=== PATIENT | female | born 1960 | race Caucasian/White ===

== ENCOUNTER 2019-05-31 15:08 | Outpatient (RCR) | payer MEDICARE, SELFPAY | END 2019-06-13 00:01 | LOC: WOUND 15:08 | PROVIDERS: Family Provider Nurse Practitioner Family; Visit Provider Nurse Practitioner Family | DX: I87.2 Venous insufficiency (chronic) (peripheral) (principal); L97.812 Non-pressure chronic ulcer of other part of right lower leg with fat layer exposed; I96 Gangrene, not elsewhere classified; M79.604 Pain in right leg | CPT/HCPCS: 11042; 87070; 87077; 87176; 87186 ×2; 87205; 93970 ==

== ENCOUNTER 2019-07-12 10:08 | Outpatient (RCR) | payer MEDICARE, SELFPAY | END 2019-07-14 23:59 | disposition home or self-care (01) | LOC: WOUND 10:08 | PROVIDERS: Family Provider Nurse Practitioner Family; PCP Nurse Practitioner Family; Visit Provider Nurse Practitioner Family | DX: I87.2 Venous insufficiency (chronic) (peripheral) (principal); L97.812 Non-pressure chronic ulcer of other part of right lower leg with fat layer exposed | CPT/HCPCS: 11042; 11045 ==

== ENCOUNTER 2019-08-09 13:01 | Outpatient (RCR) | payer MEDICARE, SELFPAY | END 2019-08-12 23:59 | disposition home or self-care (01) | LOC: WOUND 13:01 | PROVIDERS: Family Provider Nurse Practitioner Family; PCP Nurse Practitioner Family; Visit Provider Nurse Practitioner Family | DX: I87.2 Venous insufficiency (chronic) (peripheral) (principal); L97.812 Non-pressure chronic ulcer of other part of right lower leg with fat layer exposed | CPT/HCPCS: 11042; 11045; 87070; 87077; 87176; 87186; 87205 ==

== ENCOUNTER 2019-09-04 09:48 | Outpatient (RCR) | payer MEDICARE, SELFPAY | END 2019-09-12 23:59 | disposition home or self-care (01) | LOC: WOUND 09:48 | PROVIDERS: Family Provider Nurse Practitioner Family; PCP Nurse Practitioner Family; Visit Provider Nurse Practitioner Family | DX: I87.2 Venous insufficiency (chronic) (peripheral) (principal); L97.812 Non-pressure chronic ulcer of other part of right lower leg with fat layer exposed | CPT/HCPCS: 11042; 11045 ==

== ENCOUNTER 2019-10-12 10:57 | Outpatient (RCR) | payer MEDICARE, SELFPAY | END 2019-10-12 23:59 | disposition home or self-care (01) | LOC: WOUND 10:57 | PROVIDERS: Family Provider Nurse Practitioner Family; PCP Nurse Practitioner Family; Visit Provider Nurse Practitioner Family | DX: I87.2 Venous insufficiency (chronic) (peripheral) (principal); L97.812 Non-pressure chronic ulcer of other part of right lower leg with fat layer exposed | CPT/HCPCS: 11042; 11045 ==

== ENCOUNTER 2019-10-26 10:53 | Outpatient (CLI) | payer MEDICARE, SELFPAY | END 2019-10-26 10:54 | disposition home or self-care (01) | LOC: WOUND 10:55 | PROVIDERS: Family Provider Nurse Practitioner Family; PCP Nurse Practitioner Family; Visit Provider Nurse Practitioner Family | DX: I87.2 Venous insufficiency (chronic) (peripheral) (principal); L97.812 Non-pressure chronic ulcer of other part of right lower leg with fat layer exposed | CPT/HCPCS: 11042 ==

== ENCOUNTER 2019-11-16 14:23 | Outpatient (CLI) | payer MEDICARE, SELFPAY | END 2019-11-16 14:24 | disposition home or self-care (01) | LOC: WOUND 14:25 | PROVIDERS: Family Provider Nurse Practitioner Family; PCP Nurse Practitioner Family; Visit Provider Nurse Practitioner Family | DX: I87.2 Venous insufficiency (chronic) (peripheral) (principal); L97.812 Non-pressure chronic ulcer of other part of right lower leg with fat layer exposed | CPT/HCPCS: 11042 ==

== ENCOUNTER 2019-12-07 14:43 | Outpatient (CLI) | payer MEDICARE, SELFPAY | END 2019-12-07 14:44 | disposition home or self-care (01) | LOC: WOUND 14:46 | PROVIDERS: Family Provider Nurse Practitioner Family; PCP Nurse Practitioner Family; Visit Provider Nurse Practitioner Family | DX: I87.2 Venous insufficiency (chronic) (peripheral) (principal); L97.812 Non-pressure chronic ulcer of other part of right lower leg with fat layer exposed | CPT/HCPCS: 11042 ==

== ENCOUNTER 2020-01-01 08:44 | Outpatient (CLI) | payer MEDICARE, SELFPAY | END 2020-01-01 08:45 | disposition home or self-care (01) | PROVIDERS: Family Provider Nurse Practitioner Family; PCP Nurse Practitioner Family; Visit Provider Nurse Practitioner Family | DX: I87.2 Venous insufficiency (chronic) (peripheral) (principal); L97.812 Non-pressure chronic ulcer of other part of right lower leg with fat layer exposed | CPT/HCPCS: 11042 ==

== ENCOUNTER 2020-01-15 08:52 | Outpatient (CLI) | payer MEDICARE, SELFPAY | END 2020-01-15 08:53 | disposition home or self-care (01) | LOC: WOUND 08:54 | PROVIDERS: Family Provider Nurse Practitioner Family; PCP Nurse Practitioner Family; Visit Provider Nurse Practitioner Family | DX: I87.2 Venous insufficiency (chronic) (peripheral) (principal); L97.812 Non-pressure chronic ulcer of other part of right lower leg with fat layer exposed | CPT/HCPCS: 11042 ==

== ENCOUNTER 2020-01-29 09:45 | Outpatient (CLI) | payer MEDICARE, SELFPAY | END 2020-01-29 09:46 | disposition home or self-care (01) | LOC: WOUND 09:46 | PROVIDERS: Family Provider Nurse Practitioner Family; PCP Nurse Practitioner Family; Visit Provider Nurse Practitioner Family | DX: I87.2 Venous insufficiency (chronic) (peripheral) (principal); L97.812 Non-pressure chronic ulcer of other part of right lower leg with fat layer exposed | CPT/HCPCS: 11042; 87070; 87077; 87176; 87186; 87205 ==

== ENCOUNTER 2020-02-29 13:01 | Outpatient (CLI) | payer MEDICARE, SELFPAY | END 2020-02-29 13:02 | disposition home or self-care (01) | LOC: WOUND 13:02 | PROVIDERS: Family Provider Nurse Practitioner Family; PCP Nurse Practitioner Family; Visit Provider Nurse Practitioner Family | DX: I87.2 Venous insufficiency (chronic) (peripheral) (principal); L97.812 Non-pressure chronic ulcer of other part of right lower leg with fat layer exposed | CPT/HCPCS: 11042 ==

== ENCOUNTER 2020-03-18 10:51 | Outpatient (CLI) | payer MEDICARE, SELFPAY | END 2020-03-18 10:52 | disposition home or self-care (01) | LOC: WOUND 10:51 | PROVIDERS: Family Provider Nurse Practitioner Family; PCP Nurse Practitioner Family; Visit Provider Nurse Practitioner Family | DX: I87.2 Venous insufficiency (chronic) (peripheral) (principal); L97.812 Non-pressure chronic ulcer of other part of right lower leg with fat layer exposed | CPT/HCPCS: 11042 ==

== ENCOUNTER 2020-04-08 15:27 | Outpatient (CLI) | payer MEDICARE, SELFPAY ==
[2020-04-08 15:54] LABS: Basophils % 0.5 %; Eosinophils # 0.2 10^3/uL (0.0-0.8); Eosinophils % 2.2 %; Hematocrit 48.7 % (37.0-47.0); Hemoglobin 14.8 g/dL (11.5-15.3); Lymphocytes # 1.9 10^3/uL (0.8-4.8); Lymphocytes % 25.6 %; Mean Corpuscular HGB Conc 30.4 g/dL (30.0-36.0); Mean Corpuscular Hemoglobin 28.3 pg (28.0-34.0); Mean Corpuscular Volume 93.1 fL (81-99); Mean Platelet Volume 10.2 fL (7.4-10.4); Monocytes # 0.4 10^3/uL (0.2-0.9); Neutrophils # 4.82 10^3/uL (1.8-7.7); Neutrophils % 65.6 %; Nucleated Red Blood Cells % 0 %; Platelet Count 260 10^3/cmm (130-400); Red Blood Count 5.23 10^6/uL (4.1-5.3); Red Cell Distribution Width 14.2 % (12.1-15.1); White Blood Count 7.4 10^3/uL (4.0-10.0)
[2020-04-08 16:39] LABS: Alanine Aminotransferase 16 U/L (0-33); Albumin Level 3.8 g/dL (3.5-5.2); Alkaline Phosphatase 105 IU/L (35-105); Aspartate Amino Transferase 15 U/L (0-32); Blood Urea Nitrogen 12 mg/dL (6-20); Calcium 8.6 mg/dL (8.5-10.5); Carbon Dioxide 30 mmol/L (22-29); Chloride 102 mmol/L (98-107); Chol HDL Ratio 3.25 mg/dL (0.0-4.40); Cholesterol 130 mg/dL (0-200); Globulin 3.6 g/dL (1.3-4.6); Glomerular Filtration Rate 127.2 mL/min (90-130); Glucose 107 mg/dL (65-115); HDL Cholesterol 40 mg/dL (60-100); LDL Cholesterol Calculated 69 mg/dL (50-129); Osmolality Calculated 290 mOsm/kg (285-295); Sodium 140 mmol/L (136-145); Total Bilirubin 0.3 mg/dL (0.15-1.2); Total Protein 7.4 g/dL (6.6-8.7); Triglycerides 103 mg/dL (0-150); VLDL Cholestrol Calculation 21 mg/dL (0-30)
== END 2020-04-08 15:28 | disposition home or self-care (01) ==
LOC: LAB 15:28
PROVIDERS: Nurse Practitioner; Family Provider Nurse Practitioner Family; PCP Nurse Practitioner Family; Visit Provider Family Medicine
DX: I87.2 Venous insufficiency (chronic) (peripheral) (principal); L97.812 Non-pressure chronic ulcer of other part of right lower leg with fat layer exposed
CPT/HCPCS: 80053; 80061; 85025

== ENCOUNTER 2020-08-13 06:59 | Outpatient (CLI) | payer MEDICARE, SELFPAY ==
--- NOTE | 2020-08-13 07:00 | USCV_ITS ---
Evelyn Vail Age: 59 Gender: F : 1960 Exam Date: 08/13/2020 07:19 Ordering Phys: Carlene Taylor Technologist: Jaclyn Ratliff Exam Location: [facility] [place]_ Indication: CELLULITIS HISTORY: PT ST 550 LBS DENIES DM VERY EDEMATOUS PROCEDURES: Venous duplex imaging was performed in only the left lower extremity. The following venous structures were evaluated: common femoral vein, profunda vein, proximal portion of the greater saphenous vein, superficial femoral vein, and the popliteal vein. In addition, the posterior tibial and peroneal trunk were evaluated. FINDINGS: No gross evidence dvt. Distal sff not well seen. Very edematous Multiple echo lucencies were noted in the subcutaneous tissue. CONCLUSIONS No obvious DVT was noted in the left lower extremity Difficult to visualize the veins of the lower leg. Features of marked edema were noted Dr Yolanda Scott MD [facility] (Electronically Signed) Final Date: 14 August 2020 05:51 S
== END 2020-08-13 07:00 | disposition home or self-care (01) ==
LOC: RAD 07:02
PROVIDERS: PCP Nurse Practitioner Family; Visit Provider Nurse Practitioner
DX: R60.0 Localized edema (principal); L03.90 Cellulitis, unspecified
CPT/HCPCS: 93971

== ENCOUNTER 2020-08-13 07:42 | Emergency (ER) | payer MEDICARE, SELFPAY ==
[2020-08-13 07:47] VITALS: BP 186/95; PULSE 85; RESP 18; TEMP 36.8; O2SAT 96; BMI 86.1
[2020-08-13 08:13] VITALS: PULSE 77; RESP 18; O2SAT 96
--- NOTE | 2020-08-13 08:18 | ED_ITS ---
HPI - Extremity Problem General: Chief complaint: Extremity Problem,Nontraumatic Stated complaint: Lt leg infection/pain Time Seen by Provider: 08/13/20 07:46 History of Present Illness: HPI Narrative: 59-year-old female who comes in complaining of left leg pain. Patient has chronic lymphedema. She was seen a week ago and their primary care clinic and started on Keflex did not really seem to improve at all she was referred for a venous duplex of the left lower leg which she had this morning she was verbally told by the tech there was no DVT there. Reports not yet available. Patient decided since she was here she would just be seen in the emergency room rather than return to her primary care clinic this morning. MD Complaint: extremity pain and extremity swelling Onset (ago): week(s) (1) Pain Consistency: constant Location: left and lower extremity Quality: aching Radiation: none Relieving factors: nothing Exacerbating factors: walking and palpation Associated symptoms: Reports rash; Deny arthralgias, chest pain, fever(s), myalgias or short of breath Context: immobilization (Chronic sedentary) and other (Chronic lymphedema) Review of Systems Const: Denies: fever(s) ENMT: Denies: throat pain, ear or mastoid pain, nasal discharge or nasal congestion Card: Denies: chest pain Resp: Denies: dyspnea, productive cough or non-productive cough GI: Denies: abdominal pain, nausea, vomiting or diarrhea : Denies: flank pain, difficulty voiding, dysuria, urinary frequency or urinary urgency Skin/Breast: Reports: rash PFSH ED PFSH: Medical History Chronic acquired lymphedema Chronic osteoarthritis Fibromyalgia Hypertension Hyperthyroidism Morbid obesity Peripheral vascular disease Sleep apnea Vitamin D deficiency Surgical History History of delivery Hx of cholecystectomy Hx of hysterectomy Family History Other Cancer Diabetes Social History Smoking and tobacco status: current every day smoker cigarettes Packs smoked per day: 1 Second hand smoke exposure: Yes Smoking risk assessment/counseling performed?: Yes Alcohol intake: never Desire information about alcohol rehabilitation?: No Counseling given: No Desire information about substance/drug rehabilitation?: No Counseling given: No Caregiver/support person: No Lives independently: Yes Household members: spouse Housing: House Marital status: Number of children: 2 Number of grandchildren: 3 Highest education level completed: High School Graduate service: No Current occupational status: disabled Pets and animals: No Current gender identity: Female Female Reproductive History: Para: 2 Physical Exam Const: COMMON NORMALS: no acute distress GENERAL APPEARANCE: cooperative and comfortable ORIENTATION/CONSCIOUSNESS: Yes awake, Yes oriented to person, Yes oriented to place and Yes oriented to time HENMT: COMMON NORMALS: normocephalic, atraumatic and hearing grossly normal bilaterally HEAD & SCALP: normocephalic and atraumatic Neck/C-Spine: COMMON NORMALS: no JVD Resp: COMMON NORMALS: normal respiratory effort, No retractions, No use of accessory muscles and clear to auscultation bilaterally AUSCULTATION: clear to auscultation bilaterally Cardio: COMMON NORMALS: no JVD, regular rate, regular rhythm and No murmurs present (Cardio) RATE: regular rate RHYTHM: regular rhythm GI: COMMON NORMALS: Soft to palpation and No hepatosplenomegaly present AUSCULTATION: Yes normoactive bowel sounds PALPATION: Yes Soft to palpation, No Tenderness to palpation present (GI), No Guarding due to palpation present (GI) and Yes No hepatosplenomegaly present Extremity: NARRATIVE EXTREMITY EXAM: Bilateral profound lymphedema with skin rolls at the ankles. There is a right lateral ulcer just above the lateral malleolus. Its approximately 2 inches irregular round. There is a mucousy base eschar with no significant erythema no active drainage. The left lower leg from the knee to the ankle is significantly more edematous with bullous formation of the skin it is erythematous and moderately tender to the touch examination of the posterior aspect the leg there is no appearance of skin breakdown or ulceration at this time. The skin itself is erythematous and warm to the touch with increased induration of the skin compared to the right lower leg. Neuro: SENSORIUM/ORIENTATION: Yes oriented to person, Yes oriented to place and Yes oriented to time Course Vital Signs: Vital signs: Vital Signs Temperature 98.2 F 08/13/20 07:47 Pulse Rate 79 08/13/20 09:00 Respiratory Rate 20 H 08/13/20 09:00 Blood Pressure 186/95 08/13/20 07:47 Pulse Oximetry 98 08/13/20 09:00 MDM - Extremity (Nontraumatic) MDM Narrative: Medical decision making narrative: We will change her to Bactrim. Recommended to her that she follow-up with wound care. Very concerned about that right lateral ankle wound is fairly large looks chronic with her chronic lymphedema in the setting will likely linger on if not aggressively treated. I suspect she may also develop something with the significant amount of lymphedema she has on the left leg she states she has been to wound care in the past and does not wish to follow-up with them again. With home health has been applying dressings to the legs. Despite encouragement she continues to decline our only other recourse at this point is have her follow-up with her primary care physician. Lab Data: Labs: Lab Results 08/13/20 08/13/20 08/13/20 Range/Units 08:43 08:43 09:25 WBC Cancelled 6.4 Corrected WBC Cancelled RBC Cancelled 4.82 Hgb Cancelled 13.4 Hct Cancelled 43.9 MCV Cancelled 91.1 MCH Cancelled 27.8 L MCHC Cancelled 30.5 RDW Cancelled 13.8 Plt Count Cancelled 290 MPV Cancelled 9.2 Gran % Cancelled Neut % (Auto) Cancelled 69.1 Lymph % (Auto) Cancelled 20.8 [place] % (Auto) Cancelled 7.7 Eos % (Auto) Cancelled 1.6 Baso % (Auto) Cancelled 0.6 Neut # (Auto) Cancelled 4.41 Lymph # (Auto) Cancelled 1.3 [place] # (Auto) Cancelled 0.5 Eos # (Auto) Cancelled 0.1 Baso # (Auto) Cancelled 0.0 Absolute Gran (aut o) Cancelled Nucleated RBC % (a uto) Cancelled 0 Nucleated RBCs # Cancelled 0.0 Sodium 138 (136-145) mmol/L Potassium 4.5 (3.5-5.1) mmol/L Chloride 100 (98-107) mmol/L Carbon Dioxide 30 H (22-29) mmol/L Anion Gap 12.5 (5-19) BUN 10 (6-20) mg/dL Creatinine 0.5 (0.5-0.9) mg/dL GFR Calculation 127.2 (90-130) mL/min Glucose 103 (65-115) mg/dL Calculated Osmolal ity 285 (285-295) mOsm/k g Calcium 8.3 L (8.5-10.5) mg/dL Total Bilirubin 0.3 (0.15-1.2) mg/dL AST 17 (0-32) U/L ALT 17 (0-33) U/L Alkaline Phosphata se 103 (35-105) IU/L Total Protein 7.1 (6.6-8.7) g/dL Albumin 3.4 L (3.5-5.2) g/dL Globulin 3.7 (1.3-4.6) g/dL Discharge Plan Discharge Patient Disposition: Home Clinical Impression: Cellulitis, Chronic acquired lymphedema Condition: Stable Prescriptions: New Bactrim DS 800-160 mg tablet 1 tab PO BID Qty: 14 RF: 0 No Action zonisamide 100 mg capsule 100 mg PO BID Qty: 60 RF: 2 amitriptyline 25 mg tablet 25 mg PO .at bedtime Qty: 30 RF: 2 fluoxetine [Prozac] 20 mg capsule 20 mg PO BID RF: 0 Probiotic Digestive Care 20 billion cell capsule 20 cell PO .2 times day Qty: 60 RF: 0 lisinopril-hydrochlorothiazide 20-25 mg tablet 1 tab PO QDAY Qty: 30 RF: 5 methocarbamol 500 mg tablet 500 mg PO BID Qty: 60 RF: 5 meloxicam 15 mg tablet 15 mg PO QDAY 30 Days Qty: 30 RF: 5 acetaminophen-codeine 300-60 mg tablet 1 tab PO Q8H PRN (Reason: pain) Qty: 90 RF: 0 cephalexin 500 mg capsule 500 mg PO TID 10 Days Qty: 30 RF: 0 miscellaneous medical supply Misc 1 each miscellaneous .one time Qty: 1 RF: 0 (DME) wheelechair repair [id number] See Rx Instructions .Route .MEDSUPPLY Qty: 1 RF: 0 Discharge Orders: Discharge ED (Routine); Ordered 08/13/20 Ordered By: Lionel Oneill Referrals: Althea Johnson FNP-C [Primary Care Provider] - Discharge Diet: Usual diet Discharge Activity: Resume usual activity Patient Instructions: Opioid Safety Coding Level of Care Code ED Marketing Content Specialist for Chg Fwd Exam Detailed
--- NOTE | 2020-08-13 08:53 | PC.NURSE ---
patient stated she had puncture wound to right lower leg x [address].
[2020-08-13 09:00] VITALS: PULSE 79; RESP 20; O2SAT 98
[2020-08-13 09:11] LABS: Alanine Aminotransferase 17 U/L (0-33); Albumin Level 3.4 g/dL (3.5-5.2); Alkaline Phosphatase 103 IU/L (35-105); Blood Urea Nitrogen 10 mg/dL (6-20); Calcium 8.3 mg/dL (8.5-10.5); Carbon Dioxide 30 mmol/L (22-29); Chloride 100 mmol/L (98-107); Globulin 3.7 g/dL (1.3-4.6); Glomerular Filtration Rate 127.2 mL/min (90-130); Glucose 103 mg/dL (65-115); Osmolality Calculated 285 mOsm/kg (285-295); Sodium 138 mmol/L (136-145); Total Bilirubin 0.3 mg/dL (0.15-1.2); Total Protein 7.1 g/dL (6.6-8.7)
[2020-08-13 09:19] LABS: Anion Gap 12.5 (5-19); Potassium 4.5 mmol/L (3.5-5.1)
[2020-08-13 09:20] LABS: Aspartate Amino Transferase 17 U/L (0-32)
[2020-08-13] MEDS: HYDROcodone-acetaminophen 5-325 mg Tablet 1 TAB PO (09:30)
[2020-08-13 09:34] LABS: Basophils % 0.6 %; Eosinophils # 0.1 10^3/uL (0.0-0.8); Eosinophils % 1.6 %; Hematocrit 43.9 % (37.0-47.0); Hemoglobin 13.4 g/dL (11.5-15.3); Lymphocytes # 1.3 10^3/uL (0.8-4.8); Lymphocytes % 20.8 %; Mean Corpuscular HGB Conc 30.5 g/dL (30.0-36.0); Mean Corpuscular Hemoglobin 27.8 pg (28.0-34.0); Mean Corpuscular Volume 91.1 fL (81-99); Mean Platelet Volume 9.2 fL (7.4-10.4); Monocytes # 0.5 10^3/uL (0.2-0.9); Monocytes % 7.7 %; Neutrophils # 4.41 10^3/uL (1.8-7.7); Neutrophils % 69.1 %; Nucleated Red Blood Cells % 0 %; Platelet Count 290 10^3/cmm (130-400); Red Blood Count 4.82 10^6/uL (4.1-5.3); Red Cell Distribution Width 13.8 % (12.1-15.1); White Blood Count 6.4 10^3/uL (4.0-10.0)
[2020-08-13 10:10] VITALS: BP 187/102; PULSE 76; RESP 18; O2SAT 97
== END 2020-08-13 10:12 | disposition home or self-care (01) ==
PROVIDERS: Emergency Provider Family Medicine; PCP Nurse Practitioner Family
DX: L03.116 Cellulitis of left lower limb (principal); I89.0 Lymphedema, not elsewhere classified; I10 Essential (primary) hypertension; F17.210 Nicotine dependence, cigarettes, uncomplicated; R60.0 Localized edema; L03.90 Cellulitis, unspecified
CPT/HCPCS: 36415; 80053; 85025; 87040; 93971; 99283

== ENCOUNTER 2020-12-27 14:25 | Outpatient (CLI) | payer MEDICARE, SELFPAY | END 2020-12-27 14:26 | disposition home or self-care (01) | LOC: LAB 14:27 | PROVIDERS: PCP Nurse Practitioner Family; Visit Provider Nurse Practitioner | DX: I87.2 Venous insufficiency (chronic) (peripheral) (principal) | CPT/HCPCS: 87070; 87077; 87186 ==

== ENCOUNTER → 2021-01-07 14:57 | Outpatient (BNVA) | payer MEDICARE, SELFPAY | PROVIDERS: PCP Nurse Practitioner Family; Visit Provider Nurse Practitioner Family | DX: J02.9 Acute pharyngitis, unspecified (principal); K12.1 Other forms of stomatitis | CPT/HCPCS: 87071; 87880 ==

== ENCOUNTER 2022-04-09 12:07 | Inpatient (IN) | payer MEDICARE, SELFPAY ==
[2022-04-09] VITALS (24 sets, daily range): BP systolic 101–145; BP diastolic 58–71; PULSE 53–90; RESP 18–22; TEMP 36.5–36.6; O2SAT 79–96
--- NOTE | 2022-04-09 | CTR_ITS ---
PROCEDURE INFORMATION: Exam: CT Right Lower Extremity Without Contrast, Foot Exam date and time: 04/09/2022 6:06 PM Age: 61 years old Clinical indication: Cellulitis and edema and other: Crater; Location not specified; Foot; Right; Additional info: Cellulitis, with crater in above RT ankle. TECHNIQUE: Imaging protocol: CT of the Right lower extremity without contrast was performed. Exam focused on the foot. Radiation optimization: All CT scans at this facility use at least one of these dose optimization techniques: automated exposure control; mA and/or kV adjustment per patient size (includes targeted exams where dose is matched to clinical indication); or iterative reconstruction. COMPARISON: CR XR foot RT min 3V* [id number] 01/12/2017 1:33 PM RADIATION DOSE METRICS: Total DLP (mGy-cm): 4038.56 FINDINGS: Bones/joints: See Soft tissues finding. Soft tissues: Large amount diffuse subcutaneous edema throughout the lower extremity without focal fluid collection to indicate an abscess or acute appearing bony abnormality. Suspected cutaneous skin ulcer over the lateral aspect of the distal fibula. CT/CT lower leg RT w con [id number] IMPRESSION: 1. Large amount diffuse subcutaneous edema throughout the lower extremity without focal fluid collection to indicate an abscess or acute appearing bony abnormality. 2. Suspected cutaneous skin ulcer over the lateral aspect of the distal fibula.
--- NOTE | 2022-04-09 12:27 | W.ED.EXTPRO ---
HPI - Extremity Problem General: Chief complaint: Extremity Problem,Nontraumatic Stated complaint: Leg pain, fever Time Seen by Provider: 04/09/22 12:27 History of Present Illness: Ms. Vail is a 61-year-old lady with history of hypertension, peripheral vascular disease, lymphedema, obesity presenting to the emergency department due to concern over cute infection of chronic wound. She has had a right lower extremity wound for approximately 5 years. She previously saw wound care that did not have significant improvement because of her wound she is unable to be seen by the lymphedema team. 3 days ago she developed increased pain, redness, swelling, fevers, chills, nausea, and vomiting. Course of symptoms has worsened. Intensity is moderate to severe. Was seen by primary care and referred to emergency department for further evaluation. Onset (ago): day(s) Pain Consistency: constant Location: right and lower extremity Exacerbating factors: weight bearing and walking Associated symptoms: Reports fever(s) and other Review of Systems General: Reports: 10 or more systems reviewed and unremarkable except in HPI and below Const: Reports: fever(s) PFSH ED PFSH: Medical History Chronic acquired lymphedema Chronic osteoarthritis Fibromyalgia YAKOV (generalized anxiety disorder) Hypertension Hyperthyroidism Morbid obesity Peripheral vascular disease Sleep apnea Vitamin D deficiency Surgical History History of delivery Hx of cholecystectomy Hx of hysterectomy Family History Other Cancer Diabetes Social History Smoking and tobacco status: never smoked Second hand smoke exposure: Yes Smoking risk assessment/counseling performed?: Yes Alcohol intake: never Desire information about alcohol rehabilitation?: No Counseling given: No Desire information about substance/drug rehabilitation?: No Counseling given: No Caregiver/support person: No Lives independently: Yes Household members: spouse Housing: House Marital status: Number of children: 2 Number of grandchildren: 3 Highest education level completed: High School Graduate service: No Current occupational status: disabled Pets and animals: No Current gender identity: Female Female Reproductive History: Para: 2 Physical Exam Const: COMMON NORMALS: alert GENERAL APPEARANCE: cooperative and well developed HENMT: COMMON NORMALS: normocephalic and atraumatic HEAD & SCALP: normocephalic and atraumatic Eye: COMMON NORMALS: conjunctivae normal CONJUNCTIVA: Yes conjunctivae normal SCLERA: sclerae normal Neck/C-Spine: COMMON NORMALS: supple GENERAL: Yes trachea midline Resp: COMMON NORMALS: normal respiratory effort EFFORT & INSPECTION: Yes able to speak in complete sentences Cardio: COMMON NORMALS: regular rate and regular rhythm RATE: regular rate RHYTHM: regular rhythm GI: COMMON NORMALS: Soft to palpation PALPATION: Yes Soft to palpation and No Tenderness to palpation present (GI) PERCUSSION: normal to percussion Extremity: NARRATIVE EXTREMITY EXAM: Significant bilateral lower extremity lymphedema with chronic skin changes. Right lower extremity anterior lateral [place] region open wound. Wound is approximately 6 cm x 3 cm with a depth of approximately 2 cm. Fibrinous material at base of wound. Difficult to assess surrounding erythema again given chronic skin changes associated with edema and vascular disease. GENERAL: Yes normal exam except as noted and No edema Neuro: COMMON NORMALS: moves all extremities SENSORIUM/ORIENTATION: Yes alert and No Orientation impaired Psych: COMMON NORMALS: mental status grossly normal and Normal thought process present THOUGHT PROCESS: Normal thought process present Course Vital Signs: Vital signs: Vital Signs Temperature 98.2 F 04/12/22 15:30 Pulse Rate 67 04/12/22 18:12 Respiratory Rate 22 H 04/12/22 18:00 Blood Pressure 95/45 04/12/22 18:00 Pulse Oximetry 95 04/12/22 18:12 Oxygen Delivery Me thod 04/12/22 15:46 Oxygen Flow Rate 70 04/12/22 08:00 Fraction of Inspir ed Oxygen 65 04/12/22 18:12 MDM - Extremity (Nontraumatic) Medical Decision Making 61-year-old lady presenting with systemic symptoms and concern over acute on chronic wound infection. Patient has marked lymphedema and is mildly ill on exam. Lymphedema and chronic skin changes limits true skin assessment of erythema around the chronic wound though I do suspect in the absence of other reported symptoms at this is source of infection. Laboratory studies notable for leukocytosis. Metabolic panel with mild evidence of intravascular depletion with sodium 127 chloride 92, creatinine 1.2. T bili and AST are increased, unclear etiology. CRP and procalcitonin are markedly increased. 4+ bacteria on urinalysis though no clear other evidence of urinary tract infection, ?contamination. No COVID. During ED course analgesia, fluids, vancomycin, cefepime, metronidazole ordered given penicillin allergy for concern over skin source of infection. Based on ED evaluation I believe that the patient requires inpatient management of acute on chronic wound with evidence of systemic infection. The results of ED evaluation were discussed with the patient including plan for admission due to requirement for level of care not available if discharged to prevent significant worsening/deterioration. Patient agreeable with plan. Hospitalist service contacted and agreed to admit the patient. Medical Records I reviewed the patient's medical records. Lab Data I reviewed the patient's lab results. : 04/12/22 03:40 04/12/22 03:40 Radiology Impressions Lower Extremity CT 04/09/22 00:00 IMPRESSION: 1. Large amount diffuse subcutaneous edema throughout the lower extremity without focal fluid collection to indicate an abscess or acute appearing bony abnormality. 2. Suspected cutaneous skin ulcer over the lateral aspect of the distal fibula. KUB X-Ray 04/11/22 07:37 IMPRESSION: Nonspecific bowel gas pattern, as noted above. Renal Ultrasound 04/12/22 15:56 IMPRESSION: 1. Examination is limited secondary to body habitus. 2. Urinary bladder is not visualized. 3. The abdominal aorta is obscured. 4. No obvious hydronephrosis. 5. Probable echogenic right renal cortex compared to the liver consistent with bilateral medical renal disease. Laboratory Results WBC 12.6 10^3/uL (4.0-10.0) H 04/09/22 14:25 RBC 4.86 10^6/uL (4.1-5.3) 04/09/22 14:25 Hgb 13.9 g/dL (11.5-15.3) 04/09/22 14:25 Hct 43.3 % (37.0-47.0) 04/09/22 14:25 MCV 89.1 fl (81-99) 04/09/22 14:25 MCH 28.6 pg (28.0-34.0) 04/09/22 14:25 MCHC 32.1 g/dL (30.0-36.0) 04/09/22 14:25 RDW 16.8 % (12.1-15.1) H 04/09/22 14:25 Plt Count 145 10^3/cmm (130-400) 04/09/22 14:25 MPV 10.4 fL (7.4-10.4) 04/09/22 14:25 Lymph % (Auto) Not Reportable 04/09/22 14:25 [place] % (Auto) Not Reportable 04/09/22 14:25 Lymph # (Auto) Not Reportable 04/09/22 14:25 [place] # (Auto) Not Reportable 04/09/22 14:25 Total Counted 100 (0-100) 04/09/22 14:25 Atypical Lymphs % 1.0 % (0-5) 04/09/22 14:25 Absolute Neutrophils 11.8 10^3/cmm (1.4-6.5) H 04/09/22 14:25 Segmented Neutrophils 91 % 04/09/22 14:25 Abs Segm Neuts (Man) 11.5 10/cmm (1.6-7.1) H 04/09/22 14:25 Band Neutrophils 3.0 % 04/09/22 14:25 Abs Band Neuts (Man) 0.4 10^3/cmm (0.0-1.2) 04/09/22 14:25 Absolute Lymphocytes 0.6 10^3/cmm (1.2-3.4) L 04/09/22 14:25 Lymphocytes (Manual) 4 % 04/09/22 14:25 Monocytes (Manual) 1.0 % 04/09/22 14:25 Absolute Monocytes 0.1 10^3/cmm (0.1-0.6) 04/09/22 14:25 Eosinophils (Manual) 0 % 04/09/22 14:25 Absolute Eosinophils 0.0 10^3/cmm (0.0-0.7) 04/09/22 14:25 Basophils (Manual) 0.0 % 04/09/22 14:25 Absolute Basophils 0.0 10^3/cmm (0.0-0.2) 04/09/22 14:25 Platelet Estimate Normal (Normal) 04/09/22 14:25 Giant Platelets Trace 04/09/22 14:25 Polychromasia Trace 04/09/22 14:25 Hypochromasia Trace 04/09/22 14:25 Poikilocytosis Trace 04/09/22 14:25 Anisocytosis Trace 04/09/22 14:25 Microcytosis Trace 04/09/22 14:25 Macrocytosis Trace 04/09/22 14:25 Spherocytes Trace 04/09/22 14:25 Target Cells Trace 04/09/22 14:25 Tear Drop Cells Trace 04/09/22 14:25 Ovalocytes Trace 04/09/22 14:25 Carlos Cells Trace 04/09/22 14:25 ESR 24 mm/hr (0-15) H 04/09/22 14:25 Sodium 127 mmol/L (136-145) L 04/09/22 14:25 Potassium 3.5 mmol/L (3.5-5.1) 04/09/22 14:25 Chloride 92 mmol/L (98-107) L 04/09/22 14:25 Carbon Dioxide 22 mmol/L (22-29) 04/09/22 14:25 Anion Gap 16.5 (5-19) 04/09/22 14:25 BUN 27 mg/dL (6-20) H 04/09/22 14:25 Creatinine 1.2 mg/dL (0.5-0.9) H 04/09/22 14:25 GFR Calculation 46.0 mL/min (90-130) L 04/09/22 14:25 Glucose 93 mg/dL (65-115) 04/09/22 14:25 Calculated Osmolality 269 mOsm/kg (285-295) L 04/09/22 14:25 Lactate 2.9 mmol/L (0.5-2.2) H 04/09/22 14:25 Calcium 8.1 mg/dL (8.5-10.5) L 04/09/22 14:25 Total Bilirubin 1.5 mg/dL (0.15-1.2) H 04/09/22 14:25 AST 53 U/L (0-32) H 04/09/22 14:25 ALT 20 U/L (0-33) 04/09/22 14:25 Alkaline Phosphatase 128 U/L (35-105) H 04/09/22 14:25 C-Reactive Protein 369.2 mg/L (0.0-4.9) H 04/09/22 14:25 Total Protein 6.8 g/dL (6.6-8.7) 04/09/22 14:25 Albumin 2.9 g/dL (3.5-5.2) L 04/09/22 14:25 Globulin 3.9 g/dL (1.3-4.6) 04/09/22 14:25 Procalcitonin 11.03 ng/mL (0-0.5) H 04/09/22 14:25 Urine Color [place] (Yellow) 04/09/22 15:30 Urine Appearance Clear (CLEAR) 04/09/22 15:30 Urine pH 5 (5-7) 04/09/22 15:30 Ur Specific [place] 1.025 (1.005-1.030) 04/09/22 15:30 Urine Protein 1+ (Negative) H 04/09/22 15:30 Urine Glucose (UA) Norm (Normal) 04/09/22 15: Urine Ketones 1+ (Negative) H 04/09/22 15:30 Urine Blood 2+ (Negative) H 04/09/22 15:30 Urine Nitrate Negative (Negative) 04/09/22 15:30 Urine Bilirubin 1+ (Negative) H 04/09/22 15:30 Urine Urobilinogen 4 mg/dL (Negative) H 04/09/22 15:30 Ur Leukocyte Esterase Negative (Negative) 04/09/22 15:30 Urine RBC 0-4 /hpf (0-2) H 04/09/22 15:30 Urine WBC None /hpf (0-5) 04/09/22 15:30 Ur Squamous Epith Cells None /hpf (0-5) 04/09/22 15:30 Amorphous Sediment Not Reportable 04/09/22 15:30 Urine Bacteria 4+ /hpf (NONE) H 04/09/22 15:30 Coronavirus 229E (PCR) Not detected (NOT DETECT) 04/09/22 15:30 SARS-CoV-2 (PCR) Not detected (NOT DETECT) 04/09/22 15:30 Discharge Plan Discharge Patient Disposition: Admitted As Inpatient Admit Provider: Cornelio Snyder Clinical Impression: Wound infection Condition: Stable Coding Level of Care Code ED Dye Box Operator for g Fwd Exam Comprehensive
[2022-04-09] MEDS: morphine 4 mg/mL SDV 1 mL IVP (13:24)
[2022-04-09 14:37] LABS: Hematocrit 43.3 % (37.0-47.0); Hemoglobin 13.9 g/dL (11.5-15.3); Mean Corpuscular HGB Conc 32.1 g/dL (30.0-36.0); Mean Corpuscular Hemoglobin 28.6 pg (28.0-34.0); Mean Corpuscular Volume 89.1 fl (81-99); Mean Platelet Volume 10.4 fL (7.4-10.4); Platelet Count 145 10^3/cmm (130-400); Red Blood Count 4.86 10^6/uL (4.1-5.3); Red Cell Distribution Width 16.8 % (12.1-15.1); White Blood Count 12.6 10^3/uL (4.0-10.0)
[2022-04-09 14:44] LABS: Erythrocyte Sedimentation Rate 24 mm/hr (0-15)
[2022-04-09 15:00] LABS: Alanine Aminotransferase 20 U/L (0-33); Albumin Level 2.9 g/dL (3.5-5.2); Alkaline Phosphatase 128 U/L (35-105); Anion Gap 16.5 (5-19); Aspartate Amino Transferase 53 U/L (0-32); Blood Urea Nitrogen 27 mg/dL (6-20); Calcium 8.1 mg/dL (8.5-10.5); Carbon Dioxide 22 mmol/L (22-29); Chloride 92 mmol/L (98-107); Globulin 3.9 g/dL (1.3-4.6); Glucose 93 mg/dL (65-115); Osmolality Calculated 269 mOsm/kg (285-295); Potassium 3.5 mmol/L (3.5-5.1); Sodium 127 mmol/L (136-145); Total Bilirubin 1.5 mg/dL (0.15-1.2); Total Protein 6.8 g/dL (6.6-8.7)
[2022-04-09 15:07] LABS: Procalcitonin 11.03 ng/mL (0-0.5)
[2022-04-09 15:11] LABS: Absolute Neutrophil 11.8 10^3/cmm (1.4-6.5); Absolute Segmented Neutrophil 11.5 10/cmm (1.6-7.1); Band Neutrophils Absolute 0.4 10^3/cmm (0.0-1.2); Eosinophils 0 %; Lymphocytes 4 %; Lymphocytes Absolute 0.6 10^3/cmm (1.2-3.4); Monocytes Absolute 0.1 10^3/cmm (0.1-0.6); Platelet Estimate Normal (Normal); Segmented Neutrophils 91 %; Total Cells Counted 100 (0-100)
[2022-04-09 15:12] LABS: Anisocytosis Trace; C Reactive Protein 369.2 mg/L (0.0-4.9); Giant Platelets Trace; Hypochromasia Trace; Macrocytosis Trace; Microcytosis Trace; Poikilocytosis Trace; Polychromasia Trace; Spherocytes Trace; Target Cells Trace
[2022-04-09 15:13] LABS: Burr Cells Trace; Ovalocytes Trace; Tear Drop Cells Trace
[2022-04-09 15:38] LABS: Lactate (Lactic Acid level) 2.9 mmol/L (0.5-2.2)
[2022-04-09 15:55] LABS: Glucose Urine UA Norm (Normal); Ketones Urine 1+ (Negative); Protein Urine 1+ (Negative); Specific Gravity, Urine 1.025 (1.005-1.030); Urine Appearance Clear (CLEAR); Urine Color Amber (Yellow); pH Urine 5 (5-7)
[2022-04-09 15:56] LABS: Add Urine Microscopic? YES; Bilirubin Urine 1+ (Negative); Blood Urine 2+ (Negative); Leukocyte Esterase Urine Negative (Negative); Nitrate Urine Negative (Negative); Urobilinogen Urine 4 mg/dL (Negative)
[2022-04-09 15:57] LABS: Add Urine Culture? Yes; Bacteria Urine 4+ /hpf; RBC Urine 0-4 /hpf (0-2)
[2022-04-09] MEDS: cefepime 2,000 MG in sodium chloride 0.9% (plus) 50 ML 100 MG IV (16:55)
[2022-04-09] MEDS: metroNIDAZOLE IV 500 MG/100 ML PREMIX 100 MG IV (17:02)
--- NOTE | 2022-04-09 17:06 | P.HP_ITS ---
Providers/Chief Complaint Primary Care Provider: Chloe Gonzalez APN Chief Complaint: Leg pain, fever History of Present Illness Evelyn Vail is a 61 year old female history of lymphedema, presented today for vomiting, fever and chills. Patient is stating that she was seeing wound care clinic until COVID-19 pandemic and then she was getting home health services which she stopped using, presenting today with chief complaint of nausea, vomiting, fever and chills. Her symptoms started last few days and got worse gradually. Today she was not able to get up on her own and fell on the floor. In the ER she has been diagnosed with sepsis related to purulent cellulitis of right lower extremity She has received 2 L bolus along vancomycin, metronidazole and cefepime she has penicillin allergy I will request CT scan to rule out abscess Review of Systems Const: Reports: fever(s), chills and body aches Eyes: Denies: change in vision ENMT: Denies: throat pain Card: Denies: chest pain Resp: Denies: dyspnea GI: Reports: nausea and vomiting : Denies: flank pain Musc: Reports: extremity pain Skin/Breast: Reports: rash, skin tenderness, changing lesions and changes in skin color Neuro: Denies: headache(s) Psych: Reports: anxiety Endo: Denies: polyuria Saw/Lymph: Denies: easy bruising All/Imm: Denies: urticaria Medications/Allergies Home Medications Medication Instructions Recorded Confirmed Last Taken Type fluoxetine 20 mg capsule (Prozac) 20 mg PO BID #60 caps 11/20/21 04/09/22 Unknown Rx lisinopril 20 mg tablet 20 mg PO DAILY #30 tabs 11/20/21 04/09/22 Unknown Rx meloxicam 15 mg tablet 15 mg PO QDAY 30 days #30 tabs 11/20/21 04/09/22 Unknown Rx methocarbamol 500 mg tablet 500 mg PO BID #60 tabs 11/20/21 04/09/22 Unknown Rx pregabalin 100 mg capsule (Lyrica) 100 mg PO BID #60 caps 11/20/21 04/09/22 Unknown Rx acetaminophen 300 mg-codeine 60 mg 1 tab PO Q6H PRN Pain 04/09/22 04/09/22 Unknown History tablet Allergies Allergy/AdvReac Type Severity Reaction Status Date / Time Penicillins Allergy rash Verified 04/09/22 14:04 PFSH Acute PFSH: Medical History Chronic acquired lymphedema Chronic osteoarthritis Fibromyalgia YAKOV (generalized anxiety disorder) Hypertension Hyperthyroidism Morbid obesity Peripheral vascular disease Sleep apnea Vitamin D deficiency Surgical History History of delivery Hx of cholecystectomy Hx of hysterectomy Family History Other Cancer Diabetes Social History Smoking and tobacco status: never smoked Second hand smoke exposure: Yes Smoking risk assessment/counseling performed?: Yes Alcohol intake: never Desire information about alcohol rehabilitation?: No Counseling given: No Desire information about substance/drug rehabilitation?: No Counseling given: No Caregiver/support person: No Lives independently: Yes Household members: spouse Housing: House Marital status: Number of children: 2 Number of grandchildren: 3 Highest education level completed: High School Graduate service: No Current occupational status: disabled Pets and animals: No Current gender identity: Female Female Reproductive History: Para: 2 Vitals/I&O/Wt Last Vital Signs Temp 97.8 F 04/09/22 16:23 Pulse 70 04/09/22 16:23 Resp 22 H 04/09/22 16:23 BP 145/58 04/09/22 16:23 Pulse Ox 94 04/09/22 16:23 O2 Del Method 04/09/22 16:23 Physical Exam Narrative: Patient is awake and alert Morbidly obese Right leg lymphedema Open wound with purulent base There are signs of granulation tissue with purulent base Nontender to touch Lymphedema Distended abdomen Visceral obesity Currently on room air Awake and alert Nonfocal neuro exam No audible stridor or wheezing S1, S2 Pleasant during my evaluation Purulent cellulitis of right leg Data : 04/09/22 14:25 04/09/22 14:25 Micro: Microbiology 04/09/22 14:25 Blood Culture - Preliminary Blood SPECIMEN COLLECTED 04/09/22 14:25 Blood Culture - Preliminary Blood SPECIMEN COLLECTED A&P Assessment and plan (1) Wound infection: (2) Sepsis: (3) Chronic acquired lymphedema: (4) Peripheral vascular disease: (5) Neuropathic pain: (6) Stasis leg ulcer: Plan Abscess related to right lower extremity purulent cellulitis, sepsis present on admission Blood cultures have been obtained She had received 2 L of bolus She has received antibiotics Lactic acid is higher Sepsis criteria met with fever at home, leukocytosis high lactic acid with endorgan damage Continue IV antibiotics Continue IV fluids She might need debridement will touch with general surgery tomorrow morning I will do CT scan of her lower extremity with contrast to rule out abscess I will give her vancomycin cefepime and metronidazole for now She has penicillin allergy For her neuropathic pain continue Lyrica Check A1c level ANY related to use of lisinopril and sepsis Stop NSAIDs Full code Regular diet DVT prophylaxis Lovenox 30 mg twice daily for obesity Attestations Medical Necessity Statement*: Continue medical management anticipating more than 2 midnights Time Spent in Patient Care: 40 Coding Level of Care Code Acute Divisional Human Resources Director for [facility] Fwd Diagnoses Wound infection T14.8XXA; L08.9 Sepsis A41.9 Chronic acquired lymphedema I89.0 Peripheral vascular disease I73.9 Neuropathic pain M79.2 Stasis leg ulcer I83.009; L97.909
[2022-04-09 17:30] LABS: Adenovirus Not Detected (NOT DETECT); Chlamydia Pneumoniae Not Detected (NOT DETECT); Coronavirus 229E,HKU1,NL63,OC4 Not Detected (NOT DETECT); Human Metapneumovirus Not Detected (NOT DETECT); Human Rhinovirus/Enterovirus Not Detected (NOT DETECT); Influenza A Not Detected (NOT DETECT); Influenza A H1 Not Detected (NOT DETECT); Influenza A H1-2009 Not Detected (NOT DETECT); Influenza A H3 Not Detected (NOT DETECT); Influenza B Not Detected (NOT DETECT); Mycoplasma Pneumoniae Not Detected (NOT DETECT); Parainfluenza Virus Type 1 Not Detected (NOT DETECT); Parainfluenza Virus Type 2 Not Detected (NOT DETECT); Parainfluenza Virus Type 3 Not Detected (NOT DETECT); Parainfluenza Virus Type 4 Not Detected (NOT DETECT); Respiratory Syncytial Virus A Not Detected (NOT DETECT); Respiratory Syncytial Virus B Not Detected (NOT DETECT); SARS-COV-2 Not Detected (NOT DETECT)
[2022-04-09] MEDS: iohexol 350 mg/mL 100 mL Btl IV (18:59)
[2022-04-09] MEDS: metroNIDAZOLE 500 MG Tablet PO (20:00)
[2022-04-09] MEDS: sodium chloride 0.9% 1,000 ML 75 ML IV (20:01)
[2022-04-09] MEDS: pregabalin 100 mg Capsule PO (20:01)
[2022-04-09 20:28] LABS: Thyroid Stimulating Hormone 0.44 uIU/mL (0.27-4.20)
[2022-04-09] MEDS: heparin 5,000 unit/mL INJ 1 mL 5000 UNIT SUBCUT (21:00)
[2022-04-09] MEDS: morphine IR 15 mg Tablet PO (21:00)
--- NOTE | 2022-04-09 22:59 | PC.PHAR ---
Vancomycin is dosed at 2000mg IVPB every 12 hours to produce a predicted trough level of 15.00 (population based pharmacokinetic analysis). A trough level has been ordered from the lab to be obtained before the fourth dose to confirm and adjust if needed.
[2022-04-10] VITALS (13 sets, daily range): BP systolic 99–148; BP diastolic 56–88; PULSE 58–84; RESP 17–24; TEMP 36–37.2; O2SAT 91–97
--- NOTE | 2022-04-10 | XR_ITS ---
CHEST XRAY TECHNIQUE: Portable chest. CLINICAL INFORMATION: hypoxia COMPARISON: None. FINDINGS: Heart: Marked cardiomegaly. Recommend correlation for pericardial effusion. Lungs: Diffuse bilateral interstitial and airspace infiltrates suspicious for developing pulmonary edema. No significant pleural fluid. Bones: Normal visualized bony structures. IMPRESSION: 1. Marked cardiomegaly. Recommend correlation for pericardial effusion. 2. Diffuse bilateral interstitial and airspace infiltrates suspicious for developing pulmonary edema. No significant pleural fluid. MTDD
[2022-04-10] MEDS: acetaminophen 500 mg Tablet PO (01:07)
[2022-04-10] MEDS: sodium chloride 0.9% 1,000 ML 75 ML IV (03:00)
--- NOTE | 2022-04-10 04:06 | PC.NURSE ---
Contacted hospitalist refrigerated national truck driver regarding in ability to regain IV access on pt at this time. Physician stated to have US guided IV placed. If unable to get access w/US guiding will order PICC line later in am.
[2022-04-10] MEDS: morphine IR 15 mg Tablet PO (04:17)
[2022-04-10 04:40] LABS: Basophils # 0.1 10^3/uL (0.0-0.1); Basophils % 0.9 %; Eosinophils % 0.2 %; Hematocrit 44.9 % (37.0-47.0); Hemoglobin 14.1 g/dL (11.5-15.3); Lymphocytes # 0.7 10^3/uL (0.8-4.8); Lymphocytes % 4.8 %; Mean Corpuscular HGB Conc 31.4 g/dL (30.0-36.0); Mean Corpuscular Hemoglobin 28.5 pg (28.0-34.0); Mean Corpuscular Volume 90.9 fl (81-99); Mean Platelet Volume 11.2 fL (7.4-10.4); Monocytes # 0.4 10^3/uL (0.2-0.9); Monocytes % 2.6 %; Neutrophils # 13.19 10^3/uL (1.8-7.7); Neutrophils % 90.6 %; Nucleated Red Blood Cells % 0 %; Platelet Count 147 10^3/cmm (130-400); Red Blood Count 4.94 10^6/uL (4.1-5.3); Red Cell Distribution Width 17.1 % (12.1-15.1); White Blood Count 14.6 10^3/uL (4.0-10.0)
[2022-04-10 05:06] LABS: Anion Gap 14.8 (5-19); Blood Urea Nitrogen 32 mg/dL (6-20); Calcium 8.3 mg/dL (8.5-10.5); Carbon Dioxide 23 mmol/L (22-29); Chloride 96 mmol/L (98-107); Glomerular Filtration Rate 56.7 mL/min (90-130); Glucose 97 mg/dL (65-115); Magnesium 2.1 mg/dL (1.7-2.3); Osmolality Calculated 277 mOsm/kg (285-295); Potassium 3.8 mmol/L (3.5-5.1); Sodium 130 mmol/L (136-145)
[2022-04-10 05:20] LABS: C Reactive Protein 435.2 mg/L (0.0-4.9)
[2022-04-10] MEDS: heparin 5,000 unit/mL INJ 1 mL 5000 UNIT SUBCUT ×3 (05:38→20:49)
--- NOTE | 2022-04-10 08:50 | PM.PN ---
Subjective Subjective: Patient 1004 muscle relaxer Afebrile Blood pressure has been stable I have added hydrocodone She is on 4 L of oxygen via facemask, Patient does not use oxygen at home Vitals/I&O/Wt Last Vital Signs Temp 96.8 F L 04/10/22 08:00 Pulse 84 04/10/22 08:00 Resp 20 H 04/10/22 08:00 BP 110/56 04/10/22 08:00 Pulse Ox 92 04/10/22 08:00 O2 Del Method 04/10/22 08:00 O2 Flow Rate 4 04/10/22 08:00 04/09/22 04/10/22 04/10/22 22:59 06:59 14:59 Intake Total 2296.4 / 2296.4 1023.75 / 3320.15 Output Total 600 / 601 Balance 2295.4 / 2295.4 423.75 / 2719.15 Weight last 48 hrs Weight 250.791 kg Weight 272.155 kg Physical Exam Narrative: Patient is in semi-Siegel position Complaining of shoulder pain Awake and alert Currently on room air No active leg pain Lower extremity lymphedema She has an open ulcer with purulent base just superior to right ankle lateral border S1, S2 Awake and alert, nonfocal neuro exam Urinary Catheter Management: Coude: Cath Placed During This Visit: yes Reason for Continuing Indwelling Catheter: Assist healing open wound Urinary Catheter Date of Insertion: 04/09/22 Urinary Catheter Time of Insertion: 15:30 Data : 04/10/22 04:13 04/10/22 04:13 Micro: Microbiology 04/09/22 14:25 Blood Culture - Preliminary Blood SPECIMEN COLLECTED 04/09/22 14:25 Blood Culture - Preliminary Blood SPECIMEN COLLECTED A&P Assessment and plan (1) Sepsis: (2) Wound infection: (3) Stasis leg ulcer: (4) Peripheral vascular disease: (5) Chronic acquired lymphedema: Plan Sepsis related to purulent cellulitis No signs of abscess as per CT scan Chronic lymphedema I am using bacitracin as well Santyl dressing after normal saline wash, daily dressing change, continue broad-spectrum antibiotics Previous history of MRSA Afebrile Leukocytosis around 14,000 Repeat lactic acid Patient stated that she prefers to go home with home health services Hypervolemic hyponatremia Full code She will need outpatient wound care clinic appointment Check BNP Attestations Medical Necessity Statement*: Continue medical management Time Spent in Patient Care: 40 Coding Level of Care Code Acute Application Support Technician for [facility] Fwd Diagnoses Sepsis A41.9 Wound infection T14.8XXA; L08.9 Stasis leg ulcer I83.009; L97.909 Peripheral vascular disease I73.9 Chronic acquired lymphedema I89.0
--- NOTE | 2022-04-10 08:55 | XR_ITS ---
WS: [id number] Exam: XR chest 1V portable [id number] Date/Time of Exam: 04/10/2022 9:29 AM Reason For Exam: hypoxia
[2022-04-10] MEDS: bacitracin ointment 28 gm 1 APPLIC TOPICAL ×2 (09:29→15:24)
[2022-04-10] MEDS: metroNIDAZOLE 500 MG Tablet PO ×3 (09:29→20:50)
[2022-04-10] MEDS: cefepime 1,000 MG in sodium chloride 0.9% (plus) 50 ML 100 MG IV ×2 (09:29→20:48)
[2022-04-10] MEDS: fluoxetine 20 mg Capsule PO ×2 (09:29→17:05)
[2022-04-10] MEDS: sennosides-docusate Tablet 1 TAB PO (09:29)
[2022-04-10] MEDS: pregabalin 100 mg Capsule PO ×2 (09:29→17:05)
[2022-04-10] MEDS: methocarbamol 500 mg Tablet PO ×2 (10:03→17:05)
[2022-04-10] MEDS: collagenase oint 30 gm 1 APPLIC TOPICAL (10:21)
--- NOTE | 2022-04-10 11:03 | PC.CHAP ---
Pastoral Care Encounter/Spiritual Assessment Type of Contact [] Declined helmet hat brim cutter visit [] Patient/Family/Request visit [] Outpatient visit [] Follow-up visit [] Physician referral [] Code/Alert [x] Routine visit [] Staff referral [] Actively dying [x] Patient sleeping [] Family support [] [] Out of room [] Palliative care [] [] Receiving care in room [] Pre-surgical visit [] Trauma [] Long length of stay [] ICU visit [] Other: Relational/Emotional Strength [] Patient feels connected with others/family/visitors/staff [] Distress [] Loneliness/isolation [] Abandonment Spirituality of Patient [] Person of Opal [] Attends Sabianist of their Opal [] Believes in Prayer [] Reads Bible or Muslim materials [] There are Spiritual issues to be addressed Print Line Tailer Interventions [] Prayer [] Active listening [] Non-anxious presence [] Spiritual/emotional support [] Crisis/trauma care [] Spiritual counseling [] Bereavement support [] Provided bereavement packet [] Provided Bible/devotional materials [] Provided toy/stuffed animal, coloring book to patient or family member [] Provided Communion [] Anointing/[place] [] Salvation [] Completed spiritual assessment [] Other: Impact on Illness or Injury [] Angry [] Fearful [] Anxious [] Often cries [] Exhaustion [] Unable to work [] Unable to attend yazidism [] Unable to walk/stand [] Unable to read [] Unable to drive [] Unable to eat/drink [] Unable to sleep [] Unable to be with family [] Patient intubated [] Other: Summary Time spent with patient
--- NOTE | 2022-04-10 13:00 | PC.NURSE ---
Per Dr. Hodge, midline ok instead of PICC. 5 English midline placed without difficulty to right basilic vein. Secured with statlock, occlusive dressing, and surgilast. Pt tolerated well.
[2022-04-10] MEDS: ondansetron 2 mg/ML SDV 2 mL 4 MG IVP (19:49)
[2022-04-10] MEDS: HYDROcodone-acetaminophen 5-325 mg Tablet 1 TAB PO (20:49)
--- NOTE | 2022-04-10 21:30 | ECG_ITS ---
[facility] Test Date: 2022-04-10 Pat Name: Evelyn Vail Department: Room: 257 Gender: Female Deer Farmer: : 1960 Requested By: Fredo Hodge Order Number: [id number] Reading MD: Measurements Intervals [place] Rate: 72 P: 52 AL: 158 QRS: 91 QRSD: 96 T: 20 QT: 429 QTc: 472 Interpretive Statements SINUS RHYTHM WITH OCCASIONAL VENTRICULAR PREMATURE COMPLEXES BORDERLINE RIGHT AXIS DEVIATION [QRS AXIS > 90] LOW QRS VOLTAGE IN PRECORDIAL LEADS [QRS DEFLECTION < 1.0 mV IN CHEST LEADS] No previous ECG available for comparison [id number]
--- NOTE | 2022-04-10 21:49 | XRR_ITS ---
PROCEDURE INFORMATION: Exam: XR Chest Exam date and time: 04/10/2022 9:58 PM Age: 61 years old Clinical indication: Shortness of breath; Additional info: Hypoxia TECHNIQUE: Imaging protocol: Radiologic exam of the chest. Views: 1 view. COMPARISON: CR XR chest 1V portable [id number] 04/10/2022 9:19 AM FINDINGS: Lungs: Patchy bilateral airspace infiltrates/alveolar edema and interstitial edema. Pleural spaces: Unremarkable. No pleural effusion. No pneumothorax. Heart/Mediastinum: Cardiomegaly. Bones/joints: Unremarkable. XR/XR chest 1V portable [id number] IMPRESSION: 1. Cardiomegaly. 2. Patchy bilateral airspace infiltrates/alveolar edema and interstitial edema.
[2022-04-10 21:57] LABS: Arterial Blood Gas Hematocrit 47.1 % (37-47); Blood Gas Allen Test Pos; Blood Gas Operator Identificat JB; Blood Gas Sample Site Radial, right; Blood Gas Sample Type Arterial; Carboxyhemoglobin 2.7 %THgb (0.4-20.1); HCO3 ABG 23.6 mmol/L (22-26); HGB O2 Sat 91.7 % (95-100); Ionized Calcium Level - ABG 1.1 mmol/L (1.1-1.4); Methemoglobin 0.5 % (0.4-1.5); Oxygen Device OXY MASK; Oxygen Saturation ABG 94.8; PO2 ABG 84.9 mmHg (80.0-100.0); Potassium Level - ABG 3.9 mmol/L (3.5-5.0); Total Hemoglobin 15.4 g/dL (12-16)
[2022-04-10 21:59] LABS: ABG PCO2 69.2 mmHg (35-45); ABG PH Result 7.14 (7.35-7.45)
[2022-04-10 22:09] LABS: Basophils # 0.1 10^3/uL (0.0-0.1); Basophils % 0.6 %; Eosinophils % 0.1 %; Hematocrit 45.3 % (37.0-47.0); Hemoglobin 13.6 g/dL (11.5-15.3); Lymphocytes # 0.6 10^3/uL (0.8-4.8); Lymphocytes % 3.4 %; Mean Corpuscular Hemoglobin 28.8 pg (28.0-34.0); Mean Corpuscular Volume 95.8 fl (81-99); Monocytes # 0.6 10^3/uL (0.2-0.9); Monocytes % 3.4 %; Neutrophils # 16.69 10^3/uL (1.8-7.7); Neutrophils % 91.7 %; Nucleated Red Blood Cells % 0 %; Platelet Count 126 10^3/cmm (130-400); Red Blood Count 4.73 10^6/uL (4.1-5.3); Red Cell Distribution Width 17.2 % (12.1-15.1); White Blood Count 18.2 10^3/uL (4.0-10.0)
--- NOTE | 2022-04-10 22:11 | W.PM.EVENTAC ---
Event Note Event Note: Acute respiratory failure with worsening hypoxia, requiring 15 L nonrebreather after found to be cyanotic in her room. Reports she had vomited after some blueberry yogurt, and has been vomiting multiple times today. Having some upper back pain but it is chronic. Denies chest pain or pressure. Denies pleuritic pain. Noted to been coughing. COVID-19 PCR noted negative. She is currently on cefepime, vancomycin. Noted allergy to penicillins. Change to IV Flagyl. She is awake, slightly sluggish responses, but answering questions, following directions. On 15 L nonrebreather saturation 94%. States mucous membranes feel dry. Very difficult to barrelhead inspector volume status, cannot assess JVD, some chronic stasis changes in lower extremities. Auscultation very difficult sounds mostly clear. May be diminished. Chest x-ray from earlier today with some diffuse interstitial changes, cardiomegaly, although has not been read yet. Will obtain follow-up study. Obtain troponin EKG series. Obtain ABG. Continue antibiotics. Add scheduled breathing treatments. NPO. NGT in case any additional vomiting. Add PPI. Zofran as needed. She is on heparin prophylaxis. Will check D-dimer. We will see if she is able to undergo CTA for additional assessment. She is quite clear and adamant that she does not want intubation or mechanical ventilation unless she goes into cardiac arrest first and required CPR. Family are at bedside during the discussion. States that the only time she would be willing to be intubated in case necessary as part of CPR. She would be willing to have NIPPV support if needed, however. Discussed with her as well as her who is beside her regarding concern of aspiration pneumonia/pneumonitis. Additional differential diagnosis. Initially consideration for transition to heated high flow. I am now getting notified ABG is back with respiratory acidosis with hypercapnia. Starting BiPAP for acute hypoxic and hypercapnic respiratory failure. Move to ICU. Event Notes Attestations Time Spent in Patient Care: The high probability of a clinically significant, sudden or life threatening deterioration of the patient's respiratory system(s) required my full and direct attention, intervention and personal management. The critical care time is as shown. This time is in addition to time spent performing any reported procedures but includes the following: x Data and vital sign review and interpretation x Patient assessment, examination and intervention x Documentation x Medication orders and management Critical care time 40 minutes.
[2022-04-10 22:36] LABS: Troponin(5th) Baseline 30 ng/L (0-10)
--- NOTE | 2022-04-10 23:20 | ECG_ITS ---
[facility] Test Date: 2022-04-10 Pat Name: Evelyn Vail Department: Room: ICU07 Gender: Female Vice President Of Brand Management: : 1960 Requested By: Fredo Hodge Order Number: [id number] Reading MD: Ebony Tolbert M.D. Measurements Intervals [place] Rate: 58 P: 51 [place]: 166 QRS: 89 QRSD: 104 T: 42 QT: 488 QTc: 480 Interpretive Statements SINUS BRADYCARDIA LOW QRS VOLTAGE IN PRECORDIAL LEADS [QRS DEFLECTION < 1.0 mV IN CHEST LEADS] ANTEROSEPTAL MYOCARDIAL INFARCTION , OF INDETERMINATE AGE [40+ ms Q WAVE IN V1-V4] No previous ECG available for comparison Electronically Signed On 04-11-2022 7:47:47 CDT by Ebony Tolbert M.D. [id number]
--- NOTE | 2022-04-10 23:25 | PC.NURSE ---
At approximately 1910 while completing patient assessment, the patient c/o burning and tingling sensation to her left FA where her IV insertion site was located. Upon inspection it was noted that even though the IV drsg was intact, that the IV catheter was partially out of her arm. There was increased erythemia and swelling to the site. IV Vancomycin was immediately stopped, and the IV catheter was removed w/tip intact. Pressure drsg and compress applied. Pt stated that the burning sensation was abating at this time. IV Vancomycin and fluids restarted to midline in left arm w/o further difficulty.
--- NOTE | 2022-04-10 23:29 | PC.NURSE ---
At approximately 2116 this nurse entered the patients room w/ERENDIRA Acosta at bedside getting an EKG on the pt. MINERAL ORE PROCESSING LABOURER states that the pt is complaining of back and left shoulder pain at this time. Pt is also noted to be cyanotic, and has not been keeping her O2 on. O2 replaced w/reading by pulse ox of 81%. O2 via oxymask was titrated to 15 l/m to maintain saturation > 90%. Physician was notified of the patient decline in status by Dave KRISHNA. Respiratory was notified of patient decline in status and need for higher O2 requirements at this time. Physician to come to the floor to assess patient and discuss code status. Will await physician arrival.
--- NOTE | 2022-04-10 23:35 | PC.NURSE ---
Blood draws Lab techs unable to obtain blood from patient after multiple attempts. Midline in right upper arm draws blood upon aspiration. Dr. Hodge contacted and permission received to obtain labs from midline.
--- NOTE | 2022-04-10 23:35 | PC.NURSE ---
At 2123 EKG was performed on pt that denoted sinus rhythm w/occasional VPC's present. Still awaiting physician arrival, pt's family remains at bedside.
--- NOTE | 2022-04-10 23:36 | PC.NURSE ---
At approximately 2135 physician arrived to the floor to assess the patient. Pt's family remains at bedside. Physician discussed with the patient d/t n/v at home and stated emesis earlier today that the patient could possibly have aspiration pneumontitis, but that her broad span ABT should cover PNU. Pt remains obtunded, but does awake to answer questions. Staff having to continue to place O2 on patient because she will not leave O2 in place. Physician ordered pt to have labs completed including Troponin and ABG. Physician also ordered for patient to be placed on Bipap. Rt came to room and placed pt on bipap. Physician also made pt NPO at this time.
--- NOTE | 2022-04-10 23:44 | PC.NURSE ---
At approximately 2210 physician reviewed pt chart along w/labs and x-ray data. New orders were received and noted to transfer to ICU care at this time. Pt remains in semi-fowlers position w/bipap in place. Family remains at bedside, and is aware of physician order to transfer to ICU for critical monitoring.
--- NOTE | 2022-04-10 23:47 | PC.NURSE ---
At approximately 2240 this nurse called report to ENROLLMENT NURSENILDA Hall on patient. Current lab values, diagnosis, and patient status reported to RN. Family informed at this time that the patient was being transferred to ICU. All patient belongings gathered and placed in patient bed and patient then transported to ICU via bed. Once patient was settled in ICU room, family was able to come to bedside. This nurse confirmed that all questions up to that point and been answered and addressed, to which the family replied they had.
[2022-04-11] VITALS (108 sets, daily range): BP systolic 79–167; BP diastolic 34–97; PULSE 53–83; RESP 13–29; TEMP 36.2–36.6; O2SAT 82–99
[2022-04-11 00:12] LABS: D Dimer 2.81 ug/mIFEU (0-0.59)
[2022-04-11] MEDS: pantoprazole 40 mg SDV IVP ×2 (00:24→09:15)
[2022-04-11 00:29] LABS: Troponin 5 2HR 35.88 ng/L (0-10)
[2022-04-11 00:33] LABS: Troponin 5 2HR Delta 5.88 ABS# (0-10)
[2022-04-11 00:54] LABS: Alanine Aminotransferase 22 U/L (0-33); Albumin Level 2.7 g/dL (3.5-5.2); Alkaline Phosphatase 101 U/L (35-105); Anion Gap 15.1 (5-19); Aspartate Amino Transferase 28 U/L (0-32); Blood Urea Nitrogen 38 mg/dL (6-20); Calcium 7.9 mg/dL (8.5-10.5); Carbon Dioxide 24 mmol/L (22-29); Chloride 96 mmol/L (98-107); Globulin 3.7 g/dL (1.3-4.6); Glucose 102 mg/dL (65-115); Osmolality Calculated 281 mOsm/kg (285-295); Potassium 4.1 mmol/L (3.5-5.1); Sodium 131 mmol/L (136-145); Total Bilirubin 0.9 mg/dL (0.15-1.2); Total Protein 6.4 g/dL (6.6-8.7)
[2022-04-11] MEDS: ipratropium-albuterol 3 mL Neb INHALATION ×6 (03:53→23:05)
[2022-04-11 04:19] LABS: Arterial Blood Gas Hematocrit 41.8 % (37-47); Base Excess ABG -6.2 mmol/L (-2.0-2.0); Blood Gas Allen Test Pos; Blood Gas Operator Identificat JB; Blood Gas Sample Site Radial, right; Blood Gas Sample Type Arterial; Carboxyhemoglobin 2.4 %THgb (0.4-20.1); HCO3 ABG 23.2 mmol/L (22-26); HGB O2 Sat 91.7 % (95-100); Ionized Calcium Level - ABG 1.1 mmol/L (1.1-1.4); Oxygen Device BIPAP; Oxygen Saturation ABG 94.6; PO2 ABG 73.6 mmHg (80.0-100.0); Total Hemoglobin 13.6 g/dL (12-16)
[2022-04-11 04:20] LABS: ABG PH Result 7.18 (7.35-7.45)
[2022-04-11 04:21] LABS: ABG PCO2 62.5 mmHg (35-45)
[2022-04-11] MEDS: heparin 5,000 unit/mL INJ 1 mL 5000 UNIT SUBCUT (04:34)
[2022-04-11] MEDS: metroNIDAZOLE IV 500 MG/100 ML PREMIX 100 MG IV ×3 (04:35→20:23)
[2022-04-11 04:41] LABS: Basophils # 0.1 10^3/uL (0.0-0.1); Basophils % 0.5 %; Eosinophils % 0.1 %; Hematocrit 42.5 % (37.0-47.0); Hemoglobin 12.8 g/dL (11.5-15.3); Lymphocytes # 0.5 10^3/uL (0.8-4.8); Mean Corpuscular HGB Conc 30.1 g/dL (30.0-36.0); Mean Corpuscular Hemoglobin 27.9 pg (28.0-34.0); Mean Corpuscular Volume 92.8 fl (81-99); Mean Platelet Volume 10.4 fL (7.4-10.4); Monocytes # 0.5 10^3/uL (0.2-0.9); Monocytes % 2.8 %; Neutrophils # 16.14 10^3/uL (1.8-7.7); Neutrophils % 92.9 %; Nucleated Red Blood Cells % 0 %; Platelet Count 125 10^3/cmm (130-400); Red Blood Count 4.58 10^6/uL (4.1-5.3); Red Cell Distribution Width 17.3 % (12.1-15.1); White Blood Count 17.4 10^3/uL (4.0-10.0)
[2022-04-11 05:18] LABS: Anion Gap 15.1 (5-19); Blood Urea Nitrogen 41 mg/dL (6-20); Calcium 7.9 mg/dL (8.5-10.5); Carbon Dioxide 22 mmol/L (22-29); Chloride 93 mmol/L (98-107); Glomerular Filtration Rate 38.5 mL/min (90-130); Glucose 98 mg/dL (65-115); NT Pro B Type Natriuretic Pept 9530 pg/mL (0-125); Osmolality Calculated 272 mOsm/kg (285-295); Potassium 4.1 mmol/L (3.5-5.1); Sodium 126 mmol/L (136-145)
[2022-04-11 05:35] LABS: Troponin 5 6HR 37.47 ng/L (0-10)
[2022-04-11 05:50] LABS: Troponin 5 6HR Delta 7.47 ng/L (0-12)
[2022-04-11] MEDS: morphine IR 15 mg Tablet PO (07:07)
--- NOTE | 2022-04-11 07:37 | XRR_ITS ---
PROCEDURE INFORMATION: Exam: XR Abdomen Exam date and time: 04/11/2022 8:21 AM Age: 61 years old Clinical indication: Vomiting; Additional info: Vomit TECHNIQUE: Imaging protocol: Radiologic exam of the abdomen. Views: Frontal supine view of the abdomen. 1 View. COMPARISON: CR (CHEST, ) 04/10/2022 9:58 PM FINDINGS: Gastrointestinal tract: The limited supine AP view of the abdomen shows some gas in loops of colon in the abdomen and pelvis. Some central lucency is seen, suggestive of gas in mildly distended loops of small bowel. Assessment is limited. This represents a nonspecific bowel gas pattern. There is no pneumatosis seen. Intraperitoneal space: There is no definite pneumoperitoneum visualized, although evaluation is extremely limited on the limited supine exam. Bones/joints: No acute osseous abnormality seen. Degenerative changes of the mid to lower lumbar spine are seen. Soft tissues: No abnormal radiopaque densities. XR/XR KUB portable [id number] IMPRESSION: Nonspecific bowel gas pattern, as noted above.
--- NOTE | 2022-04-11 07:47 | ECG_ITS ---
[facility] Test Date: 2022-04-11 Pat Name: Evelyn Vail Department: Room: [facility]07 Gender: Female Integrated Circuit Layout Designer: : 1960 Requested By: Fredo Hodge Order Number: [id number] Reading MD: Measurements Intervals [place] Rate: 58 P: 44 [place]: 163 QRS: 87 QRSD: 106 T: 39 QT: 479 QTc: 474 Interpretive Statements SINUS BRADYCARDIA PROLONGED QT INTERVAL Compared to ECG 04/10/2022 23:20:28 Prolonged QT interval now present Myocardial infarct finding no longer present [id number]
--- NOTE | 2022-04-11 09:06 | P.PN_ITS ---
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 D-dimer 2.8 which could be related to significant cellulitis, infection I will start her on therapeutic Lovenox not a candidate for CTA because of creatinine 1.4 today Vitals/I&O/Wt Last Vital Signs Temp 97.4 F L 04/11/22 04:00 Pulse 60 04/11/22 07:31 Resp 24 H 04/11/22 07:29 BP 110/57 04/11/22 07:00 Pulse Ox 96 04/11/22 07:31 O2 Del Method 04/11/22 07:29 O2 Flow Rate 4 04/10/22 16:00 FiO2 40 04/11/22 07:31 04/10/22 04/11/22 04/11/22 22:59 06:59 14:59 Intake Total 500 / 1558.75 100 / 1658.75 Output Total 375 / 375 Balance 500 / 1558.75 -275 / 1283.75 Weight last 48 hrs Weight 250.791 kg Weight 272.155 kg Physical Exam Narrative: Patient is awake and alert No signs of cyanosis Currently on BiPAP at the bedside Abdomen soft, no signs of intertrigo Lower extremity lymphedema Right lower extremity open wound dressing soaked with purulent drainage Purulent cellulitis which has not worsened Patient is awake and alert nonfocal neuro exam Able to follow commands Pleasant during my evaluation testing for a sip of water Urinary Catheter Management: Coude: Cath Placed During This Visit: yes Reason for Continuing Indwelling Catheter: Acute Urinary Retention or Obstruction Urinary Catheter Date of Insertion: 04/09/22 Urinary Catheter Time of Insertion: 15:30 Data : 04/11/22 04:30 04/11/22 04:30 Micro: Microbiology 04/09/22 14:25 Blood Culture - Preliminary Blood NEGATIVE TO DATE 04/09/22 14:25 Blood Culture - Preliminary Blood NEGATIVE TO DATE A&P Assessment and plan (1) Sepsis: (2) Wound infection: (3) Aspiration pneumonitis: (4) YAKOV (generalized anxiety disorder): (5) Stasis leg ulcer: (6) Chronic acquired lymphedema: (7) Peripheral vascular disease: Plan Aspiration pneumonitis No fever Leukocytosis improving Purulent cellulitis Sepsis improving Cultures negative Continue metronidazole, vancomycin and cefepime Acute hypoxia hypercapnic respiratory failure requiring BiPAP, currently patient is awake and alert No need of intubation Repeat ABG Requested KUB to rule out ileus or obstruction no active emesis High D-dimer noted I will start her on therapeutic once a day regimen of Lovenox I will also request venous Doppler to rule out DVT I do not see any signs of vascular compromise of lower extremities She does have history of peripheral vascular disease is at the bedside Patient is stating that she does snore a lot at home, will do pulse ox overnight study she might need BiPAP at home Clinical signs of fluid overload EF is unknown Will request echo, I will start her on Lasix, high BNP noted Attestations Medical Necessity Statement*: Continue ICU management for today Time Spent in Patient Care: 40 Coding Level of Care Code Acute Cooler Man for [facility] Fwd Diagnoses Sepsis A41.9 Wound infection T14.8XXA; L08.9 Aspiration pneumonitis J69.0 YAKOV (generalized anxiety disorder) F41.1 Stasis leg ulcer I83.009; L97.909 Chronic acquired lymphedema I89.0 Peripheral vascular disease I73.9
[2022-04-11 09:10] LABS: Arterial Blood Gas Hematocrit 40.1 % (37-47); Base Excess ABG -5.8 mmol/L (-2.0-2.0); Blood Gas Allen Test Pos; Blood Gas Sample Type Arterial; HCO3 ABG 23.7 mmol/L (22-26); PO2 ABG 73.2 mmHg (80.0-100.0)
[2022-04-11 09:11] LABS: Blood Gas Operator Identificat MONRO; Blood Gas Sample Site Brachial, left; Oxygen Device BIPAP
[2022-04-11 09:12] LABS: ABG PCO2 64.8 mmHg (35-45); ABG PH Result 7.17 (7.35-7.45)
[2022-04-11] MEDS: bacitracin ointment 28 gm 1 APPLIC TOPICAL ×3 (09:12→20:38)
[2022-04-11] MEDS: collagenase oint 30 gm 1 APPLIC TOPICAL (09:13)
[2022-04-11] MEDS: cefepime 1,000 MG in sodium chloride 0.9% (plus) 50 ML 100 MG IV ×2 (09:13→20:30)
[2022-04-11] MEDS: fluoxetine 20 mg Capsule PO ×2 (09:14→18:29)
[2022-04-11] MEDS: pregabalin 100 mg Capsule PO ×2 (09:15→18:29)
[2022-04-11] MEDS: sennosides-docusate Tablet 1 TAB PO (09:15)
[2022-04-11] MEDS: perflutren protein-a microsphr 0.22 mg/mL SDV 3 mL IV (09:21)
--- NOTE | 2022-04-11 10:11 | USCV_ITS ---
Evelyn Vail Age: 61 Gender: F : 1960 Exam Date: 04/11/2022 09:44 Ordering Phys: Cornelio Snyder MD Technologist: Mayo Cabrales [place]am [place] [facility] [place]: chf BP: 111 / 57 HR: 59 Rhythm: Sinus Technical Quality: Very technically difficult study MEASUREMENTS (Male / Female) Normal Values 2D ECHO LV Diastolic Diameter PLAX 5.3 cm 4.2 - 5.9 / 3.9 - 5.3 cm LV Systolic Diameter PLAX 3.3 cm IVS Diastolic Thickness 1.5 cm 0.6 - 1.0 / 0.6 - 0.9 cm IVS Systolic Thickness 2.6 cm LVPW Diastolic Thickness 1.8 cm 0.6 - 1.0 / 0.6 - 0.9 cm LVPW Systolic Thickness 2.3 cm LVOT Diameter 2.1 cm LV Ejection Fraction 2D Teich 66.9 % LA Diameter 4.0 cm M-MODE Aortic Annulus Diameter 3.6 cm LA Ao Ratio MM 1.0 MV E Point Septal Separation 1.3 cm DOPPLER AV Peak Velocity 171.0 cm/s LVOT Peak Velocity 107.0 cm/s AV Area Cont Eq vti 2.1 cm squared AV Area Cont Eq pk 2.1 cm squared MV Area PHT 5.0 cm squared Mitral E to A Ratio 1.3 MV E' Velocity 120.0 cm/s Mitral E to LV E' Septal Ratio 15.4 TR Peak Velocity 309.3 cm/s TR Peak Gradient 38.3 mmHg TV Peak E Velocity 87.0 cm/s Right Atrial Pressure 3.0 mmHg Pulmonary Artery Systolic Pressu 41.3 mmHg FINDINGS Left Ventricle This study is essentially uninterpretable without echo contrast. The images are uninterpretable. No Doppler examination is available. Echo contrast was used. Even with this, the images are of very poor quality. 1 cannot assess accurately wall motion disturbances or the ejection fraction. A rough estimate of the overall left ventricular function is that it is probably lower limit of normal. Diastolic function cannot be determined. Right Ventricle Right ventricle not well visualized. Right Atrium Right atrium not well visualized. Left Atrium Left atrium not well visualized. Mitral Valve Mitral valve not well visualized. Aortic Valve Aortic valve not well visualized. Tricuspid Valve Tricuspid valve not well visualized. Pulmonic Valve Pulmonic valve not well visualized. Pericardium No pericardial effusion. Aorta Aorta not well visualized. IVC Inferior vena cava not visualized. CONCLUSIONS This study is essentially uninterpretable without echo contrast. The images are uninterpretable. No Doppler examination is available. Echo contrast was used. Even with this, the images are of very poor quality. 1 cannot assess accurately wall motion disturbances or the ejection fraction. A rough estimate of the overall left ventricular function is that it is probably lower limit of normal. Diastolic function cannot be determined. There are no prior echocardiogram studies to compare. Dr. Min Sears MD (Electronically Signed) Final Date: 12 April 2022 09:00 S
[2022-04-11] MEDS: enoxaparin 150 mg/mL Syringe SUBCUT (10:13)
[2022-04-11] MEDS: methocarbamol 500 mg Tablet PO ×2 (10:14→18:29)
[2022-04-11] MEDS: potassium chloride ER 10 mEq Tablet PO (10:14)
[2022-04-11] MEDS: FUROsemide 10 mg/mL SDV 4mL 40 MG IVP ×2 (10:14→18:35)
[2022-04-11 12:03] LABS: Arterial Blood Gas Hematocrit 39.6 % (37-47); Base Excess ABG -6.1 mmol/L (-2.0-2.0); Blood Gas Allen Test Pos; Blood Gas Operator Identificat MONRO; Blood Gas Sample Site Radial, left; Blood Gas Sample Type Arterial; HCO3 ABG 23.5 mmol/L (22-26); PO2 ABG 73.3 mmHg (80.0-100.0)
[2022-04-11 12:05] LABS: Oxygen Device BIPAP
[2022-04-11 12:06] LABS: ABG PH Result 7.16 (7.35-7.45)
[2022-04-11 12:07] LABS: ABG PCO2 65.4 mmHg (35-45)
--- NOTE | 2022-04-11 13:10 | PC.NURSE ---
Nurse alerted Dr sierra to only 45mL of urine output over the last 6 hours.
[2022-04-11 15:39] LABS: ABG PCO2 58.9 mmHg (35-45); ABG PH Result 7.19 (7.35-7.45); Arterial Blood Gas Hematocrit 39.2 % (37-47); Base Excess ABG -6.4 mmol/L (-2.0-2.0); Blood Gas Allen Test Pos; Blood Gas Operator Identificat MONRO; Blood Gas Sample Site Radial, right; Blood Gas Sample Type Arterial; HCO3 ABG 22.5 mmol/L (22-26); Oxygen Device BIPAP; PO2 ABG 75.5 mmHg (80.0-100.0)
[2022-04-11 17:18] LABS: Vancomycin Trough 28.5 ug/mL (10-15)
--- NOTE | 2022-04-11 18:58 | PC.NURSE ---
At 1800, nurse observed the patient's fingers to be dusky in color and oxygen saturation probe is not picking up pulse anymore. Wrapping patients hands in warm blankets improves this. Urine output has been low throughout the day. total of 65mL for whole shift. Patient appears more lethargic than earlier. Manual blood pressure shows to be 88 systolic. These changes have occurred over the last hour. NUrse alerted Dr Snyder and received orders for lasix and to start levophed.
[2022-04-11 19:24] LABS: Arterial Blood Gas Hematocrit 39.8 % (37-47); Base Excess ABG -6.6 mmol/L (-2.0-2.0); Blood Gas Allen Test Pos; Blood Gas Sample Site Radial, right; Blood Gas Sample Type Arterial; HCO3 ABG 23.2 mmol/L (22-26); HGB O2 Sat 90.1 % (95-100); Ionized Calcium Level - ABG 1.1 mmol/L (1.1-1.4); Methemoglobin 0.7 % (0.4-1.5); Oxygen Device BIPAP; Oxygen Saturation ABG 92.6; Potassium Level - ABG 3.9 mmol/L (3.5-5.0)
[2022-04-11 19:26] LABS: Alveolar-Arterial Oxygen Gradi 18.3 mmHg (5-10); Blood Gas Tidal Volume 0.75
[2022-04-11 19:27] LABS: ABG PCO2 66.2 mmHg (35-45); ABG PH Result 7.15 (7.35-7.45)
[2022-04-11] MEDS: acetaminophen 500 mg Tablet PO (19:48)
--- NOTE | 2022-04-11 22:00 | PC.NURSE ---
Education Education provided to patient and patient's daughter regarding critical ABG results, importance of leaving bipap mask on face, having a goal of not taking bipap off for majority of shift, and remaining NPO. Additional education provided on the benefits of intubation for respiratory distress. Patient and patient's daughter verbalized understanding of teaching and stated that they had no further questions.
[2022-04-11 23:44] LABS: ABG PCO2 58.2 mmHg (35-45); Arterial Blood Gas Hematocrit 39.5 % (37-47); Blood Gas Allen Test Pos; Blood Gas Sample Site Radial, right; Blood Gas Sample Type Arterial; HCO3 ABG 22.7 mmol/L (22-26); Oxygen Device BIPAP; PO2 ABG 61.5 mmHg (80.0-100.0)
[2022-04-11] MEDS: acetaminophen 1,000 MG/100 ML PIGGYBACK 400 MG IV (23:44)
[2022-04-12] VITALS (104 sets, daily range): BP systolic 70–173; BP diastolic 37–84; PULSE 63–79; RESP 14–234; TEMP 36.2–37.1; O2SAT 81–95; BMI 88.2
--- NOTE | 2022-04-12 01:10 | PC.NURSE ---
Physician Communication At approximately 2300, Patient complaining of pain in her right leg at a 5 on a 1-10 numerical scale, leg tender to touch. Leg repositioned and pain medication options discussed. Patient states that she cannot take hydrocodone for it has caused her to break out into a rash, no other option available at this time. Additionally, patient's urine output has been minimal thus far in the night at about [address] Hodge contacted; urine output and pain medication reaction relayed. Telephone orders received for the followin.2 mg IVP dilaudid Q4H PRN for pain, bladder scan and flush bo catheter to check patency, and repeat an ABG at 0000. Shortly after, dilaudid medication order clarified with Dr. Hodge due to stated reaction to hydrocodone. New order received for one time dose 1000 mg acetaminophen IV and topical lidocaine jelly PRN. See MAR for details. Bladder scan showed 0 ml of urine remaining in the bladder. Bo flushed with 30 ml sterile water. 75 ml urine drained into bo bag. Dr. Hodge made aware of bladder scan and U/O as well as ABG results. Statement made from Dr. Hodge to allow spo2 to remain 88% and above.
[2022-04-12] MEDS: ipratropium-albuterol 3 mL Neb INHALATION ×6 (03:00→23:37)
[2022-04-12 04:57] LABS: Basophils # 0.1 10^3/uL (0.0-0.1); Basophils % 0.5 %; Eosinophils % 0.2 %; Hematocrit 41.5 % (37.0-47.0); Hemoglobin 12.5 g/dL (11.5-15.3); Lymphocytes # 0.6 10^3/uL (0.8-4.8); Lymphocytes % 3.7 %; Mean Corpuscular HGB Conc 30.1 g/dL (30.0-36.0); Mean Corpuscular Hemoglobin 28.2 pg (28.0-34.0); Mean Corpuscular Volume 93.5 fl (81-99); Mean Platelet Volume 11.6 fL (7.4-10.4); Monocytes # 0.7 10^3/uL (0.2-0.9); Monocytes % 4.4 %; Neutrophils # 13.65 10^3/uL (1.8-7.7); Neutrophils % 87.7 %; Nucleated Red Blood Cells % 0 %; Platelet Count 129 10^3/cmm (130-400); Red Blood Count 4.44 10^6/uL (4.1-5.3); Red Cell Distribution Width 17.4 % (12.1-15.1); White Blood Count 15.6 10^3/uL (4.0-10.0)
[2022-04-12] MEDS: metroNIDAZOLE IV 500 MG/100 ML PREMIX 100 MG IV (05:11)
[2022-04-12 05:23] LABS: Vancomycin Trough 25.8 ug/mL (10-15)
[2022-04-12 05:25] LABS: Anion Gap 16.1 (5-19); Blood Urea Nitrogen 47 mg/dL (6-20); Calcium 7.9 mg/dL (8.5-10.5); Carbon Dioxide 22 mmol/L (22-29); Chloride 95 mmol/L (98-107); Glomerular Filtration Rate 24.1 mL/min (90-130); Glucose 70 mg/dL (65-115); Osmolality Calculated 279 mOsm/kg (285-295); Potassium 4.1 mmol/L (3.5-5.1); Sodium 129 mmol/L (136-145)
--- NOTE | 2022-04-12 05:32 | ECG_ITS ---
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 Measurements Intervals [place] Rate: 73 P: 64 IN: 161 QRS: 97 QRSD: 110 T: 31 QT: 426 QTc: 470 Interpretive Statements SINUS RHYTHM BORDERLINE RIGHT AXIS DEVIATION [QRS AXIS > 90] PATTERN CONSISTENT WITH PULMONARY DISEASE Compared to ECG 04/11/2022 03:47:35 Sinus bradycardia no longer present Prolonged QT interval no longer present Electronically Signed On 04-12-2022 10:19:09 CDT by Min Sears M.D. [id number]
--- NOTE | 2022-04-12 05:35 | PC.NURSE ---
Physician Communication Patient complaining of back and head pain. Dr. Hodge notified; no new orders received. Patient repositioned, mask repositioned, and alternative pain control measures offered which patient refused. At 0523, patient had a 15 beat run of vtach. Dr. Hodge notified; orders received for an EKG and mag/troponin levels. Orders completed.
[2022-04-12 05:54] LABS: Magnesium 2.2 mg/dL (1.7-2.3)
[2022-04-12 05:55] LABS: Troponin T (5th) Once 45 ng/L (0-10)
[2022-04-12] MEDS: lactated ringers 500 ML 999 ML IV (09:24)
[2022-04-12] MEDS: FUROsemide 10 mg/mL SDV 4mL 40 MG IVP (09:24)
[2022-04-12] MEDS: pantoprazole 40 mg SDV IVP (09:24)
--- NOTE | 2022-04-12 09:28 | PC.SOCIAL ---
IMM Update pg 2 of IMM updated and reviewed w/ patient. Copy provided and copy dated, initialed and placed in chart.
[2022-04-12] MEDS: cefepime 1,000 MG in sodium chloride 0.9% (plus) 50 ML 100 MG IV ×2 (09:52→21:20)
[2022-04-12 09:53] LABS: Troponin T (5th) Once 49 ng/L (0-10)
[2022-04-12 09:56] LABS: ABG PCO2 62.5 mmHg (35-45); ABG PH Result 7.16 (7.35-7.45); Arterial Blood Gas Hematocrit 40.4 % (37-47); Base Excess ABG -7.6 mmol/L (-2.0-2.0); Blood Gas Allen Test Pos; Blood Gas Operator Identificat MONRO; Blood Gas Sample Site Radial, left; Blood Gas Sample Type Arterial; Oxygen Device BIPAP; PO2 ABG 77.3 mmHg (80.0-100.0)
--- NOTE | 2022-04-12 10:35 | P.CONIM_ITS ---
Providers/Reason For Consult Consulting Physician/Specialty*: Ольга Graves DO, telenephrology Reason for Consult*: Acute Kidney Injury Requesting Physician: Cornelio Snyder MD Attending Physician: Cornelio Snyder MD Primary Care Provider: Chloe Gonzalez APN History of Present Illness History of Present Illness Evelyn Vail is a 61 year old female admitted with cellulitis. Was on ACEi and meloxicam as outpatient. Admission Cr 1.2 mg/dL. + intermittent hypotension, on norepi, has declining urine output. I/O + 5L since admission Has been on BiPAP, desats and is taking longer to recover when BiPAP removed Morton has been flushed, bladder scan showed no urine Review of Systems General: Reports: ROS unobtainable due to medical condition Medications/Allergies Home Medications Medication Instructions Recorded Confirmed Last Taken Type fluoxetine 20 mg capsule (Prozac) 20 mg PO BID #60 caps 11/20/21 04/09/22 Unknown Rx lisinopril 20 mg tablet 20 mg PO DAILY #30 tabs 11/20/21 04/09/22 Unknown Rx meloxicam 15 mg tablet 15 mg PO QDAY 30 days #30 tabs 11/20/21 04/09/22 Unknown Rx methocarbamol 500 mg tablet 500 mg PO BID #60 tabs 11/20/21 04/09/22 Unknown Rx pregabalin 100 mg capsule (Lyrica) 100 mg PO BID #60 caps 11/20/21 04/09/22 Unknown Rx acetaminophen 300 mg-codeine 60 mg 1 tab PO Q6H PRN Pain 04/09/22 04/09/22 Unknown History tablet Allergies Allergy/AdvReac Type Severity Reaction Status Date / Time hydrocodone Allergy ALGY-Rash Verified 04/11/22 23:00 Penicillins Allergy rash Verified 04/09/22 14:04 Current Medications Generic Name Dose Route Start Last Admin Trade Name Freq PRN Reason Stop Dose Admin Acetaminophen 500 mg 04/09/22 19:24 04/11/22 19:48 Acetaminophen 500 Mg Tablet PO 500 mg Q4H PRN Administration fever Albuterol/Ipratropium 3 ml 04/11/22 00:00 04/12/22 08:13 Ipratropium-Albuterol 3 Ml Neb INHALATION 3 ml Q4H.RESPIRATORY BREANNA Administration Bacitracin 1 applic 04/09/22 21:00 04/11/22 20:38 Bacitracin Ointment 28 Gm TOPICAL 1 applic TID BREANNA Administration Protocol Collagenase 1 applic 04/10/22 09:00 04/11/22 09:13 Collagenase Oint 30 Gm TOPICAL 1 applic DAILY BREANNA Administration Enoxaparin Sodium 150 mg 04/11/22 10:00 04/11/22 10:13 Enoxaparin 150 Mg/Ml Syringe SUBCUT 150 mg Q24H BREANNA Administration Fluoxetine HCl 20 mg 04/10/22 09:30 04/12/22 09:54 Fluoxetine 20 Mg Capsule PO Not Given BID BREANNA Furosemide 40 mg 04/11/22 09:15 04/12/22 09:24 Furosemide 10 Mg/Ml Sdv 4ml IVP 40 mg Q24H BREANNA Administration Cefepime HCl 1,000 mg/ Sodium 50 mls @ 100 mls/hr 04/10/22 09:00 04/12/22 09:52 Chloride IV 100 mls/hr Q12H BREANNA Administration Protocol Norepinephrine Bitartrate 4 mg 254 mls @ 0 mls/hr 04/11/22 18:30 04/12/22 09:55 / Dextrose IV 4 mcg/min .Q0M BREANNA 15.24 mls/hr Administration Protocol Per Protocol Lidocaine HCl 1 applic 04/11/22 23:30 04/12/22 01:57 Lidocaine 2% Jelly 6 Ml TOPICAL 1 applic PRN PRN Administration PAIN Methocarbamol 500 mg 04/10/22 09:30 04/11/22 18:29 Methocarbamol 500 Mg Tablet PO 500 mg BID BREANNA Administration Ondansetron HCl 4 mg 04/09/22 19:24 04/10/22 19:49 Ondansetron 2 Mg/Ml Sdv 2 Ml IVP 4 mg Q6H PRN Administration NAUSEA AND VOMITING Pantoprazole Sodium 40 mg 04/10/22 22:15 04/12/22 09:24 Pantoprazole 40 Mg Sdv IVP 40 mg DAILY BREANNA Administration Potassium Chloride 10 meq 04/11/22 09:15 04/11/22 10:14 Potassium Chloride Er 10 Meq Tablet PO 10 meq DAILY BREANNA Administration Pregabalin 100 mg 04/09/22 19:24 04/12/22 09:54 Pregabalin 100 Mg Capsule PO Not Given BID BREANNA Senna/Docusate Sodium 1 tab 04/10/22 09:00 04/12/22 09:54 Sennosides-Docusate Tablet PO Not Given DAILY BREANNA PFSH Acute PFSH: Medical History Chronic acquired lymphedema Chronic osteoarthritis Fibromyalgia YAKOV (generalized anxiety disorder) Hypertension Hyperthyroidism Morbid obesity Peripheral vascular disease Sleep apnea Vitamin D deficiency Surgical History History of delivery Hx of cholecystectomy Hx of hysterectomy Family History Other Cancer Diabetes Social History Smoking and tobacco status: never smoked Second hand smoke exposure: Yes Smoking risk assessment/counseling performed?: Yes Alcohol intake: never Desire information about alcohol rehabilitation?: No Counseling given: No Desire information about substance/drug rehabilitation?: No Counseling given: No Caregiver/support person: No Lives independently: Yes Household members: spouse Housing: House Marital status: Number of children: 2 Number of grandchildren: 3 Highest education level completed: High School Graduate service: No Current occupational status: disabled Pets and animals: No Current gender identity: Female Female Reproductive History: Para: 2 Vitals/I&O/Wt Last Vital Signs Temp 97.1 F L 04/12/22 08:00 Pulse 68 04/12/22 10:18 Resp 22 H 04/12/22 08:45 BP 99/51 04/12/22 08:45 Pulse Ox 93 04/12/22 10:18 O2 Del Method 04/12/22 08:14 O2 Flow Rate 70 04/12/22 08:00 FiO2 70 04/12/22 10:18 04/11/22 04/12/22 04/12/22 22:59 06:59 14:59 Intake Total 319.558 / 369.558 344.780 / 714.338 80.264 / 80.264 Output Total 100 / 160 Balance 304.558 / 309.558 244.780 / 554.338 80.264 / 80.264 Weight last 48 hrs Weight 255.373 kg Physical Exam Const: OTHER: on BiPAP Resp: OTHER: equal breath sounds Cardio: COMMON NORMALS: regular rhythm RHYTHM: regular rhythm Extremity: NARRATIVE EXTREMITY EXAM: diffuse nonpitting edema Urinary Catheter Management: Coude: Cath Placed During This Visit: yes Reason for Continuing Indwelling Catheter: Accurate Measurement of Urinary Output in Critically Ill Patients Urinary Catheter Date of Insertion: 04/09/22 Urinary Catheter Time of Insertion: 15:30 Data : 04/12/22 03:40 04/12/22 03:40 Other Labs: urinalysis 2+ blood, 0-4 RBC/HPF Ca 7.9, Mg 2.2, vanco 28.5 Micro: Microbiology 04/09/22 15:30 Urine Culture - Final Urine,Clean Catch CXR: Radiologist's impression: 04/10/22 1. Cardiomegaly. 2. Patchy bilateral airspace infiltrates/alveolar edema and interstitial edema. ABG Interpretation 1: 04/10/22 04/11/22 04/11/22 21:45 04:05 08:59 ABG pH 7.14 L* 7.18 L* 7.17 L* ABG pCO2 69.2 H* 62.5 H* 64.8 H* ABG pO2 84.9 73.6 L 73.2 L ABG HCO3 23.6 23.2 23.7 ABG O2 Saturation 94.8 94.6 ABG Base Excess -7.0 L -6.2 L -5.8 L 04/11/22 04/11/22 04/11/22 11:55 15:00 18:47 ABG pH 7.16 L* 7.19 L 7.15 L* ABG pCO2 65.4 H* 58.9 H 66.2 H* ABG pO2 73.3 L 75.5 L 65.0 L ABG HCO3 23.5 22.5 23.2 ABG O2 Saturation 92.6 ABG Base Excess -6.1 L -6.4 L -6.6 L 04/11/22 04/12/22 21:00 09:43 ABG pH 7.20 L 7.16 L* ABG pCO2 58.2 H 62.5 H* ABG pO2 61.5 L 77.3 L ABG HCO3 22.7 22.0 ABG O2 Saturation ABG Base Excess -6.0 L -7.6 L My Interpretation: primary respiratory and primary metabolic acidosis A&P Assessment and plan (1) Acute kidney injury: patient seen via telehealth with assistance of RN at bedside Plan 1. Acute oliguric kidney injury. R/o rhabdomyolysis. Possible ischemic ATN. + vancomycin toxicity 2. Hypercapenic respiratory failure 3. Combination respiratory and metabolic acidosis 4. Cellulitis 5. Hyponatremia, mild stable 4. Severe obesity Rec: F/U CPK and urine studies, starting IVF. Add oral sodium bicarbonate. Prognosis poor. 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
--- NOTE | 2022-04-12 10:55 | PM.PN ---
Subjective Subjective: Positive fluid balance Currently on levo at 4 mics Repeat ABG did show worsening I discussed intubation with the patient but she adamantly refused and stated that she would not allow any tube down her throat And to discuss again with her daughter who is at the bedside She is asking for rest of the family members to come in ICU to see if we can convince the patient Patient does have capacity to make decision She is awake and alert able to make decision, she is able to me her name date of Vitals/I&O/Wt Last Vital Signs Temp 97.1 F L 04/12/22 08:00 Pulse 68 04/12/22 10:18 Resp 22 H 04/12/22 08:45 BP 99/51 04/12/22 08:45 Pulse Ox 93 04/12/22 10:18 O2 Del Method 04/12/22 08:14 O2 Flow Rate 70 04/12/22 08:00 FiO2 70 04/12/22 10:18 04/11/22 04/12/22 04/12/22 22:59 06:59 14:59 Intake Total 319.558 / 369.558 344.780 / 714.338 80.264 / 80.264 Output Total 15 100 / 160 Balance 304.558 / 309.558 244.780 / 554.338 80.264 / 80.264 Weight last 48 hrs Weight 255.373 kg Physical Exam Narrative: Patient is awake and alert Currently on BiPAP tidal volume is at 800 mL Minute ventilation 14-15 She is able to tell me her name, date of she is aware what is going on Family is a at the bedside She does not want intubation ICU nurse and daughter at the bedside Clinically does not look fluid overloaded Abdomen soft however distended Lower extremity edema with lymphedema Right lower extremity wound has not shown signs of worsening Urinary Catheter Management: Coude: Cath Placed During This Visit: yes Reason for Continuing Indwelling Catheter: Accurate Measurement of Urinary Output in Critically Ill Patients Urinary Catheter Date of Insertion: 04/09/22 Urinary Catheter Time of Insertion: 15:30 Data : 04/12/22 03:40 04/12/22 03:40 Micro: Microbiology 04/09/22 15:30 Urine Culture - Final Urine,Clean Catch A&P Assessment and plan (1) Acute kidney injury: (2) Aspiration pneumonitis: (3) Sepsis: (4) Wound infection: (5) Peripheral vascular disease: (6) YAKOV (generalized anxiety disorder): (7) Obesity hypoventilation syndrome: (8) V tach: (9) Oliguria: (10) Hyponatremia: (11) CHF exacerbation: Plan Acute on chronic hypoxic hypercapnic respiratory failure Likely due to underlying untreated obesity hypoventilation and CHF exacerbation Positive fluid balance Patient is BiPAP dependent She has not eaten well in last 48 hours I would recommend PPN via IV Patient is very high risk for intubation I have discussed intubation multiple times with the patient and her family, patient is stating that she would not allow us to intubate her, she has capacity to make decisions, I despite hypercapnia she is alert and awake able to answer my question appropriately She is aware where she is, she is aware that her daughter is also in the room, I do not see any signs of confusion despite her lethargy I have updated family that she is at risk of respiratory and cardiac arrest and persistent hypercapnia can also cause cerebral edema, it is not riley to wait until cardiac arrest or respiratory arrest to intubate if this needs to be done we should decide today Family's plan to be at the bedside today, daughter updated Runs of V. tach, nonsustained overnight Magnesium 2.2 Potassium at goal Will wait for echo report Troponin without significant delta BNP 9500 No recurrence since that 1 episode, she might need amiodarone if we see more runs of V. tach now metoprolol not a good option because of low blood pressure patient is requiring Levophed at 4 mics Acute on chronic kidney disease As per her daughter she always has had some chronic kidney disease which was not treated She is oliguric Fluid overloaded Consulted nephro Requested urine studies She did not get any contrast Vancomycin trough levels are higher She is not on any nephrotoxic agents Sepsis related to cellulitis Septic shock requiring Levophed Leukocytosis improving Afebrile Aspiration pneumonitis I would continue her cefepime, discontinue metronidazole vancomycin on hold because of high trough level Acute CHF exacerbation EF is unknown Requested echo with contrast Currently she is on Lasix With hyponatremia she does carry a guarded prognosis with CHF Patient does carry high risk for mortality and morbidity, poor prognosis in setting of hyponatremia, CHF worsening kidney function and BiPAP dependency Family was made aware I did tell them bluntly that she is at high risk for respiratory and cardiac arrest and it will not be a good idea to wait until she deteriorates into respiratory or cardiac arrest Patient does not want intubation and she is adamant about it Limited resuscitation She would allow us to treat her with BiPAP keep her in ICU started on vasopressors, she is stating that she would not allow us to intubate her unless there is a dire need at the time of cardiac arrest Attestations Medical Necessity Statement*: Poor prognosis Time Spent in Patient Care: 40 Coding Level of Care Code Acute Manager Video Games for g Fwd Diagnoses Acute kidney injury N17.9 Aspiration pneumonitis J69.0 Sepsis A41.9 Wound infection T14.8XXA; L08.9 Peripheral vascular disease I73.9 YAKOV (generalized anxiety disorder) F41.1 Obesity hypoventilation syndrome E66.2 V tach I47.20 Oliguria R34 Hyponatremia E87.1 CHF exacerbation I50.9
[2022-04-12 11:39] LABS: Creatine Phosphokinase 66 U/L (26-192)
[2022-04-12] MEDS: enoxaparin 150 mg/mL Syringe SUBCUT (11:48)
--- NOTE | 2022-04-12 13:33 | PC.NURSE ---
DR VALADEZ IN TO SEE THIS MORNING. DISCUSSION OF PT NEEDING TO BE INTUBATED WITH FAMILY AND PT TOOK PLACE. PT IS A/O X4. PT DOES NOT WANT TO BE INTUBATED QUOTE ON QUOTE UNLESS HER HEART STOPS BEATING THEN SHE IS OKAY WITH BEING INTUBATED. DR VALADEZ AND CHARGE NURSE BJ HAVE HAD SEVERAL IN DEPTH CONVERSATIONS REGARDING THE PTS STATUS AND HER REQUESTS WITH THE PT AND PTS FAMILY. PT IS WANTING TO EAT AND DRINK. THE HIGH RISK OF ASPIRATION HAVE BEEN DISCUSSED AND PT IS WELL AWARE OF HER STATUS. SHE UNDERSTANDS THE RISK OF REMOVING THE BIPAP AND EATING/DRINKING. PT STILL REQUESTS TO EAT AND DRINK DESPITE HIGH RISK OF . NURSING STAFF HAS GIVEN PT FOOD AND DRINK PER PT DEMAND. PT APPEARS TO BE ASPIRATING SOME BUT IS STILL REQUESTING MORE FOOD AND DRINK. WILL CONTINUE TO MONITOR AND UPDATE DR VALADEZ NEEDED. WILL CONTINUE TO EDUCATE PT AND PTS FAMILY OF RISKS OF EATING/DRINKING AND REMOVING THE BIPAP MULTIPLE TIMES.
[2022-04-12] MEDS: FUROsemide 10 mg/mL SDV 10mL 100 MG IVP (14:08)
[2022-04-12] MEDS: FUROsemide 100 MG in sodium chloride 0.9% 40 ML 15 MG IV ×3 (14:31→21:51)
--- NOTE | 2022-04-12 14:31 | PC.NUTR ---
Consult for PPN received. Recommend beginning with PPN @ 13 mls/hr and increasing 10 mls Q8H as tolerated with goal rate of 83 mls/kg, along with 50 grams fat emulsion, standard electrolytes, multivitamins 10 mls/day. Details in RD assessment.
--- NOTE | 2022-04-12 15:37 | XRR_ITS ---
PROCEDURE INFORMATION: Exam: XR Chest Exam date and time: 04/12/2022 4:04 PM Age: 61 years old Clinical indication: Shortness of breath; Additional info: Pneumonia TECHNIQUE: Imaging protocol: Radiologic exam of the chest. Views: 1 view. COMPARISON: CR (CHEST, ) 04/10/2022 9:58 PM FINDINGS: Lungs: Mild bilateral perihilar bibasilar opacities suggesting possible pneumonia and/or pulmonary edema. Pleural spaces: Unremarkable. No pleural effusion. No pneumothorax. Heart/Mediastinum: Moderate to severe globular cardiomegaly consistent with 4-chamber enlargment and/or pericardial effusion. Bones/joints: Unremarkable. Soft tissues: Examination is limited secondary to body habitus. XR/XR chest 1V portable [id number] IMPRESSION: 1. Moderate to severe globular cardiomegaly consistent with 4-chamber enlargment and/or pericardial effusion. 2. Mild bilateral perihilar bibasilar opacities suggesting possible pneumonia and/or pulmonary edema.
--- NOTE | 2022-04-12 15:56 | USR_ITS ---
PROCEDURE INFORMATION: Exam: US Retroperitoneal; Complete; Kidneys and Bladder Exam date and time: 04/12/2022 4:17 PM Age: 61 years old Clinical indication: Other: Atn TECHNIQUE: Imaging protocol: Real-time ultrasound of the retroperitoneum with image documentation. Complete exam focused on the kidneys and bladder. COMPARISON: CR (ABDOMEN, ) 04/11/2022 8:21 AM FINDINGS: Right kidney: 12.3 x 6.3 x 5.4 cm right kidney with 1.7 cm right renal cortex. Probable echogenic right renal cortex compared to the liver consistent with bilateral medical renal disease. Left kidney: 10.6 x 5.9 x 5.3 cm left kidney with left renal cortex 1.7 cc. Aorta: The abdominal aorta is obscured. Urinary bladder: Urinary bladder is not visualized. Other findings: Examination is limited secondary to body habitus. No obvious hydronephrosis. US/US renal BI* [id number] IMPRESSION: 1. Examination is limited secondary to body habitus. 2. Urinary bladder is not visualized. 3. The abdominal aorta is obscured. 4. No obvious hydronephrosis. 5. Probable echogenic right renal cortex compared to the liver consistent with bilateral medical renal disease.
--- NOTE | 2022-04-12 16:03 | PC.NURSE ---
as charge nurse have talked with family at length about pt status.. she is alert and oriented and overall aware of her status possible resp or cardiac arrest at this point if she doesnt have intubation understand completely and has refused to be intubated unless she has cardiac arrest . and then she will family at first was going to make her agree to this and discussed with then that, she still made decisions and overall prognosis grim and could result in skilled nursing trach and ventilator and family aware she never wanted that. Pt continues to request water and soup after discussion with family as per her wishes noted aspiration with drinking but family want her kept comfortable and follow her wishes . after following her wishes for awhile family from [place] here and requested copy medication as they are making arrangments to have her transfered to [facility] .. after talking with them explained that we needed to stop taking off bipap if we are going to attempt to transfer her and the severity of risk to attempt this in back of ambulance .. after Dr Muhammad here and prolonged discussion was obtained that they wanted 2nd opion and offered to call another hospitalist here to consult
[2022-04-12 16:23] LABS: ABG PCO2 58.8 mmHg (35-45); Arterial Blood Gas Hematocrit 40.5 % (37-47); Base Excess ABG -6.9 mmol/L (-2.0-2.0); Blood Gas Allen Test Pos; Blood Gas Sample Site Radial, left; Blood Gas Sample Type Arterial; HCO3 ABG 22.1 mmol/L (22-26); PO2 ABG 78.9 mmHg (80.0-100.0)
[2022-04-12 16:24] LABS: Blood Gas Operator Identificat MONRO; Oxygen Device BIPAP
[2022-04-12 16:27] LABS: ABG PH Result 7.18 (7.35-7.45)
--- NOTE | 2022-04-12 16:29 | PC.NURSE ---
Dr brown here to give family 2nd opion at this time
[2022-04-12 16:53] LABS: Ketone (Acetest) Serum Negative (Negative)
--- NOTE | 2022-04-12 16:53 | ECG_ITS ---
[facility] Test Date: 2022-04-12 Pat Name: Evelyn Vail Department: Room: [facility] Gender: Female Forensic Anthropologist: : 1960 Requested By: Cornelio Snyder Order Number: [id number] Reading MD: Min Sears M.D. Measurements Intervals [place] Rate: 63 P: 48 [place]: 200 QRS: 61 QRSD: 105 T: 25 QT: 455 QTc: 467 Interpretive Statements SINUS RHYTHM WITH OCCASIONAL VENTRICULAR PREMATURE COMPLEXES Compared to ECG 04/12/2022 05:49:16 Ventricular premature complex(es) now present Electronically Signed On 04-13-2022 14:51:29 CDT by Min Sears M.D. [id number]
--- NOTE | 2022-04-12 16:54 | P.MISC_ITS ---
Miscellaneous Note Purpose of Documentation: Patient seen as per request from patient's primary physician Dr. Jolly as family requested second opinion. Note: After thorough review of the chart including the current medical treatment, past medical history, current vitals it seems that patient is morbidly obese being admitted for cellulitis had an unfortunate event of aspiration after which she has been BiPAP dependent being complicated by acute encephalopathy and ANY most likely secondary to ATN with possibility of oliguria being treated currently with diuretic gtt. Plan: Agree with the current treatment going on. Suggest possibility of adding metolazone 10 mg. If does not improve patient will most likely require dialysis. Goals of care discussion done with multiple family members including patient's daughters, , niece. We discussed unfortunately patient is extremely sick and her care has been complicated by her morbid obesity and her being BiPAP dependent. We discussed patient currently is in ongoing kidney distress with the possibility of kidney failure in which she might require dialysis going further. Family verbalized understanding. We also discussed there is a high likelihood of patient having an adverse outcome. We also discussed that patient might improve if she has an early intubation even though there is at high risk of patient being difficulty of being weaned off ventilator given morbid obesity. Family verbalized unders tanding though they want to hold off intubation as per her wishes till the very end or if they patient codes. We also discussed that it might be too late for intubation if a wait for her to become sicker. They verbalized understanding but would want to hold off. Patient's is really concerned about her nutrition. We discussed that at this moment patient is at a high risk of further aspiration or choking given her mentation and her being BiPAP dependent. Even after explaining this multiple times patient's has a high concern I would want to try to continue feeding if and when possible. I discussed my concerns regarding the same but will convey 's wishes to patient's primary physician. We also discussed that given her anuric state with possibility of congestive heart failure we would like to keep her as dry as possible and hence currently PPN/TPN would also be not fruitful. wants to try her off BiPAP whenever possible and try to feed her. We will convey the same to the patient's primary provider. Family also asked regarding possible transfer. We discussed that it is possible that we can transfer her off to a different hospital if family wishes though it is quite possible that they might not be able to offer her any further or different treatment than what she is getting currently in the hospital. Family would want to continue treatment at the current hospital for now. Thank you for involving me in care of Ms. Vail.
[2022-04-12 17:00] LABS: Troponin(5th) Baseline 54 ng/L (0-10)
[2022-04-12 17:01] LABS: Lactate (Lactic Acid level) 1.1 mmol/L (0.5-2.2)
[2022-04-12 17:06] LABS: Protein Urine 1+ (Negative); Urine Appearance Cloudy (CLEAR); Urine Color Dark Yellow (Yellow); pH Urine 5 (5-7)
[2022-04-12 17:07] LABS: Add Urine Culture? No; Amorphous Sediment Urine 2+ /hpf; Bacteria Urine 1+ /hpf; Bilirubin Urine 1+ (Negative); Blood Urine 3+ (Negative); Estmated Average Glucose 105; Glucose Urine UA Norm (Normal); Hemoglobin A1C 5.3 % (4.0-6.0); Ketones Urine 1+ (Negative); Leukocyte Esterase Urine Trace (Negative); Nitrate Urine Negative (Negative); Squamous Epithelial Cell Urine 0-4 /hpf (0-5); Urobilinogen Urine Norm (Negative)
[2022-04-12 17:09] LABS: Potassium, Radom Urine 11 mmol/L
[2022-04-12 17:15] LABS: Creatinine Urine, Random 65 mg/dL (28-217)
[2022-04-12 17:18] LABS: Urine Random Chloride 15 mmol/L; Urine Random Sodium 12 mmol/L
[2022-04-12 17:26] LABS: Microalbumin Random Urine 30 ug/dL (0-20)
[2022-04-12 17:32] LABS: Microalbum Creatinine Ratio Ur 462 mg/dL (0-20)
[2022-04-12 17:43] LABS: Potassium Urine Random 11
[2022-04-12 17:44] LABS: Eosinophil Urine No Eosinophils Seen; Urine Eosinophil Count 0 (0-0)
--- NOTE | 2022-04-12 18:02 | XRR_ITS ---
PROCEDURE INFORMATION: Exam: XR Chest Exam date and time: 04/12/2022 6:10 PM Age: 61 years old Clinical indication: Other vascular access device placement or adjustment; Central line, non-tunnelled; Additional info: Central line placement TECHNIQUE: Imaging protocol: Radiologic exam of the chest. Views: 1 view. COMPARISON: CR (CHEST, ) 04/12/2022 4:04 PM FINDINGS: Tubes, catheters and devices: Right central venous catheter seen with tip approaching the atrial caval junction. Lungs: See Heart/Mediastinum finding. Pleural spaces: Small bilateral pleural effusions. Heart/Mediastinum: Cardiomegaly, pulmonary vascular congestion and patchy bilateral ground-glass airspace opacities reflecting alveolar edema and/or pneumonic infiltrates. Bones/joints: Unremarkable. XR/XR chest 1V portable [id number] IMPRESSION: 1. Cardiomegaly, pulmonary vascular congestion and patchy bilateral ground-glass airspace opacities reflecting alveolar edema and/or pneumonic infiltrates. 2. Small bilateral pleural effusions. 3. Right central venous catheter seen with tip approaching the atrial caval junction.
[2022-04-12] MEDS: sodium chloride 0.9 % (flush) syringe 10 mL IV (18:19)
[2022-04-12] MEDS: dextrose 50% syringe 50 mL 25 ML IVP (18:20)
[2022-04-12] MEDS: sodium bicarbonate 8.4% 1 mEq/mL 50mL Syr 50 MEQ IVP (18:20)
--- NOTE | 2022-04-12 18:27 | P.PNCC_ITS ---
Critical Care Event Note I was requested by the hospitalist service to place central venous catheter access as the patient is critically ill requiring peripheral vasopressors with history of very difficult and frequently failing peripheral IVs. Family signed consent and I obtained verbal informed consent from patient. Procedure performed as noted successfully without apparent complication. Chest x-ray reviewed by myself with no pneumothorax and line in satisfactory position. Bo Mendoza MD Emergency Medicine Critical Care Time Code activated: No Critical Care Time (min): 5 Procedures Central Line Placement^ Right IJ: Time out performed: Yes Patient placed on monitor/pulse ox: Yes MD prep: mask, gown and gloves Central line prep: Povidone-Iodine 1%, Chlorhexidine scrub and sterile drapes applied Local anesthesia used: lidocaine 1% Amount of anesthesia used (ml): 3 Ultrasound used for placement: Yes Central line lumen inserted: triple Post procedure: sutured in place, good blood return, all ports aspirated, flushed, capped and sterile dressing applied Post procedure x-ray: tip of catheter in good position and no pneumothorax seen Patient tolerated procedure: well and no complications Coding Level of Care Code Acute All Source Intelligence Analyst for [employer]
--- NOTE | 2022-04-12 18:48 | PC.NURSE ---
[id number] FAMILY HAS BEEN BACK AND FORTH ON WHAT TO DO FOR FAMILY; BETWEEN COMFORT AND TREATMENT. FAMILY REQUESTED A SECOND OPINION. DR VALADEZ DOWN TO SPEAK WITH PT AND PTS FAMILY. DR FARRELL CONSULTED TO SPEAK WITH FAMILY. DR FARRELL DOWN TO SPEAK WITH FAMILY. ALL QUESTIONS ANSWERED. FAMILY APPEARS TO BE A LITTLE MORE AT EASE. THEY WISH TO PURSUE CURRENT TREATMENT AND RE-EVALUATE TOMORROW.
--- NOTE | 2022-04-12 18:53 | PC.NURSE ---
[address] CHEEK DOWN TO INSERT CENTRAL LINE. TIME-OUT PERFORMED. VITALS REMAINED STABLE THROUGHOUT PROCEDURE. CENTRAL LINE INSERTED SUCCESSFULLY BY DR CHEEK CONFIRMED BY XRAY.
[2022-04-12 19:05] LABS: Troponin 5 2HR 54.26 ng/L (0-10)
[2022-04-12 19:08] LABS: Troponin 5 2HR Delta 0.26 ABS# (0-10)
[2022-04-12] MEDS: bacitracin ointment 28 gm 1 APPLIC TOPICAL (20:59)
[2022-04-12 22:30] LABS: Troponin 5 6HR 52.47 ng/L (0-10)
[2022-04-12 22:38] LABS: Troponin 5 6HR Delta -1.53 ng/L (0-12)
[2022-04-13] VITALS (87 sets, daily range): BP systolic 92–181; BP diastolic 27–95; PULSE 67–83; RESP 12–30; TEMP 35.8–37.3; O2SAT 81–100; BMI 92.0
[2022-04-13] MEDS: collagenase oint 30 gm 1 APPLIC TOPICAL ×2 (00:07→10:29)
[2022-04-13] MEDS: FUROsemide 100 MG in sodium chloride 0.9% 40 ML 15 MG IV ×2 (02:00→05:30)
[2022-04-13] MEDS: ipratropium-albuterol 3 mL Neb INHALATION ×6 (03:01→23:50)
[2022-04-13 03:43] LABS: Basophils # 0.1 10^3/uL (0.0-0.1); Basophils % 0.4 %; Eosinophils % 0.1 %; Hematocrit 44.5 % (37.0-47.0); Hemoglobin 13.1 g/dL (11.5-15.3); Lymphocytes # 0.5 10^3/uL (0.8-4.8); Lymphocytes % 3.4 %; Mean Corpuscular HGB Conc 29.4 g/dL (30.0-36.0); Mean Corpuscular Hemoglobin 28.1 pg (28.0-34.0); Mean Corpuscular Volume 95.3 fl (81-99); Mean Platelet Volume 10.7 fL (7.4-10.4); Monocytes # 0.7 10^3/uL (0.2-0.9); Neutrophils # 12.52 10^3/uL (1.8-7.7); Neutrophils % 88.6 %; Nucleated Red Blood Cells % 0 %; Platelet Count 158 10^3/cmm (130-400); Red Blood Count 4.67 10^6/uL (4.1-5.3); Red Cell Distribution Width 17.9 % (12.1-15.1); White Blood Count 14.2 10^3/uL (4.0-10.0)
[2022-04-13 03:50] LABS: Platelet Count 158 10^3/cmm (130-400)
[2022-04-13 03:54] LABS: INR 1.27 (0.8-1.2)
[2022-04-13 03:55] LABS: Partial Thromboplastin Time 38.2 SECONDS (23.9-36.7)
[2022-04-13 04:01] LABS: Fibrinogen 1003 mg/dL (174-498)
[2022-04-13 04:08] LABS: Anion Gap 15.5 (5-19); Blood Urea Nitrogen 57 mg/dL (6-20); Calcium 8.3 mg/dL (8.5-10.5); Carbon Dioxide 21 mmol/L (22-29); Chloride 92 mmol/L (98-107); Glucose 105 mg/dL (65-115); Osmolality Calculated 274 mOsm/kg (285-295); Potassium 4.5 mmol/L (3.5-5.1); Sodium 124 mmol/L (136-145)
[2022-04-13 04:09] LABS: Vancomycin Random 23.9 ug/mL (20.0-40.0)
[2022-04-13 04:18] LABS: NT Pro B Type Natriuretic Pept 18468 pg/mL (0-125)
[2022-04-13 04:37] LABS: C Reactive Protein 375.7 mg/L (0.0-4.9)
--- NOTE | 2022-04-13 06:36 | PC.NURSE ---
Patient's 02 requirements have increased through the night, Fi02 currently at 100%. 50ml of dark yellow cloudy urine throughout shift despite lasix drip. Patient has become slightly more lethargic throughout shift but still will awake and follow commands. Sacral redness noted upon turning and bed bath. No complaints of pain other than mask discomfort. Discussed at length with patient's family on why lasix are being used despite worsening kidney function. Bleeding site noted in abdominal area, possibly from injection site for VTE. Bandage applied. All oral meds have been held due to aspiration risk as passed by daytime staff from Physician.
--- NOTE | 2022-04-13 06:55 | PC.NURSE ---
Bedside report completed with NILDA Sanchez.
--- NOTE | 2022-04-13 08:55 | P.PN_ITS ---
Subjective Subjective: Patient is oliguric despite getting metolazone and Lasix drip She is currently on TPN at 10 mL/h Central line was placed on 04/12 by the ER physician No signs of pneumothorax No fever Leukocytosis trending down +6 liters fluid balance I have consulted Dr. Moreira for temporary dialysis catheter placement Family meeting conducted this morning, I did tell them she is still at high risk for respiratory and cardiac arrest Patient is able to respond to some of the verbal commands however she is le thargic Multiple family meetings were conducted yesterday Almost 2 hours were spent with family yesterday Second opinion was obtained from Dr. Hernandez, appreciate his expertise Vitals/I&O/Wt Last Vital Signs Temp 97.6 F 04/13/22 03:45 Pulse 74 04/13/22 08:50 Resp 25 H 04/13/22 08:40 BP 122/55 04/13/22 06:00 Pulse Ox 96 04/13/22 08:50 O2 Del Method 04/13/22 08:40 O2 Flow Rate 70 04/12/22 08:00 FiO2 90 04/13/22 08:50 04/12/22 04/13/22 04/13/22 22:59 06:59 14:59 Intake Total 284.174 / 1414.438 218.326 / 1632.764 114 / 114 Output Total 100 / 100 50 / 150 1 / Balance 184.174 / 1314.438 168.326 / 1482.764 113 / 113 Weight last 48 hrs Weight 266.349 kg Weight 255.373 kg Physical Exam Narrative: Patient is very drowsy Able to respond to some of the verbal commands When asked her to shake my hand she was able to lift her right hand and wave Currently FiO2 90% on AVAPS tidal volume 800 Clinical time fluid overload Bilateral assisted breath sounds Chronic lymphedema of lower extremity Right lower extremity wound without acute worsening Oliguric Distended abdomen however soft Urinary Catheter Management: Coude: Cath Placed During This Visit: yes Reason for Continuing Indwelling Catheter: Accurate Measurement of Urinary Output in Critically Ill Patients Urinary Catheter Date of Insertion: 04/09/22 Urinary Catheter Time of Insertion: 15:30 Data : 04/13/22 03:29 04/13/22 03:29 Micro: Microbiology 04/09/22 15:30 Urine Culture - Final Urine,Clean Catch A&P Assessment and plan (1) CHF exacerbation: (2) Hyponatremia: (3) Oliguria: (4) V tach: (5) Obesity hypoventilation syndrome: (6) Acute kidney injury: (7) Aspiration pneumonitis: (8) Sepsis: (9) Wound infection: (10) Stasis leg ulcer: (11) Peripheral vascular disease: (12) Morbid obesity: (13) DIC (disseminated intravascular coagulation): Plan Sepsis related to cellulitis Leukocytosis improving No fever Cultures remain negative Currently on broad-spectrum antibiotics Aspiration pneumonitis Evident on x-ray TPN started 04/12 currently on 10 mL/h which I would hold until dialysis catheter has been placed Acute CHF exacerbation Echo with contrast was not accurate to give us a EF however grossly low normal EF noted by Dr. Luna EF is unknown Hyponatremia and CHF does have higher mortality morbidity and poor prognosis value ATN Related to sepsis, cardiorenal and vancomycin toxicity Plan for temporary dialysis catheter placement and start dialysis Positive fluid balance Patient is oliguric Did not respond to Lasix or metolazone Mixed respiratory and metabolic acidosis She did receive bicarb yesterday Persistent hypercapnic hypoxic respite failure Currently on AVAPS Patient and family did not allow us to intubate Second opinion was obtained as well yesterday by Dr. Montero on request of the family Current FiO2 90% Positive fluid balance Venous itchy dermatitis chronic lymphedema, cellulitis of right leg Currently on broad-spectrum antibiotics No acute worsening Patient and family agreed that they will not allow us to intubate her until she goes into cardiac arrest arrest and they completely understand that that will be too late in order to resuscitate her and intubate Multiple family meetings were conducted almost 2 hours were spent yesterday with the family All of the questions were answered They have given us consent for dialysis catheter placement today ICU nurses updated in case of any cardiac event which would call anesthesia right away for immediate intubation High risk for mortality morbidity Attestations Medical Necessity Statement*: Continue ICU management Critical Care Time: 60 Coding Level of Care Code Acute Straightening Roll Operator for [facility] Fwd Diagnoses CHF exacerbation I50.9 Hyponatremia E87.1 Oliguria R34 V tach I47.20 Obesity hypoventilation syndrome E66.2 Acute kidney injury N17.9 Aspiration pneumonitis J69.0 Sepsis A41.9 Wound infection T14.8XXA; L08.9 Stasis leg ulcer I83.009; L97.909 Peripheral vascular disease I73.9 Morbid obesity E66.01 DIC (disseminated intravascular coagulation) D65
--- NOTE | 2022-04-13 09:00 | PC.NURSE ---
Dr Moreira here, Dialysis cath insertion completed.
--- NOTE | 2022-04-13 09:05 | P.PN_ITS ---
Subjective Subjective: unchanged right femoral HD catheter placed this AM by surgery Vitals/I&O/Wt Last Vital Signs Temp 97.6 F 04/13/22 03:45 Pulse 74 04/13/22 08:50 Resp 25 H 04/13/22 08:40 BP 122/55 04/13/22 06:00 Pulse Ox 96 04/13/22 08:50 O2 Del Method 04/13/22 08:40 O2 Flow Rate 70 04/12/22 08:00 FiO2 90 04/13/22 08:50 04/12/22 04/13/22 04/13/22 22:59 06:59 14:59 Intake Total 284.174 / 1414.438 218.326 / 1632.764 114 / 114 Output Total 100 / 100 50 / 150 1 Balance 184.174 / 1314.438 168.326 / 1482.764 113 / 113 Weight last 48 hrs Weight 266.349 kg Weight 255.373 kg Physical Exam Resp: OTHER: equal breath sounds Cardio: COMMON NORMALS: regular rhythm RHYTHM: regular rhythm Extremity: NARRATIVE EXTREMITY EXAM: right leg 2+ pitting edema, diffuse redness, left leg 1+ Urinary Catheter Management: Coude: Cath Placed During This Visit: yes Reason for Continuing Indwelling Catheter: Accurate Measurement of Urinary Output in Critically Ill Patients Urinary Catheter Date of Insertion: 04/09/22 Urinary Catheter Time of Insertion: 15:30 Data : 04/13/22 03:29 04/13/22 03:29 Other Labs: urine Na 12 Micro: Microbiology 04/09/22 15:30 Urine Culture - Final Urine,Clean Catch US: Radiologist's impression: Right kidney: 12.3 x 6.3 x 5.4 cm right kidney with 1.7 cm right renal cortex. Probable echogenic right renal cortex compared to the liver consistent with bilateral medical renal disease. Left kidney: 10.6 x 5.9 x 5.3 cm left kidney with left renal cortex 1.7 cc. Aorta: The abdominal aorta is obscured. Urinary bladder: Urinary bladder is not visualized. CXR: Radiologist's impression: Pleural spaces: Small bilateral pleural effusions. Heart/Mediastinum: Cardiomegaly, pulmonary vascular congestion and patchy bilateral ground-glass airspace opacities reflecting alveolar edema and/or pneumonic infiltrates. ABG Interpretation 1: 04/10/22 04/11/22 04/11/22 21:45 04:05 08:59 ABG pH 7.14 L* 7.18 L* 7.17 L* ABG pCO2 69.2 H* 62.5 H* 64.8 H* ABG pO2 84.9 73.6 L 73.2 L ABG HCO3 23.6 23.2 23.7 ABG O2 Saturation 94.8 94.6 ABG Base Excess -7.0 L -6.2 L -5.8 L 04/11/22 04/11/22 04/11/22 11:55 15:00 18:47 ABG pH 7.16 L* 7.19 L 7.15 L* ABG pCO2 65.4 H* 58.9 H 66.2 H* ABG pO2 73.3 L 75.5 L 65.0 L ABG HCO3 23.5 22.5 23.2 ABG O2 Saturation 92.6 ABG Base Excess -6.1 L -6.4 L -6.6 L 04/11/22 04/12/22 04/12/22 21:00 09:43 16:10 ABG pH 7.20 L 7.16 L* 7.18 L* ABG pCO2 58.2 H 62.5 H* 58.8 H ABG pO2 61.5 L 77.3 L 78.9 L ABG HCO3 22.7 22.0 22.1 ABG O2 Saturation ABG Base Excess -6.0 L -7.6 L -6.9 L 04/13/22 09:50 ABG pH 7.06 L* ABG pCO2 79.5 H* ABG pO2 97.5 ABG HCO3 22.3 ABG O2 Saturation ABG Base Excess -9.6 L A&P Assessment and plan (1) Acute kidney injury: patient seen via telehealth with assistance of RN at bedside Plan 1. Acute oligoanuric kidney injury. No significant urine output in response to IV furosemide infusion and high dose metolaone. Urine sodium low, FeNa < 1%. Possible cor pulmonale. Consider echocardiogram. 2. Hypercapenic respiratory failure 3. Combination respiratory and metabolic acidosis, pH, CO2 worse 4. Hypervolemic hyponatremia 5. Cellulitis 6. Severe obesity Rec: Hospitalist had long discussion with Evelyn and her family yesterday. Consent obtained for dialysis today. Prognosis remains poor. HD today, 1.5L UF as BP tolereates/4H, 2K. Plan for HD again tomorrow. Attestations Medical Necessity Statement*: see above Time Spent in Patient Care: Greater than 35 minutes Coding Level of Care Code Acute Personal Computer Network Analyst for [employer] Fwd Diagnoses Acute kidney injury N17.9
[2022-04-13] MEDS: bacitracin ointment 28 gm 1 APPLIC TOPICAL ×3 (09:30→21:08)
[2022-04-13] MEDS: pantoprazole 40 mg SDV IVP (09:59)
[2022-04-13] MEDS: cefepime 1,000 MG in sodium chloride 0.9% (plus) 50 ML 100 MG IV ×2 (09:59→21:07)
--- NOTE | 2022-04-13 10:01 | PC.NURSE ---
Assessment: Fingers and toes Cyanotic
[2022-04-13 10:08] LABS: Arterial Blood Gas Hematocrit 42.9 % (37-47); Base Excess ABG -9.6 mmol/L (-2.0-2.0); Blood Gas Allen Test Pos; Blood Gas Operator Identificat GD; Blood Gas Sample Site Radial, left; Blood Gas Sample Type Arterial; HCO3 ABG 22.3 mmol/L (22-26); PO2 ABG 97.5 mmHg (80.0-100.0)
[2022-04-13 10:09] LABS: Oxygen Device VENT
[2022-04-13 10:11] LABS: ABG PCO2 79.5 mmHg (35-45); ABG PH Result 7.06 (7.35-7.45)
[2022-04-13] MEDS: heparin, porcine 1,000 unit/mL INJ 10 mL 1000 UNIT IV (11:23)
--- NOTE | 2022-04-13 11:29 | PC.NURSE ---
Ann Marie, Dialysis nurse here. Hemodialysis started.
[2022-04-13 11:39] LABS: Hepatitis B Surface Antigen Non-Reactive (Nonreactive); Hepatitis C Virus Antibody Non-Reactive (Nonreactive)
--- NOTE | 2022-04-13 11:39 | PM.DIACAT ---
Procedure Note: Procedure: Preoperative diagnosis: Acute renal failure requiring emergent dialysis Postoperative diagnosis: Same Procedure: Placement of Mahurkar catheter in the right internal jugular vein under ultrasound guidance Surgeon: Dr. Jarred Moreira DO Anesthesia: Local Description of procedure: The patient's right groin was prepped and draped in a sterile manner. The right femoral artery was palpated. 5 mL of 1% lidocaine was infiltrated at the site of planned entry, an introducer needle was used to access the right femoral vein using palpation. Guidewire was passed through the introducer needle and the introducer needle was removed. Serial dilators were passed over the guidewire after the skin incision was extended using 11 blade and Mahurkar catheter was then passed over the guidewire and the guidewire was removed. The catheter was sutured to the skin using 2-0 Ethilon suture. Sterile dressings were applied. Coding Level of Care Code Acute Handstitching Machine Armhole Feller for [employer] Watson
--- NOTE | 2022-04-13 11:42 | P.CONIM_ITS ---
Providers/Reason For Consult Consulting Physician/Specialty*: Dr. Jarred Moreira, DO/General surgery Reason for Consult*: Need for temporary hemodialysis Attending Physician: Cornelio Snyder MD Primary Care Provider: Chloe Gonzalez APN History of Present Illness History of Present Illness Evelyn Vail is a 61 year old female who is currently septic and in the hospital. She came in with sepsis likely due to purulent cellulitis of the right lower extremity. Patient is on BiPAP and confused, not really answering any questions. HPI and review of systems are limited secondary to this. Nephrology required temporary hemodialysis access. Review of Systems General: Reports: ROS unobtainable due to medical condition Medications/Allergies Home Medications Medication Instructions Recorded Confirmed Last Taken Type fluoxetine 20 mg capsule (Prozac) 20 mg PO BID #60 caps 11/20/21 04/09/22 Unknown Rx lisinopril 20 mg tablet 20 mg PO DAILY #30 tabs 11/20/21 04/09/22 Unknown Rx meloxicam 15 mg tablet 15 mg PO QDAY 30 days #30 tabs 11/20/21 04/09/22 Unknown Rx methocarbamol 500 mg tablet 500 mg PO BID #60 tabs 11/20/21 04/09/22 Unknown Rx pregabalin 100 mg capsule (Lyrica) 100 mg PO BID #60 caps 11/20/21 04/09/22 Unknown Rx acetaminophen 300 mg-codeine 60 mg 1 tab PO Q6H PRN Pain 04/09/22 04/09/22 Unknown History tablet Allergies Allergy/AdvReac Type Severity Reaction Status Date / Time adhesive tape Allergy ALGY-Redness Verified 04/13/22 05:41 of Skin hydrocodone Allergy ALGY-Rash Verified 04/11/22 23:00 Penicillins Allergy rash Verified 04/09/22 14:04 Current Medications Generic Name Dose Route Start Last Admin Trade Name Freq PRN Reason Stop Dose Admin Acetaminophen 500 mg 04/09/22 19:24 04/11/22 19:48 Acetaminophen 500 Mg Tablet PO 500 mg Q4H PRN Administration fever Albuterol/Ipratropium 3 ml 04/11/22 00:00 04/13/22 11:09 Ipratropium-Albuterol 3 Ml Neb INHALATION 3 ml Q4H.RESPIRATORY BREANNA Administration Bacitracin 1 applic 04/09/22 21:00 04/13/22 09:30 Bacitracin Ointment 28 Gm TOPICAL 1 applic TID BREANNA Administration Protocol Collagenase 1 applic 04/13/22 00:00 04/13/22 10:29 Collagenase Oint 30 Gm TOPICAL 1 applic Q24H BREANNA Administration Enoxaparin Sodium 150 mg 04/11/22 10:00 04/12/22 11:48 Enoxaparin 150 Mg/Ml Syringe SUBCUT 150 mg Q24H BREANNA Administration Fluoxetine HCl 20 mg 04/10/22 09:30 04/13/22 10:00 Fluoxetine 20 Mg Capsule PO Not Given BID BREANNA Heparin Sodium (Porcine) 200 - 500 unit 04/12/22 16:15 04/13/22 05:25 Heparin Lock Flush 500 Unit/5 Ml Syringe IV Not Given Q12H BREANNA Cefepime HCl 1,000 mg/ Sodium 50 mls @ 100 mls/hr 04/10/22 09:00 04/13/22 09:59 Chloride IV 100 mls/hr Q12H BREANNA Administration Protocol Norepinephrine Bitartrate 4 mg 254 mls @ 0 mls/hr 04/11/22 18:30 04/13/22 08:32 / Dextrose IV 4 mcg/min .Q0M BREANNA 15.24 mls/hr Administration Protocol Per Protocol Amino Acids/Electrolytes 1,000 mls @ 10 mls/hr 04/12/22 20:45 04/13/22 08:23 Clinimix E 4.25%-10% IV 0 mls/hr .Q24H BREANNA Infusion Lidocaine HCl 1 applic 04/11/22 23:30 04/12/22 01:57 Lidocaine 2% Jelly 6 Ml TOPICAL 1 applic PRN PRN Administration PAIN Methocarbamol 500 mg 04/10/22 09:30 04/11/22 18:29 Methocarbamol 500 Mg Tablet PO 500 mg BID BREANNA Administration Ondansetron HCl 4 mg 04/09/22 19:24 04/10/22 19:49 Ondansetron 2 Mg/Ml Sdv 2 Ml IVP 4 mg Q6H PRN Administration NAUSEA AND VOMITING Pantoprazole Sodium 40 mg 04/10/22 22:15 04/13/22 09:59 Pantoprazole 40 Mg Sdv IVP 40 mg DAILY BREANNA Administration Potassium Chloride 10 meq 04/11/22 09:15 04/11/22 10:14 Potassium Chloride Er 10 Meq Tablet PO 10 meq DAILY BREANNA Administration Senna/Docusate Sodium 1 tab 04/10/22 09:00 04/13/22 10:00 Sennosides-Docusate Tablet PO Not Given DAILY BREANNA Sodium Bicarbonate 650 mg 04/12/22 15:00 04/13/22 10:44 Sodium Bicarbonate 650 Mg Tablet PO Not Given TID BREANNA Sodium Chloride 5 - 10 ml 04/12/22 16:15 04/13/22 05:26 Sodium Chloride 0.9 % (Flush) Syringe 10 Ml IV Not Given Q12H BREANNA PFSH Acute PFSH: Medical History Chronic acquired lymphedema Chronic osteoarthritis Fibromyalgia YAKOV (generalized anxiety disorder) Hypertension Hyperthyroidism Morbid obesity Peripheral vascular disease Sleep apnea Vitamin D deficiency Surgical History History of delivery Hx of cholecystectomy Hx of hysterectomy Family History Other Cancer Diabetes Social History Smoking and tobacco status: never smoked Second hand smoke exposure: Yes Smoking risk assessment/counseling performed?: Yes Alcohol intake: never Desire information about alcohol rehabilitation?: No Counseling given: No Desire information about substance/drug rehabilitation?: No Counseling given: No Caregiver/support person: No Lives independently: Yes Household members: spouse Housing: House Marital status: Number of children: 2 Number of grandchildren: 3 Highest education level completed: High School Graduate service: No Current occupational status: disabled Pets and animals: No Current gender identity: Female Female Reproductive History: Para: 2 Vitals/I&O/Wt Last Vital Signs Temp 97.4 F L 04/13/22 07:45 Pulse 72 04/13/22 11:30 Resp 25 H 04/13/22 11:30 BP 145/90 04/13/22 11:30 Pulse Ox 93 04/13/22 11:30 O2 Del Method 04/13/22 11:30 O2 Flow Rate 70 04/12/22 08:00 FiO2 100 04/13/22 11:30 04/12/22 04/13/22 04/13/22 22:59 06:59 14:59 Intake Total 284.174 / 1414.438 218.326 / 1632.764 164 / 164 Output Total 100 / 100 50 / 150 1 / Balance 184.174 / 1314.438 168.326 / 1482.764 163 / 163 Weight last 48 hrs Weight 587 lb 3.2 oz Weight 563 lb Physical Exam Narrative: general : Patient is morbidly obese and on BiPAP Head : Normal cephalic, a-traumatic. Ears : Pinnae and external canal are normal. Hearing is normal. Lungs : Equal chest rise bilaterally, no use of accessory muscles, trachea is m idline. Cor : Rate and rhythm are normal. Abdomen : Soft, ND, NT, no g/r/m Urinary Catheter Management: Coude: Cath Placed During This Visit: yes Reason for Continuing Indwelling Catheter: Accurate Measurement of Urinary Output in Critically Ill Patients Urinary Catheter Date of Insertion: 04/09/22 Urinary Catheter Time of Insertion: 15:30 Data : 04/13/22 03:29 04/13/22 03:29 Micro: Microbiology 04/09/22 15:30 Urine Culture - Final Urine,Clean Catch A&P Assessment and plan (1) Sepsis: (2) Acute kidney injury: Plan A right femoral vein temporary hemodialysis catheter was placed. The procedure note is dictated separately. Catheter may be used Coding Level of Care Code Acute Clinical Account Specialist for [facility] Diagnoses Sepsis A41.9 Acute kidney injury N17.9
[2022-04-13] MEDS: heparin 5,000 unit/mL INJ 1 mL IV (17:52)
[2022-04-13] MEDS: heparin drip 25,000 UNIT/500 ML PREMIX 36 UNIT IV (17:52)
[2022-04-13] MEDS: sodium chloride 0.9 % (flush) syringe 10 mL IV (17:53)
--- NOTE | 2022-04-13 19:00 | PC.NURSE ---
Bedside report completed with NILDA Sanchez. Shift Note: Pt rested in bed throughout the shift. She would squeeze your hand on command, but that is about it. AVPAPS, bipap setting. She started the shift on 100 FIO2 she is now on 60%. Lasix gtt discontinued by Dr Cooper. PPN held for most of the shift until after dialysis then restarted at 10ml/hr as order. Levophed gtt weaned off. She has now been started on a heparin gtt. HD cath inserted today then HD started. She tolerated it well. 1500ml removed. Anuria still ongoing, only 21 ml of very dark urine noted. Fingers and Toes remain cyanotic with a slow cap refill. Family has been attentive and pleasant this shift. Frequent safety and comfort rounds continue. Orders and/or nursing care completed as indicated. Patient monitored for response to intervention and treatment(s). Education provided includes Heparin, Levophed, Prozac, Dialysis and Plan of care. Patient and/or employment representative verbalized understanding of paln of care and medications discussed. Pt remains confused reinforcement needed. Will continue to monitor.
--- NOTE | 2022-04-13 22:50 | PC.NURSE ---
Patient continues to moan and mumble without audible sounds. This nurse removed mask to provide oral care and patient was able to tell me her name. Fio2 has been dropped to 45% with a Tidal of 650 near the start of shift. Patient has saturated in the low 90s with an adequate map above 70 without Levophed. Extremities are cooler than previous night and cap refill appears slightly slower.
[2022-04-14] VITALS (62 sets, daily range): BP systolic 117–224; BP diastolic 56–115; PULSE 65–92; RESP 13–39; TEMP 36.7–37; O2SAT 85–98; BMI 87.8
[2022-04-14 00:07] LABS: Partial Thromboplastin Time 51.4 SECONDS (23.9-36.7)
[2022-04-14] MEDS: heparin 5,000 unit/mL INJ 1 mL IV ×2 (00:26→20:44)
[2022-04-14] MEDS: ipratropium-albuterol 3 mL Neb INHALATION ×6 (03:25→23:24)
[2022-04-14] MEDS: sodium chloride 0.9 % (flush) syringe 10 mL IV ×3 (04:13→22:39)
[2022-04-14 04:15] LABS: ABG PH Result 7.23 (7.35-7.45); Arterial Blood Gas Hematocrit 45.5 % (37-47); Base Excess ABG -3.1 mmol/L (-2.0-2.0); Blood Gas Allen Test Pos; Blood Gas Operator Identificat JB; Blood Gas Sample Site Radial, right; Blood Gas Sample Type Arterial; HCO3 ABG 25.7 mmol/L (22-26); Oxygen Device BIPAP; PO2 ABG 63.1 mmHg (80.0-100.0)
[2022-04-14 04:19] LABS: ABG PCO2 60.9 mmHg (35-45)
[2022-04-14 05:58] LABS: Basophils # 0.1 10^3/uL (0.0-0.1); Basophils % 0.3 %; Eosinophils % 0.1 %; Hematocrit 42.7 % (37.0-47.0); Hemoglobin 12.8 g/dL (11.5-15.3); Lymphocytes # 0.7 10^3/uL (0.8-4.8); Lymphocytes % 4.9 %; Mean Corpuscular Hemoglobin 27.9 pg (28.0-34.0); Mean Corpuscular Volume 93.2 fl (81-99); Monocytes % 6.8 %; Neutrophils % 85.6 %; Nucleated Red Blood Cells % 0 %; Platelet Count 137 10^3/cmm (130-400); Red Blood Count 4.58 10^6/uL (4.1-5.3); Red Cell Distribution Width 18.2 % (12.1-15.1); White Blood Count 14.6 10^3/uL (4.0-10.0)
[2022-04-14 06:14] LABS: Partial Thromboplastin Time 66.1 SECONDS (23.9-36.7)
[2022-04-14 06:21] LABS: Alanine Aminotransferase 16 U/L (0-33); Albumin Level 2.4 g/dL (3.5-5.2); Alkaline Phosphatase 170 U/L (35-105); Anion Gap 16.1 (5-19); Aspartate Amino Transferase 17 U/L (0-32); Blood Urea Nitrogen 41 mg/dL (6-20); Calcium 8.5 mg/dL (8.5-10.5); Carbon Dioxide 25 mmol/L (22-29); Chloride 95 mmol/L (98-107); Globulin 4.3 g/dL (1.3-4.6); Glomerular Filtration Rate 21.7 mL/min (90-130); Glucose 101 mg/dL (65-115); Osmolality Calculated 284 mOsm/kg (285-295); Potassium 4.1 mmol/L (3.5-5.1); Sodium 132 mmol/L (136-145); Total Bilirubin 0.6 mg/dL (0.15-1.2); Total Protein 6.7 g/dL (6.6-8.7); Vancomycin Random 20.3 ug/mL (20.0-40.0)
[2022-04-14 07:48] LABS: Glucose Point of Care 109 mg/dL (70-110)
[2022-04-14 07:57] LABS: Glucose Point of Care 94 mg/dL (70-110)
[2022-04-14 07:57] LABS: Glucose Point of Care 107 mg/dL (70-110)
[2022-04-14 07:57] LABS: Glucose Point of Care 88 mg/dL (70-110)
[2022-04-14 07:57] LABS: Glucose Point of Care 82 mg/dL (70-110)
[2022-04-14 07:57] LABS: Glucose Point of Care 96 mg/dL (70-110)
[2022-04-14 07:57] LABS: Glucose Point of Care 86 mg/dL (70-110)
[2022-04-14 07:57] LABS: Glucose Point of Care 82 mg/dL (70-110)
[2022-04-14 07:57] LABS: Glucose Point of Care 108 mg/dL (70-110)
[2022-04-14 07:57] LABS: Glucose Point of Care 101 mg/dL (70-110)
--- NOTE | 2022-04-14 07:57 | PM.PN ---
Subjective Subjective: lethargic. not able to obtain a ROS. Medications: Reviewed: Yes Medication Review Details: Current Medications Acetaminophen (Acetaminophen 500 Mg Tablet) 500 mg PO Q4H PRN PRN Reason: fever Last Admin: 04/11/22 19:48 Dose: 500 mg Albuterol/Ipratropium (Ipratropium-Albuterol 3 Ml Neb) 3 ml INHALATION Q6H PRN PRN Reason: SHORTNESS OF BREATH Albuterol/Ipratropium (Ipratropium-Albuterol 3 Ml Neb) 3 ml INHALATION Q4H.RESPIRATORY BREANNA Last Admin: 04/14/22 03:25 Dose: 3 ml Bacitracin (Bacitracin Ointment 28 Gm) 1 applic TOPICAL TID BREANNA; Protocol Last Admin: 04/13/22 21:08 Dose: 1 applic Collagenase (Collagenase Oint 30 Gm) 1 applic TOPICAL Q24H BREANNA Last Admin: 04/13/22 10:29 Dose: 1 applic Enoxaparin Sodium (Enoxaparin 150 Mg/Ml Syringe) 150 mg SUBCUT Q24H BREANNA Last Admin: 04/12/22 11:48 Dose: 150 mg Fluoxetine HCl (Fluoxetine 20 Mg Capsule) 20 mg PO BID BREANNA Last Admin: 04/13/22 18:03 Dose: Not Given Heparin Sodium (Porcine) (Heparin Lock Flush 500 Unit/5 Ml Syringe) 200 - 500 unit IV Q12H BREANNA Last Admin: 04/14/22 04:12 Dose: 500 unit Heparin Sodium (Porcine) (Heparin Lock Flush 500 Unit/5 Ml Syringe) 200 - 500 unit IV PRN PRN PRN Reason: Central line flush Heparin Sodium (Porcine) (Heparin 5,000 Unit/Ml Inj 1 Ml) 0 unit IV PRN PRN; Protocol PRN Reason: Heparin weight-base protocol Last Admin: 04/14/22 00:26 Dose: 2,800 unit Hydromorphone HCl (Hydromorphone 1 Mg/Ml Inj 1 Ml) 0.2 mg IVP Q4H PRN PRN Reason: PAIN Cefepime HCl 1,000 mg/ Sodium (Chloride) 50 mls @ 100 mls/hr IV Q12H BREANNA; Protocol Last Infusion: 04/14/22 03:04 Dose: Infused Vancomycin HCl 2,000 mg/ (Sodium Chloride) 500 mls @ 250 mls/hr IV Q18H BREANNA; Protocol Norepinephrine Bitartrate 4 mg (/ Dextrose) 254 mls @ 0 mls/hr IV .Q0M BREANNA; Protocol Last Titration: 04/13/22 12:40 Dose: 0 mcg/min, 0 mls/hr Amino Acids/Electrolytes (Clinimix E 4.25%-10%) 1,000 mls @ 10 mls/hr IV .Q24H BREANNA Last Admin: 04/13/22 22:55 Dose: 10 mls/hr Sodium Chloride (Sodium Chloride 0.9%) 1,000 mls @ 0 mls/hr IV .Q0M PRN PRN Reason: hypotension or symptomatic Heparin Sodium/Sodium Chloride (Heparin Drip) 25,000 unit in 500 mls @ 0 mls/hr IV .Q0M BREANNA; Protocol Last Admin: 04/13/22 17:52 Dose: 6.76 unit/kg/hr, 36 mls/hr Sodium Chloride (Sodium Chloride 0.9%) 1,000 mls @ 0 mls/hr IV .Q0M PRN PRN Reason: hypotension or symptomatic Lidocaine HCl (Lidocaine 2% Jelly 6 Ml) 1 applic TOPICAL PRN PRN PRN Reason: PAIN Last Admin: 04/12/22 01:57 Dose: 1 applic Lidocaine HCl (Lidocaine 1% Inj 20 Ml Mdv (Ml)) 0.1 ml INTRADERMA PRN PRN PRN Reason: Anesthetic Catheter Placement Methocarbamol (Methocarbamol 500 Mg Tablet) 500 mg PO BID [facility] Last Admin: 04/11/22 18:29 Dose: 500 mg Ondansetron HCl (Ondansetron 2 Mg/Ml Sdv 2 Ml) 4 mg IVP Q6H PRN PRN Reason: NAUSEA AND VOMITING Last Admin: 04/10/22 19:49 Dose: 4 mg Pantoprazole Sodium (Pantoprazole 40 Mg Sdv) 40 mg IVP DAILY [facility] Last Admin: 04/13/22 09:59 Dose: 40 mg Potassium Chloride (Potassium Chloride Er 10 Meq Tablet) 10 meq PO DAILY [facility] Last Admin: 04/11/22 10:14 Dose: 10 meq Senna/Docusate Sodium (Sennosides-Docusate Tablet) 1 tab PO DAILY [facility] Last Admin: 04/13/22 10:00 Dose: Not Given Sodium Bicarbonate (Sodium Bicarbonate 650 Mg Tablet) 650 mg PO TID [facility] Last Admin: 04/14/22 00:03 Dose: Not Given Sodium Chloride (Sodium Chloride 0.9 % (Flush) Syringe 10 Ml) 5 - 10 ml IV Q12H [facility] Last Admin: 04/14/22 04:13 Dose: 10 ml Sodium Chloride (Sodium Chloride 0.9 % (Flush) Syringe 10 Ml) 5 - 10 ml IV PRN PRN PRN Reason: Central line flush Vitals/I&O/Wt Last Vital Signs Temp 98.1 F 04/14/22 02:30 Pulse 78 04/14/22 06:00 Resp 22 H 04/14/22 06:00 BP 155/82 04/14/22 06:00 Pulse Ox 91 04/14/22 06:00 O2 Del Method 04/14/22 03:25 O2 Flow Rate 70 04/12/22 08:00 FiO2 40 04/14/22 05:28 04/13/22 04/14/22 04/14/22 22:59 06:59 14:59 Intake Total 350.333 / 617.800 50 / 667.800 Output Total 1800 / 1821 113 / 1934 Balance -1449.667 / -1203.200 -63 / -1266.200 Weight last 48 hrs Weight 254.465 kg Weight 264 kg Weight 266.349 kg Physical Exam Narrative: obese lady on bipap, confused, lethargic vs noted heent- nc/at, eomi neck obese lungs crackles b/l heart reg abd soft, nt, nd, + bs ext b/l edema skin cellulitis on leg neuro- responds to pain Urinary Catheter Management: Coude: Cath Placed During This Visit: yes Reason for Continuing Indwelling Catheter: Accurate Measurement of Urinary Output in Critically Ill Patients Urinary Catheter Date of Insertion: 04/09/22 Urinary Catheter Time of Insertion: 15:30 Data : 04/14/22 05:46 04/14/22 05:46 A&P Assessment and plan (1) Acute kidney injury: Plan 61 yr old female rt leg cellulitis and ATN 1AKI - s/p first HD via RT femoral temp HD catheter on 04-12-22 - repeat HD now - 3 hrs, remove upto 2.5 l as onofre by SBP >110 2. cellulitis- abx per medicine- dose for ANY on HD -keep vanco trough under 19 3. septic shock improving 4. met and resp acidosis- use bipap and HD 5. elevated bnp -monitor w/ HD seen and examined w/ ICE PLATFORM SUPERVISOR- telehealth visit discussed w/ HD rN time spent 30 min Attestations Medical Necessity Statement*: see above Time Spent in Patient Care: 16 - 35 minutes (>than 50% of time spent in counselling and/or direct pt care on unit). Coding Level of Care Code Acute Head Of Stock for [facility] Diagnoses Acute kidney injury N17.9
[2022-04-14] MEDS: pantoprazole 40 mg SDV IVP (08:14)
[2022-04-14] MEDS: cefepime 1,000 MG in sodium chloride 0.9% (plus) 50 ML 100 MG IV ×2 (08:14→20:44)
[2022-04-14] MEDS: bacitracin ointment 28 gm 1 APPLIC TOPICAL ×3 (08:15→22:00)
--- NOTE | 2022-04-14 08:44 | PC.NURSE ---
Dr. Snyder at bedside, informed pain meds could depress respiratory so they will be held for now, observed decreased urine out put and swelling in legs, continuing with dialysis
--- NOTE | 2022-04-14 08:53 | PC.SOCIAL ---
IMM update IMM updated with patient's spouse at bedside. Verbalized an understanding. Copy Pg 2 provided. Initialled, dated, timed, and placed in chart.
[2022-04-14] MEDS: heparin, porcine 1,000 unit/mL INJ 10 mL HE (09:23)
--- NOTE | 2022-04-14 09:36 | PC.CHAP ---
Pastoral Care Encounter/Spiritual Assessment Type of Contact [] Declined rn occupational visit [] Patient/Family/Request visit [] Outpatient visit [] Follow-up visit [] Physician referral [] Code/Alert [x] Routine visit [] Staff referral [] Actively dying [] Patient sleeping [x] Family support [] [] Out of room [] Palliative care [] [] Receiving care in room [] Pre-surgical visit [] Trauma [] Long length of stay [x] ICU visit [x] Other: dialysis Relational/Emotional Strength [] Patient feels connected with others/family/visitors/staff [] Distress [] Loneliness/isolation [] Abandonment Spirituality of Patient [] Person of Opal [] Attends Mandaen of their Opal [] Believes in Prayer [] Reads Bible or Religion materials [] There are Spiritual issues to be addressed Spool Worker Interventions [x] Prayer [] Active listening [] Non-anxious presence [] Spiritual/emotional support [] Crisis/trauma care [] Spiritual counseling [] Bereavement support [] Provided bereavement packet [] Provided Bible/devotional materials [] Provided toy/stuffed animal, coloring book to patient or family member [] Provided Communion [] Anointing/[place] [] Salvation [x] Completed spiritual assessment [] Other: Impact on Illness or Injury [] Angry [] Fearful [] Anxious [] Often cries [] Exhaustion [] Unable to work [] Unable to attend taoist [] Unable to walk/stand [] Unable to read [] Unable to drive [] Unable to eat/drink [] Unable to sleep [] Unable to be with family [] Patient intubated [] Other: Summary Time spent with patient
--- NOTE | 2022-04-14 10:31 | PM.PN ---
Subjective Subjective: For sterilization 04/13 1500 mL output Oxygen requirement decreased down to 50% We were able to wean off Levophed as well pH improvement noted as well Another session of dialysis today Patient is still drowsy and lethargic Currently on FiO2 50% on AVAPS tidal volume 700 This morning patient is hypertensive despite getting dialysis Vitals/I&O/Wt Last Vital Signs Temp 98.1 F 04/14/22 02:30 Pulse 66 04/14/22 10:00 Resp 24 H 04/14/22 10:00 BP 174/91 04/14/22 10:00 Pulse Ox 94 04/14/22 10:00 O2 Del Method 04/14/22 08:38 O2 Flow Rate 70 04/12/22 08:00 FiO2 50 04/14/22 09:30 04/13/22 04/14/22 04/14/22 22:59 06:59 14:59 Intake Total 350.333 / 617.800 50 / 667.800 Output Total 1800 / 1821 113 / 1934 Balance -1449.667 / -1203.200 -63 / -1266.200 Weight last 48 hrs Weight 254.465 kg Weight 264 kg Weight 266.349 kg Physical Exam Narrative: Morbidly obese Signs of fluid overload Generalized anasarca Lymphedema Right lower extremity cellulitis Pleuritic nature Abdomen distended nontender Patient is still fatigued and lethargic Currently on AVAPS 700 tidal volume with pressure rate 22 FiO2 50% saturating 90% Family at the bedside Patient open eyes when we shake her aggressively Urinary Catheter Management: Coude: Cath Placed During This Visit: yes Reason for Continuing Indwelling Catheter: Accurate Measurement of Urinary Output in Critically Ill Patients Urinary Catheter Date of Insertion: 04/09/22 Urinary Catheter Time of Insertion: 15:30 Data : 04/14/22 05:46 04/14/22 05:46 A&P Assessment and plan (1) DIC (disseminated intravascular coagulation): (2) CHF exacerbation: (3) Hyponatremia: (4) Oliguria: (5) V tach: (6) Obesity hypoventilation syndrome: (7) Acute kidney injury: (8) Aspiration pneumonitis: (9) Sepsis: (10) Wound infection: (11) Chronic acquired lymphedema: (12) Peripheral vascular disease: Plan Persistent hypoxia hypercapnic respite failure Mixed respiratory and metabolic acidosis Patient is BiPAP/AVAPS dependent Improvement in pH noted after dialysis She is still hypercapnic Drowsy and lethargic does not want intubation multiple family meetings conducted did not want to intubate her until respiratory or cardiac arrest They completely understand that might be too late and detrimental for the patient ATN related to sepsis . Assessment 04/13 Temporary dialysis catheter placed by Dr. Moreira Septic shock related to cellulitis: Improved Patient is off Levophed after dialysis session Cultures negative, afebrile Discontinue vancomycin Continue cefepime and doxycycline Acute CHF exacerbation Low normal EF Bedside ultrasound did show dilated ventricles She does carry a guarded prognosis considering hyponatremia Hypertensive: Added hydralazine and Nitropaste for as needed use today DIC related to sepsis: No acute worsening V. tach: No recurrence She is getting PPN via midline glucose well managed for now A1c 5.3 In case of cardiac arrest arrest please call anesthesia for intubation or the ER, Attestations Medical Necessity Statement*: Continue ICU management guarded prognosis high risk for mortality and morbidity Critical Care Time: 30 Coding Level of Care Code Acute Cooky Packer for [facility] Diagnoses DIC (disseminated intravascular coagulation) D65 CHF exacerbation I50.9 Hyponatremia E87.1 Oliguria R34 V tach I47.20 Obesity hypoventilation syndrome E66.2 Acute kidney injury N17.9 Aspiration pneumonitis J69.0 Sepsis A41.9 Wound infection T14.8XXA; L08.9 Chronic acquired lymphedema I89.0 Peripheral vascular disease I73.9
[2022-04-14] MEDS: hyDRALAzine 20 mg/mL INJ 1 mL 10 MG IVP (11:07)
[2022-04-14] MEDS: morphine 4 mg/mL SDV 1 mL 2 MG IVP (12:56)
[2022-04-14] MEDS: heparin drip 25,000 UNIT/500 ML PREMIX 33 UNIT IV (13:00)
--- NOTE | 2022-04-14 16:40 | PM.PN ---
Subjective Subjective: Patient seen and examined. She was undergoing successful hemodialysis when I examined her. Vitals/I&O/Wt Last Vital Signs Temp 98.1 F 04/14/22 02:30 Pulse 74 04/14/22 16:04 Resp 28 H 04/14/22 15:46 BP 168/115 04/14/22 15:30 Pulse Ox 91 04/14/22 15:51 O2 Del Method 04/14/22 15:46 O2 Flow Rate 70 04/12/22 08:00 FiO2 40 04/14/22 15:51 04/14/22 04/14/22 04/14/22 06:59 14:59 22:59 Intake Total 50 / 911.707 5870 / 1000 Output Total 113 / 1934 3000 / 3000 Balance -63 / -1266.200 -2000 / -2000 Weight last 48 hrs Weight 561 lb Weight 582 lb 0.325 oz Weight 587 lb 3.2 oz Physical Exam Narrative: General: No acute distress Catheter insertion site is clean without erythema or exudate Urinary Catheter Management: Coude: Cath Placed During This Visit: yes Reason for Continuing Indwelling Catheter: Accurate Measurement of Urinary Output in Critically Ill Patients Urinary Catheter Date of Insertion: 04/09/22 Urinary Catheter Time of Insertion: 15:30 Data : 04/14/22 05:46 04/14/22 05:46 Micro: Microbiology 04/09/22 14:25 Blood Culture - Final Blood NO GROWTH AFTER 5 DAYS 04/09/22 14:25 Blood Culture - Final Blood NO GROWTH AFTER 5 DAYS A&P Assessment and plan (1) Acute kidney injury: Plan Hemodialysis catheter is working well. It may be removed when no longer needed. 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
--- NOTE | 2022-04-14 16:48 | XRR_ITS ---
PROCEDURE INFORMATION: Exam: XR Chest Exam date and time: 04/14/2022 4:56 PM Age: 61 years old Clinical indication: Shortness of breath; Additional info: Intubated TECHNIQUE: Imaging protocol: Radiologic exam of the chest. Views: 1 view. COMPARISON: CR (CHEST, ) 04/12/2022 6:10 PM FINDINGS: Tubes, catheters and devices: Endotracheal tube not visualized, please correlate clinically as provided history states intubated. Right central venous catheter tip seen approaching the atrial caval junction. Lungs: Pulmonary vascular congestion. Pleural spaces: Small left pleural effusion suspected. Heart/Mediastinum: Cardiomegaly. Bones/joints: Unremarkable. XR/XR chest 1V portable [id number] IMPRESSION: 1. Endotracheal tube not visualized, please correlate clinically as provided history states intubated. 2. Right central venous catheter tip seen approaching the atrial caval junction. 3. Cardiomegaly. 4. Pulmonary vascular congestion. 5. Small left pleural effusion suspected.
[2022-04-14 19:33] LABS: Partial Thromboplastin Time 43.1 SECONDS (23.9-36.7)
[2022-04-14 19:37] LABS: Glucose Point of Care 89 mg/dL (70-110)
[2022-04-15] VITALS (65 sets, daily range): BP systolic 140–227; BP diastolic 67–119; PULSE 64–99; RESP 17–49; TEMP 36.7–37.1; O2SAT 84–99
[2022-04-15] MEDS: heparin drip 25,000 UNIT/500 ML PREMIX 33 UNIT IV ×2 (00:15→14:45)
[2022-04-15] MEDS: collagenase oint 30 gm 1 APPLIC TOPICAL (00:19)
[2022-04-15] MEDS: hyDRALAzine 20 mg/mL INJ 1 mL 10 MG IVP ×5 (00:22→22:51)
[2022-04-15 00:48] LABS: Glucose Point of Care 93 mg/dL (70-110)
[2022-04-15] MEDS: morphine 4 mg/mL SDV 1 mL 2 MG IVP ×4 (00:57→21:29)
[2022-04-15 01:28] LABS: Basophils % 0.2 %; Eosinophils % 0.1 %; Hematocrit 39.7 % (37.0-47.0); Hemoglobin 12.6 g/dL (11.5-15.3); Lymphocytes # 0.6 10^3/uL (0.8-4.8); Lymphocytes % 3.8 %; Mean Corpuscular HGB Conc 31.7 g/dL (30.0-36.0); Mean Corpuscular Hemoglobin 28.6 pg (28.0-34.0); Mean Platelet Volume 11.2 fL (7.4-10.4); Monocytes # 0.9 10^3/uL (0.2-0.9); Monocytes % 5.2 %; Neutrophils # 14.75 10^3/uL (1.8-7.7); Neutrophils % 87.8 %; Nucleated Red Blood Cells % 0 %; Platelet Count 168 10^3/cmm (130-400); Red Blood Count 4.41 10^6/uL (4.1-5.3); Red Cell Distribution Width 17.9 % (12.1-15.1); White Blood Count 16.8 10^3/uL (4.0-10.0)
[2022-04-15 01:47] LABS: Lactate (Lactic Acid level) 1.3 mmol/L (0.5-2.2)
[2022-04-15 01:48] LABS: Vancomycin Random 14.4 ug/mL (20.0-40.0)
[2022-04-15] MEDS: heparin 5,000 unit/mL INJ 1 mL IV ×4 (01:53→22:42)
--- NOTE | 2022-04-15 03:08 | PC.NURSE ---
Patient became increasingly hypertensive after 0100 this shift. PRN 10mg hydralazine admin at 0022. Order for 2mg morphine received for pain. Patient remains hypertensive with systolic in 200s. Telephone order for 10mg Labetalol received. Instructed to notify physician if hypertension persists in 1 hour.
[2022-04-15] MEDS: ipratropium-albuterol 3 mL Neb INHALATION ×6 (03:09→23:39)
[2022-04-15 03:16] LABS: ABG PCO2 54.8 mmHg (35-45); ABG PH Result 7.31 (7.35-7.45); Arterial Blood Gas Hematocrit 40.5 % (37-47); Base Excess ABG 0.3 mmol/L (-2.0-2.0); Blood Gas Allen Test Pos; Blood Gas Sample Site Radial, right; Blood Gas Sample Type Arterial; HCO3 ABG 27.5 mmol/L (22-26); Oxygen Device BIPAP; PO2 ABG 64.9 mmHg (80.0-100.0)
[2022-04-15] MEDS: labetalol 5 mg/mL SDV 20mL 10 MG IVP (03:16)
--- NOTE | 2022-04-15 04:00 | XRR_ITS ---
PROCEDURE INFORMATION: Exam: XR Chest Exam date and time: 04/15/2022 4:13 AM Age: 61 years old Clinical indication: Cardiovascular condition or disease; Congestive heart failure (chf); Cause unknown; Type unknown; Patient HX: F/u chf. Extubated. On bipap. Best image obtained due to habitus. TECHNIQUE: Imaging protocol: Radiologic exam of the chest. Views: 1 view. COMPARISON: CR (CHEST, ) 04/14/2022 4:56 PM FINDINGS: Tubes, catheters and devices: Right IJ central venous catheter terminates in the region of the right atrium. Lungs: Pulmonary vascular congestion. Pleural spaces: Unremarkable. No pleural effusion. No pneumothorax. Heart/Mediastinum: Cardiomegaly. Bones/joints: Unremarkable. XR/XR chest 1V portable [id number] IMPRESSION: Similar pulmonary vascular congestion and cardiomegaly.
[2022-04-15 04:20] LABS: Alanine Aminotransferase 14 U/L (0-33); Albumin Level 2.6 g/dL (3.5-5.2); Alkaline Phosphatase 142 U/L (35-105); Anion Gap 15.9 (5-19); Aspartate Amino Transferase 14 U/L (0-32); Blood Urea Nitrogen 37 mg/dL (6-20); Calcium 8.5 mg/dL (8.5-10.5); Carbon Dioxide 24 mmol/L (22-29); Chloride 98 mmol/L (98-107); Creatine Phosphokinase 35 U/L (26-192); Globulin 3.9 g/dL (1.3-4.6); Glucose 86 mg/dL (65-115); Magnesium 2.1 mg/dL (1.7-2.3); NT Pro B Type Natriuretic Pept 9213 pg/mL (0-125); Osmolality Calculated 286 mOsm/kg (285-295); Phosphorus 3.8 mg/dL (2.5-4.5); Potassium 3.9 mmol/L (3.5-5.1); Sodium 134 mmol/L (136-145); Total Bilirubin 0.5 mg/dL (0.15-1.2); Total Protein 6.5 g/dL (6.6-8.7)
[2022-04-15] MEDS: sodium chloride 0.9 % (flush) syringe 10 mL IV (04:46)
[2022-04-15] MEDS: nitroglycerin 1 gm/inch oint Pkt 0.5 INCH TOPICAL ×2 (05:43→23:47)
--- NOTE | 2022-04-15 07:15 | P.PN_ITS ---
Subjective Subjective: s/p HD yesterday. good fluid removal. uop improving. remains on bipap Medications: Reviewed: Yes Medication Review Details: Current Medications Acetaminophen (Acetaminophen 500 Mg Tablet) 500 mg PO Q4H PRN PRN Reason: fever Last Admin: 04/11/22 19:48 Dose: 500 mg Albuterol/Ipratropium (Ipratropium-Albuterol 3 Ml Neb) 3 ml INHALATION Q6H PRN PRN Reason: SHORTNESS OF BREATH Albuterol/Ipratropium (Ipratropium-Albuterol 3 Ml Neb) 3 ml INHALATION Q4H.RESPIRATORY [facility] Last Admin: 04/15/22 03:09 Dose: 3 ml Bacitracin (Bacitracin Ointment 28 Gm) 1 applic TOPICAL TID [facility]; Protocol Last Admin: 04/14/22 22:00 Dose: 1 applic Collagenase (Collagenase Oint 30 Gm) 1 applic TOPICAL Q24H [facility] Last Admin: 04/15/22 00:19 Dose: 1 applic Enoxaparin Sodium (Enoxaparin 150 Mg/Ml Syringe) 150 mg SUBCUT Q24H [facility] Last Admin: 04/12/22 11:48 Dose: 150 mg Fluoxetine HCl (Fluoxetine 20 Mg Capsule) 20 mg PO BID [facility] Last Admin: 04/14/22 17:14 Dose: Not Given Heparin Sodium (Porcine) (Heparin Lock Flush 500 Unit/5 Ml Syringe) 200 - 500 unit IV Q12H [facility] Last Admin: 04/15/22 04:46 Dose: 200 unit Heparin Sodium (Porcine) (Heparin Lock Flush 500 Unit/5 Ml Syringe) 200 - 500 unit IV PRN PRN PRN Reason: Central line flush Last Admin: 04/14/22 22:39 Dose: 500 unit Heparin Sodium (Porcine) (Heparin 5,000 Unit/Ml Inj 1 Ml) 0 unit IV PRN PRN; Protocol PRN Reason: Heparin weight-base protocol Last Admin: 04/15/22 01:53 Dose: 5,000 unit Hydralazine HCl (Hydralazine 20 Mg/Ml Inj 1 Ml) 10 mg IVP Q6H PRN PRN Reason: bp> 180./100 Last Admin: 04/15/22 06:37 Dose: 10 mg Hydromorphone HCl (Hydromorphone 1 Mg/Ml Inj 1 Ml) 0.2 mg IVP Q4H PRN PRN Reason: PAIN Cefepime HCl 1,000 mg/ Sodium (Chloride) 50 mls @ 100 mls/hr IV Q12H [facility]; Protocol Last Infusion: 04/15/22 01:07 Dose: Infused Vancomycin HCl 2,000 mg/ (Sodium Chloride) 500 mls @ 250 mls/hr IV Q18H [facility]; Protocol Norepinephrine Bitartrate 4 mg (/ Dextrose) 254 mls @ 0 mls/hr IV .Q0M [facility]; Pro tocol Last Titration: 04/13/22 12:40 Dose: 0 mcg/min, 0 mls/hr Amino Acids/Electrolytes (Clinimix E 4.25%-10%) 1,000 mls @ 10 mls/hr IV .Q24H [facility] Last Admin: 04/14/22 23:33 Dose: 10 mls/hr Sodium Chloride (Sodium Chloride 0.9%) 1,000 mls @ 0 mls/hr IV .Q0M PRN PRN Reason: hypotension or symptomatic Heparin Sodium/Sodium Chloride (Heparin Drip) 25,000 unit in 500 mls @ 0 mls/hr IV .Q0M [facility]; Protocol Last Admin: 04/15/22 00:15 Dose: 6.19 unit/kg/hr, 33 mls/hr Sodium Chloride (Sodium Chloride 0.9%) 1,000 mls @ 0 mls/hr IV .Q0M PRN PRN Reason: hypotension or symptomatic Lidocaine HCl (Lidocaine 2% Jelly 6 Ml) 1 applic TOPICAL PRN PRN PRN Reason: PAIN Last Admin: 04/12/22 01:57 Dose: 1 applic Lidocaine HCl (Lidocaine 1% Inj 20 Ml Mdv (Ml)) 0.1 ml INTRADERMA PRN PRN PRN Reason: Anesthetic Catheter Placement Methocarbamol (Methocarbamol 500 Mg Tablet) 500 mg PO BID [facility] Last Admin: 04/11/22 18:29 Dose: 500 mg Morphine Sulfate (Morphine 4 Mg/Ml Sdv 1 Ml) 2 mg IVP Q8M PRN PRN Reason: SEVERE PAIN Last Admin: 04/15/22 00:57 Dose: 2 mg Nitroglycerin (Nitroglycerin 1 Gm/Inch Oint Pkt) 0.5 inch TOPICAL Q6H PRN PRN Reason: Blood pressure greater than 180/100 Last Admin: 04/15/22 05:43 Dose: 0.5 inch Ondansetron HCl (Ondansetron 2 Mg/Ml Sdv 2 Ml) 4 mg IVP Q6H PRN PRN Reason: NAUSEA AND VOMITING Last Admin: 04/10/22 19:49 Dose: 4 mg Pantoprazole Sodium (Pantoprazole 40 Mg Sdv) 40 mg IVP DAILY [facility] Last Admin: 04/14/22 08:14 Dose: 40 mg Potassium Chloride (Potassium Chloride Er 10 Meq Tablet) 10 meq PO DAILY [facility] Last Admin: 04/11/22 10:14 Dose: 10 meq Senna/Docusate Sodium (Sennosides-Docusate Tablet) 1 tab PO DAILY [facility] Last Admin: 04/14/22 08:09 Dose: Not Given Sodium Bicarbonate (Sodium Bicarbonate 650 Mg Tablet) 650 mg PO TID [facility] Last Admin: 04/14/22 21:03 Dose: Not Given Sodium Chloride (Sodium Chloride 0.9 % (Flush) Syringe 10 Ml) 5 - 10 ml IV Q12H [facility] Last Admin: 04/15/22 04:46 Dose: 10 ml Sodium Chloride (Sodium Chloride 0.9 % (Flush) Syringe 10 Ml) 5 - 10 ml IV PRN PRN PRN Reason: Central line flush Last Admin: 04/14/22 22:39 Dose: 10 ml Vitals/I&O/Wt Last Vital Signs Temp 98.1 F 04/15/22 02:00 Pulse 84 04/15/22 06:00 Resp 27 H 04/15/22 06:00 BP 178/84 04/15/22 06:00 Pulse Ox 95 04/15/22 06:00 O2 Del Method 04/15/22 03:09 O2 Flow Rate 70 04/12/22 08:00 FiO2 40 04/15/22 03:09 04/14/22 04/15/22 04/15/22 22:59 06:59 14:59 Intake Total 0 / 1050 667.583 / 1717.583 Output Total 600 / 3600 Balance 0 / -1950 67.583 / -1882.417 Weight last 48 hrs Weight 254.465 kg Weight 264 kg Physical Exam Narrative: obese lady on bipap, lethargic vs noted- bp elevated heent- nc/at, eomi neck obese lungs crackles b/l heart reg abd soft, nt, nd, + bs ext b/l edema skin cellulitis on leg neuro- responds to pain, more awake then yesterday Urinary Catheter Management: Coude: Cath Placed During This Visit: yes Reason for Continuing Indwelling Catheter: Accurate Measurement of Urinary Output in Critically Ill Patients Urinary Catheter Date of Insertion: 04/09/22 Urinary Catheter Time of Insertion: 15:30 Data : 04/15/22 00:55 04/15/22 00:55 Micro: Microbiology 04/09/22 14:25 Blood Culture - Final Blood NO GROWTH AFTER 5 DAYS 04/09/22 14:25 Blood Culture - Final Blood NO GROWTH AFTER 5 DAYS A&P Assessment and plan (1) Acute kidney injury: Plan 61 yr old female rt leg cellulitis and ATN 1AKI - s/p first HD via RT femoral temp HD catheter on 04-12-22 - s/p HD yesterday -will hold HD and use lasix 2. cellulitis- abx per medicine- dose for ANY on HD -keep vanco trough under 19 3. htn- start norvasc and hydralazine. also lasix for edema and sob 4. resp acidosis- use bipap and improved w/ HD 5. elevated bnp -monitor w/ diuresis seen and examined w/ SURFACE GRINDER- telehealth visit time spent 30 min Attestations Medical Necessity Statement*: any, htn , chf, resp acidosis Time Spent in Patient Care: 16 - 35 minutes (>than 50% of time spent in counselling and/or direct pt care on unit) . Coding Level of Care Code Acute Skip Hoist Operator for Kinga Watson Diagnoses Acute kidney injury N17.9
[2022-04-15] MEDS: cefepime 1,000 MG in sodium chloride 0.9% (plus) 50 ML 100 MG IV (08:01)
[2022-04-15] MEDS: pantoprazole 40 mg SDV IVP (08:02)
[2022-04-15] MEDS: FUROsemide 10 mg/mL SDV 10mL 60 MG IVP (08:02)
--- NOTE | 2022-04-15 08:33 | PC.NUTR ---
Pt currently receiving PPN @ 10 mls/hr per chart. If medically appropriate, recommend PPN increasing 10 mls Q8H as tolerated with goal rate of 83 mls/kg, along with 50 grams fat emulsion, standard electrolytes, multivitamins 10 mls/day. Details in RD assessment.
[2022-04-15 08:42] LABS: Partial Thromboplastin Time 46.6 SECONDS (23.9-36.7)
[2022-04-15] MEDS: bacitracin ointment 28 gm 1 APPLIC TOPICAL ×3 (09:31→21:44)
--- NOTE | 2022-04-15 10:24 | P.PN_ITS ---
Subjective Subjective: Patient is showing signs of improvement with every dialysis session To dialysis session has been completed FiO2 40% Still on BiPAP I have asked nurse to let her have a sip of water and juice Continue TPN at 10 Urine output is still low but noticed muddy brown output I have discontinued her vancomycin she is only getting cefepime Technology Training Associate recommending using Lasix today Chest x-ray showing fluid overload state Afebrile Cultures negative Off levo pH improving PCO2 54 Vitals/I&O/Wt Last Vital Signs Temp 98.6 F 04/15/22 08:30 Pulse 80 04/15/22 08:30 Resp 25 H 04/15/22 08:30 BP 201/89 04/15/22 08:30 Pulse Ox 94 04/15/22 08:30 O2 Del Method 04/15/22 08:30 O2 Flow Rate 70 04/12/22 08:00 FiO2 40 04/15/22 08:30 04/14/22 04/15/22 04/15/22 22:59 06:59 14:59 Intake Total 0 / 1050 667.583 / 1717.583 50 / 50 Output Total 600 / 3600 Balance 0 / -1950 67.583 / -1882.417 50 / 50 Weight last 48 hrs Weight 254.465 kg Weight 264 kg Physical Exam Narrative: Patient is moaning in pain Currently on BiPAP FiO2 40% Mouth is dry Morton catheter draining muddy brown urine Central line, hemodialysis catheter in place Back was not examined Right leg with redness purulent cellulitis has not worsened Lymphedema of legs Signs of fluid overload Urinary Catheter Management: Coude: Cath Placed During This Visit: yes Reason for Continuing Indwelling Catheter: Accurate Measurement of Urinary Output in Critically Ill Patients Urinary Catheter Date of Insertion: 04/09/22 Urinary Catheter Time of Insertion: 15:30 Data : 04/15/22 00:55 04/15/22 00:55 Micro: Microbiology 04/09/22 14:25 Blood Culture - Final Blood NO GROWTH AFTER 5 DAYS 04/09/22 14:25 Blood Culture - Final Blood NO GROWTH AFTER 5 DAYS A&P Assessment and plan (1) DIC (disseminated intravascular coagulation): (2) CHF exacerbation: (3) Hyponatremia: (4) Oliguria: (5) V tach: (6) Obesity hypoventilation syndrome: (7) Acute kidney injury: (8) Aspiration pneumonitis: (9) Sepsis: (10) Chronic acquired lymphedema: (11) YAKOV (generalized anxiety disorder): (12) Morbid obesity: Plan Hypoxia hypercapnic respite failure: Improving on BiPAP/AVAPS FiO2 40% pH 7.31 PCO2 54 Significant improvement noted after 2 set dialysis sessions Patient is still fatigued and lethargic ATN related to sepsis Patient is to showing signs of volume overload Creatinine and mild improvement in urine output with dialysis sessions Will ask trichologist if we can do 1 more session today Septic shock related to cellulitis Discontinued vancomycin she is only getting cefepime for now along with doxycycline V. tach no recurrence Acute CHF exacerbation Low normal EF, requiring dialysis Currently on Lasix Hypertensive emergency: Hydralazine, Nitropaste, might need Cardene drip DIC related to sepsis: No active bleeding TPN at 10 mill per hour Limited resuscitation: Patient and family only want intubation and aggressive intervention at the time of cardiac arrest arrest otherwise did not want her to be intubated with worsening of PCO2 level For concern of PE I have started her on heparin drip Attestations Medical Necessity Statement*: Continue ICU management Time Spent in Patient Care: 40 Coding Level of Care Code Acute Passenger Elevator Operator for [facility] Fwd Diagnoses DIC (disseminated intravascular coagulation) D65 CHF exacerbation I50.9 Hyponatremia E87.1 Oliguria R34 V tach I47.20 Obesity hypoventilation syndrome E66.2 Acute kidney injury N17.9 Aspiration pneumonitis J69.0 Sepsis A41.9 Chronic acquired lymphedema I89.0 YAKOV (generalized anxiety disorder) F41.1 Morbid obesity E66.01
--- NOTE | 2022-04-15 10:38 | PC.CHAP ---
Pastoral Care Encounter/Spiritual Assessment Type of Contact [] Declined air intelligence specialist visit [] Patient/Family/Request visit [] Outpatient visit [] Follow-up visit [] Physician referral [] Code/Alert [x] Routine visit [] Staff referral [] Actively dying [] Patient sleeping [x] Family support [] [] Out of room [] Palliative care [] [] Receiving care in room [] Pre-surgical visit [] Trauma [] Long length of stay [x] ICU visit [x] Other: oxg... resting Relational/Emotional Strength [] Patient feels connected with others/family/visitors/staff [] Distress [] Loneliness/isolation [] Abandonment Spirituality of Patient [] Person of [place] [] Attends Mormon of their [place] [] Believes in Prayer [] Reads Bible or Restorationism materials [] There are Spiritual issues to be addressed Messenger Copy Interventions [x] Prayer [] Active listening [] Non-anxious presence [] Spiritual/emotional support [] Crisis/trauma care [] Spiritual counseling [] Bereavement support [] Provided bereavement packet [] Provided Bible/devotional materials [] Provided toy/stuffed animal, coloring book to patient or family member [] Provided Communion [] Anointing/[place] [] Salvation [x] Completed spiritual assessment [] Other: Impact on Illness or Injury [] Angry [] Fearful [] Anxious [] Often cries [] Exhaustion [] Unable to work [] Unable to attend uatsdin [] Unable to walk/stand [] Unable to read [] Unable to drive [] Unable to eat/drink [] Unable to sleep [] Unable to be with family [] Patient intubated [] Other: Summary Time spent with patient
[2022-04-15] MEDS: FUROsemide 100 MG in sodium chloride 0.9% 40 ML 10 MG IV (11:29)
[2022-04-15] MEDS: nicardipine 20 MG/200 ML PREMIX 50 MG IV (11:30)
[2022-04-15] MEDS: doxycycline 100 MG in sodium chloride 0.9% (plus) 100 ML IV ×2 (11:55→22:53)
[2022-04-15] MEDS: nicardipine 20 MG/200 ML PREMIX 150 MG IV ×5 (13:33→23:47)
[2022-04-15] MEDS: vancomycin 1,000 MG in sodium chloride 0.9% 250 ML 250 MG IV (13:38)
[2022-04-15 13:39] LABS: Glucose Point of Care 139 mg/dL (70-110)
[2022-04-15] MEDS: heparin, porcine 1,000 unit/mL INJ 10 mL HE (15:52)
[2022-04-15 16:08] LABS: Glucose Point of Care 107 mg/dL (70-110)
[2022-04-15 16:09] LABS: Partial Thromboplastin Time 49.4 SECONDS (23.9-36.7)
[2022-04-15] MEDS: dexmedeTOMIDine 0.9 % NaCL 400 MCG/100 ML PREMIX 6.36 MCG IV (18:24)
[2022-04-15 20:37] LABS: Glucose Point of Care 98 mg/dL (70-110)
[2022-04-15 21:22] LABS: Partial Thromboplastin Time 43.1 SECONDS (23.9-36.7)
[2022-04-15] MEDS: dexmedeTOMIDine 0.9 % NaCL 400 MCG/100 ML PREMIX 25.45 MCG IV (21:30)
[2022-04-15] MEDS: cefepime 1,000 MG in sodium chloride 0.9% (plus) 50 ML 0.6 MG IV (21:31)
[2022-04-16] VITALS (58 sets, daily range): BP systolic 120–192; BP diastolic 53–102; PULSE 59–95; RESP 24–38; TEMP 37.2–37.7; O2SAT 82–95
[2022-04-16] MEDS: dexmedeTOMIDine 0.9 % NaCL 400 MCG/100 ML PREMIX 38.17 MCG IV ×3 (00:35→06:48)
[2022-04-16] MEDS: nicardipine 20 MG/200 ML PREMIX 150 MG IV (01:19)
[2022-04-16] MEDS: collagenase oint 30 gm 1 APPLIC TOPICAL ×2 (01:19→08:10)
[2022-04-16] MEDS: ipratropium-albuterol 3 mL Neb INHALATION ×5 (03:21→19:33)
[2022-04-16 03:26] LABS: Basophils % 0.2 %; Eosinophils % 0.1 %; Hematocrit 39.4 % (37.0-47.0); Hemoglobin 12.4 g/dL (11.5-15.3); Lymphocytes # 0.7 10^3/uL (0.8-4.8); Lymphocytes % 4.7 %; Mean Corpuscular HGB Conc 31.5 g/dL (30.0-36.0); Mean Corpuscular Volume 88.9 fl (81-99); Mean Platelet Volume 10.8 fL (7.4-10.4); Monocytes # 0.7 10^3/uL (0.2-0.9); Monocytes % 4.4 %; Neutrophils # 12.89 10^3/uL (1.8-7.7); Neutrophils % 85.6 %; Nucleated Red Blood Cells % 0 %; Platelet Count 170 10^3/cmm (130-400); Red Blood Count 4.43 10^6/uL (4.1-5.3); Red Cell Distribution Width 17.6 % (12.1-15.1); White Blood Count 15.1 10^3/uL (4.0-10.0)
[2022-04-16 03:40] LABS: Partial Thromboplastin Time 48.7 SECONDS (23.9-36.7)
[2022-04-16] MEDS: sodium chloride 0.9 % (flush) syringe 10 mL IV (03:49)
[2022-04-16 03:51] LABS: Alanine Aminotransferase 14 U/L (0-33); Albumin Level 2.1 g/dL (3.5-5.2); Alkaline Phosphatase 118 U/L (35-105); Anion Gap 12.8 (5-19); Aspartate Amino Transferase 14 U/L (0-32); Blood Urea Nitrogen 37 mg/dL (6-20); Calcium 8.5 mg/dL (8.5-10.5); Carbon Dioxide 27 mmol/L (22-29); Chloride 99 mmol/L (98-107); Globulin 4.4 g/dL (1.3-4.6); Glomerular Filtration Rate 85.6 mL/min (90-130); Glucose 106 mg/dL (65-115); Magnesium 1.9 mg/dL (1.7-2.3); Osmolality Calculated 289 mOsm/kg (285-295); Phosphorus 2.5 mg/dL (2.5-4.5); Potassium 3.8 mmol/L (3.5-5.1); Sodium 135 mmol/L (136-145); Total Bilirubin 0.7 mg/dL (0.15-1.2); Total Protein 6.5 g/dL (6.6-8.7)
[2022-04-16] MEDS: nicardipine 20 MG/200 ML PREMIX 50 MG IV (04:00)
[2022-04-16 04:46] LABS: Glucose Point of Care 95 mg/dL (70-110)
[2022-04-16] MEDS: heparin 5,000 unit/mL INJ 1 mL IV ×2 (04:53→10:32)
[2022-04-16] MEDS: heparin drip 25,000 UNIT/500 ML PREMIX 36 UNIT IV ×2 (05:59→23:07)
[2022-04-16] MEDS: nicardipine 20 MG/200 ML PREMIX 100 MG IV ×4 (06:00→10:57)
[2022-04-16] MEDS: FUROsemide 10 mg/mL SDV 10mL 60 MG IVP ×2 (06:48→15:43)
--- NOTE | 2022-04-16 07:22 | XRR_ITS ---
PROCEDURE INFORMATION: Exam: XR Chest Exam date and time: 04/16/2022 7:32 AM Age: 61 years old Clinical indication: Cardiovascular condition or disease; Congestive heart failure (chf); Other: Infection / sepsis TECHNIQUE: Imaging protocol: Radiologic exam of the chest. Views: 1 view. Total images: 1 COMPARISON: CR XR chest 1V portable [id number] 04/15/2022 4:13 AM FINDINGS: Tubes, catheters and devices: A right internal jugular central venous catheter is present, with its tip overlying the region of the superior vena cava and unchanged from prior exam. Lungs: Pulmonary vascular congestion. Bilateral pulmonary opacities left greater than right are again noted and appear unchanged. Pleural spaces: Unremarkable. No pleural effusion. No pneumothorax. Heart/Mediastinum: Cardiomegaly. Bones/joints: Osseous structures are unchanged from the prior exam. XR/XR chest 1V portable [id number] IMPRESSION: 1. Cardiomegaly with pulmonary vascular congestion. 2. Bilateral pulmonary opacities left greater than right are again noted and appear unchanged.
--- NOTE | 2022-04-16 07:55 | P.PN_ITS ---
Subjective Subjective: remains on cardene drip and bipap. is swollen and sob. Medications: Reviewed: Yes Medication Review Details: Current Medications Acetaminophen (Acetaminophen 500 Mg Tablet) 500 mg PO Q4H PRN PRN Reason: fever Last Admin: 04/11/22 19:48 Dose: 500 mg Albuterol/Ipratropium (Ipratropium-Albuterol 3 Ml Neb) 3 ml INHALATION Q6H PRN PRN Reason: SHORTNESS OF BREATH Albuterol/Ipratropium (Ipratropium-Albuterol 3 Ml Neb) 3 ml INHALATION Q4H.RESPIRATORY [facility] Last Admin: 04/16/22 07:51 Dose: 3 ml Amlodipine Besylate (Amlodipine 5 Mg Tablet) 5 mg PO DAILY [facility] Last Admin: 04/15/22 09:31 Dose: Not Given Bacitracin (Bacitracin Ointment 28 Gm) 1 applic TOPICAL TID [facility]; Protocol Last Admin: 04/15/22 21:44 Dose: 1 applic Collagenase (Collagenase Oint 30 Gm) 1 applic TOPICAL Q24H [facility] Last Admin: 04/16/22 01:19 Dose: 1 applic Enoxaparin Sodium (Enoxaparin 150 Mg/Ml Syringe) 150 mg SUBCUT Q24H [facility] Last Admin: 04/12/22 11:48 Dose: 150 mg Fluoxetine HCl (Fluoxetine 20 Mg Capsule) 20 mg PO BID [facility] Last Admin: 04/15/22 16:40 Dose: Not Given Furosemide (Furosemide 10 Mg/Ml Sdv 10ml) 60 mg IVP Q8H [facility] Heparin Sodium (Porcine) (Heparin Lock Flush 500 Unit/5 Ml Syringe) 200 - 500 unit IV Q12H [facility] Last Admin: 04/16/22 03:48 Dose: Not Given Heparin Sodium (Porcine) (Heparin Lock Flush 500 Unit/5 Ml Syringe) 200 - 500 unit IV PRN PRN PRN Reason: Central line flush Last Admin: 04/14/22 22:39 Dose: 500 unit Heparin Sodium (Porcine) (Heparin 5,000 Unit/Ml Inj 1 Ml) 0 unit IV PRN PRN; Protocol PRN Reason: Heparin weight-base protocol Last Admin: 04/16/22 04:53 Dose: 2,800 unit Hydralazine HCl (Hydralazine 20 Mg/Ml Inj 1 Ml) 10 mg IVP Q6H PRN PRN Reason: bp> 180./100 Last Admin: 04/15/22 22:51 Dose: 10 mg Hydralazine HCl (Hydralazine 25 Mg Tablet) 25 mg PO TID [facility] Last Admin: 04/15/22 21:05 Dose: Not Given Hydromorphone HCl (Hydromorphone 1 Mg/Ml Inj 1 Ml) 0.2 mg IVP Q4H PRN PRN Reason: PAIN Cefepime HCl 1,000 mg/ Sodium (Chloride) 50 mls @ 100 mls/hr IV Q12H [facility]; Protocol Last Admin: 04/15/22 21:31 Dose: 0.6 mls/hr Norepinephrine Bitartrate 4 mg (/ Dextrose) 254 mls @ 0 mls/hr IV .Q0M [facility]; Protocol Last Titration: 04/13/22 12:40 Dose: 0 mcg/min, 0 mls/hr Amino Acids/Electrolytes (Clinimix E 4.25%-10%) 1,000 mls @ 10 mls/hr IV .Q24H [facility] Last Admin: 04/16/22 01:51 Dose: 10 mls/hr Sodium Chloride (Sodium Chloride 0.9%) 1,000 mls @ 0 mls/hr IV .Q0M PRN PRN Reason: hypotension or symptomatic Heparin Sodium/Sodium Chloride (Heparin Drip) 25,000 unit in 500 mls @ 0 mls/hr IV .Q0M [facility]; Protocol Last Admin: 04/16/22 05:59 Dose: 6.76 unit/kg/hr, 36 mls/hr Sodium Chloride (Sodium Chloride 0.9%) 1,000 mls @ 0 mls/hr IV .Q0M PRN PRN Reason: hypotension or symptomatic Nicardipine/Sodium Chloride (Cardene) 20 mg in 200 mls @ 0 mls/hr IV .Q0M [facility]; Protocol Last Admin: 04/16/22 07:46 Dose: 10 mg/hr, 100 mls/hr Doxycycline Hyclate 100 mg/ (Sodium Chloride) 100 mls @ 100 mls/hr IV Q12H [facility]; Protocol Last Infusion: 04/16/22 00:41 Dose: Infused Vancomycin HCl 1,000 mg/ (Sodium Chloride) 250 mls @ 250 mls/hr IV Q24H [facility]; Protocol Last Infusion: 04/15/22 14:43 Dose: Infused Dexmedetomidine/Sodium Chloride (Precedex) 400 mcg in 100 mls @ 0 mls/hr IV .Q0M [facility]; Protocol Last Admin: 04/16/22 06:48 Dose: 0.6 mcg/kg/hr, 38.17 mls/hr Lanolin (Lanolin Oint 7 Gm) 1 applic TOPICAL PRN PRN PRN Reason: DRYNESS Lidocaine HCl (Lidocaine 2% Jelly 6 Ml) 1 applic TOPICAL PRN PRN PRN Reason: PAIN Last Admin: 04/12/22 01:57 Dose: 1 applic Lidocaine HCl (Lidocaine 1% Inj 20 Ml Mdv (Ml)) 0.1 ml INTRADERMA PRN PRN PRN Reason: Anesthetic Catheter Placement Methocarbamol (Methocarbamol 500 Mg Tablet) 500 mg PO BID [facility] Last Admin: 04/11/22 18:29 Dose: 500 mg Morphine Sulfate (Morphine 4 Mg/Ml Sdv 1 Ml) 2 mg IVP Q8M PRN PRN Reason: SEVERE PAIN Last Admin: 04/15/22 21:29 Dose: 2 mg Nitroglycerin (Nitroglycerin 1 Gm/Inch Oint Pkt) 0.5 inch TOPICAL Q6H PRN PRN Reason: Blood pressure greater than 180/100 Last Admin: 04/15/22 23:47 Dose: 0.5 inch Ondansetron HCl (Ondansetron 2 Mg/Ml Sdv 2 Ml) 4 mg IVP Q6H PRN PRN Reason: NAUSEA AND VOMITING Last Admin: 04/10/22 19:49 Dose: 4 mg Pantoprazole Sodium (Pantoprazole 40 Mg Sdv) 40 mg IVP DAILY [facility] Last Admin: 04/15/22 08:02 Dose: 40 mg Potassium Chloride (Potassium Chloride Er 10 Meq Tablet) 10 meq PO DAILY [facility] Last Admin: 04/11/22 10:14 Dose: 10 meq Senna/Docusate Sodium (Sennosides-Docusate Tablet) 1 tab PO DAILY [facility] Last Admin: 04/15/22 09:32 Dose: Not Given Sodium Chloride (Sodium Chloride 0.9 % (Flush) Syringe 10 Ml) 5 - 10 ml IV Q12H [facility] Last Admin: 04/16/22 03:49 Dose: 10 ml Sodium Chloride (Sodium Chloride 0.9 % (Flush) Syringe 10 Ml) 5 - 10 ml IV PRN PRN PRN Reason: Central line flush Last Admin: 04/14/22 22:39 Dose: 10 ml Vitals/I&O/Wt Last Vital Signs Temp 98.9 F 04/16/22 04:00 Pulse 87 04/16/22 07:51 Resp 36 H 04/16/22 07:51 BP 162/85 04/16/22 06:00 Pulse Ox 91 04/16/22 07:51 O2 Del Method 04/16/22 07:51 O2 Flow Rate 612 04/16/22 06:07 FiO2 75 04/16/22 07:51 04/15/22 04/16/22 04/16/22 22:59 06:59 14:59 Intake Total 726.350 / 8760.312 8721.471 / 4028.821 176.667 / 176.667 Output Total 2300 / 2300 4050 / 6350 Balance -1573.650 / -412.650 -1908.529 / -2321.179 176.667 / 176.667 Weight last 48 hrs Weight 256.28 kg Physical Exam Narrative: obese lady on bipap, more awake than yesterday vs noted- bp elevated heent- nc/at, eomi neck obese lungs crackles b/l heart reg abd soft, nt, nd, + bs ext b/l edema skin cellulitis on leg neuro- responds to pain, moves, talks, more awake then yesterday Urinary Catheter Management: Coude: Cath Placed During This Visit: yes Reason for Continuing Indwelling Catheter: Accurate Measurement of Urinary Output in Critically Ill Patients Urinary Catheter Date of Insertion: 04/09/22 Urinary Catheter Time of Insertion: 15:30 Data : 04/16/22 03:08 04/16/22 03:08 A&P Assessment and plan (1) Acute kidney injury: Plan 61 yr old female rt leg cellulitis and ATN 1AKI - s/p first HD via RT femoral temp HD catheter on 04-12-22 - s/p HD x 2. s/p SUF yesterday -will hold HD and use lasix 2. cellulitis- abx per medicine- dose for ANY on HD -keep vanco trough under 19 3. htn- norvasc and hydralazine- can inc to 50 tid. add lasix for edema and sob 4. resp acidosis- use bipap and improved w/ HD 5. elevated bnp -monitor w/ diuresis seen and examined w/ CLASSROOM TECHNOLOGY COACH- telehealth visit time spent 30 min Attestations Medical Necessity Statement*: htn, resp distress Time Spent in Patient Care: 16 - 35 minutes (>than 50% of time spent in counselling and/or direct pt care on unit) . Coding Level of Care Code Acute Activities Attendant for Kinga Watson Diagnoses Acute kidney injury N17.9
[2022-04-16 07:59] LABS: Glucose Point of Care 108 mg/dL (70-110)
[2022-04-16] MEDS: morphine 4 mg/mL SDV 1 mL 2 MG IVP ×3 (08:02→20:03)
[2022-04-16 08:04] LABS: ABG PCO2 48.3 mmHg (35-45); ABG PH Result 7.39 (7.35-7.45); Base Excess ABG 3.1 mmol/L (-2.0-2.0); Blood Gas Allen Test Pos; Blood Gas Operator Identificat GD; Blood Gas Sample Site Radial, left; Blood Gas Sample Type Arterial; Oxygen Device BIPAP; PO2 ABG 61.9 mmHg (80.0-100.0)
[2022-04-16] MEDS: hyDRALAzine 20 mg/mL INJ 1 mL 10 MG IVP (08:06)
[2022-04-16] MEDS: pantoprazole 40 mg SDV IVP (08:08)
[2022-04-16] MEDS: cefepime 1,000 MG in sodium chloride 0.9% (plus) 50 ML 100 MG IV ×2 (08:11→20:03)
[2022-04-16] MEDS: bacitracin ointment 28 gm 1 APPLIC TOPICAL ×3 (08:11→20:05)
--- NOTE | 2022-04-16 08:37 | PC.SOCIAL ---
IMM Update pg 2 of IMM updated and reviewed w/ patients who is @ bedside. Copy provided. Copy in chart dated and initialed.
--- NOTE | 2022-04-16 08:49 | P.PN_ITS ---
Subjective Subjective: pH reviewed, her hypercapnia has improved, pH is normal She is still requiring BiPAP FiO2 70% Will ask RT to wean her off oxygen We can give her a break to eat via mouth as well She is currently on TPN at 10 mill per hour, with Lasix she does make urine does respond to use of diuretics Some moaning in pain family at the bedside stating that if she is not getting muscle relaxant she mostly does respond like that I am requesting CT scan of right leg again because there is worsening of erythema Patient currently is on Precedex 0.5 Currently on heparin, TPN Off levo Vitals/I&O/Wt Last Vital Signs Temp 98.9 F 04/16/22 04:00 Pulse 82 04/16/22 08:30 Resp 36 H 04/16/22 08:30 BP 180/72 04/16/22 08:30 Pulse Ox 91 04/16/22 08:30 O2 Del Method 04/16/22 08:30 O2 Flow Rate 612 04/16/22 06:07 FiO2 75 04/16/22 08:30 04/15/22 04/16/22 04/16/22 22:59 06:59 14:59 Intake Total 726.350 / 2255.764 9389.471 / 4028.821 233.067 / 233.067 Output Total 2300 / 2300 4050 / 6350 Balance -1573.650 / -412.650 -1908.529 / -2321.179 233.067 / 233.067 Weight last 48 hrs Weight 256.28 kg Physical Exam Narrative: Right leg erythema has worsened However wound purulence has decreased and wound is dry at the edges Bedside IV lines checked Patient has a central line, dialysis catheter, midline Abdomen distended however soft Chronic lymphedema Patient currently on BiPAP Not fully alert however able to open her eyes and does respond to a few questions Moaning in pain She is on her left lateral position Family at the bedside Urinary Catheter Management: Coude: Cath Placed During This Visit: yes Reason for Continuing Indwelling Catheter: Accurate Measurement of Urinary Output in Critically Ill Patients Urinary Catheter Date of Insertion: 04/09/22 Urinary Catheter Time of Insertion: 15:30 Data : 04/16/22 03:08 04/16/22 03:08 A&P Assessment and plan (1) DIC (disseminated intravascular coagulation): (2) CHF exacerbation: (3) Hyponatremia: (4) Oliguria: (5) V tach: (6) Obesity hypoventilation syndrome: (7) Aspiration pneumonitis: (8) Sepsis: (9) YAKOV (generalized anxiety disorder): (10) Peripheral vascular disease: (11) Chronic acquired lymphedema: Plan Hypoxia hypercapnia related to obesity hypoventilation fluid overload Improving on BiPAP and especially after dialysis sessions Continue Lasix I will request thoracentesis if possible today PCO2 has improved, Patient is still BiPAP dependent She has not eaten via mouth since admission Continue TPN for now at lower rate Persistent leukocytosis Afebrile, Off levo Septic shock resolved Worsening of right leg erythema requesting CT scan of right leg without contrast Currently she is on cefepime and doxycycline Topical bacitracin, wound care with Santyl ATN related to sepsis: Improving 3 dialysis sessions Currently on Lasix, appreciate nephro recommendations Patient required temporary dialysis for her persistent hypervolemia Aspiration pneumonia: We will add metronidazole if her leukocytosis worsen beyond 15,000 for now continue cefepime and doxycycline Hypertensive emergency currently on Cardene drip Likely related to fluid overload and kidney failure Acute CHF exacerbation Low normal EF Sleep apnea Currently on TPN On heparin drip for my suspicion for PE because of high D-dimer Patient and family does not want her to be intubated unless there is respiratory or cardiac arrest situation, Attestations Medical Necessity Statement*: Continue ICU management Critical Care Time: 30 Coding Level of Care Code Acute In Home Caregiver for [facility] Fwd Diagnoses DIC (disseminated intravascular coagulation) D65 CHF exacerbation I50.9 Hyponatremia E87.1 Oliguria R34 V tach I47.20 Obesity hypoventilation syndrome E66.2 Aspiration pneumonitis J69.0 Sepsis A41.9 YAKOV (generalized anxiety disorder) F41.1 Peripheral vascular disease I73.9 Chronic acquired lymphedema I89.0
--- NOTE | 2022-04-16 08:55 | US_ITS ---
WS: [id number] Ultrasound chest. Evaluate for possible fluid prior to thoracentesis. No significant amount of fluid is noted radiograp hically. Bilateral chest ultrasound is performed. No pleural fluid or effusions are identified. US/US chest [id number] IMPRESSION: No pleural effusions.
--- NOTE | 2022-04-16 09:01 | CT_ITS ---
WS: [id number] CT RIGHT LOWER LEG TECHNIQUE: Noncontrast CT RIGHT lower leg with coronal and sagittal reformatted images. Exam extends from the proximal to mid tibia distally. More proximal images not obtained due to body habitus. CLINICAL INFORMATION: Worsening cellulitis COMPARISON: April 09, 2022 DLP: 196.[address] scans at [facility] use at least one of these dose optimization techniques: automated e xposure control; mA and/or kV adjustment per patient size (includes targeted exams where dose is matc hed to clinical indication); or iterative reconstruction. FINDINGS: Again seen is diffuse subcutaneous edema involving the RIGHT lower extremity. Marked edema is similar in appearance to the prior CT. No evidence of focal drainable abscess or drainable fluid collection. No evidence of osteomyelitis. Suspected tiny ulceration over the distal fibula previously described is unchanged in appearance. Normal ankle mortise. Similar-appearing edema partially visualized in the LEFT lower extremity. CT/CT lower leg RT wo con* [id number] IMPRESSION: 1. Similar-appearing diffuse extensive edema RIGHT lower extremity extending t o the foot. 2. No evidence of drainable abscess or fluid collection. 3. No evidence of osteomyelitis. 4. Previously described tiny suspected area of ulceration about the lateral ma lleolus is unchanged.
[2022-04-16] MEDS: dexmedeTOMIDine 0.9 % NaCL 400 MCG/100 ML PREMIX 50.89 MCG IV (09:24)
[2022-04-16] MEDS: nitroglycerin 1 gm/inch oint Pkt 0.5 INCH TOPICAL (09:25)
[2022-04-16 09:27] LABS: Partial Thromboplastin Time 42.3 SECONDS (23.9-36.7)
[2022-04-16] MEDS: doxycycline 100 MG in sodium chloride 0.9% (plus) 100 ML IV ×2 (10:32→23:06)
--- NOTE | 2022-04-16 11:51 | PC.PHAR ---
NICARDIPINE DOSED IBW PER DR YIP. IBW = 61.37 KG 2.5MCG/KG/MIN INITIAL RATE = 153.4 MCG/KG/MIN CONC = 200MCG/ML INTITIAL RATE = 0.767 ML/MIN = 46 ML/HR
[2022-04-16] MEDS: vancomycin 1,000 MG in sodium chloride 0.9% 250 ML 250 MG IV (12:27)
[2022-04-16] MEDS: LORazepam 2 mg/mL INJ 1 mL 0.5 MG IVP ×3 (12:27→20:45)
[2022-04-16 12:30] LABS: Vancomycin Trough 9.3 ug/mL (10-15)
--- NOTE | 2022-04-16 12:52 | PC.CHAP ---
Pastoral Care Encounter/Spiritual Assessment Type of Contact [] Declined specifications checker visit [] Patient/Family/Request visit [] Outpatient visit [] Follow-up visit [] Physician referral [] Code/Alert [] Routine visit [] Staff referral [] Actively dying [] Patient sleeping [] Family support [] [] Out of room [] Palliative care [] [] Receiving care in room [] Pre-surgical visit [] Trauma [] Long length of stay [] ICU visit [] Other: Relational/Emotional Strength [] Patient feels connected with others/family/visitors/staff [] Distress [] Loneliness/isolation [] Abandonment Spirituality of Patient [] Person of Opal [] Attends Voodoo of their Opal [] Believes in Prayer [] Reads Bible or Jainism materials [] There are Spiritual issues to be addressed Bi Report Developer Interventions [x] Prayer [] Active listening [] Non-anxious presence [] Spiritual/emotional support [] Crisis/trauma care [] Spiritual counseling [] Bereavement support [] Provided bereavement packet [] Provided Bible/devotional materials [] Provided toy/stuffed animal, coloring book to patient or family member [] Provided Communion [] Anointing/Kouts [] Salvation [x] Completed spiritual assessment [] Other: Impact on Illness or Injury [] Angry [] Fearful [] Anxious [] Often cries [] Exhaustion [] Unable to work [] Unable to attend mandaeism [] Unable to walk/stand [] Unable to read [] Unable to drive [] Unable to eat/drink [] Unable to sleep [] Unable to be with family [] Patient intubated [] Other: Summary Time spent with patient
[2022-04-16 16:11] LABS: Partial Thromboplastin Time 41.9 SECONDS (23.9-36.7)
[2022-04-16] MEDS: FUROsemide 100 MG in sodium chloride 0.9% 40 ML IV ×2 (16:36→20:04)
[2022-04-16] MEDS: labetalol 300 MG in sodium chloride 0.9% 240 ML 30 MG IV (16:45)
[2022-04-16] MEDS: metroNIDAZOLE IV 500 MG/100 ML PREMIX 100 MG IV (16:51)
[2022-04-16 17:43] LABS: Glucose Point of Care 98 mg/dL (70-110)
[2022-04-16] MEDS: lanolin oint 7 gm 1 APPLIC TOPICAL (20:05)
[2022-04-16 21:46] LABS: Partial Thromboplastin Time 55.4 SECONDS (23.9-36.7)
[2022-04-16 23:55] LABS: Glucose Point of Care 114 mg/dL (70-110)
[2022-04-17] VITALS (44 sets, daily range): BP systolic 144–192; BP diastolic 76–121; PULSE 53–73; RESP 24–31; TEMP 36.6–37.1; O2SAT 90–95
[2022-04-17] MEDS: ipratropium-albuterol 3 mL Neb INHALATION ×7 (00:01→22:59)
[2022-04-17] MEDS: metroNIDAZOLE IV 500 MG/100 ML PREMIX 100 MG IV ×3 (00:43→16:47)
[2022-04-17] MEDS: morphine 4 mg/mL SDV 1 mL 2 MG IVP ×4 (00:43→19:24)
[2022-04-17 04:03] LABS: Basophils % 0.3 %; Eosinophils % 0.1 %; Hematocrit 40.7 % (37.0-47.0); Hemoglobin 12.3 g/dL (11.5-15.3); Lymphocytes # 0.8 10^3/uL (0.8-4.8); Lymphocytes % 5.1 %; Mean Corpuscular HGB Conc 30.2 g/dL (30.0-36.0); Mean Corpuscular Hemoglobin 28.1 pg (28.0-34.0); Mean Corpuscular Volume 93.1 fl (81-99); Mean Platelet Volume 10.8 fL (7.4-10.4); Monocytes # 0.8 10^3/uL (0.2-0.9); Monocytes % 5.6 %; Neutrophils # 12.21 10^3/uL (1.8-7.7); Neutrophils % 82.6 %; Nucleated Red Blood Cells % 0 %; Platelet Count 181 10^3/cmm (130-400); Red Blood Count 4.37 10^6/uL (4.1-5.3); White Blood Count 14.8 10^3/uL (4.0-10.0)
[2022-04-17 04:06] LABS: ABG PH Result 7.27 (7.35-7.45); Arterial Blood Gas Hematocrit 42.9 % (37-47); Base Excess ABG 0.7 mmol/L (-2.0-2.0); Blood Gas Allen Test Pos; Blood Gas Operator Identificat JB; Blood Gas Sample Site Radial, right; Blood Gas Sample Type Arterial; HCO3 ABG 29.2 mmol/L (22-26); Oxygen Device BIPAP; PO2 ABG 84.6 mmHg (80.0-100.0)
[2022-04-17 04:08] LABS: ABG PCO2 63.3 mmHg (35-45)
[2022-04-17 04:35] LABS: Alanine Aminotransferase 15 U/L (0-33); Albumin Level 2.5 g/dL (3.5-5.2); Alkaline Phosphatase 109 U/L (35-105); Aspartate Amino Transferase 18 U/L (0-32); Blood Urea Nitrogen 40 mg/dL (6-20); Calcium 8.7 mg/dL (8.5-10.5); Carbon Dioxide 29 mmol/L (22-29); Chloride 102 mmol/L (98-107); Globulin 4.3 g/dL (1.3-4.6); Glomerular Filtration Rate 85.6 mL/min (90-130); Glucose 111 mg/dL (65-115); INR 1.22 (0.8-1.2); Osmolality Calculated 298 mOsm/kg (285-295); Phosphorus 4.4 mg/dL (2.5-4.5); Sodium 139 mmol/L (136-145); Total Bilirubin 0.6 mg/dL (0.15-1.2); Total Protein 6.8 g/dL (6.6-8.7)
[2022-04-17 04:36] LABS: Fibrinogen 760 mg/dL (174-498); Partial Thromboplastin Time 43.9 SECONDS (23.9-36.7)
[2022-04-17 04:38] LABS: D Dimer 2.24 ug/mIFEU (0-0.59)
[2022-04-17] MEDS: heparin 5,000 unit/mL INJ 1 mL IV ×2 (04:42→16:48)
[2022-04-17 04:52] LABS: Anion Gap 12.2 (5-19); Potassium 4.2 mmol/L (3.5-5.1)
[2022-04-17 07:40] LABS: Glucose Point of Care 102 mg/dL (70-110)
--- NOTE | 2022-04-17 09:42 | P.PN_ITS ---
Subjective Subjective: Patient was put on Lasix drip yesterday by speech and language specialist So far she has gone for 3 sessions of dialysis No overnight events Leukocytosis improving with addition of metronidazole yesterday Lower extremity CT did not show any sign of focal abscess or osteomyelitis Vancomycin discontinued currently patient is on doxycycline metronidazole and cefepime Afebrile, cultures negative Patient is moaning in pain Still BiPAP dependent ABG reviewed I have asked nursing staff to keep her on BiPAP Will talk with the family whether they would opt for LTAC Vitals/I&O/Wt Last Vital Signs Temp 98.7 F 04/17/22 05:35 Pulse 58 L 04/17/22 08:30 Resp 24 H 04/17/22 08:30 BP 163/94 04/17/22 08:00 Pulse Ox 95 04/17/22 08:30 O2 Del Method 04/17/22 08:30 O2 Flow Rate 612 04/16/22 06:07 FiO2 75 04/17/22 08:30 04/16/22 04/17/22 04/17/22 22:59 06:59 14:59 Intake Total 1084.712 / 2311.809 427.75 / 2739.559 Output Total 870 / 870 265 / 1135 Balance 214.712 / 1441.809 162.75 / 1604.559 Weight last 48 hrs Weight 252.2 kg Weight 256.28 kg Physical Exam Narrative: Patient is morbidly obese Currently on BiPAP /AVAPS Morbidly obese with right-sided central line, right arm midline, right groin temporary dialysis catheter Right leg erythema improving Right open wound just 2 cm above the right ankle Showing signs of improvement No active drainage however wound has purulent base S1, S2 Patient did make 100 mL urine this morning Patient is oriented to herself only Mouth is dry She was suctioned heavily today Urinary Catheter Management: Coude: Cath Placed During This Visit: yes Reason for Continuing Indwelling Catheter: Accurate Measurement of Urinary Out put in Critically Ill Patients Urinary Catheter Date of Insertion: 04/09/22 Urinary Catheter Time of Insertion: 15:30 Data : 04/17/22 03:05 04/17/22 03:05 A&P Assessment and plan (1) DIC (disseminated intravascular coagulation): (2) CHF exacerbation: (3) Hyponatremia: (4) Oliguria: (5) V tach: (6) Obesity hypoventilation syndrome: (7) Aspiration pneumonitis: (8) Sepsis: (9) Wound infection: (10) Stasis leg ulcer: (11) Chronic acquired lymphedema: (12) Morbid obesity: Plan Persistent hypoxic hypercapnic respite failure Obesity hypoventilation Aspiration pneumonitis Concern for PE Patient is BiPAP dependent for last 1 week She has not eaten anything Currently on TPN running at 10 mill per hour Candidate for LTAC? With dialysis sessions we have been able to wean her off high requirement of oxygen from 100% down to 75% After first Session she was only requiring 50% of oxygen on AVAPS Septic shock Aspiration pneumonia Purulent cellulitis of right leg Off Levophed since we started hemodialysis Low normal EF as per echo with contrast Her ventricles were dilated as per my interpretation with bedside ultrasound My concern for PE is high that is why I have kept her on heparin drip Leukocytosis improving, afebrile, cultures negative I have added metronidazole on 04/16 earlier she was getting doxycycline IV along cefepime I have discontinued vancomycin because of high event trough level and worsening kidney function ATN currently on Lasix drip Patient is still oliguric She does respond to dialysis very well Will touch base with nephrology today Persistent hypervolemia Acute CHF exacerbation Low normal EF Sepsis related DIC: No active bleeding or thrombotic events currently patient is on heparin drip Hypertensive emergency patient responded very well to labetalol drip she did not respond very well to Cardene or nitroprusside I would avoid nitroprusside for risk of methemoglobinemia Sleep apnea undiagnosed She is BiPAP dependent Currently on TPN 10 mill per hour reluctant to increase the rate because of her fluid overloaded persistent state Runs of V. tach noted without recurrence She has remained stable Heparin drip TPN She would be an ideal candidate for LTAC, Multiple family meetings have been conducted, they do not want intubation until there is cardiac or respiratory arrest, they do understand that if she gets intubated her chances of coming off ventilator are slim they do not want PEG tube or trach, patient is full code however family does not want her to be intubated unless there is an emergency, Patient does not want to go to [facility] however looking at current situation LTAC would be ideal, asked correctional casework specialist to send the referral today I will talk with the family Attestations Medical Necessity Statement*: Continue ICU management Time Spent in Patient Care: 40 Coding Level of Care Code Acute Campus Chaplain for [facility] Fwd Diagnoses DIC (disseminated intravascular coagulation) D65 CHF exacerbation I50.9 Hyponatremia E87.1 Oliguria R34 V tach I47.20 Obesity hypoventilation syndrome E66.2 Aspiration pneumonitis J69.0 Sepsis A41.9 Wound infection T14.8XXA; L08.9 Stasis leg ulcer I83.009; L97.909 Chronic acquired lymphedema I89.0 Morbid obesity E66.01
[2022-04-17 09:55] LABS: Partial Thromboplastin Time 80.3 SECONDS (23.9-36.7)
[2022-04-17] MEDS: cefepime 1,000 MG in sodium chloride 0.9% (plus) 50 ML 100 MG IV ×2 (09:57→20:25)
[2022-04-17] MEDS: pantoprazole 40 mg SDV IVP (09:57)
[2022-04-17] MEDS: LORazepam 2 mg/mL INJ 1 mL 0.5 MG IVP ×3 (09:58→19:25)
[2022-04-17] MEDS: hyDRALAzine 20 mg/mL INJ 1 mL 10 MG IVP ×2 (10:00→20:25)
[2022-04-17] MEDS: FUROsemide 100 MG in sodium chloride 0.9% 40 ML IV ×2 (10:39→20:42)
[2022-04-17] MEDS: bacitracin ointment 28 gm 1 APPLIC TOPICAL ×3 (10:50→20:26)
[2022-04-17] MEDS: collagenase oint 30 gm 1 APPLIC TOPICAL (10:50)
--- NOTE | 2022-04-17 11:24 | P.PN_ITS ---
Subjective Subjective: remains on BIPAP 75% Fio2 Medications: Reviewed: Yes Vitals/I&O/Wt Last Vital Signs Temp 98.7 F 04/17/22 05:35 Pulse 56 L 04/17/22 11:23 Resp 30 H 04/17/22 11:20 BP 163/94 04/17/22 08:00 Pulse Ox 27 L 04/17/22 11:23 O2 Del Method 04/17/22 11:20 O2 Flow Rate 612 04/16/22 06:07 FiO2 75 04/17/22 11:23 04/16/22 04/17/22 04/17/22 22:59 06:59 14:59 Intake Total 1084.712 / 2311.809 477.75 / 2789.559 575.4 / 575.4 Output Total 870 / 870 265 / 1135 Balance 214.712 / 1441.809 212.75 / 1654.559 575.4 / 575.4 Weight last 48 hrs Weight 252.2 kg Weight 256.28 kg Physical Exam Narrative: Patient is morbidly obese Currently on BiPAP /AVAPS Morbidly obese with right-sided central line, right arm midline, right groin temporary dialysis catheter Right leg erythema improving Right open wound just 2 cm above the right ankle Showing signs of improvement No active drainage however wound has purulent base S1, S2 per report Urinary Catheter Management: Coude: Cath Placed During This Visit: yes Reason for Continuing Indwelling Catheter: Accurate Measurement of Urinary Output in Critically Ill Patients Urinary Catheter Date of Insertion: 04/09/22 Urinary Catheter Time of Insertion: 15:30 Data : 04/17/22 03:05 04/17/22 03:05 A&P Assessment and plan (1) Hyponatremia: (2) CHF exacerbation: (3) ANY (acute kidney injury): Plan 61 yr old female rt leg cellulitis and ATN 1AKI -secondary to cardiogenic shock, creatinine 0.7 but patient is extremely volume overloaded with 75% FiO2 on BiPAP, status post 3 sessions of dialysis so far -She is currently on Lasix drip, will give IV albumin 25 g every 8 hours (25%). -Will review this afternoon, if no adequate urine output and no decrease in the oxygen requirement we may dialyze later today. 2. cellulitis-? abx per medicine-? dose for ANY on HD -keep? vanco? trough under 19 3. htn- norvasc and hydralazine- can inc to 50 tid.? add lasix for edema and sob 4.? resp acidosis-? use bipap and improved w/ HD 5. elevated bnp -monitor w/ diuresis seen and examined w/ VIDEO CONTROL OPERATOR- telehealth visit time spent 30 min Attestations Medical Necessity Statement*: Continue ICU management Time Spent in Patient Care: 40 Coding Level of Care Code Acute Process Automation Engineer for [facility] Fwd Diagnoses Hyponatremia E87.1 CHF exacerbation I50.9 ANY (acute kidney injury) N17.9
[2022-04-17] MEDS: heparin drip 25,000 UNIT/500 ML PREMIX 33 UNIT IV (11:56)
[2022-04-17] MEDS: doxycycline 100 MG in sodium chloride 0.9% (plus) 100 ML IV ×2 (11:58→22:16)
[2022-04-17 13:20] LABS: Glucose Point of Care 97 mg/dL (70-110)
[2022-04-17] MEDS: nitroglycerin 1 gm/inch oint Pkt 0.5 INCH TOPICAL (14:41)
[2022-04-17 15:09] LABS: Partial Thromboplastin Time 40.1 SECONDS (23.9-36.7)
[2022-04-17 21:26] LABS: Partial Thromboplastin Time 58.2 SECONDS (23.9-36.7)
[2022-04-17] MEDS: dexmedeTOMIDine 0.9 % NaCL 400 MCG/100 ML PREMIX 6.36 MCG IV (23:11)
[2022-04-18] VITALS (71 sets, daily range): BP systolic 137–215; BP diastolic 56–107; PULSE 55–646; RESP 22–40; TEMP 36.4–37.1; O2SAT 84–91
[2022-04-18] MEDS: metroNIDAZOLE IV 500 MG/100 ML PREMIX 100 MG IV (00:18)
[2022-04-18] MEDS: hyDRALAzine 20 mg/mL INJ 1 mL 10 MG IVP (02:07)
[2022-04-18] MEDS: morphine 4 mg/mL SDV 1 mL 2 MG IVP ×6 (03:04→22:51)
[2022-04-18] MEDS: ipratropium-albuterol 3 mL Neb INHALATION ×6 (03:15→23:19)
[2022-04-18 03:41] LABS: Glucose Point of Care 94 mg/dL (70-110)
[2022-04-18 03:41] LABS: Glucose Point of Care 96 mg/dL (70-110)
[2022-04-18] MEDS: heparin drip 25,000 UNIT/500 ML PREMIX 36 UNIT IV (03:54)
[2022-04-18 03:55] LABS: Basophils % 0.2 %; Eosinophils % 0.2 %; Hematocrit 41.3 % (37.0-47.0); Hemoglobin 12.4 g/dL (11.5-15.3); Lymphocytes # 0.8 10^3/uL (0.8-4.8); Lymphocytes % 7.7 %; Mean Corpuscular Hemoglobin 28.2 pg (28.0-34.0); Mean Corpuscular Volume 94.1 fl (81-99); Monocytes # 0.6 10^3/uL (0.2-0.9); Monocytes % 6.5 %; Neutrophils # 7.94 10^3/uL (1.8-7.7); Neutrophils % 80.4 %; Nucleated Red Blood Cells % 0 %; Platelet Count 162 10^3/cmm (130-400); Red Blood Count 4.39 10^6/uL (4.1-5.3); White Blood Count 9.9 10^3/uL (4.0-10.0)
[2022-04-18] MEDS: dexmedeTOMIDine 0.9 % NaCL 400 MCG/100 ML PREMIX 25.45 MCG IV ×2 (03:57→07:12)
--- NOTE | 2022-04-18 04:00 | XRR_ITS ---
PROCEDURE INFORMATION: Exam: XR Chest Exam date and time: 04/18/2022 4:44 AM Age: 61 years old Clinical indication: Other: Chf; Additional info: Cgf TECHNIQUE: Imaging protocol: Radiologic exam of the chest. Views: 1 view. Total images: 2 COMPARISON: CR XR chest 1V portable [id number] 04/16/2022 7:32 AM FINDINGS: Tubes, catheters and devices: A right internal jugular central venous catheter is present, with its tip overlying the region of the superior vena cava and unchanged from prior exam. Lungs: Pulmonary vascular congestion improved. Bilateral pulmonary opacities are again noted with the right-sided opacities showing interval improvement. Pleural spaces: Unremarkable. No pleural effusion. No pneumothorax. Heart/Mediastinum: Cardiomegaly. Bones/joints: Unremarkable. XR/XR chest 1V portable [id number] IMPRESSION: 1. Cardiomegaly with improved pulmonary vascular congestion. 2. Bilateral pulmonary opacities are again noted with the right-sided opacities showing interval improvement.
[2022-04-18 04:09] LABS: Partial Thromboplastin Time 38.3 SECONDS (23.9-36.7)
[2022-04-18] MEDS: heparin 5,000 unit/mL INJ 1 mL IV ×2 (04:25→09:54)
[2022-04-18 04:49] LABS: ABG PCO2 53.4 mmHg (35-45); ABG PH Result 7.38 (7.35-7.45); Arterial Blood Gas Hematocrit 37.2 % (37-47); Base Excess ABG 5.1 mmol/L (-2.0-2.0); Blood Gas Allen Test Pos; Blood Gas Operator Identificat JB; Blood Gas Sample Site Radial, right; Blood Gas Sample Type Arterial; HCO3 ABG 31.5 mmol/L (22-26); Oxygen Device BIPAP
[2022-04-18] MEDS: LORazepam 2 mg/mL INJ 1 mL 0.5 MG IVP ×3 (06:15→22:51)
[2022-04-18 06:40] LABS: Alanine Aminotransferase 12 U/L (0-33); Albumin Level 2.9 g/dL (3.5-5.2); Alkaline Phosphatase 107 U/L (35-105); Aspartate Amino Transferase 16 U/L (0-32); Blood Urea Nitrogen 39 mg/dL (6-20); Carbon Dioxide 30 mmol/L (22-29); Chloride 103 mmol/L (98-107); Globulin 4.3 g/dL (1.3-4.6); Glomerular Filtration Rate 126.3 mL/min (90-130); Glucose 97 mg/dL (65-115); Magnesium 1.8 mg/dL (1.7-2.3); Osmolality Calculated 307 mOsm/kg (285-295); Phosphorus 3.5 mg/dL (2.5-4.5); Sodium 144 mmol/L (136-145); Total Bilirubin 0.6 mg/dL (0.15-1.2); Total Protein 7.2 g/dL (6.6-8.7)
[2022-04-18 06:41] LABS: Anion Gap 14.9 (5-19); Potassium 3.9 mmol/L (3.5-5.1)
[2022-04-18 07:55] LABS: Glucose Point of Care 91 mg/dL (70-110)
--- NOTE | 2022-04-18 08:16 | P.PN_ITS ---
Subjective Subjective: Patient was seen and examined this morning, continue to be BiPAP dependent requiring 70% FiO2, good urine output with Lasix 2.7 Ls in last 24 hours. Currently she is receiving hemodialysis. Medications: Reviewed: Yes Medication Review Details: Generic Name Dose Route Start Last Admin Trade Name Anastacioq PRN Reason Stop Dose Admin Acetaminophen 500 mg 04/09/22 19:24 04/11/22 19:48 Acetaminophen 50 0 Mg Tablet PO 500 mg Q4H PRN Administration fever Albuterol/Ipratrop ium 3 ml 04/11/22 00:00 04/18/22 07:27 Ipratropium-Albu terol 3 Ml Neb INHALATION 3 ml Q4H.RESPIRATORY S CH Administration Amlodipine Besylat e 5 mg 04/15/22 09:00 04/17/22 08:20 Amlodipine 5 Mg Tablet PO Not Given DAILY BREANNA Bacitracin 1 applic 04/09/22 21:00 04/17/22 20:26 Bacitracin Ointm ent 28 Gm TOPICAL 1 applic TID BREANNA Administration Protocol Collagenase 1 applic 04/13/22 00:00 04/17/22 10:50 Collagenase Oint 30 Gm TOPICAL 1 applic Q24H BREANNA Administration Enoxaparin Sodium 150 mg 04/11/22 10:00 04/12/22 11:48 Enoxaparin 150 M g/Ml Syringe SUBCUT 150 mg Q24H BREANNA Administration Fluoxetine HCl 20 mg 04/10/22 09:30 04/17/22 16:42 Fluoxetine 20 Mg Capsule PO Not Given BID BREANNA Heparin Sodium (Po rcine) 200 - 500 unit 04/12/22 16:15 04/18/22 01:20 Heparin Lock Flu sh 500 Unit/5 Ml S yringe IV Not Given Q12H BREANNA Heparin Sodium (Po rcine) 200 - 500 unit 04/12/22 16:13 04/14/22 22:39 Heparin Lock Flu sh 500 Unit/5 Ml S yringe IV 500 unit PRN PRN Administration Central line flus h Heparin Sodium (Po rcine) 0 unit 04/13/22 11:05 04/18/22 04:25 Heparin 5,000 Un it/Ml Inj 1 Ml IV 5,000 unit PRN PRN Administration Heparin weight-ba se protocol Protocol Hydralazine HCl 10 mg 04/14/22 10:34 04/18/22 02:07 Hydralazine 20 M g/Ml Inj 1 Ml IVP 10 mg Q6H PRN Administration bp> 180./100 Hydralazine HCl 50 mg 04/16/22 09:00 04/17/22 19:01 Hydralazine 25 M g Tablet PO Not Given TID BREANNA Cefepime HCl 1,000 mg/ Sodium 50 mls @ 100 mls/ hr 04/10/22 09:00 04/17/22 20:55 Chloride IV Infused Q12H BREANNA Infusion Protocol Norepinephrine Bit artrate 4 mg 254 mls @ 0 mls/h r 04/11/22 18:30 04/13/22 12:40 / Dextrose IV 0 mcg/min .Q0M BREANNA 0 mls/hr Titration Protocol Per Protocol Amino Acids/Electr olytes 1,000 mls @ 10 ml s/hr 04/12/22 20:45 04/17/22 20:42 Clinimix E 4.25% -10% IV 10 mls/hr .Q24H BREANNA Administration Heparin Sodium/Sod ium Chloride 25,000 unit in 50 0 mls @ 0 mls/hr 04/13/22 11:15 04/18/22 03:54 Heparin Drip IV 6.76 unit/kg/hr .Q0M BREANNA 36 mls/hr Administration Protocol Per Protocol Nicardipine/Sodium Chloride 20 mg in 200 mls @ 0 mls/hr 04/15/22 11:00 04/16/22 11:37 Cardene IV 0 mg/hr .Q0M BREANNA 0 mls/hr Titration Protocol Per Protocol Doxycycline Hyclat e 100 mg/ 100 mls @ 100 mls /hr 04/15/22 11:00 04/17/22 23:18 Sodium Chloride IV Infused Q12H BREANNA Infusion Protocol Dexmedetomidine/So dium Chloride 400 mcg in 100 ml s @ 0 mls/hr 04/15/22 18:15 04/18/22 07:12 Precedex IV 0.4 mcg/kg/hr .Q0M BREANNA 25.45 mls/hr Administration Protocol Per Protocol Sodium Nitroprussi de 50 mg/ 252 mls @ 0 mls/h r 04/16/22 10:45 04/16/22 16:45 Dextrose IV Infused .Q0M BREANNA Titration Protocol Per Protocol Labetalol HCl 300 mg/ Sodium 300 mls @ 0 mls/h r 04/16/22 11:15 04/16/22 23:20 Chloride IV 0 mg/min .Q0M BREANNA 0 mls/hr Titration Protocol Per Protocol Metronidazole 500 mg in 100 mls @ 100 mls/hr 04/16/22 17:00 04/18/22 01:21 Flagyl Iv IV Infused Q8H BREANNA Infusion Protocol Furosemide 100 mg/ Sodium 50 mls @ 0 mls/hr 04/16/22 16:15 04/17/22 20:42 Chloride IV 10 mg/hr .Q0M BREANNA 5 mls/hr Administration Protocol Per Protocol Albumin Human 25 gm in 100 mls @ 60 mls/hr 04/17/22 11:00 04/18/22 03:53 Albumin IV Infused Q8H BREANNA Infusion Lanolin 1 applic 04/15/22 14:00 04/16/22 20:05 Lanolin Oint 7 G m TOPICAL 1 applic PRN PRN Administration DRYNESS Lidocaine HCl 1 applic 04/11/22 23:30 04/12/22 01:57 Lidocaine 2% Jel ly 6 Ml TOPICAL 1 applic PRN PRN Administration PAIN Lorazepam 0.5 mg 04/16/22 11:36 04/18/22 06:15 Lorazepam 2 Mg/M l Inj 1 Ml IVP 0.5 mg Q4H PRN Administration ANXIETY Methocarbamol 500 mg 04/10/22 09:30 04/11/22 18:29 Methocarbamol 50 0 Mg Tablet PO 500 mg BID BREANNA Administration Morphine Sulfate 2 mg 04/15/22 00:47 04/18/22 05:51 Morphine 4 Mg/Ml Sdv 1 Ml IVP 2 mg Q8M PRN Administration SEVERE PAIN Nitroglycerin 0.5 inch 04/14/22 10:35 04/17/22 14:41 Nitroglycerin 1 Gm/Inch Oint Pkt TOPICAL 0.5 inch Q6H PRN Administration Blood pressure gr eater than 180/100 Ondansetron HCl 4 mg 04/09/22 19:24 04/10/22 19:49 Ondansetron 2 Mg /Ml Sdv 2 Ml IVP 4 mg Q6H PRN Administration NAUSEA AND VOMITI NG Pantoprazole Sodiu m 40 mg 04/10/22 22:15 04/17/22 09:57 Pantoprazole 40 Mg Sdv IVP 40 mg DAILY BREANNA Administration Potassium Chloride 10 meq 04/11/22 09:15 04/11/22 10:14 Potassium Chlori de Er 10 Meq Table t PO 10 meq DAILY BREANNA Administration Senna/Docusate Sod ium 1 tab 04/10/22 09:00 04/17/22 08:21 Sennosides-Docus ate Tablet PO Not Given DAILY BREANNA Sodium Chloride 5 - 10 ml 04/12/22 16:15 04/18/22 01:20 Sodium Chloride 0.9 % (Flush) Syri nge 10 Ml IV Not Given Q12H BREANNA Sodium Chloride 5 - 10 ml 04/12/22 16:13 04/14/22 22:39 Sodium Chloride 0.9 % (Flush) Syri nge 10 Ml IV 10 ml PRN PRN Administration Central line flus h Vitals/I&O/Wt Last Vital Signs Temp 98 F 04/18/22 06:00 Pulse 63 04/18/22 07:44 Resp 31 H 04/18/22 07:27 BP 169/78 04/17/22 18:00 Pulse Ox 91 04/18/22 07:31 O2 Del Method 04/18/22 07:27 O2 Flow Rate 612 04/16/22 06:07 FiO2 70 04/18/22 07:27 04/17/22 04/18/22 04/18/22 22:59 06:59 14:59 Intake Total 704.733 / 1513.133 719.642 / 2232.775 82.713 / 82.713 Output Total 2275 / 2275 425 / 2700 Balance -1570.267 / -761.867 294.642 / -467.225 82.713 / 82.713 Weight last 48 hrs Weight 255.6 kg Weight 252.2 kg Physical Exam Cardio: COMMON NORMALS: regular rate, regular rhythm, S1 normal heart sound present, S2 normal heart sound present, No gallops present (Cardio), No murmurs present (Cardio), No rub (Cardio) and Peripheral pulses 2+ throughout RATE: regular rate RHYTHM: regular rhythm HEART SOUNDS: S1 normal heart sound present and S2 normal heart sound present PERIPHERAL PULSES: Peripheral pulses 2+ throughout GI: COMMON NORMALS: Normal to inspection, nondistended, normoactive bowel sounds present, Soft to palpation, non-tender, No hepatosplenomegaly present and no masses AUSCULTATION: Yes normoactive bowel sounds PALPATION: Yes Soft to palpation and Yes No hepatosplenomegaly present RECTAL EXAM: deferred Extremity: COMMON NORMALS: no clubbing, cyanosis or edema and no pedal edema Urinary Catheter Management: Coude: Cath Placed During This Visit: yes Reason for Continuing Indwelling Catheter: Accurate Measurement of Urinary Output in Critically Ill Patients Urinary Catheter Date of Insertion: 04/09/22 Urinary Catheter Time of Insertion: 15:30 Data : 04/18/22 03:05 04/18/22 05:58 A&P Assessment and plan (1) DIC (disseminated intravascular coagulation): (2) CHF exacerbation: (3) Hyponatremia: (4) Oliguria: (5) V tach: (6) Obesity hypoventilation syndrome: (7) Aspiration pneumonitis: (8) Sepsis: (9) Wound infection: (10) Stasis leg ulcer: (11) Chronic acquired lymphedema: (12) Morbid obesity: Plan Persistent hypoxic hypercapnic respite failure Obesity hypoventilation Aspiration pneumonitis Concern for PE Patient is BiPAP dependent for last 1 week She has not eaten anything Currently on TPN running at 10 mill per hour Candidate for LTAC? With dialysis sessions we have been able to wean her off high requirement of oxygen from 100% down to 75% After first Session she was only requiring 50% of oxygen on AVAPS Septic shock Aspiration pneumonia Purulent cellulitis of right leg Off Levophed since we started hemodialysis Low normal EF as per echo with contrast Her ventricles were dilated as per my interpretation with bedside ultrasound My concern for PE is high that is why I have kept her on heparin drip Leukocytosis improving, afebrile, cultures negative I have added metronidazole on 04/16 earlier she was getting doxycycline IV along cefepime I have discontinued vancomycin because of high event trough level and worsening kidney function ATN currently on Lasix drip Patient is still oliguric She does respond to dialysis very well Will touch base with nephrology today Persistent hypervolemia Acute CHF exacerbation Low normal EF Sepsis related DIC: No active bleeding or thrombotic events currently patient is on heparin drip Hypertensive emergency patient responded very well to labetalol drip she did not respond very well to Cardene or nitroprusside I would avoid nitroprusside for risk of methemoglobinemia Sleep apnea undiagnosed She is BiPAP dependent Currently on TPN 10 mill per hour reluctant to increase the rate because of her fluid overloaded persistent state Runs of V. tach noted without recurrence She has remained stable Heparin drip TPN She would be an ideal candidate for LTAC, Multiple family meetings have been conducted, they do not want intubation until there is cardiac or respiratory arrest, they do understand that if she gets intubated her chances of coming off ventilator are slim they do not want PEG tube or trach, patient is full code however family does not want her to be intubated unless there is an emergency, Patient does not want to go to prison however looking at current situation LTAC would be ideal, asked watch caser to send the referral today I will talk with the family Attestations Medical Necessity Statement*: Patient is to be in hospital for management of respiratory failure sepsis. Time Spent in Patient Care: Greater than 35 minutes (>than 50% of time spent in counselling and/or direct pt care on unit) . Critical Care Time: The high probability of a clinically significant, sudden or life threatening deterioration of the patient's [] system(s) required my full and direct attention, intervention and personal management. The critical care t maurisio is as shown. This time is in addition to time spent performing any reported procedures but includes the following: [x] Data and vital sign review and interpretation [x] Patient assessment, examination and intervention [x] Documentation [x] Medication orders and management Critical Care Time (min): 45 Coding Level of Care Code Acute Judge'S Clerk for g Fwd Diagnoses DIC (disseminated intravascular coagulation) D65 CHF exacerbation I50.9 Hyponatremia E87.1 Oliguria R34 V tach I47.20 Obesity hypoventilation syndrome E66.2 Aspiration pneumonitis J69.0 Sepsis A41.9 Wound infection T14.8XXA; L08.9 Stasis leg ulcer I83.009; L97.909 Chronic acquired lymphedema I89.0 Morbid obesity E66.01
[2022-04-18] MEDS: pantoprazole 40 mg SDV IVP (09:04)
[2022-04-18] MEDS: FUROsemide 100 MG in sodium chloride 0.9% 40 ML IV ×2 (09:19→19:32)
[2022-04-18] MEDS: bacitracin ointment 28 gm 1 APPLIC TOPICAL ×3 (09:20→19:33)
[2022-04-18 09:26] LABS: Partial Thromboplastin Time 52.7 SECONDS (23.9-36.7)
[2022-04-18] MEDS: heparin, porcine 1,000 unit/mL INJ 10 mL HE (09:54)
[2022-04-18] MEDS: nitroglycerin 1 gm/inch oint Pkt 0.5 INCH TOPICAL (10:02)
[2022-04-18] MEDS: dexmedeTOMIDine 0.9 % NaCL 400 MCG/100 ML PREMIX 31.81 MCG IV (10:12)
--- NOTE | 2022-04-18 10:21 | PC.SOCIAL ---
IMM Updated Pt is intubated. Pt is not expected to d/c w/n the next 24-48hrs. IMM left at bedside for family to review. Initialed, dated, & timed copy in chart.
--- NOTE | 2022-04-18 11:58 | PC.NURSE ---
Discussed patient with Dr. Wang. Reviewed labs, vital signs and medications. Reported elevated blood pressure. Discussed I&O r/t IV intake. Orders for clonidine patch and to start Cadene drip.
[2022-04-18] MEDS: nicardipine 20 MG/200 ML PREMIX 50 MG IV (12:08)
[2022-04-18] MEDS: cloNIDine 0.3 mg/24 hr Patch 1 PATCH TRANSDERMA (12:09)
--- NOTE | 2022-04-18 13:11 | PM.PN ---
Subjective Subjective: Remains on 70% FiO2 Urine output 2700 for last 24 hours Patient receiving multiple IV she is giving almost 100 cc of volume per hour Medications: Reviewed: Yes Vitals/I&O/Wt Last Vital Signs Temp 98.5 F 04/18/22 07:00 Pulse 56 L 04/18/22 11:09 Resp 28 H 04/18/22 11:05 BP 194/91 04/18/22 10:00 Pulse Ox 90 04/18/22 11:07 O2 Del Method 04/18/22 11:05 O2 Flow Rate 612 04/16/22 06:07 FiO2 70 04/18/22 11:05 04/17/22 04/18/22 04/18/22 22:59 06:59 14:59 Intake Total 704.733 / 1513.133 769.642 / 2282.775 254.387 / 254.387 Output Total 2275 / 2275 425 / 2700 500 / 500 Balance -1570.267 / -761.867 344.642 / -417.225 -245.613 / -245.613 Weight last 48 hrs Weight 255.6 kg Weight 252.2 kg Physical Exam Narrative: Patient is on BiPAP Anasarca, no acute distress, S1-S2, regular rate and rhythm per report, Crackles bilaterally per report 3+ lower extremity pitting edema Urinary Catheter Management: Coude: Cath Placed During This Visit: yes Reason for Continuing Indwelling Catheter: Accurate Measurement of Urinary Output in Critically Ill Patients Urinary Catheter Date of Insertion: 04/09/22 Urinary Catheter Time of Insertion: 15:30 Data : 04/18/22 03:05 04/18/22 05:58 A&P Assessment and plan (1) ANY (acute kidney injury): 61 yr old female rt leg cellulitis and ATN 1AKI -secondary to cardiogenic shock, creatinine 0.7 but patient is extremely volume overloaded with 75% FiO2 on BiPAP, status post 3 sessions of dialysis so far -She is currently on Lasix drip, will give IV albumin 25 g every 8 hours (25%). Though patient has reasonable urine output with Lasix drip, but patient receiving multiple IV drips so not able to achieve negative balance -Plan for hemodialysis today with 4 L UF as if tolerated -Continue IV albumin 2. cellulitis-? abx per medicine-? dose for ANY on HD -keep? vanco? trough under 19 3. Hypertension: Blood pressure elevated, will add Nitropaste 1 inch every 8 hours,, on hydralazine 50 3 times daily can increase to 100 mg 3 times daily if needed 4.? resp acidosis-? use bipap and improved w/ HD 5. elevated bnp -monitor w/ diuresis seen and examined w/ LOCATION AND MEASUREMENT TECHNICIAN- telehealth visit time spent 30 min Attestations Medical Necessity Statement*: Continue ICU management Time Spent in Patient Care: 40 Coding Level of Care Code Established Pt Acute Die Cast Operator for Chg Fwd Patient Type Established History Problem Focused Exam Problem Focused Medical Decision Making Straight Forward Diagnoses ANY (acute kidney injury) N17.9
[2022-04-18] MEDS: dexmedeTOMIDine 0.9 % NaCL 400 MCG/100 ML PREMIX 38.17 MCG IV ×4 (13:13→23:19)
[2022-04-18] MEDS: doxycycline 100 MG in sodium chloride 0.9% (plus) 100 ML IV ×2 (14:13→22:31)
[2022-04-18] MEDS: enoxaparin 150 mg/mL Syringe SUBCUT (14:28)
[2022-04-18] MEDS: meropenem 1,000 MG in sodium chloride 0.9% (plus) 50 ML 100 MG IV ×2 (14:31→22:30)
[2022-04-18] MEDS: nicardipine 20 MG/200 ML PREMIX 100 MG IV (14:36)
[2022-04-18] MEDS: nicardipine 20 MG/200 ML PREMIX 75 MG IV ×3 (17:43→22:24)
[2022-04-18] MEDS: dexmedeTOMIDine 0.9 % NaCL 400 MCG/100 ML PREMIX 44.53 MCG IV (23:45)
[2022-04-18 23:49] LABS: Glucose Point of Care 95 mg/dL (70-110)
[2022-04-19] VITALS (68 sets, daily range): BP systolic 147–252; BP diastolic 64–128; PULSE 61–101; RESP 24–49; TEMP 36.6–37.3; O2SAT 77–92
[2022-04-19] MEDS: morphine 4 mg/mL SDV 1 mL 2 MG IVP ×5 (01:08→22:13)
[2022-04-19] MEDS: nicardipine 20 MG/200 ML PREMIX 75 MG IV (01:10)
[2022-04-19] MEDS: dexmedeTOMIDine 0.9 % NaCL 400 MCG/100 ML PREMIX 50.89 MCG IV ×4 (01:21→21:51)
--- NOTE | 2022-04-19 01:25 | XRR_ITS ---
PROCEDURE INFORMATION: Exam: XR Chest Exam date and time: 04/19/2022 1:37 AM Age: 61 years old Clinical indication: Shortness of breath; Additional info: SOB TECHNIQUE: Imaging protocol: Radiologic exam of the chest. Views: 1 view. COMPARISON: CR (CHEST, ) 04/18/2022 4:44 AM FINDINGS: Lungs: The lung bases are excluded from the field of view on both images provided. Moderate pulmonary edema is noted. Left suprahilar opacity may be secondary to alveolar edema, atelectasis or pneumonia. Pleural spaces: Unremarkable. No pleural effusion. No pneumothorax. Heart/Mediastinum: Moderate cardiomegaly is again noted. Bones/joints: Unremarkable. XR/XR chest 1V portable [id number] IMPRESSION: Limited evaluation of the lung bases due to technical factors. Moderate pulmonary edema and cardiomegaly are noted. Left suprahilar opacity may be alveolar edema, atelectasis or pneumonia related.
--- NOTE | 2022-04-19 01:27 | PC.NURSE ---
0125- pt on 100% bipap spo2 82-84%, family at bedside, dr santiago notified, abg and cxr ordered. will monitor.
[2022-04-19 01:31] LABS: ABG PH Result 7.33 (7.35-7.45); Alveolar-Arterial Oxygen Gradi 75.5 mmHg (5-10); Arterial Blood Gas Hematocrit 38.5 % (37-47); Base Excess ABG 4.9 mmol/L (-2.0-2.0); Blood Gas Allen Test Pos; Blood Gas Sample Site Radial, right; Blood Gas Sample Type Arterial; HCO3 ABG 32.4 mmol/L (22-26); HGB O2 Sat 87.1 % (95-100); Ionized Calcium Level - ABG 1.2 mmol/L (1.1-1.4); Methemoglobin 0.9 % (0.4-1.5); Oxygen Device BIPAP; Oxygen Saturation ABG 88.8; PO2 ABG 57.6 mmHg (80.0-100.0); Potassium Level - ABG 3.2 mmol/L (3.5-5.0); Total Hemoglobin 12.6 g/dL (12-16)
[2022-04-19] MEDS: LORazepam 2 mg/mL INJ 1 mL 0.5 MG IVP ×2 (01:31→15:20)
[2022-04-19 01:32] LABS: ABG PCO2 60.9 mmHg (35-45)
[2022-04-19] MEDS: enoxaparin 150 mg/mL Syringe SUBCUT ×2 (02:46→13:11)
[2022-04-19] MEDS: ipratropium-albuterol 3 mL Neb INHALATION ×6 (03:00→23:02)
[2022-04-19] MEDS: dexmedeTOMIDine 0.9 % NaCL 400 MCG/100 ML PREMIX 31.81 MCG IV ×5 (04:33→17:35)
[2022-04-19] MEDS: hyDRALAzine 20 mg/mL INJ 1 mL 10 MG IVP ×4 (04:36→21:52)
[2022-04-19 04:59] LABS: Eosinophils % 0.2 %; Hematocrit 39.1 % (37.0-47.0); Hemoglobin 11.7 g/dL (11.5-15.3); Lymphocytes # 0.7 10^3/uL (0.8-4.8); Lymphocytes % 7.1 %; Mean Corpuscular HGB Conc 29.9 g/dL (30.0-36.0); Mean Corpuscular Hemoglobin 27.9 pg (28.0-34.0); Mean Corpuscular Volume 93.3 fl (81-99); Mean Platelet Volume 10.8 fL (7.4-10.4); Monocytes # 0.5 10^3/uL (0.2-0.9); Monocytes % 5.3 %; Neutrophils # 8.74 10^3/uL (1.8-7.7); Neutrophils % 85.5 %; Nucleated Red Blood Cells % 0 %; Platelet Count 133 10^3/cmm (130-400); Red Blood Count 4.19 10^6/uL (4.1-5.3); Red Cell Distribution Width 17.7 % (12.1-15.1); White Blood Count 10.2 10^3/uL (4.0-10.0)
[2022-04-19 05:20] LABS: Anion Gap 11.5 (5-19); Blood Urea Nitrogen 27 mg/dL (6-20); Calcium 8.6 mg/dL (8.5-10.5); Carbon Dioxide 32 mmol/L (22-29); Chloride 103 mmol/L (98-107); Glomerular Filtration Rate 126.3 mL/min (90-130); Glucose 97 mg/dL (65-115); Osmolality Calculated 301 mOsm/kg (285-295); Potassium 3.5 mmol/L (3.5-5.1); Sodium 143 mmol/L (136-145)
[2022-04-19 06:12] LABS: Basophils % 0.2 %; Eosinophils % 0.2 %; Hematocrit 39.9 % (37.0-47.0); Hemoglobin 11.6 g/dL (11.5-15.3); Lymphocytes # 0.6 10^3/uL (0.8-4.8); Lymphocytes % 5.9 %; Mean Corpuscular HGB Conc 29.1 g/dL (30.0-36.0); Mean Corpuscular Hemoglobin 27.4 pg (28.0-34.0); Mean Corpuscular Volume 94.1 fl (81-99); Mean Platelet Volume 10.4 fL (7.4-10.4); Monocytes # 0.5 10^3/uL (0.2-0.9); Monocytes % 4.9 %; Neutrophils # 9.18 10^3/uL (1.8-7.7); Neutrophils % 86.6 %; Nucleated Red Blood Cells % 0 %; Platelet Count 130 10^3/cmm (130-400); Red Blood Count 4.24 10^6/uL (4.1-5.3); Red Cell Distribution Width 17.6 % (12.1-15.1); White Blood Count 10.6 10^3/uL (4.0-10.0)
[2022-04-19] MEDS: nicardipine 20 MG/200 ML PREMIX 50 MG IV ×2 (06:32→22:01)
[2022-04-19 06:34] LABS: Alanine Aminotransferase 12 U/L (0-33); Albumin Level 3.2 g/dL (3.5-5.2); Alkaline Phosphatase 82 U/L (35-105); Anion Gap 13.5 (5-19); Aspartate Amino Transferase 15 U/L (0-32); Blood Urea Nitrogen 27 mg/dL (6-20); Calcium 8.6 mg/dL (8.5-10.5); Carbon Dioxide 30 mmol/L (22-29); Chloride 104 mmol/L (98-107); Glomerular Filtration Rate 126.3 mL/min (90-130); Glucose 98 mg/dL (65-115); Magnesium 1.6 mg/dL (1.7-2.3); Osmolality Calculated 303 mOsm/kg (285-295); Potassium 3.5 mmol/L (3.5-5.1); Sodium 144 mmol/L (136-145); Total Bilirubin 0.8 mg/dL (0.15-1.2); Total Protein 7.2 g/dL (6.6-8.7)
[2022-04-19] MEDS: meropenem 1,000 MG in sodium chloride 0.9% (plus) 50 ML 100 MG IV ×2 (06:34→14:50)
[2022-04-19] MEDS: FUROsemide 100 MG in sodium chloride 0.9% 40 ML IV (07:53)
[2022-04-19] MEDS: pantoprazole 40 mg SDV IVP (08:21)
[2022-04-19] MEDS: bacitracin ointment 28 gm 1 APPLIC TOPICAL ×2 (08:24→14:48)
[2022-04-19 08:35] LABS: Glucose Point of Care 103 mg/dL (70-110)
[2022-04-19] MEDS: nicardipine 20 MG/200 ML PREMIX 25 MG IV (11:05)
[2022-04-19] MEDS: bumetanide 0.25 mg/mL SDV 10 mL 2 MG IVP ×2 (11:18→19:40)
[2022-04-19] MEDS: magnesium sulfate premix 2 GM/50 ML PIGGYBACK IV (11:18)
--- NOTE | 2022-04-19 11:21 | PM.PN ---
Subjective Subjective: on 100 % Fio2 on BIPAP UOP minimal Vitals/I&O/Wt Last Vital Signs Temp 99.0 F 04/19/22 08:00 Pulse 66 04/19/22 11:06 Resp 37 H 04/19/22 11:04 BP 151/64 04/19/22 09:55 Pulse Ox 92 04/19/22 11:04 O2 Del Method 04/19/22 11:04 O2 Flow Rate 612 04/16/22 06:07 FiO2 100 04/19/22 11:04 04/18/22 04/19/22 04/19/22 23:59 06:59 14:59 Intake Total 953.25 / 953.25 Output Total Balance 953.25 / 953.25 Weight last 48 hrs Weight 256.506 kg Weight 255.6 kg Physical Exam Narrative: Patient is on BiPAP Anasarca, no acute distress, S1-S2, regular rate and rhythm per report, Crackles bilaterally per report 3+ lower extremity pitting edema Urinary Catheter Management: Coude: Cath Placed During This Visit: yes Reason for Continuing Indwelling Catheter: Accurate Measurement of Urinary Output in Critically Ill Patients Urinary Catheter Date of Insertion: 04/09/22 Urinary Catheter Time of Insertion: 15:30 Data : 04/19/22 06:05 04/19/22 06:05 A&P Assessment and plan (1) ANY (acute kidney injury): Plan ANY -secondary to cardiogenic shock, creatinine 0.7 but patient is extremely volume overloaded with 75% FiO2 on BiPAP, -Patient receiving daily dialysis, but remains 100% FiO2 -Plan for hemodialysis today with 4 L UF as if tolerated -DC Lasix drip and switch to 2 mg Bumex IV every 8 hours. -Check echocardiogram (prior echo suboptimal study). -Continue IV albumin 2. cellulitis-? abx per medicine-? dose for ANY on HD -keep? vanco? trough under 19 3.? Hypertension: Blood pressure elevated, will add Nitropaste 1 inch every 8 hours,, on hydralazine 50 3 times daily can increase to 100 mg? 3 times daily if needed 4.? resp acidosis-? use bipap and improved w/ HD 5. elevated bnp -monitor w/ diuresis seen and examined w/ ACCOUNTING CLERKS SUPERVISOR- telehealth visit time spent 30 min Attestations Medical Necessity Statement*: Continue ICU management Time Spent in Patient Care: 40 Coding Level of Care Code Acute Inpatient Nursing Aide for Chg Fwd Diagnoses ANY (acute kidney injury) N17.9
[2022-04-19] MEDS: doxycycline 100 MG in sodium chloride 0.9% (plus) 100 ML IV (11:26)
[2022-04-19] MEDS: sodium chloride 0.9 % (flush) syringe 10 mL IV (14:48)
--- NOTE | 2022-04-19 15:54 | P.PN_ITS ---
Subjective Subjective: Patient was seen and examined this morning, continue to be BiPAP dependent oxygen requirement has gone further gone up she is currently 100% FiO2, patient is extremely agitated, she is trying to rip the BiPAP mask of, failed to tolerate heated high flow. Currently undergoing hemodialysis today, plan is for 4 L UF, Lasix drip has been switched to Bumex. She has been continued on IV albumin. Repeat 2D echo has been ordered. Family has been updated about the current situation. Medications: Reviewed: Yes Medication Review Details: Generic Name Dose Route Start Last Admin Trade Name Freq PRN Reason Stop Dose Admin Acetaminophen 500 mg 04/09/22 19:24 04/11/22 19:48 Acetaminophen 50 0 Mg Tablet PO 500 mg Q4H PRN Administration fever Albuterol/Ipratrop ium 3 ml 04/11/22 00:00 04/19/22 15:09 Ipratropium-Albu terol 3 Ml Neb INHALATION 3 ml Q4H.RESPIRATORY S CH Administration Bacitracin 1 applic 04/09/22 21:00 04/19/22 14:48 Bacitracin Ointm ent 28 Gm TOPICAL 1 applic TID BREANNA Administration Protocol Bumetanide 2 mg 04/19/22 12:00 04/19/22 11:18 Bumetanide 0.25 Mg/Ml Sdv 10 Ml IVP 2 mg Q8H BREANNA Administration Clonidine HCl 1 patch 04/18/22 12:00 04/18/22 12:09 Clonidine 0.3 Mg /24 Hr Patch TRANSDERMA 1 patch Q7D BREANNA Administration Collagenase 1 applic 04/13/22 00:00 04/19/22 01:03 CD T Collagenase Oint 30 Gm TOPICAL Not Given Q24H BREANNA Enoxaparin Sodium 150 mg 04/18/22 14:00 04/19/22 13:11 Enoxaparin 150 M g/Ml Syringe SUBCUT 150 mg Q12H BREANNA Administration Fluoxetine HCl 20 mg 04/10/22 09:30 04/19/22 08:06 Fluoxetine 20 Mg Capsule PO Not Given BID BREANNA Heparin Sodium (Po rcine) 200 - 500 unit 04/12/22 16:15 04/19/22 14:49 Heparin Lock Flu sh 500 Unit/5 Ml S yringe IV 500 unit Q12H BREANNA Administration Heparin Sodium (Po rcine) 200 - 500 unit 04/12/22 16:13 04/14/22 22:39 Heparin Lock Flu sh 500 Unit/5 Ml S yringe IV 500 unit PRN PRN Administration Central line flus h Hydralazine HCl 50 mg 04/16/22 09:00 04/19/22 14:47 Hydralazine 25 M g Tablet PO Not Given TID BREANNA Amino Acids/Electr olytes 1,000 mls @ 10 ml s/hr 04/12/22 20:45 04/18/22 20:10 Clinimix E 4.25% -10% IV 10 mls/hr .Q24H BREANNA Administration Nicardipine/Sodium Chloride 20 mg in 200 mls @ 0 mls/hr 04/15/22 11:00 04/19/22 11:05 Cardene IV 2.5 mg/hr .Q0M BREANNA 25 mls/hr Administration Protocol Per Protocol Doxycycline Hyclat e 100 mg/ 100 mls @ 100 mls /hr 04/15/22 11:00 04/19/22 12:49 Sodium Chloride IV Infused Q12H BREANNA Infusion Protocol Dexmedetomidine/So dium Chloride 400 mcg in 100 ml s @ 0 mls/hr 04/15/22 18:15 04/19/22 14:16 Precedex IV 0.5 mcg/kg/hr .Q0M BREANNA 31.81 mls/hr Administration Protocol Per Protocol Albumin Human 25 gm in 100 mls @ 60 mls/hr 04/17/22 11:00 04/19/22 13:23 Albumin IV Infused Q8H BREANNA Infusion Meropenem 1,000 mg / Sodium 50 mls @ 100 mls/ hr 04/18/22 15:00 04/19/22 15:22 Chloride IV Infused Q8H BREANNA Infusion Lanolin 1 applic 04/15/22 14:00 04/16/22 20:05 Lanolin Oint 7 G m TOPICAL 1 applic PRN PRN Administration DRYNESS Lidocaine HCl 1 applic 04/11/22 23:30 04/12/22 01:57 Lidocaine 2% Jel ly 6 Ml TOPICAL 1 applic PRN PRN Administration PAIN Lorazepam 0.5 mg 04/16/22 11:36 04/19/22 15:20 Lorazepam 2 Mg/M l Inj 1 Ml IVP 0.5 mg Q4H PRN Administration ANXIETY Methocarbamol 500 mg 04/10/22 09:30 04/11/22 18:29 Methocarbamol 50 0 Mg Tablet PO 500 mg BID BREANNA Administration Morphine Sulfate 2 mg 04/18/22 20:47 04/19/22 13:11 Morphine 4 Mg/Ml Sdv 1 Ml IVP 2 mg Q8M PRN Administration SEVERE PAIN Nitroglycerin 0.5 inch 04/14/22 10:35 04/18/22 10:02 Nitroglycerin 1 Gm/Inch Oint Pkt TOPICAL 0.5 inch Q6H PRN Administration Blood pressure gr eater than 180/100 Ondansetron HCl 4 mg 04/09/22 19:24 04/10/22 19:49 Ondansetron 2 Mg /Ml Sdv 2 Ml IVP 4 mg Q6H PRN Administration NAUSEA AND VOMITI NG Pantoprazole Sodiu m 40 mg 04/10/22 22:15 04/19/22 08:21 Pantoprazole 40 Mg Sdv IVP 40 mg DAILY BREANNA Administration Potassium Chloride 10 meq 04/11/22 09:15 04/11/22 10:14 Potassium Chlori de Er 10 Meq Table t PO 10 meq DAILY BREANNA Administration Senna/Docusate Sod ium 1 tab 04/10/22 09:00 04/19/22 08:06 Sennosides-Docus ate Tablet PO Not Given DAILY BREANNA Sodium Chloride 5 - 10 ml 04/12/22 16:15 04/19/22 14:48 Sodium Chloride 0.9 % (Flush) Syri nge 10 Ml IV 10 ml Q12H BREANNA Administration Sodium Chloride 5 - 10 ml 04/12/22 16:13 04/14/22 22:39 Sodium Chloride 0.9 % (Flush) Syri nge 10 Ml IV 10 ml PRN PRN Administration Central line flus h Vitals/I&O/Wt Last Vital Signs Temp 99.2 F 04/19/22 12:00 Pulse 66 04/19/22 15:30 Resp 25 H 04/19/22 15:30 BP 196/94 04/19/22 15:30 Pulse Ox 92 04/19/22 15:30 O2 Del Method 04/19/22 15:30 O2 Flow Rate 612 04/16/22 06:07 FiO2 100 04/19/22 15:30 04/19/22 04/19/22 04/19/22 06:59 14:59 22:59 Intake Total 1410.801 / 1410.801 50 / 1460.801 Output Total Balance 1410.801 / 1410.801 50 / 1460.801 Weight last 48 hrs Weight 256.506 kg Weight 255.6 kg Physical Exam Resp: OTHER: Diminished air entry bilaterally, bilateral crackles predominantly in the lower lung contreras. Cardio: COMMON NORMALS: regular rate, regular rhythm, S1 normal heart sound present, S2 normal heart sound present, No gallops present (Cardio), No murmurs present (Cardio), No rub (Cardio) and Peripheral pulses 2+ throughout RATE: regular rate RHYTHM: regular rhythm HEART SOUNDS: S1 normal heart sound present and S2 normal heart sound present PERIPHERAL PULSES: Peripheral pulses 2+ throughout GI: COMMON NORMALS: Normal to inspection, nondistended, normoactive bowel dotty nds present, Soft to palpation, non-tender, No hepatosplenomegaly present and no masses AUSCULTATION: Yes normoactive bowel sounds PALPATION: Yes Soft to palpation and Yes No hepatosplenomegaly present RECTAL EXAM: deferred Extremity: OTHER: 3+ bilateral lower extremity pitting edema Urinary Catheter Management: Coude: Cath Placed During This Visit: yes Reason for Continuing Indwelling Catheter: Accurate Measurement of Urinary Output in Critically Ill Patients Urinary Catheter Date of Insertion: 04/09/22 Urinary Catheter Time of Insertion: 15:30 Data : 04/19/22 06:05 04/19/22 06:05 A&P Assessment and plan (1) DIC (disseminated intravascular coagulation): (2) CHF exacerbation: (3) Hyponatremia: (4) Oliguria: (5) V tach: (6) Obesity hypoventilation syndrome: (7) Aspiration pneumonitis: (8) Sepsis: (9) Wound infection: (10) Stasis leg ulcer: (11) Chronic acquired lymphedema: (12) Morbid obesity: Plan Persistent hypoxic hypercapnic respite failure Obesity hypoventilation Aspiration pneumonitis Concern for PE Patient is BiPAP dependent for last 1 week She has not eaten anything Currently on TPN running at 10 mill per hour Candidate for LTAC? With dialysis sessions we have been able to wean her off high requirement of oxygen from 100% down to 75% After first Session she was only requiring 50% of oxygen on AVAPS Septic shock Aspiration pneumonia Purulent cellulitis of right leg Off Levophed since we started hemodialysis Low normal EF as per echo with contrast Her ventricles were dilated as per my interpretation with bedside ultrasound My concern for PE is high that is why I have kept her on heparin drip Leukocytosis improving, afebrile, cultures negative I have added metronidazole on 04/16 earlier she was getting doxycycline IV along cefepime I have discontinued vancomycin because of high event trough level and worsening kidney function ATN currently on Lasix drip Patient is still oliguric She does respond to dialysis very well Will touch base with nephrology today Persistent hypervolemia Acute CHF exacerbation Low normal EF Sepsis related DIC: No active bleeding or thrombotic events currently patient is on heparin drip Hypertensive emergency patient responded very well to labetalol drip she did not respond very well to Cardene or nitroprusside I would avoid nitroprusside for risk of methemoglobinemia Sleep apnea undiagnosed She is BiPAP dependent Currently on TPN 10 mill per hour reluctant to increase the rate because of her fluid overloaded persistent state Runs of V. tach noted without recurrence She has remained stable Heparin drip TPN She would be an ideal candidate for LTAC, Multiple family meetings have been conducted, they do not want intubation until there is cardiac or respiratory arrest, they do understand that if she gets intubated her chances of coming off ventilator are slim they do not want PEG tube or trach, patient is full code however family does not want her to be intubated unless there is an emergency, Patient does not want to go to [place] [facility] however looking at current situation LTAC would be ideal, asked geriatric case manager to send the referral today I will talk with the family Attestations Medical Necessity Statement*: Patient is in hospital for management of respiratory failure. Time Spent in Patient Care: Greater than 35 minutes (>than 50% of time spent in counselling and/or direct pt care on unit) . Critical Care Time: The high probability of a clinically significant, sudden or life threatening deterioration of the patient's [] system(s) required my full and direct attention, intervention and personal management. The critical care time is as shown. This time is in addition to time spent performing any reported procedures but includes the following: [x] Data and vital sign review and interpretation [x] Patient assessment, examination and intervention [x] Documentation [x] Medication orders and management Critical Care Time (min): 40 Coding Level of Care Code Acute Logistics Service Representative for Kinga Fwd Diagnoses DIC (disseminated intravascular coagulation) D65 CHF exacerbation I50.9 Hyponatremia E87.1 Oliguria R34 V tach I47.20 Obesity hypoventilation syndrome E66.2 Aspiration pneumonitis J69.0 Sepsis A41.9 Wound infection T14.8XXA; L08.9 Stasis leg ulcer I83.009; L97.909 Chronic acquired lymphedema I89.0 Morbid obesity E66.01
[2022-04-19 16:03] LABS: Glucose Point of Care 113 mg/dL (70-110)
[2022-04-19] MEDS: nitroglycerin 1 gm/inch oint Pkt 0.5 INCH TOPICAL (19:30)
[2022-04-19] MEDS: LORazepam 2 mg/mL INJ 1 mL IVP (19:39)
--- NOTE | 2022-04-19 20:04 | PC.NURSE ---
PT HAS HAD A DECENT SHIFT UNTIL THIS AFTERNOON. PT WAS TAKEN OFF OF CARDENE DRIP PER DR HAWK. A COUPLE HOURS AFTER SHUTTING THIS DRIP OFF PRESSURES LUIS ALBERTO. DR HAWK SAID TO JUST GIVE ORDERED PRN HYDRALAZINE FOR B/P SYSTOLIC GREATER THAN 180. THIS NURSE ADMINISTERED THE HYDRALAZINE. PRN NITRO PASTE PATCH HAS ALSO BEEN PLACED ON PT BY THIS NURSE. PT STATED MULTIPLE TIMES THAT SHE IS READY TO AND THAT SHE WANTS THE MASK OFF . DR HAWK NOTIFIED OF PTS WISHES. DR HAWK SAID IT WAS UP TO THE FAMILY ON WHAT TO DO. THE FAMILY REQUESTED TO HAVE A MEETING WITH PHYSICIAN TOMORROW AND MAKE A DECISION ON WHAT TO DO. PTS DAUGHTER HAS TALKED WITH HER MOM AND IS ASKING HER TO KEEP FIGHTING AND KEEP THE MASK ON UNTIL TOMORROW MORNING AFTER THE REST OF THE FAMILY GETS HERE AND THEY TALK ABOUT WHAT TO DO. PTS PRESSURES ARE STILL ELEVATED. PT HAS SATED AROUND 88-93% ON 100% BIPAP MOST OF THE DAY. HEATED HIGH FLOW WAS ATTEMPTED BY RT BUT PT WAS NOT ABLE TO REALLY TOLERATE THIS. PRN PAIN MEDICATION AND ANXIETY MEDS HAVE BEEN GIVEN. PT RECEIVED DIALYSIS TREATMENT TODAY. PT TOLERATED WELL. 3L WAS PULLED OFF OF PT. PT HAD 2100 OUT OF URINE. PTS DAUGHTER IS AT BEDSIDE AND WILL STAY THE NIGHT WITH HER. REPORT GIVEN TO NILDA CANSECO. ALL QUESTIONS ANSWERED.
[2022-04-19 20:11] LABS: Glucose Point of Care 110 mg/dL (70-110)
[2022-04-19] MEDS: succinylcholine 20 mg/mL SDV 10mL 200 MG IV (23:35)
--- NOTE | 2022-04-19 23:47 | XRR_ITS ---
PROCEDURE INFORMATION: Exam: XR Chest Exam date and time: 04/20/2022 12:03 AM Age: 61 years old Clinical indication: Device placement; Ett placement (vent status); Additional info: Intubation verification TECHNIQUE: Imaging protocol: Radiologic exam of the chest. Views: 1 view. COMPARISON: CR (CHEST, ) 04/19/2022 1:37 AM FINDINGS: Tubes, catheters and devices: The endotracheal tube is appropriately positioned in the distal thoracic trachea with the tip above the sachi. There is a right internal jugular central venous catheter appropriately positioned with the tip in the lower SVC near the cavoatrial junction. Lungs: Multifocal bilateral perihilar opacity and diffuse bilateral ground-glass opacity. Pleural spaces: There is no pleural effusion or pneumothorax. Heart/Mediastinum: There is moderate enlargement of the cardiac silhouette. Bones/joints: Bones are unremarkable. XR/XR chest 1V [id number] IMPRESSION: 1. Satisfactory lines and tubes. 2. Bilateral pulmonary consolidation and ground-glass opacity is similar to the findings on 04/19/2022.
[2022-04-20] VITALS (62 sets, daily range): BP systolic 112–181; BP diastolic 49–103; PULSE 56–79; RESP 22–29; TEMP 36.5–38.2; O2SAT 82–93; BMI 81.6
[2022-04-20] MEDS: propofol 1,000 MG/100 ML INJ 7.7 MG IV
[2022-04-20] MEDS: doxycycline 100 MG in sodium chloride 0.9% (plus) 100 ML IV (01:18)
[2022-04-20 01:23] LABS: ABG PCO2 59.8 mmHg (35-45); ABG PH Result 7.35 (7.35-7.45); Arterial Blood Gas Hematocrit 36.2 % (37-47); Base Excess ABG 6.1 mmol/L (-2.0-2.0); Blood Gas Allen Test Pos; Blood Gas Sample Site Radial, right; Blood Gas Sample Type Arterial; HCO3 ABG 33.2 mmol/L (22-26); Oxygen Device VENT; PO2 ABG 43.8 mmHg (80.0-100.0)
[2022-04-20] MEDS: propofol 1,000 MG/100 ML INJ 61.56 MG IV ×7 (01:23→22:22)
[2022-04-20 01:44] LABS: Glucose Point of Care 111 mg/dL (70-110)
[2022-04-20] MEDS: artificial tears Op Soln 15 mL Btl 1 DROP EYE-BOTH (01:52)
[2022-04-20] MEDS: enoxaparin 150 mg/mL Syringe SUBCUT (01:55)
--- NOTE | 2022-04-20 02:08 | PM.CCNAC ---
Critical Care Event Note The high probability of a clinically significant, sudden or life threatening deterioration of the patient's [respiratory] system(s) required my full and direct attention, intervention and personal management. The critical care time is as shown. This time is in addition to time spent performing any reported procedures but includes the following: [x] Data and vital sign review and interpretation [x] Patient assessment, examination and intervention [x] Documentation [x] Medication orders and management Critical Care Time Code activated: No Critical Care Time (min): 35 Additional information about critical care time: at 11:45 PM, patient continued to have declining respiratory status. Sp02 now at 80% on Bipap. Additionally noted to have nasal bleeing which can further compromise the airway. Incrased work of breathing. Family veliz and updated with worsening clinical status, agreebale to intubate. Patient wa sintubated at midnight by ER physician Dr. Desai. Tolerated procedure well. Now on mechanical ventilation 100% fi02, PEEP 12, Vt 400 Coding Level of Care Code Acute Boilers And Pressure Vessels Inspector for Kinga Watson
--- NOTE | 2022-04-20 02:25 | P.PNCC_ITS ---
Critical Care Event Note The high probability of a clinically significant, sudden or life threatening deterioration of the patient's [] system(s) required my full and direct attention, intervention and personal management. The critical care time is as shown. This time is in addition to time spent performing any reported procedures but includes the following: [x] Data and vital sign review and interpretation [x] Patient assessment, examination and intervention [x] Documentation [x] Medication orders and management Critical Care Time Code activated: No Critical Care Time (min): 15 Additional information about critical care time: Time does not include intubation. Called to bedside regarding need for emergent intubation. Patient found to be on BiPAP, with a pulse ox of 71% at an FiO2 of 1. She was intubated under RSI and video assist laryngoscopy. There were no complications. Procedures Intubation Time out performed: No Sedative: etomidate Mg given: 30 Paralytic: succinylcholine Mg given: 200 Laryngoscope: fiber optic video scope ET tube size: 8 ET tube uncuffed: No Tube secured depth (cm): 24 Tube secured location: lips Tube placement confirmation: visualized tube passing through cords, equal breath sounds bilaterally, confirmation by capnometry and color change noted Patient tolerated procedure: well and no complications Intubation complications: none Additional comments: On chest x-ray, intubation was mildly deep, so tube pulled back to 22 cm at the lip. X-ray reveals appropriate tube placement. Coding Level of Care Code Acute Fuselage Framer for Kinga Watson
[2022-04-20] MEDS: meropenem 1,000 MG in sodium chloride 0.9% (plus) 50 ML 100 MG IV ×4 (02:39→23:14)
[2022-04-20] MEDS: propofol 1,000 MG/100 ML INJ 84.65 MG IV (02:47)
[2022-04-20 03:15] LABS: Basophils % 0.1 %; Eosinophils % 0.2 %; Hematocrit 37.2 % (37.0-47.0); Lymphocytes # 0.7 10^3/uL (0.8-4.8); Lymphocytes % 6.7 %; Mean Corpuscular HGB Conc 29.6 g/dL (30.0-36.0); Mean Corpuscular Hemoglobin 28.2 pg (28.0-34.0); Mean Corpuscular Volume 95.4 fl (81-99); Mean Platelet Volume 10.7 fL (7.4-10.4); Monocytes # 0.5 10^3/uL (0.2-0.9); Monocytes % 4.5 %; Neutrophils # 8.76 10^3/uL (1.8-7.7); Nucleated Red Blood Cells % 0 %; Platelet Count 112 10^3/cmm (130-400); Red Cell Distribution Width 17.8 % (12.1-15.1); White Blood Count 10.1 10^3/uL (4.0-10.0)
[2022-04-20] MEDS: ipratropium-albuterol 3 mL Neb INHALATION ×5 (03:40→20:00)
--- NOTE | 2022-04-20 03:40 | XRR_ITS ---
PROCEDURE INFORMATION: Exam: XR Chest Exam date and time: 04/20/2022 3:51 AM Age: 61 years old Clinical indication: Device placement; Other: Et and og tube placement; Additional info: Confirm og tube and endotrach placement TECHNIQUE: Imaging protocol: Radiologic exam of the chest. Views: 1 view. COMPARISON: CR (CHEST, ) 04/20/2022 12:03 AM FINDINGS: Tubes, catheters and devices: Endotracheal tube is seen with tip 4.9 cm from the sachi. Interval placement of orogastric tube is seen with distal aspect in the left upper abdominal region. The tip is noted to be in the left subdiaphragmatic region. Unchanged right internal jugular central venous catheter with tip overlying the cavoatrial junction. Lungs: Unchanged lung volumes. Slightly decreased moderate bilateral perihilar lung interstitial and airspace opacities with coalescence in the lung bases. Pleural spaces: Unchanged small bilateral pleural effusions, left more than right. No pneumothorax. Heart/Mediastinum: Unchanged moderate cardiomegaly. There is a mildly tortuous thoracic aorta. The trachea is midline. Bones/joints: No acute osseous abnormalities seen. Soft tissues: Multiple external densities are seen overlying the chest, limiting assessment. XR/XR chest 1V portable [id number] IMPRESSION: 1. Lines and tubes, as noted above. 2. Unchanged lung volumes. Slightly decreased moderate bilateral perihilar lung interstitial and airspace opacities with coalescence in the lung bases. The unchanged small bilateral pleural effusions. 3. Unchanged cardiomegaly.
[2022-04-20 03:48] LABS: Alanine Aminotransferase 10 U/L (0-33); Alkaline Phosphatase 71 U/L (35-105); Aspartate Amino Transferase 17 U/L (0-32); Blood Urea Nitrogen 28 mg/dL (6-20); Calcium 8.4 mg/dL (8.5-10.5); Carbon Dioxide 31 mmol/L (22-29); Chloride 104 mmol/L (98-107); Globulin 3.9 g/dL (1.3-4.6); Glomerular Filtration Rate 126.3 mL/min (90-130); Glucose 102 mg/dL (65-115); Magnesium 1.5 mg/dL (1.7-2.3); Osmolality Calculated 302 mOsm/kg (285-295); Sodium 143 mmol/L (136-145); Total Bilirubin 1.1 mg/dL (0.15-1.2); Total Protein 6.9 g/dL (6.6-8.7)
[2022-04-20 03:51] LABS: Glucose Point of Care 91 mg/dL (70-110)
[2022-04-20] MEDS: propofol 1,000 MG/100 ML INJ 92.34 MG IV ×7 (03:59→11:34)
[2022-04-20 04:10] LABS: ABG PCO2 57.1 mmHg (35-45); ABG PH Result 7.37 (7.35-7.45); Alveolar-Arterial Oxygen Gradi 78.8 mmHg (5-10); Arterial Blood Gas Hematocrit 35.7 % (37-47); Base Excess ABG 6.3 mmol/L (-2.0-2.0); Blood Gas Allen Test Pos; Blood Gas Sample Site Radial, right; Blood Gas Sample Type Arterial; Carboxyhemoglobin 1.2 %THgb (0.4-20.1); HCO3 ABG 33.1 mmol/L (22-26); HGB O2 Sat 81.8 % (95-100); Ionized Calcium Level - ABG 1.2 mmol/L (1.1-1.4); Methemoglobin 0.7 % (0.4-1.5); Oxygen Device VENT; Oxygen Saturation ABG 83.3; PO2 ABG 45.2 mmHg (80.0-100.0); Potassium Level - ABG 2.9 mmol/L (3.5-5.0); Total Hemoglobin 11.6 g/dL (12-16)
[2022-04-20] MEDS: bumetanide 0.25 mg/mL SDV 10 mL 2 MG IVP ×3 (04:20→21:22)
--- NOTE | 2022-04-20 05:19 | PC.NURSE ---
Patient was hypertensive upon shift change with Systolic BP consistently over 200. Hydralazine and Nitro Paste had been administered prior to shift change. Dr. Eastman was notified and gave 1 time dose of 10mg Hydralazine IVP. Dr. Chow also called into the unit and gave order for starting Nicardipine at 5mg non titratable due to fluid overload concerns. PRN morphine was give to help control pain and order for 2mg Ativan. Patient continued to run hypertensive with respiration rate in the upper 30s/low 40s. @2200 patient developed a nose bleed with moderate amount of drainage. Hypertensive state was a concern and Respiratory happened to be nearby. Dr. Eastman was notified and this nurse spoke with patient's daughter and about options. Family expressed desire to try what we could and agreed to intubate at that time. Dr. Desai arrived from E.D. and Respiratory. Sp02 was running 84% with Bipap at %100 Fi02. 30mg of Etomidate and 200 mg Succinylcholine were administered in that order and patient was successfully intubated with 23 cm at the lip with a #8 endotrachial tube. Patient exibited bigemeny durring intubation but returned to sinus rhythm. Intubation was completed @2342. Patient continues to saturate 82-84%. Stat Xray ordered to confirm placement. OG tube was inserted @0230 and Xray confirmation ordered. Patient exibited fixed unequal pupils and Head CT was ordered. CT was unable to complete study due to previous failed attempt due to patient's anatomy. Dr. Eastman was notfied.
[2022-04-20 07:19] LABS: Glucose Point of Care 87 mg/dL (70-110)
--- NOTE | 2022-04-20 07:56 | P.PN_ITS ---
Subjective Subjective: overnight events noted. pt now intubated and on fi02 100%. not able to obtain a ROS Medications: Reviewed: Yes Medication Review Details: Current Medications Acetaminophen (Acetaminophen 500 Mg Tablet) 500 mg PO Q4H PRN PRN Reason: fever Last Admin: 04/11/22 19:48 Dose: 500 mg Albuterol/Ipratropium (Ipratropium-Albuterol 3 Ml Neb) 3 ml INHALATION Q6H PRN PRN Reason: SHORTNESS OF BREATH Albuterol/Ipratropium (Ipratropium-Albuterol 3 Ml Neb) 3 ml INHALATION Q4H.RESPIRATORY [facility] Last Admin: 04/20/22 07:40 Dose: 3 ml Artificial Tears (Artificial Tears Op Soln 15 Ml Btl) 1 drop EYE-BOTH Q4H PRN PRN Reason: DRY EYE(S) Last Admin: 04/20/22 01:52 Dose: 1 drop Bacitracin (Bacitracin Ointment 28 Gm) 1 applic TOPICAL TID [facility]; Protocol Last Admin: 04/20/22 07:27 Dose: Not Given Bumetanide (Bumetanide 0.25 Mg/Ml Sdv 10 Ml) 2 mg IVP Q8H [facility] Last Admin: 04/20/22 04:20 Dose: 2 mg Chlorhexidine Gluconate (Chlorhexidine Gluconate 4% Btl 118 Ml) 1 applic TOPICAL 0100 BREANNA Clonidine HCl (Clonidine 0.3 Mg/24 Hr Patch) 1 patch TRANSDERMA Q7D [facility] Last Admin: 04/18/22 12:09 Dose: 1 patch Collagenase (Collagenase Oint 30 Gm) 1 applic TOPICAL Q24H [facility] Last Admin: 04/20/22 07:26 Dose: Not Given Enoxaparin Sodium (Enoxaparin 150 Mg/Ml Syringe) 150 mg SUBCUT Q12H [facility] Last Admin: 04/20/22 01:55 Dose: 150 mg Fluoxetine HCl (Fluoxetine 20 Mg Capsule) 20 mg PO BID [facility] Last Admin: 04/19/22 16:58 Dose: Not Given Heparin Sodium (Porcine) (Heparin Lock Flush 500 Unit/5 Ml Syringe) 200 - 500 unit IV Q12H [facility] Last Admin: 04/20/22 04:31 Dose: Not Given Heparin Sodium (Porcine) (Heparin Lock Flush 500 Unit/5 Ml Syringe) 200 - 500 unit IV PRN PRN PRN Reason: Central line flush Last Admin: 04/14/22 22:39 Dose: 500 unit Hydralazine HCl (Hydralazine 25 Mg Tablet) 50 mg PO TID BREANNA Last Admin: 04/19/22 21:22 Dose: Not Given Hydralazine HCl (Hydralazine 20 Mg/Ml Inj 1 Ml) 10 mg IVP Q4H PRN PRN Reason: bp> 180./100 Last Admin: 04/19/22 21:52 Dose: 10 mg Hydromorphone HCl (Hydromorphone 1 Mg/Ml Inj 1 Ml) 0.2 mg IVP Q4H PRN PRN Reason: PAIN Amino Acids/Electrolytes (Clinimix E 4.25%-10%) 1,000 mls @ 10 mls/hr IV .Q24H BREANNA Last Admin: 04/20/22 01:19 Dose: 10 mls/hr Sodium Chloride (Sodium Chloride 0.9%) 1,000 mls @ 0 mls/hr IV .Q0M PRN PRN Reason: hypotension or symptomatic Sodium Chloride (Sodium Chloride 0.9%) 1,000 mls @ 0 mls/hr IV .Q0M PRN PRN Reason: hypotension or symptomatic Dexmedetomidine/Sodium Chloride (Precedex) 400 mcg in 100 mls @ 0 mls/hr IV .Q0M [facility]; Protocol Last Titration: 04/20/22 00:12 Dose: Infused Albumin Human (Albumin) 25 gm in 100 mls @ 60 mls/hr IV Q8H [facility] Last Infusion: 04/20/22 07:25 Dose: Infused Meropenem 1,000 mg/ Sodium (Chloride) 50 mls @ 100 mls/hr IV Q8H [facility] Last Infusion: 04/20/22 07:26 Dose: Infused Nicardipine/Sodium Chloride (Cardene) 20 mg in 200 mls @ 0 mls/hr IV .Q0M [facility]; Protocol Last Titration: 04/20/22 00:00 Dose: 0 mg/hr, 0 mls/hr Propofol (Diprivan) 1,000 mg in 100 mls @ 0 mls/hr IV .Q0M BREANNA; Protocol Last Admin: 04/20/22 07:29 Dose: 60 mcg/kg/min, 92.34 mls/hr Fentanyl 2,500 mcg/ Sodium (Chloride) 250 mls @ 0 mls/hr IV .Q0M [facility]; Protocol Last Titration: 04/20/22 00:27 Dose: 50 mcg/hr, 5 mls/hr Vancomycin HCl / Sodium (Chloride) 250 mls @ 0 mls/hr [id number] PROTOCOL [facility]; Protocol Lanolin (Lanolin Oint 7 Gm) 1 applic TOPICAL PRN PRN PRN Reason: DRYNESS Last Admin: 04/16/22 20:05 Dose: 1 applic Lidocaine HCl (Lidocaine 2% Jelly 6 Ml) 1 applic TOPICAL PRN PRN PRN Reason: PAIN Last Admin: 04/12/22 01:57 Dose: 1 applic Lidocaine HCl (Lidocaine 1% Inj 20 Ml Mdv (Ml)) 0.1 ml INTRADERMA PRN PRN PRN Reason: Anesthetic Catheter Placement Lorazepam (Lorazepam 2 Mg/Ml Inj 1 Ml) 2 mg IVP Q4H PRN PRN Reason: ANXIETY Last Admin: 04/19/22 19:39 Dose: 2 mg Methocarbamol (Methocarbamol 500 Mg Tablet) 500 mg PO BID [facility] Last Admin: 04/11/22 18:29 Dose: 500 mg Morphine Sulfate (Morphine 4 Mg/Ml Sdv 1 Ml) 2 mg IVP Q8H PRN PRN Reason: SEVERE PAIN Last Admin: 04/19/22 22:13 Dose: 2 mg Nitroglycerin (Nitroglycerin 1 Gm/Inch Oint Pkt) 0.5 inch TOPICAL Q6H PRN PRN Reason: Blood pressure greater than 180/100 Last Admin: 04/19/22 19:30 Dose: 0.5 inch Ondansetron HCl (Ondansetron 2 Mg/Ml Sdv 2 Ml) 4 mg IVP Q6H PRN PRN Reason: NAUSEA AND VOMITING Last Admin: 04/10/22 19:49 Dose: 4 mg Pantoprazole Sodium (Pantoprazole 40 Mg Sdv) 40 mg IVP DAILY [facility] Last Admin: 04/19/22 08:21 Dose: 40 mg Potassium Chloride (Potassium Chloride Er 10 Meq Tablet) 10 meq PO DAILY [facility] Last Admin: 04/11/22 10:14 Dose: 10 meq Senna/Docusate Sodium (Sennosides-Docusate Tablet) 1 tab PO DAILY [facility] Last Admin: 04/19/22 08:06 Dose: Not Given Sodium Chloride (Sodium Chloride 0.9 % (Flush) Syringe 10 Ml) 5 - 10 ml IV Q12H BREANNA Last Admin: 04/20/22 04:32 Dose: Not Given Sodium Chloride (Sodium Chloride 0.9 % (Flush) Syringe 10 Ml) 5 - 10 ml IV PRN PRN PRN Reason: Central line flush Last Admin: 04/14/22 22:39 Dose: 10 ml Vitals/I&O/Wt Last Vital Signs Temp 99.7 F H 04/20/22 07:00 Pulse 66 04/20/22 07:45 Resp 29 H 04/20/22 07:45 BP 168/74 04/20/22 07:00 Pulse Ox 86 L 04/20/22 07:45 O2 Del Method 04/20/22 07:45 O2 Flow Rate 612 04/16/22 06:07 FiO2 100 04/20/22 07:45 04/19/22 04/20/22 04/20/22 22:59 06:59 14:59 Intake Total 1073.749 / 2484.550 1111.299 / 3595.849 246.957 / 246.957 Output Total 6500 / 6500 550 / 7050 Balance -5426.251 / -4015.450 561.299 / -3454.151 246.957 / 246.957 Weight last 48 hrs Weight 236.492 kg Weight 256.506 kg Physical Exam Narrative: propofol drip, tpn vs noted- vwnt brx3=514%, peep 15, rr 22, heent- nc/at, eomi neck obese lungs crackles b/l heart reg abd soft, nt, nd, + bs ext b/l edema skin cellulitis on leg neuro- sedated Urinary Catheter Management: Coude: Cath Placed During This Visit: yes Reason for Continuing Indwelling Catheter: Accurate Measurement of Urinary Output in Critically Ill Patients Urinary Catheter Date of Insertion: 04/09/22 Urinary Catheter Time of Insertion: 15:30 Data : 04/20/22 02:58 04/20/22 02:58 A&P Assessment and plan (1) Acute kidney injury: see below Plan 61 yr old female rt leg cellulitis and ATN 1AKI - required daily HD via RT femoral temp HD catheter on 04-12-22 - if want to continue aggressive care- plan SUF and then consider CRRT -replace k, magnesium and monitor 2. cellulitis- abx per medicine- dose for ANY on HD -keep vanco trough under 19 3. htn- monitor w/ fluid removal- improved w/ propofol 4. resp acidosis- now intubated. Q chest tubes. Q other causes of resp failure 5. elevated bnp -monitor w/ diuresis seen and examined w/ CHARTER COORDINATOR- telehealth visit time spent 30 min prognosis is poor Attestations Medical Necessity Statement*: vdrf, htn Time Spent in Patient Care: 16 - 35 minutes (>than 50% of time spent in counselling and/or direct pt care on unit) . Coding Level of Care Code Acute Water Well Driller for Kinga Watson Diagnoses Acute kidney injury N17.9
[2022-04-20] MEDS: potassium chloride oral liq 20 mEq/15 mL UDC 40 MEQ PO ×2 (08:41→17:05)
[2022-04-20] MEDS: hyDRALAzine 25 mg Tablet 50 MG PO ×3 (08:41→21:22)
[2022-04-20] MEDS: sennosides-docusate Tablet 1 TAB PO (08:42)
[2022-04-20] MEDS: fluoxetine 20 mg Capsule PO ×2 (08:42→17:05)
[2022-04-20] MEDS: pantoprazole 40 mg SDV IVP (08:42)
[2022-04-20] MEDS: bacitracin ointment 28 gm 1 APPLIC TOPICAL ×2 (09:03→21:24)
[2022-04-20 09:41] LABS: Vancomycin Random < 4.0 ug/mL (20.0-40.0)
--- NOTE | 2022-04-20 10:02 | PC.SOCIAL ---
Imm update Imm not updated this day as patient remains intubated and is not anticipated to discharge in the next 48 hours. CM to follow.
[2022-04-20 10:53] LABS: Glucose Point of Care 85 mg/dL (70-110)
--- NOTE | 2022-04-20 11:09 | PM.PN ---
Subjective Subjective: Patient was seen and examined this morning, patient had an eventful last night, she was extremely agitated trying constantly to remove the masK, she was also extremely hypertensive, she had to be intubated, with persistent desaturation in the 80s, nosebleed, not able to appropriately protect the airway, increased work of breathing. Currently she is intubated, sedated on mechanical ventilation. Lovenox was kept on hold last night as there was concern for possible intracerebral bleed, in view of elevated blood pressure, sedation was Decreased this morning, patient is moving all the extremities following commands, had to be turned back on As the respiratory rate, as well as blood pressure started going up.Her other vitals and labs have been reviewed Medications: Reviewed: Yes Medication Review Details: Generic Name Dose Route Start Last Admin Trade Name Freq PRN Reason Stop Dose Admin Acetaminophen 500 mg 04/09/22 19:24 04/11/22 19:48 Acetaminophen 50 0 Mg Tablet PO 500 mg Q4H PRN Administration fever Albuterol/Ipratrop ium 3 ml 04/11/22 00:00 04/20/22 07:40 Ipratropium-Albu terol 3 Ml Neb INHALATION 3 ml Q4H.RESPIRATORY [facility] Administration Artificial Tears 1 drop 04/19/22 09:08 04/20/22 01:52 Artificial Tears Op Soln 15 Ml Btl EYE-BOTH 1 drop Q4H PRN Administration DRY EYE(S) Bacitracin 1 applic 04/09/22 21:00 04/20/22 09:03 Bacitracin Ointm ent 28 Gm TOPICAL 1 applic TID BREANNA Administration Protocol Bumetanide 2 mg 04/19/22 12:00 04/20/22 04:20 Bumetanide 0.25 Mg/Ml Sdv 10 Ml IVP 2 mg Q8H BREANNA Administration Clonidine HCl 1 patch 04/18/22 12:00 04/18/22 12:09 Clonidine 0.3 Mg /24 Hr Patch TRANSDERMA 1 patch Q7D BREANNA Administration Collagenase 1 applic 04/13/22 00:00 04/20/22 07:26 Collagenase Oint 30 Gm TOPICAL Not Given Q24H BREANNA Enoxaparin Sodium 150 mg 04/18/22 14:00 04/20/22 01:55 Enoxaparin 150 M g/Ml Syringe SUBCUT 150 mg Q12H BREANNA Administration Fluoxetine HCl 20 mg 04/10/22 09:30 04/20/22 08:42 Fluoxetine 20 Mg Capsule PO 20 mg BID BREANNA Administration Heparin Sodium (Po rcine) 200 - 500 unit 04/12/22 16:15 04/20/22 04:31 Heparin Lock Flu sh 500 Unit/5 Ml S yringe IV Not Given Q12H BREANNA Heparin Sodium (Po rcine) 200 - 500 unit 04/12/22 16:13 04/14/22 22:39 Heparin Lock Flu sh 500 Unit/5 Ml S yringe IV 500 unit PRN PRN Administration Central line flus h Hydralazine HCl 50 mg 04/16/22 09:00 04/20/22 08:41 Hydralazine 25 M g Tablet PO 50 mg TID BREANNA Administration Hydralazine HCl 10 mg 04/19/22 09:09 04/19/22 21:52 Hydralazine 20 M g/Ml Inj 1 Ml IVP 10 mg Q4H PRN Administration bp> 180./100 Amino Acids/Electr olytes 1,000 mls @ 10 ml s/hr 04/12/22 20:45 04/20/22 01:19 Clinimix E 4.25% -10% IV 10 mls/hr .Q24H BREANNA Administration Dexmedetomidine/So dium Chloride 400 mcg in 100 ml s @ 0 mls/hr 04/15/22 18:15 04/20/22 00:12 Precedex IV Infused .Q0M BREANNA Titration Protocol Per Protocol Albumin Human 25 gm in 100 mls @ 60 mls/hr 04/17/22 11:00 04/20/22 11:00 Albumin IV 60 mls/hr Q8H BREANNA Administration Meropenem 1,000 mg / Sodium 50 mls @ 100 mls/ hr 04/18/22 15:00 04/20/22 07:26 Chloride IV Infused Q8H BREANNA Infusion Nicardipine/Sodium Chloride 20 mg in 200 mls @ 0 mls/hr 04/19/22 21:30 04/20/22 00:00 Cardene IV 0 mg/hr .Q0M BREANNA 0 mls/hr Titration Protocol As Directed Propofol 1,000 mg in 100 m ls @ 0 mls/hr 04/19/22 23:45 04/20/22 10:21 Diprivan IV 60 mcg/kg/min .Q0M BREANNA 92.34 mls/hr Administration Protocol Per Protocol Fentanyl 2,500 mcg / Sodium 250 mls @ 0 mls/h r 04/19/22 23:45 04/20/22 00:27 Chloride IV 50 mcg/hr .Q0M BREANNA 5 mls/hr Titration Protocol Per Protocol Midazolam HCl 100 mg/ Sodium 100 mls @ 0 mls/h r 04/20/22 09:00 04/20/22 09:12 Chloride IV 1 mg/hr .Q0M BREANNA 1 mls/hr Administration Protocol Per Protocol Lanolin 1 applic 04/15/22 14:00 04/16/22 20:05 Lanolin Oint 7 G m TOPICAL 1 applic PRN PRN Administration DRYNESS Lidocaine HCl 1 applic 04/11/22 23:30 04/12/22 01:57 Lidocaine 2% Jel ly 6 Ml TOPICAL 1 applic PRN PRN Administration PAIN Lorazepam 2 mg 04/19/22 18:56 04/19/22 19:39 Lorazepam 2 Mg/M l Inj 1 Ml IVP 2 mg Q4H PRN Administration ANXIETY Methocarbamol 500 mg 04/10/22 09:30 04/11/22 18:29 Methocarbamol 50 0 Mg Tablet PO 500 mg BID BREANNA Administration Morphine Sulfate 2 mg 04/19/22 18:17 04/19/22 22:13 Morphine 4 Mg/Ml Sdv 1 Ml IVP 2 mg Q8H PRN Administration SEVERE PAIN Nitroglycerin 0.5 inch 04/14/22 10:35 04/19/22 19:30 Nitroglycerin 1 Gm/Inch Oint Pkt TOPICAL 0.5 inch Q6H PRN Administration Blood pressure gr eater than 180/100 Ondansetron HCl 4 mg 04/09/22 19:24 04/10/22 19:49 Ondansetron 2 Mg /Ml Sdv 2 Ml IVP 4 mg Q6H PRN Administration NAUSEA AND VOMITI NG Pantoprazole Sodiu m 40 mg 04/10/22 22:15 04/20/22 08:42 Pantoprazole 40 Mg Sdv IVP 40 mg DAILY BREANNA Administration Potassium Chloride 10 meq 04/11/22 09:15 04/11/22 10:14 Potassium Chlori de Er 10 Meq Table t PO 10 meq DAILY BREANNA Administration Potassium Chloride 40 meq 04/20/22 09:00 04/20/22 08:41 Potassium Chlori de Oral Liq 20 Meq /15 Ml Udc PO 04/20/22 22:00 40 meq BID BREANNA Administration Senna/Docusate Sod ium 1 tab 04/10/22 09:00 04/20/22 08:42 Sennosides-Docus ate Tablet PO 1 tab DAILY BREANNA Administration Sodium Chloride 5 - 10 ml 04/12/22 16:15 04/20/22 04:32 Sodium Chloride 0.9 % (Flush) Syri nge 10 Ml IV Not Given Q12H BREANNA Sodium Chloride 5 - 10 ml 04/12/22 16:13 04/14/22 22:39 Sodium Chloride 0.9 % (Flush) Syri nge 10 Ml IV 10 ml PRN PRN Administration Central line flus h Vitals/I&O/Wt Last Vital Signs Temp 100.7 F H 04/20/22 10:00 Pulse 66 04/20/22 10:00 Resp 24 H 04/20/22 10:02 BP 159/68 04/20/22 10:00 Pulse Ox 87 L 04/20/22 10:02 O2 Del Method 04/20/22 07:45 O2 Flow Rate 612 04/16/22 06:07 FiO2 100 04/20/22 10:02 04/19/22 04/20/22 04/20/22 22:59 06:59 14:59 Intake Total 1073.749 / 2484.550 1111.299 / 3595.849 446.957 / 446.957 Output Total 6500 / 6500 550 / 7050 Balance -5426.251 / -4015.450 561.299 / -3454.151 446.957 / 446.957 Weight last 48 hrs Weight 236.492 kg Weight 256.506 kg Physical Exam Narrative: Intubated, sedated on mechanical ventilation Resp: OTHER: Diminished air entry bilaterally, bilateral crackles predominantly in the lower lung contreras. Cardio: COMMON NORMALS: regular rate, regular rhythm, S1 normal heart sound present, S2 normal heart sound present, No gallops present (Cardio), No murmurs present (Cardio), No rub (Cardio) and Peripheral pulses 2+ throughout RATE: regular rate RHYTHM: regular rhythm HEART SOUNDS: S1 normal heart sound present and S2 normal heart sound present PERIPHERAL PULSES: Peripheral pulses 2+ throughout GI: COMMON NORMALS: Normal to inspection, nondistended, normoactive bowel sounds present, Soft to palpation, non-tender, No hepatosplenomegaly present and no masses AUSCULTATION: Yes normoactive bowel sounds PALPATION: Yes Soft to palpation and Yes No hepatosplenomegaly present RECTAL EXAM: deferred Extremity: COMMON NORMALS: no clubbing, cyanosis or edema and no pedal edema OTHER: 3+ bilateral lower extremity pitting edema Urinary Catheter Management: Coude: Cath Placed During This Visit: yes Reason for Continuing Indwelling Catheter: Accurate Measurement of Urinary Output in Critically Ill Patients Urinary Catheter Date of Insertion: 04/09/22 Urinary Catheter Time of Insertion: 15:30 Data : 04/20/22 02:58 04/20/22 02:58 A&P Assessment and plan (1) DIC (disseminated intravascular coagulation): (2) CHF exacerbation: (3) Hyponatremia: (4) Oliguria: (5) V tach: (6) Obesity hypoventilation syndrome: (7) Aspiration pneumonitis: (8) Sepsis: (9) Wound infection: (10) Stasis leg ulcer: (11) Chronic acquired lymphedema: (12) Morbid obesity: Plan Persistent hypoxic hypercapnic respite failure Obesity hypoventilation Aspiration pneumonitis Concern for PE Patient is BiPAP dependent for last 1 week She has not eaten anything Currently on TPN running at 10 mill per hour Candidate for LTAC? With dialysis sessions we have been able to wean her off high requirement of oxygen from 100% down to 75% After first Session she was only requiring 50% of oxygen on AVAPS Septic shock Aspiration pneumonia Purulent cellulitis of right leg Off Levophed since we started hemodialysis Low normal EF as per echo with contrast Her ventricles were dilated as per my interpretation with bedside ultrasound My concern for PE is high that is why I have kept her on heparin drip Leukocytosis improving, afebrile, cultures negative I have added metronidazole on 04/16 earlier she was getting doxycycline IV along cefepime I have discontinued vancomycin because of high event trough level and worsening kidney function ATN currently on Lasix drip Patient is still oliguric She does respond to dialysis very well Will touch base with nephrology today Persistent hypervolemia Acute CHF exacerbation Low normal EF Sepsis related DIC: No active bleeding or thrombotic events currently patient is on heparin drip Hypertensive emergency patient responded very well to labetalol drip she did not respond very well to Cardene or nitroprusside I would avoid nitroprusside for risk of methemoglobinemia Sleep apnea undiagnosed She is BiPAP dependent Currently on TPN 10 mill per hour reluctant to increase the rate because of her fluid overloaded persistent state Runs of V. tach noted without recurrence She has remained stable Heparin drip TPN She would be an ideal candidate for LTAC, Multiple family meetings have been conducted, they do not want intubation until there is cardiac or respiratory arrest, they do understand that if she gets intubated her chances of coming off ventilator are slim they do not want PEG tube or trach, patient is full code however family does not want her to be intubated unless there is an emergency, Patient does not want to go to [facility] however looking at current situation LTAC would be ideal, asked nurse case management to send the referral today I will talk with the family Attestations Medical Necessity Statement*: Patient is to be in hospital management of respiratory failure. Time Spent in Patient Care: Greater than 35 minutes (>than 50% of time spent in counselling and/or direct pt care on unit). Critical Care Time: The high probability of a clinically significant, sudden or life threatening deterioration of the patient's [] system(s) required my full and direct attention, intervention and personal management. The critical care time is as shown. This time is in addition to time spent performing any reported procedures but includes the following: [x] Data and vital sign review and interpretation [x] Patient assessment, examination and intervention [x] Documentation [x] Medication orders and management Critical Care Time (min): 45 Coding Level of Care Code Acute Trimmer And Borer Machine Operator for Chg Fwd Exam Expanded Problem Focused Diagnoses DIC (disseminated intravascular coagulation) D65 CHF exacerbation I50.9 Hyponatremia E87.1 Oliguria R34 V tach I47.20 Obesity hypoventilation syndrome E66.2 Aspiration pneumonitis J69.0 Sepsis A41.9 Wound infection T14.8XXA; L08.9 Stasis leg ulcer I83.009; L97.909 Chronic acquired lymphedema I89.0 Morbid obesity E66.01
--- NOTE | 2022-04-20 14:08 | P.CONIM_ITS ---
Providers/Reason For Consult Consulting Physician/Specialty*: Navin Raymond MD/Pulmonary Critical Care Reason for Consult*: Hypoxic/hypercapnic requiring mechanical ventilation Requesting Physician: Emil Wang MD Attending Physician: Emil Wang MD Primary Care Provider: Chloe Gonzalez APN History of Present Illness History of Present Illness Evelyn Vail is a 61 year old female with past medical history of chronic lower extremity lymphedema, morbid obesity with BMI 81, CKD admitted to hospital on 04/09/2022 for vomiting, fever and chills. At that time she mentioned going to wound care clinic until COVID-19 pandemic and after that she stopped. She was admitted on 04/09/2022 with suspicion for sepsis secondary to right l ower lobe extremity cellulitis. Patient had penicillin allergy. She was started on vancomycin, cefepime and metronidazole. Lower extremity CT did not show any evidence of osteomyelitis, abscess or fluid collection. On day 2-04/10/2022 She has been having multiple episodes of vomitings., patient had acute respiratory failure with her worsening hypoxia requiring 15 L nonrebreather. Patient refused intubation or mechanical ventilation unless goes into cardiac arrest requiring CPR. There was a significant concern for aspiration at that time. ABG showed respiratory acidosis with hypercapnia and so patient was started on BiPAP and transferred to ICU. On day 3-patient kept refusing intubation and was still on BiPAP. Echocardiogram essentially uninterpretable without echo contrast given her morbid obesity. On day 4-patient was clinically volume overloaded and was requiring Levophed 4 mics with worsening renal functions. BNP 9500, worsening renal functions and decreasing urine output-nephrology consulted On day 5-patient was started on hemodialysis on 04/13/2022 On day 6-9-on AVAPS, able to wean down on FiO2 40% %, off pressors, still drowsy and lethargic. However she became hypotensive and required Cardene drip. Patient was gradually placed on Lasix drip as well as albumin supplementation. On day 9-10-FiO2 requirement started to go up again requiring 100% on BiPAP when she is extremely agitated trying to rip off BiPAP and failed to tolerate heated high flow. Lasix drip has been switched to Bumex. IV albumin continued. Day 10 overnight patient was intubated for declining respiratory status and respiration dropped to 80% on BiPAP. Pulmonary critical care consulted to help with patient who was intubated and mechanically ventilated overnight for acute on chronic hypercapnic/hypoxic respiratory failure suspected secondary to aspiration pneumonia related ARDS. Patient seen at bedside and -I was told by the nursing staff that yesterday night patient had nasal bleed with systolic blood pressure 264 and was already on BiPAP 100% saturating 80% and so was intubated. -As per the shift nurse-patient open eyes and was following commands. -It is very difficult to get CT head/CT chest given her morbid obesity -Low-grade fevers today morning, mild leukocytosis with left shift -ABG 7.3 7/57/45/3 3/83% saturation on FiO2 100%/400 tidal volume/PEEP of 12 -Other pertinent labs-potassium 3-supplemented, magnesium 1.5-supplemented -Blood cultures since admission as well as urine cultures are negative so far. -Serum creatinine is normal -Currently on Precedex, Versed GTT, fentanyl gtt., vancomycin, meropenem, Bumex 2 Mg IVP every 8, -off Cardene drip -NG tube showed coffee-ground aspirate-Lovenox on hold -Reviewed all labs and imaging Review of Systems General: Reports: ROS unobtainable due to endotracheal tube, ROS unobtainable due to medical condition and ROS unobtainable due to mental status Medications/Allergies Home Medications Medication Instructions Recorded Confirmed Last Taken Type fluoxetine 20 mg capsule (Prozac) 20 mg PO BID #60 caps 11/20/21 04/09/22 Unknown Rx lisinopril 20 mg tablet 20 mg PO DAILY #30 tabs 11/20/21 04/09/22 Unknown Rx meloxicam 15 mg tablet 15 mg PO QDAY 30 days #30 tabs 11/20/21 04/09/22 Unknown Rx methocarbamol 500 mg tablet 500 mg PO BID #60 tabs 11/20/21 04/09/22 Unknown Rx pregabalin 100 mg capsule (Lyrica) 100 mg PO BID #60 caps 11/20/21 04/09/22 Unknown Rx acetaminophen 300 mg-codeine 60 mg 1 tab PO Q6H PRN Pain 04/09/22 04/09/22 Unknown History tablet Allergies Allergy/AdvReac Type Severity Reaction Status Date / Time adhesive tape Allergy ALGY-Redness Verified 04/13/22 05:41 of Skin hydrocodone Allergy ALGY-Rash Verified 04/11/22 23:00 Penicillins Allergy rash Verified 04/09/22 14:04 Current Medications Generic Name Dose Route Start Last Admin Trade Name Julito PRN Reason Stop Dose Admin Acetaminophen 500 mg 04/09/22 19:24 04/11/22 19:48 Acetaminophen 500 Mg Tablet PO 500 mg Q4H PRN Administration fever Albuterol/Ipratropium 3 ml 04/11/22 00:00 04/20/22 11:31 Ipratropium-Albuterol 3 Ml Neb INHALATION 3 ml Q4H.RESPIRATORY BREANNA Administration Artificial Tears 1 drop 04/19/22 09:08 04/20/22 01:52 Artificial Tears Op Soln 15 Ml Btl EYE-BOTH 1 drop Q4H PRN Administration DRY EYE(S) Bacitracin 1 applic 04/09/22 21:00 04/20/22 13:56 Bacitracin Ointment 28 Gm TOPICAL Not Given TID [facility] Protocol Bumetanide 2 mg 04/19/22 12:00 04/20/22 12:00 Bumetanide 0.25 Mg/Ml Sdv 10 Ml IVP 2 mg Q8H BREANNA Administration Clonidine HCl 1 patch 04/18/22 12:00 04/18/22 12:09 Clonidine 0.3 Mg/24 Hr Patch TRANSDERMA 1 patch Q7D BREANNA Administration Collagenase 1 applic 04/13/22 00:00 04/20/22 07:26 Collagenase Oint 30 Gm TOPICAL Not Given Q24H [facility] Enoxaparin Sodium 150 mg 04/18/22 14:00 04/20/22 01:55 Enoxaparin 150 Mg/Ml Syringe SUBCUT 150 mg Q12H BREANNA Administration Fluoxetine HCl 20 mg 04/10/22 09:30 04/20/22 08:42 Fluoxetine 20 Mg Capsule PO 20 mg BID BREANNA Administration Heparin Sodium (Porcine) 200 - 500 unit 04/12/22 16:15 04/20/22 04:31 Heparin Lock Flush 500 Unit/5 Ml Syringe IV Not Given Q12H BREANNA Heparin Sodium (Porcine) 200 - 500 unit 04/12/22 16:13 04/14/22 22:39 Heparin Lock Flush 500 Unit/5 Ml Syringe IV 500 unit PRN PRN Administration Central line flush Hydralazine HCl 50 mg 04/16/22 09:00 04/20/22 14:02 Hydralazine 25 Mg Tablet PO 50 mg TID BREANNA Administration Hydralazine HCl 10 mg 04/19/22 09:09 04/19/22 21:52 Hydralazine 20 Mg/Ml Inj 1 Ml IVP 10 mg Q4H PRN Administration bp> 180./100 Amino Acids/Electrolytes 1,000 mls @ 10 mls/hr 04/12/22 20:45 04/20/22 01:19 Clinimix E 4.25%-10% IV 10 mls/hr .Q24H BREANNA Administration Dexmedetomidine/Sodium Chloride 400 mcg in 100 mls @ 0 mls/hr 04/15/22 18:15 04/20/22 00:12 Precedex IV Infused .Q0M BREANNA Titration Protocol Per Protocol Albumin Human 25 gm in 100 mls @ 60 mls/hr 04/17/22 11:00 04/20/22 12:41 Albumin IV Infused Q8H BREANNA Infusion Meropenem 1,000 mg/ Sodium 50 mls @ 100 mls/hr 04/18/22 15:00 04/20/22 14:02 Chloride IV 100 mls/hr Q8H BREANNA Administration Nicardipine/Sodium Chloride 20 mg in 200 mls @ 0 mls/hr 04/19/22 21:30 04/20/22 00:00 Cardene IV 0 mg/hr .Q0M BREANNA 0 mls/hr Titration Protocol As Directed Propofol 1,000 mg in 100 mls @ 0 mls/hr 04/19/22 23:45 04/20/22 13:35 Diprivan IV 40 mcg/kg/min .Q0M BREANNA 61.56 mls/hr Administration Protocol Per Protocol Fentanyl 2,500 mcg/ Sodium 250 mls @ 0 mls/hr 04/19/22 23:45 04/20/22 12:43 Chloride IV 100 mcg/hr .Q0M BREANNA 10 mls/hr Titration Protocol Per Protocol Midazolam HCl 100 mg/ Sodium 100 mls @ 0 mls/hr 04/20/22 09:00 04/20/22 10:30 Chloride IV 6 mg/hr .Q0M BREANNA 6 mls/hr Titration Protocol Per Protocol Vancomycin HCl 2,000 mg/ 500 mls @ 250 mls/hr 04/20/22 15:00 04/20/22 14:02 Sodium Chloride IV 250 mls/hr Q12H BREANNA Administration Lanolin 1 applic 04/15/22 14:00 04/16/22 20:05 Lanolin Oint 7 Gm TOPICAL 1 applic PRN PRN Administration DRYNESS Lidocaine HCl 1 applic 04/11/22 23:30 04/12/22 01:57 Lidocaine 2% Jelly 6 Ml TOPICAL 1 applic PRN PRN Administration PAIN Lorazepam 2 mg 04/19/22 18:56 04/19/22 19:39 Lorazepam 2 Mg/Ml Inj 1 Ml IVP 2 mg Q4H PRN Administration ANXIETY Methocarbamol 500 mg 04/10/22 09:30 04/11/22 18:29 Methocarbamol 500 Mg Tablet PO 500 mg BID BREANNA Administration Morphine Sulfate 2 mg 04/19/22 18:17 04/19/22 22:13 Morphine 4 Mg/Ml Sdv 1 Ml IVP 2 mg Q8H PRN Administration SEVERE PAIN Nitroglycerin 0.5 inch 04/14/22 10:35 04/19/22 19:30 Nitroglycerin 1 Gm/Inch Oint Pkt TOPICAL 0.5 inch Q6H PRN Administration Blood pressure greater than 180/100 Ondansetron HCl 4 mg 04/09/22 19:24 04/10/22 19:49 Ondansetron 2 Mg/Ml Sdv 2 Ml IVP 4 mg Q6H PRN Administration NAUSEA AND VOMITING Pantoprazole Sodium 40 mg 04/10/22 22:15 04/20/22 08:42 Pantoprazole 40 Mg Sdv IVP 40 mg DAILY BREANNA Administration Potassium Chloride 10 meq 04/11/22 09:15 04/11/22 10:14 Potassium Chloride Er 10 Meq Tablet PO 10 meq DAILY BREANNA Administration Potassium Chloride 40 meq 04/20/22 09:00 04/20/22 08:41 Potassium Chloride Oral Liq 20 Meq/15 Ml Udc PO 04/20/22 22:00 40 meq BID BREANNA Administration Senna/Docusate Sodium 1 tab 04/10/22 09:00 04/20/22 08:42 Sennosides-Docusate Tablet PO 1 tab DAILY BREANNA Administration Sodium Chloride 5 - 10 ml 04/12/22 16:15 04/20/22 04:32 Sodium Chloride 0.9 % (Flush) Syringe 10 Ml IV Not Given Q12H BREANNA Sodium Chloride 5 - 10 ml 04/12/22 16:13 04/14/22 22:39 Sodium Chloride 0.9 % (Flush) Syringe 10 Ml IV 10 ml PRN PRN Administration Central line flush PFSH Acute PFSH: Medical History Chronic acquired lymphedema Chronic osteoarthritis COVID-19 Fibromyalgia YAKOV (generalized anxiety disorder) Hypertension Hyperthyroidism Insomnia Morbid obesity Neuropathic pain Peripheral vascular disease Sleep apnea Vitamin D deficiency Surgical History History of delivery Hx of cholecystectomy Hx of hysterectomy Family History Other Cancer Diabetes Social History Smoking and tobacco status: never smoked Second hand smoke exposure: Yes Smoking risk assessment/counseling performed?: Yes Alcohol intake: never Desire information about alcohol rehabilitation?: No Counseling given: No Desire information about substance/drug rehabilitation?: No Counseling given: No Caregiver/support person: No Lives independently: Yes Household members: spouse Housing: House Marital status: Number of children: 2 Number of grandchildren: 3 Highest education level completed: High School Graduate service: No Current occupational status: disabled Pets and animals: No Current gender identity: Female Female Reproductive History: Para: 2 Vitals/I&O/Wt Last Vital Signs Temp 98.9 F 04/20/22 12:08 Pulse 64 04/20/22 12:00 Resp 29 H 04/20/22 13:26 BP 140/65 04/20/22 12:00 Pulse Ox 89 L 04/20/22 13:26 O2 Del Method 04/20/22 11:31 O2 Flow Rate 612 04/16/22 06:07 FiO2 100 04/20/22 13:26 04/19/22 04/20/22 04/20/22 22:59 06:59 14:59 Intake Total 1073.749 / 2484.550 1111.299 / 3595.849 817.632 / 817.632 Output Total 6500 / 6500 550 / 7050 Balance -5426.251 / -4015.450 561.299 / -3454.151 817.632 / 817.632 Weight last 48 hrs Weight 521 lb 6 oz Weight 565 lb 8 oz Physical Exam Narrative: PHYSICAL EXAM: General: lying in bed, sedated and intubated. HEENT:NCAT, PERRLA, EOMI Neck: Supple Lungs: Bilateral upper lung zones clear-difficult to auscultate given patient's body size Heart: s1/s2, RRR Abd: soft, NT, ND, BS + Normoactive Extremities: Chronic bilateral lymphedema, right anterior burton-open clear wound with surrounding erythema with no significant bruising. 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 SKIN: no rash LDA: # CVC: Right internal jugular # HD Cath : 04/13/2022 right femoral line # Morton: Present Urinary Catheter Management: Coude: Cath Placed During This Visit: yes Reason for Continuing Indwelling Catheter: Accurate Measurement of Urinary Output in Critically Ill Patients Urinary Catheter Date of Insertion: 04/09/22 Urinary Catheter Time of Insertion: 15:30 Data : 04/20/22 02:58 04/20/22 16:09 Other Labs: Radiology Impressions KUB X-Ray 04/11/22 07:37 IMPRESSION: Nonspecific bowel gas pattern, as noted above. Renal Ultrasound 04/12/22 15:56 IMPRESSION: 1. Examination is limited secondary to body habitus. 2. Urinary bladder is not visualized. 3. The abdominal aorta is obscured. 4. No obvious hydronephrosis. 5. Probable echogenic right renal cortex compared to the liver consistent with bilateral medical renal disease. Chest Ultrasound 04/16/22 08:55 IMPRESSION: No pleural effusions. Lower Extremity CT 04/16/22 09:01 IMPRESSION: 1. Similar-appearing diffuse extensive edema RIGHT lower extremity extending to the foot. 2. No evidence of drainable abscess or fluid collection. 3. No evidence of osteomyelitis. 4. Previously described tiny suspected area of ulceration about the lateral malleolus is unchanged. Chest X-Ray 04/20/22 03:40 IMPRESSION: 1. Lines and tubes, as noted above. 2. Unchanged lung volumes. Slightly decreased moderate bilateral perihilar lung interstitial and airspace opacities with coalescence in the lung bases. The unchanged small bilateral pleural effusions. 3. Unchanged cardiomegaly. Laboratory Results WBC 10.1 10^3/uL (4.0-10.0) H 04/20/22 02:58 RBC 3.90 10^6/uL (4.1-5.3) L 04/20/22 02:58 Hgb 11.0 g/dL (11.5-15.3) L 04/20/22 02:58 Hct 37.2 % (37.0-47.0) 04/20/22 02:58 MCV 95.4 fl (81-99) 04/20/22 02:58 MCH 28.2 pg (28.0-34.0) 04/20/22 02:58 MCHC 29.6 g/dL (30.0-36.0) L 04/20/22 02:58 RDW 17.8 % (12.1-15.1) H 04/20/22 02:58 Plt Count 112 10^3/cmm (130-400) L 04/20/22 02:58 MPV 10.7 fL (7.4-10.4) H 04/20/22 02:58 Neut % (Auto) 87.0 % 04/20/22 02:58 Lymph % (Auto) 6.7 % 04/20/22 02:58 [place] % (Auto) 4.5 % 04/20/22 02:58 Eos % (Auto) 0.2 % 04/20/22 02:58 Baso % (Auto) 0.1 % 04/20/22 02:58 Neut # (Auto) 8.76 10^3/uL (1.8-7.7) H 04/20/22 02:58 Lymph # (Auto) 0.7 10^3/uL (0.8-4.8) L 04/20/22 02:58 [place] # (Auto) 0.5 10^3/uL (0.2-0.9) 04/20/22 02:58 Eos # (Auto) 0.0 10^3/uL (0.0-0.8) 04/20/22 02:58 Baso # (Auto) 0.0 10^3/uL (0.0-0.1) 04/20/22 02:58 Nucleated RBC % (auto) 0 % 04/20/22 02:58 Total Counted 100 (0-100) 04/09/22 14:25 Atypical Lymphs % 1.0 % (0-5) 04/09/22 14:25 Absolute Neutrophils 11.8 10^3/cmm (1.4-6.5) H 04/09/22 14:25 Segmented Neutrophils 91 % 04/09/22 14:25 Abs Segm Neuts (Man) 11.5 10/cmm (1.6-7.1) H 04/09/22 14:25 Band Neutrophils 3.0 % 04/09/22 14:25 Abs Band Neuts (Man) 0.4 10^3/cmm (0.0-1.2) 04/09/22 14:25 Absolute Lymphocytes 0.6 10^3/cmm (1.2-3.4) L 04/09/22 14:25 Lymphocytes (Manual) 4 % 04/09/22 14:25 Monocytes (Manual) 1.0 % 04/09/22 14: Absolute Monocytes 0.1 10^3/cmm (0.1-0.6) 04/09/22 14:25 Eosinophils (Manual) 0 % 04/09/22 14:25 Absolute Eosinophils 0.0 10^3/cmm (0.0-0.7) 04/09/22 14:25 Basophils (Manual) 0.0 % 04/09/22 14: Absolute Basophils 0.0 10^3/cmm (0.0-0.2) 04/09/22 14:25 Nucleated RBCs # 0.0 /100WBC 04/20/22 02:58 Platelet Estimate Normal (Normal) 04/09/22 14:25 Giant Platelets Trace 04/09/22 14:25 Polychromasia Trace 04/09/22 14:25 Hypochromasia Trace 04/09/22 14:25 Poikilocytosis Trace 04/09/22 14:25 Anisocytosis Trace 04/09/22 14:25 Microcytosis Trace 04/09/22 14:25 Macrocytosis Trace 04/09/22 14:25 Spherocytes Trace 04/09/22 14:25 Target Cells Trace 04/09/22 14:25 Tear Drop Cells Trace 04/09/22 14:25 Ovalocytes Trace 04/09/22 14:25 Carlos Cells Trace 04/09/22 14:25 ESR 24 mm/hr (0-15) H 04/09/22 14:25 PT 15.70 SECONDS (12.1-14.9) H 04/17/22 03:05 INR 1.22 (0.8-1.2) H 04/17/22 03:05 APTT 52.7 SECONDS (23.9-36.7) H 04/18/22 09:00 Fibrinogen 760 mg/dL (174-498) H 04/17/22 03:05 Fibrin Degrad Products Neg, <10 ug/mL (NEG) 04/17/22 03:05 D-Dimer 2.24 ug/mIFEU (0-0.59) H 04/17/22 03:05 Specimen Type Arterial 04/20/22 04:00 Sample Site Radial, right 04/20/22 04:00 ABG pH 7.37 (7.35-7.45) 04/20/22 04:00 ABG pCO2 57.1 mmHg (35-45) H 04/20/22 04:00 ABG pO2 45.2 mmHg (80.0-100.0) L 04/20/22 04:00 ABG HCO3 33.1 mmol/L (22-26) H 04/20/22 04:00 ABG O2 Saturation 83.3 04/20/22 04:00 ABG Base Excess 6.3 mmol/L (-2.0-2.0) H 04/20/22 04:00 Harsha Test Pos 04/20/22 04:00 A-a O2 Gradient 78.8 mmHg (5-10) H 04/20/22 04:00 Hematocrit 35.7 % (37-47) L 04/20/22 04:00 Hgb O2 Saturation 81.8 % (95-100) L 04/20/22 04:00 Carboxyhemoglobin 1.2 %THgb (0.4-20.1) 04/20/22 04:00 Methemoglobin 0.7 % (0.4-1.5) 04/20/22 04:00 Total Hemoglobin 11.6 g/dL (12-16) L 04/20/22 04:00 Sodium 147.0 mmol/L (131-143) H 04/20/22 04:00 Potassium 2.9 mmol/L (3.5-5.0) L 04/20/22 04:00 Glucose 98.0 mg/dL (70-115) 04/20/22 04:00 Ionized Calcium 1.2 mmol/L (1.1-1.4) 04/20/22 04:00 O2 Delivery Device Vent 04/20/22 04:00 O2 Liters/Min 15.0 % 04/10/22 21:45 FiO2 100.0 % 04/20/22 04:00 Tidal Volume 0.40 04/20/22 04:00 PEEP 12.0 cmH20 04/20/22 04:00 [employer] Estate [employer] Administrator ID cece 04/20/22 04:00 Sodium 143 mmol/L (136-145) 04/20/22 02:58 Potassium 3.0 mmol/L (3.5-5.1) L 04/20/22 02:58 Chloride 104 mmol/L (98-107) 04/20/22 02:58 Carbon Dioxide 31 mmol/L (22-29) H 04/20/22 02:58 Anion Gap 11.0 (5-19) 04/20/22 02:58 BUN 28 mg/dL (6-20) H 04/20/22 02:58 Creatinine 0.5 mg/dL (0.5-0.9) 04/20/22 02:58 GFR Calculation 126.3 mL/min (90-130) 04/20/22 02:58 Glucose 102 mg/dL (65-115) 04/20/22 02:58 POC Glucose 85 mg/dL (70-110) 04/20/22 10:49 Estimat Average Glucose 105 04/12/22 16:04 Hemoglobin A1c 5.3 % (4.0-6.0) 04/12/22 16:04 Calculated Osmolality 302 mOsm/kg (285-295) H 04/20/22 02:58 Lactate 1.3 mmol/L (0.5-2.2) 04/15/22 00:55 Calcium 8.4 mg/dL (8.5-10.5) L 04/20/22 02:58 Phosphorus 3.5 mg/dL (2.5-4.5) 04/18/22 05:58 Magnesium 1.5 mg/dL (1.7-2.3) L 04/20/22 02:58 Total Bilirubin 1.1 mg/dL (0.15-1.2) 04/20/22 02:58 AST 17 U/L (0-32) 04/20/22 02:58 ALT 10 U/L (0-33) 04/20/22 02:58 Alkaline Phosphatase 71 U/L (35-105) 04/20/22 02:58 Creatine Kinase 35 U/L (26-192) 04/15/22 00:55 Troponin T Gen 5 ng/L 49 ng/L (0-10) H 04/12/22 09:18 Troponin T Baseline 54 ng/L (0-10) H 04/12/22 16:04 Troponin T 120 Minute 54.26 ng/L (0-10) H 04/12/22 18:38 Delta Troponin T 0.26 ABS# (0-10) 04/12/22 18:38 Troponin T Hi Sens 6Hr 52.47 ng/L (0-10) H 04/12/22 22:04 Troponin T Hi Sens 6Hr Delta -1.53 ng/L (0-12) L 04/12/22 22:04 C-Reactive Protein 375.7 mg/L (0.0-4.9) H 04/13/22 03:29 NT-Pro-B Natriuret Pep 9213 pg/mL (0-125) H 04/15/22 00:55 Total Protein 6.9 g/dL (6.6-8.7) 04/20/22 02:58 Albumin 3.0 g/dL (3.5-5.2) L 04/20/22 02:58 Globulin 3.9 g/dL (1.3-4.6) 04/20/22 02:58 Procalcitonin 9.20 ng/mL (0-0.5) H 04/09/22 17:12 TSH 0.44 uIU/mL (0.27-4.20) 04/09/22 17:12 Urine Color Dark yellow (Yellow) 04/12/22 16:04 Urine Appearance Cloudy (CLEAR) A 04/12/22 16:04 Urine pH 5 (5-7) 04/12/22 16:04 Ur Specific [place] 1.010 (1.005-1.030) 04/12/22 16:04 Urine Protein 1+ (Negative) H 04/12/22 16:04 Urine Glucose (UA) Norm (Normal) 04/12/22 16:04 Urine Ketones 1+ (Negative) H 04/12/22 16:04 Urine Blood 3+ (Negative) H 04/12/22 16:04 Urine Nitrate Negative (Negative) 04/12/22 16:04 Urine Bilirubin 1+ (Negative) H 04/12/22 16:04 Urine Urobilinogen Norm mg/dL (Negative) 04/12/22 16:04 Ur Leukocyte Esterase Trace (Negative) H 04/12/22 16:04 Urine RBC 5-10 /hpf (0-2) H 04/12/22 16:04 Urine WBC 5-10 /hpf (0-5) H 04/12/22 16:04 Ur Eosinophil Smear 0 (0-0) 04/12/22 16:04 Ur Squamous Epith Cells 0-4 /hpf (0-5) H 04/12/22 16:04 Amorphous Sediment 2+ /hpf 04/12/22 16:04 Urine Bacteria 1+ /hpf (NONE) H 04/12/22 16:04 Urine Eosinophils No eosinophils seen 04/12/22 16:04 Ur Random Microalbumin 30 ug/dL (0-20) H 04/12/22 16:04 Ur Random Sodium 12 mmol/L 04/12/22 16:04 Ur Random Potassium 11 04/12/22 16:04 Ur Random Potassium 11 mmol/L 04/12/22 16:04 Ur Random Chloride 15 mmol/L 04/12/22 16:04 Urine Creatinine 65 mg/dL (28-217) 04/12/22 16:04 Microalb/Creat Ratio 462 mg/dL (0-20) H 04/12/22 16:04 Vancomycin Trough 9.3 ug/mL (10-15) L 04/16/22 11:10 Random Vancomycin < 4.0 ug/mL (20.0-40.0) L 04/20/22 08:26 Serum Ketones Negative (Negative) 04/12/22 16:04 Coronavirus 229E (PCR) Not detected (NOT DETECT) 04/09/22 15:30 Hep Bs Antigen Non-reactive (Nonreactive) 04/12/22 16:04 Hepatitis C Antibody Non-reactive (Nonreactive) 04/12/22 16:04 SARS-CoV-2 (PCR) Not detected (NOT DETECT) 04/09/22 15:30 A&P Assessment and plan (1) Acute and chronic respiratory failure with hypercapnia: (2) Aspiration pneumonitis: (3) ANY (acute kidney injury): (4) Difficult ventilator weaning: (5) CHF exacerbation: (6) Obesity hypoventilation syndrome: (7) Sepsis: (8) ARDS (adult respiratory distress syndrome): (9) Stasis leg ulcer: (10) Chronic acquired lymphedema: (11) Hypertension: Qualifiers: Hypertension type: essential hypertension Qualified Code(s): I10 - Essential (primary) hypertension (12) Morbid obesity: (13) Hypertensive emergency: Plan 61-year-old morbidly obese patient with BMI 52, hypothyroidism, ALON, possible underlying obesity hypoventilation syndrome, with chronic bilateral lower extremity lymphedema-initially 04/09/2022 admitted for right lower leg cellulitis-started on antibiotics, later went into ANY and fluid overload as well as recurrent vomitings causing aspiration pneumonia-all resulting in acute on chronic hypercapnic/hypoxic respiratory failure for which she was on BiPAP for almost a week-refusing intubation until day 9-at which point she had hypertensive emergency with SBP 264 causing nasal bleeds aspiration-complicating airway-resulting in intubation for airway protection. NEURO: #Sedated with Versed 6 Mg/hour, propofol 40 Mg/hour, fentanyl 100 mcg/hr - responds to commands when sedation is low PULM: #Acute on chronic hypercarbic/hypoxic respiratory failure secondary to ARDS due to aspiration pneumonia and fluid overload; airway protection from nasal be due to hypertension #Underlying chronic hypercapnic respiratory failure secondary to obesity hypoventilation syndrome/ALON -Currently sedated and intubated with CMV with tidal volume 400/PEEP of 18/respiratory rate 14/FiO2 100% -We will continue to monitor and come down on FiO2 as feasible -Continue DuoNeb nebulization every 6 hours as needed -S/p bronchoscopy today 04/20/2022-showed erythematous mucosa throughout bilateral bronchial tree; aspirated 15 mL BAL from left lower lobe with some mucous plugs and it-sent for BAL cultures and analysis -Continue vancomycin and meropenem -Unable to obtain CT chest given patient's body habitus 500 pounds CVS: #Hypertensive emergency-causing nasal bleeds -Currently off Cardene drip and maintaining SBP 1 20-1 50 -Initial echocardiogram was uninterpretable due to body habitus, repeat echo report pending -Suspect component of diastolic dysfunction given her morbid obesity and cannot rule out LV systolic function based on prior echo; we will wait for follow-up echo GI: -Nutrition; TPN-will hold for 2 days to avoid fluid overload -N.p.o. as patient has coffee-ground aspirate through NG tube-not sure if it is from nasal bleed or stress ulcers -Held the Lovenox -LFTs are normal RENAL: -ANY-secondary to sepsis- leading to refractory fluid overload -Renal functions improving, urine output improving-patient on Bumex 2 Mg every 8 hour to maintain net even to net negative balance -Hypokalemia, hypomagnesemia-supplemented -Renal on board-considering CRRT for more fluid removal HEM: -No leukocytosis; not in DIC as patient has normal fibrinogen and FDP -Monitor platelets -No more active nasal bleeding noted -DVT prophylaxis: Lovenox held in view of active nasal bleeding/coffee-ground aspirate ENDO: -Sugars well controlled-not requiring insulin coverage at this point of time ID: -Right lower leg cellulitis-initially started with vancomycin/cefepime/ -CT did not show any evidence of abscess -Wound looks clean -Currently on vancomycin/meropenem for suspected aspiration pneumonitis/HCAP Code Status: Limited resuscitation Disposition: Currently we will continue in ICU Critically ill: Prognosis syed ROSA discussed with: Family members, RN, RT and hospitalist at bedside ICU CHECKLIST: Problem list updated Verbal orders reviewed and signed Analgesia: On fentanyl gtt. Glycemic Control: N/A Nutrition: TPN-we will hold off for couple of days to avoid fluid overload Restraint Renewal (within 24 hrs): Yes Ulcer Prophylaxis: Yes PPI Chemical Thromboprophylaxis: Prophylaxis: Held due to coffee-ground aspirate and nasal bleeding Mechanical Thromboprophylaxis: Yes but too big for her Calves Need for Central line: Yes for multiple medications and drips Need for Morton catheter: Yes Consult Attestations Medical Necessity Statement: Patient intubated mechanically ventilated, requiring CRRT, need close monitoring in ICU Time Spent in Patient Care: Greater than 35 minutes (>than 50% of time spent in counselling and/or direct pt care on unit) . Critical Care Time: The high probability of a clinically significant, sudden o r life threatening deterioration of the patient's [neurological, pulmonary, cardiac, GI, hematologic, infectious] system(s) required my full and direct attention, intervention and personal management. The critical care time is as shown. 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
--- NOTE | 2022-04-20 15:24 | PC.NURSE ---
Possible trickle feed tube feedings per Dr. Raymond 24 hours from now. Will consult Dietary
--- NOTE | 2022-04-20 15:31 | PC.NURSE ---
NARINDERN held per Dr. Teran
--- NOTE | 2022-04-20 15:51 | PC.RESP ---
bronch assist done with sputum sample.mini bal sent to lab
[2022-04-20] MEDS: sodium chloride 0.9% 1,000 mL Bag CRRT (16:15)
--- NOTE | 2022-04-20 16:19 | P.PCN_ITS ---
Procedure/Consent Time out: Time Out Performed: Yes Consent: Consent for Procedure: Consent obtained from other (indicate) (), Risks & Benefits reviewed and Agrees to proceed with procedure Procedure Narrative: Procedure: Flexible bronchoscopy with airway inspection, airway clearance of secretions and obtaining bronchoalveolar lavage sample Pre-Operative Diagnosis: Aspiration pneumonia Post-Operative Diagnosis: Same Indication: Acute hypoxic/hypercapnic respiratory failure in patient with fluid overload/recurrent vomiting leading to aspiration pneumonia-chest x-ray showing left lower lung infiltrate Anesthesia: Patient already on fentanyl 100 GTT, Versed 6 Mg gtt., propofol 40 Mg gtt.-titrated to achieve adequate sedation, additional propofol 20 Mg bolus and fentanyl 15 MCG bolus were given Pre-procedure Evaluation: Patient was evaluated clinically and ancillary testing reviewed. The risk of having active MTB infection is very low in my clinical judgement. ASA: 4 Malampati score: unable to evaluate due to presence of endotracheal tube Consent: Consents were obtained from [facility] and placed in the chart Procedure Details: Time out was performed by the procedure team and nursing staff. Vent support maintained on Fio2 100. The bronchoscope was introduced through the ETT. A bronchoscopic airway exam was performed to evaluate the visible tracheobronchial tree to the segmental lev el. Summary of Significant Findings: -Bronchoscope passed through ET tube, 6 ml 1% lidocaine instilled into the trachea, both right and left main bronchus. Distal trachea and main sachi visualized which were sharp and normal. Then the scope was passed through the right bronchial tree was assessed to include the right mainstem bronchus, RBI, and RUL/RML/RLL bronchi to the segmental and subsegmental levels. No active bleeding noted. Mucosa appeared erythematous. Clear secretions noted through right lower lobe and middle lobe. Then the scope was left bronchial tree was assessed to include the left mainstem bronchus, JOSE, Lingula, and LLL bronchi to the segmental and subsegmental level. No active bleeding noted. Mucosa appeared erythematous normal. Slightly thick secretions with mucous plugs noted in left lower lobe which were suctioned right away. 30 cc normal saline was given and 15 mL BAL obtained from left lower lobe the bronchoscope was then removed and the procedure terminated. Estimated Blood Loss: None Specimens: Bronchoalveolar lavage was taken from left lower lobe and sent for fluid cell count and microbiology cultures. Complications:None; patient tolerated the procedure well. Disposition: Patient remains critically ill, intubated and stays in ICU Navin Datar, MD FCCP Pulmonary critical Care Medicine [facility] Acute Procedures Epistaxis Control: Time out performed: Yes
[2022-04-20 16:34] LABS: Body Fluid Polynuclear #Cells 1.121; Body Fluid WBC 2739 /uL; Monocytes # Body Fluid 1.618
--- NOTE | 2022-04-20 17:22 | PC.NURSE ---
CRRT initiated at [address] Gill. Patient tolerated well.
[2022-04-20 17:36] LABS: Anion Gap 9.9 (5-19); Blood Urea Nitrogen 31 mg/dL (6-20); Calcium 8.4 mg/dL (8.5-10.5); Carbon Dioxide 31 mmol/L (22-29); Chloride 105 mmol/L (98-107); Glomerular Filtration Rate 102.3 mL/min (90-130); Glucose 88 mg/dL (65-115); Magnesium 1.5 mg/dL (1.7-2.3); Phosphorus 2.9 mg/dL (2.5-4.5); Sodium 143 mmol/L (136-145)
[2022-04-20 17:42] LABS: Glucose Point of Care 80 mg/dL (70-110)
[2022-04-20 17:58] LABS: Potassium 2.9 mmol/L (3.5-5.1)
[2022-04-20] MEDS: dextrose 50% syringe 50 mL IVP (18:06)
[2022-04-20] MEDS: potassium chloride premix 100 ML 25 MEQ IV (18:07)
[2022-04-20 18:17] LABS: Apprearance, Body Fluid TURBID; Color, Body Fluid RED
[2022-04-20] MEDS: magnesium sulfate premix 2 GM/50 ML PIGGYBACK IV (18:33)
[2022-04-20 22:45] LABS: Anion Gap 12.2 (5-19); Blood Urea Nitrogen 30 mg/dL (6-20); Calcium 8.1 mg/dL (8.5-10.5); Carbon Dioxide 30 mmol/L (22-29); Chloride 105 mmol/L (98-107); Glomerular Filtration Rate 73.4 mL/min (90-130); Glucose 80 mg/dL (65-115); Magnesium 1.8 mg/dL (1.7-2.3); Phosphorus 3.1 mg/dL (2.5-4.5); Potassium 3.2 mmol/L (3.5-5.1); Sodium 144 mmol/L (136-145)
[2022-04-21] VITALS (60 sets, daily range): BP systolic 99–162; BP diastolic 51–79; PULSE 54–84; RESP 22; TEMP 35.7–37.1; O2SAT 64–97; BMI 76.8
[2022-04-21] MEDS: chlorhexidine gluconate 4% Btl 118 mL 1 APPLIC TOPICAL (00:57)
[2022-04-21] MEDS: collagenase oint 30 gm 1 APPLIC TOPICAL (00:58)
[2022-04-21] MEDS: propofol 1,000 MG/100 ML INJ 61.56 MG IV ×12 (01:51→22:45)
[2022-04-21] MEDS: potassium chloride oral liq 20 mEq/15 mL UDC 40 MEQ PO ×2 (02:32→08:37)
[2022-04-21] MEDS: ipratropium-albuterol 3 mL Neb INHALATION ×4 (03:19→19:37)
[2022-04-21] MEDS: bumetanide 0.25 mg/mL SDV 10 mL 2 MG IVP ×3 (04:18→21:01)
[2022-04-21 06:28] LABS: Basophils % 0.2 %; Eosinophils # 0.1 10^3/uL (0.0-0.8); Eosinophils % 1.4 %; Hematocrit 33.6 % (37.0-47.0); Hemoglobin 9.8 g/dL (11.5-15.3); Lymphocytes # 0.9 10^3/uL (0.8-4.8); Lymphocytes % 14.8 %; Mean Corpuscular HGB Conc 29.2 g/dL (30.0-36.0); Mean Corpuscular Hemoglobin 27.8 pg (28.0-34.0); Mean Corpuscular Volume 95.5 fl (81-99); Mean Platelet Volume 11.8 fL (7.4-10.4); Monocytes # 0.4 10^3/uL (0.2-0.9); Monocytes % 6.4 %; Neutrophils # 4.85 10^3/uL (1.8-7.7); Neutrophils % 76.1 %; Nucleated Red Blood Cells % 0 %; Platelet Count 114 10^3/cmm (130-400); Red Blood Count 3.52 10^6/uL (4.1-5.3); White Blood Count 6.4 10^3/uL (4.0-10.0)
[2022-04-21 06:51] LABS: Anion Gap 12.2 (5-19); Blood Urea Nitrogen 34 mg/dL (6-20); Calcium 8.2 mg/dL (8.5-10.5); Carbon Dioxide 30 mmol/L (22-29); Chloride 106 mmol/L (98-107); Glomerular Filtration Rate 64.1 mL/min (90-130); Glucose 65 mg/dL (65-115); Magnesium 1.7 mg/dL (1.7-2.3); Phosphorus 2.9 mg/dL (2.5-4.5); Potassium 3.2 mmol/L (3.5-5.1); Sodium 145 mmol/L (136-145)
[2022-04-21] MEDS: meropenem 1,000 MG in sodium chloride 0.9% (plus) 50 ML 100 MG IV ×3 (07:16→22:16)
--- NOTE | 2022-04-21 07:23 | P.PN_ITS ---
Subjective Subjective: remains sedated on vent and CRRT Medications: Reviewed: Yes Medication Review Details: Current Medications Acetaminophen (Acetaminophen 500 Mg Tablet) 500 mg PO Q4H PRN PRN Reason: fever Last Admin: 04/11/22 19:48 Dose: 500 mg Albuterol/Ipratropium (Ipratropium-Albuterol 3 Ml Neb) 3 ml INHALATION Q6H PRN PRN Reason: SHORTNESS OF BREATH Albuterol/Ipratropium (Ipratropium-Albuterol 3 Ml Neb) 3 ml INHALATION Q6H.RESP [facility] Last Admin: 04/21/22 03:19 Dose: 3 ml Alteplase, Recombinant (Alteplase 1 Mg/Ml Sdv 2 Ml) 0 mg INTRACATH Q2H PRN; Protocol PRN Reason: Poor Catheter Flow/ Clotted Catheter Artificial Tears (Artificial Tears Op Soln 15 Ml Btl) 1 drop EYE-BOTH Q4H PRN PRN Reason: DRY EYE(S) Last Admin: 04/20/22 01:52 Dose: 1 drop Bacitracin (Bacitracin Ointment 28 Gm) 1 applic TOPICAL TID [facility]; Protocol Last Admin: 04/20/22 21:24 Dose: 1 applic Bumetanide (Bumetanide 0.25 Mg/Ml Sdv 10 Ml) 2 mg IVP Q8H [facility] Last Admin: 04/21/22 04:18 Dose: 2 mg CRRT Dialysis Solution (Prismasol Bgk 4/2.5 - 5,000 Ml Bag) 5,000 ml CRRT CONT [facility]; Protocol Last Admin: 04/21/22 07:06 Dose: Not Given Chlorhexidine Gluconate (Chlorhexidine Gluconate 4% Btl 118 Ml) 1 applic TOPICAL 0100 [facility] Last Admin: 04/21/22 00:57 Dose: 1 applic Clonidine HCl (Clonidine 0.3 Mg/24 Hr Patch) 1 patch TRANSDERMA Q7D [facility] Last Admin: 04/18/22 12:09 Dose: 1 patch Collagenase (Collagenase Oint 30 Gm) 1 applic TOPICAL Q24H [facility] Last Admin: 04/21/22 00:58 Dose: 1 applic Enoxaparin Sodium (Enoxaparin 150 Mg/Ml Syringe) 150 mg SUBCUT Q12H [facility] Last Admin: 04/20/22 01:55 Dose: 150 mg Fluoxetine HCl (Fluoxetine 20 Mg Capsule) 20 mg PO BID [facility] Last Admin: 04/20/22 17:05 Dose: 20 mg Heparin Sodium (Porcine) (Heparin Lock Flush 500 Unit/5 Ml Syringe) 200 - 500 unit IV Q12H [facility] Last Admin: 04/21/22 03:43 Dose: Not Given Heparin Sodium (Porcine) (Heparin Lock Flush 500 Unit/5 Ml Syringe) 200 - 500 unit IV PRN PRN PRN Reason: Central line flush Last Admin: 04/14/22 22:39 Dose: 500 unit Heparin Sodium (Porcine) (Heparin Lock Flush 500 Unit/5 Ml Syringe) 500 unit IV PRN PRN PRN Reason: At CRRT disconnect Hydralazine HCl (Hydralazine 25 Mg Tablet) 50 mg PO TID [facility] Last Admin: 04/20/22 21:22 Dose: 50 mg Hydralazine HCl (Hydralazine 20 Mg/Ml Inj 1 Ml) 10 mg IVP Q4H PRN PRN Reason: bp> 180./100 Last Admin: 04/19/22 21:52 Dose: 10 mg Hydromorphone HCl (Hydromorphone 1 Mg/Ml Inj 1 Ml) 0.2 mg IVP Q4H PRN PRN Reason: PAIN Amino Acids/Electrolytes (Clinimix E 4.25%-10%) 1,000 mls @ 10 mls/hr IV .Q24H [facility] Last Infusion: 04/21/22 03:23 Dose: Infused Sodium Chloride (Sodium Chloride 0.9%) 1,000 mls @ 0 mls/hr IV .Q0M PRN PRN Reason: hypotension or symptomatic Sodium Chloride (Sodium Chloride 0.9%) 1,000 mls @ 0 mls/hr IV .Q0M PRN PRN Reason: hypotension or symptomatic Dexmedetomidine/Sodium Chloride (Precedex) 400 mcg in 100 mls @ 0 mls/hr IV .Q0M [facility]; Protocol Last Titration: 04/20/22 00:12 Dose: Infused Albumin Human (Albumin) 25 gm in 100 mls @ 60 mls/hr IV Q8H [facility] Last Infusion: 04/21/22 04:26 Dose: Infused Meropenem 1,000 mg/ Sodium (Chloride) 50 mls @ 100 mls/hr IV Q8H [facility] Last Admin: 04/21/22 07:16 Dose: 100 mls/hr Nicardipine/Sodium Chloride (Cardene) 20 mg in 200 mls @ 0 mls/hr IV .Q0M [facility]; Protocol Last Titration: 04/21/22 03:23 Dose: Infused Propofol (Diprivan) 1,000 mg in 100 mls @ 0 mls/hr IV .Q0M [facility]; Protocol Last Admin: 04/21/22 07:19 Dose: 40 mcg/kg/min, 61.56 mls/hr Fentanyl 2,500 mcg/ Sodium (Chloride) 250 mls @ 0 mls/hr IV .Q0M [facility]; Protocol Last Admin: 04/21/22 01:26 Dose: 100 mcg/hr, 10 mls/hr Midazolam HCl 100 mg/ Sodium (Chloride) 100 mls @ 0 mls/hr IV .Q0M [facility]; Protocol Last Admin: 04/21/22 01:38 Dose: 6 mg/hr, 6 mls/hr Vancomycin HCl 2,000 mg/ (Sodium Chloride) 500 mls @ 250 mls/hr IV Q12H [facility] Last Infusion: 04/21/22 05:13 Dose: Infused Lanolin (Lanolin Oint 7 Gm) 1 applic TOPICAL PRN PRN PRN Reason: DRYNESS Last Admin: 04/16/22 20:05 Dose: 1 applic Lidocaine HCl (Lidocaine 2% Jelly 6 Ml) 1 applic TOPICAL PRN PRN PRN Reason: PAIN Last Admin: 04/12/22 01:57 Dose: 1 applic Lidocaine HCl (Lidocaine 1% Inj 20 Ml Mdv (Ml)) 0.1 ml INTRADERMA PRN PRN PRN Reason: Anesthetic Catheter Placement Lorazepam (Lorazepam 2 Mg/Ml Inj 1 Ml) 2 mg IVP Q4H PRN PRN Reason: ANXIETY Last Admin: 04/19/22 19:39 Dose: 2 mg Methocarbamol (Methocarbamol 500 Mg Tablet) 500 mg PO BID [facility] Last Admin: 04/11/22 18:29 Dose: 500 mg Morphine Sulfate (Morphine 4 Mg/Ml Sdv 1 Ml) 2 mg IVP Q8H PRN PRN Reason: SEVERE PAIN Last Admin: 04/19/22 22:13 Dose: 2 mg Nitroglycerin (Nitroglycerin 1 Gm/Inch Oint Pkt) 0.5 inch TOPICAL Q6H PRN PRN Reason: Blood pressure greater than 180/100 Last Admin: 04/19/22 19:30 Dose: 0.5 inch Ondansetron HCl (Ondansetron 2 Mg/Ml Sdv 2 Ml) 4 mg IVP Q6H PRN PRN Reason: NAUSEA AND VOMITING Last Admin: 04/10/22 19:49 Dose: 4 mg Pantoprazole Sodium (Pantoprazole 40 Mg Sdv) 40 mg IVP DAILY [facility] Last Admin: 04/20/22 08:42 Dose: 40 mg Potassium Chloride (Potassium Chloride Er 10 Meq Tablet) 10 meq PO DAILY [facility] Last Admin: 04/11/22 10:14 Dose: 10 meq Senna/Docusate Sodium (Sennosides-Docusate Tablet) 1 tab PO DAILY [facility] Last Admin: 04/20/22 08:42 Dose: 1 tab Sodium Chloride (Sodium Chloride 0.9 % (Flush) Syringe 10 Ml) 5 - 10 ml IV Q12H [facility] Last Admin: 04/21/22 03:43 Dose: Not Given Sodium Chloride (Sodium Chloride 0.9 % (Flush) Syringe 10 Ml) 5 - 10 ml IV PRN PRN PRN Reason: Central line flush Last Admin: 04/14/22 22:39 Dose: 10 ml Sodium Chloride (Sodium Chloride 0.9% 1,000 Ml Bag) 1,000 - 7,000 ml CRRT PRN PRN PRN Reason: For priming CRRT Machine Last Admin: 04/20/22 16:15 Dose: 7,000 ml Vitals/I&O/Wt Last Vital Signs Temp 96.3 F L 04/21/22 05:00 Pulse 57 L 04/21/22 06:00 Resp 22 H 04/21/22 05:58 BP 117/57 04/21/22 06:00 Pulse Ox 96 04/21/22 05:58 O2 Del Method 04/21/22 05:00 O2 Flow Rate 612 04/16/22 06:07 FiO2 95 04/21/22 06:00 04/20/22 04/21/22 04/21/22 22:59 06:59 14:59 Intake Total 1442 / 2259.632 1267.967 / 3527.599 89.262 / 89.262 Output Total 1050 / 1050 Balance 392 / 8360.043 1904.967 / 2477.599 89.262 / 89.262 Weight last 48 hrs Weight 222.742 kg Weight 236.492 kg Physical Exam Narrative: ob CRRT, tpn vs noted- vent fio2=95% heent- nc/at, eomi neck obese lungs crackles b/l heart reg abd soft, nt, nd, + bs ext b/l edema skin cellulitis on leg neuro- sedated Urinary Catheter Management: Coude: Cath Placed During This Visit: yes Reason for Continuing Indwelling Catheter: Accurate Measurement of Urinary Output in Critically Ill Patients Urinary Catheter Date of Insertion: 04/09/22 Urinary Catheter Time of Insertion: 15:30 Data : 04/21/22 03:29 04/21/22 03:29 A&P Assessment and plan (1) Acute kidney injury: see below Plan 61 yr old female rt leg cellulitis and ATN 1AKI - required daily HD via RT femoral temp HD catheter on 04-12-22 - did SUF yesterday - started SCUF last night- continue to remove 150-200 ml/hr -replace k, magnesium and monitor 2. cellulitis- abx per medicine- dose for ANY on HD -keep vanco trough under 19 3. htn- monitor w/ fluid removal- improved w/ propofol 4. resp acidosis- now intubated. Q chest tubes. Q other causes of resp failure 5. elevated bnp -monitor w/ diuresis seen and examined w/ RECORD PRESS SUPERVISOR- telehealth visit time spent 30 min prognosis is poor Attestations Medical Necessity Statement*: VDRF, Time Spent in Patient Care: 16 - 35 minutes (>than 50% of time spent in counselling and/or direct pt care on unit) . Coding Level of Care Code Acute Stripping Shovel Operator for Kinga Watson Diagnoses Acute kidney injury N17.9
--- NOTE | 2022-04-21 08:22 | PC.NURSE ---
Dr. Wang gave v.o. to restart lovenox 150 mg bid
[2022-04-21] MEDS: lidocaine 1% 5 ML in potassium chloride premix 100 ML 50 ML IV (08:37)
[2022-04-21] MEDS: sennosides-docusate Tablet 1 TAB PO (08:50)
[2022-04-21] MEDS: hyDRALAzine 25 mg Tablet PO ×3 (08:50→21:39)
[2022-04-21] MEDS: pantoprazole 40 mg SDV IVP (08:50)
[2022-04-21] MEDS: fluoxetine 20 mg Capsule PO ×2 (08:50→18:13)
[2022-04-21 08:53] LABS: ABG PCO2 56.8 mmHg (35-45); ABG PH Result 7.34 (7.35-7.45); Alveolar-Arterial Oxygen Gradi 1.3 mmHg (5-10); Arterial Blood Gas Hematocrit 33.7 % (37-47); Base Excess ABG 3.8 mmol/L (-2.0-2.0); Blood Gas Allen Test Pos; Blood Gas Operator Identificat GD; Blood Gas Sample Site Radial, left; Blood Gas Sample Type Arterial; Carboxyhemoglobin 1.1 %THgb (0.4-20.1); HCO3 ABG 30.7 mmol/L (22-26); HGB O2 Sat 93.1 % (95-100); Ionized Calcium Level - ABG 1.1 mmol/L (1.1-1.4); Methemoglobin 0.9 % (0.4-1.5); Oxygen Saturation ABG 95.1; PO2 ABG 72.2 mmHg (80.0-100.0); Potassium Level - ABG 3.1 mmol/L (3.5-5.0)
[2022-04-21 08:57] LABS: Oxygen Device VENT
[2022-04-21] MEDS: bacitracin ointment 28 gm 1 APPLIC TOPICAL ×2 (09:19→14:03)
[2022-04-21 10:11] LABS: Blood Urea Nitrogen 37 mg/dL (6-20); Calcium 8.2 mg/dL (8.5-10.5); Carbon Dioxide 25 mmol/L (22-29); Chloride 105 mmol/L (98-107); Glomerular Filtration Rate 50.8 mL/min (90-130); Glucose 76 mg/dL (65-115); Magnesium 1.7 mg/dL (1.7-2.3); Phosphorus 3.5 mg/dL (2.5-4.5); Sodium 143 mmol/L (136-145)
[2022-04-21 10:14] LABS: Anion Gap 16.6 (5-19); Potassium 3.6 mmol/L (3.5-5.1)
--- NOTE | 2022-04-21 11:15 | PC.NUTR ---
Consult for TF received. Pt on Diprivan @ 61.56 mls/hr which provides 1625 kcals. Recommend Jevity 1.2 starting at 15 mls/hr, increasing 10 mls Q8H as tolerated until goal rate of 35 mls/hr is reached with fresh water flushes 100 mls Q4H or per MD discretion. With each water flush, recommend 1 scoop Beneprotein powder be mixed in. Details in RD assessment.
--- NOTE | 2022-04-21 11:43 | PM.PN ---
Subjective Subjective: Patient was seen and examined this morning, currently intubated sedated on mechanical ventilation. Currently on his SCUF. 24-hour urine output: 1050 AM ABG and labs reviewed. Medications: Reviewed: Yes Medication Review Details: Generic Name Dose Route Start Last Admin Trade Name Freq PRN Reason Stop Dose Admin Acetaminophen 500 mg 04/09/22 19:24 04/11/22 19:48 Acetaminophen 50 0 Mg Tablet PO 500 mg Q4H PRN Administration fever Albuterol/Ipratrop ium 3 ml 04/20/22 20:00 04/21/22 07:52 Ipratropium-Albu terol 3 Ml Neb INHALATION 3 ml Q6H.RESP BREANNA Administration Artificial Tears 1 drop 04/19/22 09:08 04/20/22 01:52 Artificial Tears Op Soln 15 Ml Btl EYE-BOTH 1 drop Q4H PRN Administration DRY EYE(S) Bacitracin 1 applic 04/09/22 21:00 04/21/22 09:19 Bacitracin Ointm ent 28 Gm TOPICAL 1 applic TID BREANNA Administration Protocol Bumetanide 2 mg 04/19/22 12:00 04/21/22 11:09 Bumetanide 0.25 Mg/Ml Sdv 10 Ml IVP 2 mg Q8H BREANNA Administration CRRT Dialysis Solu tion 5,000 ml 04/20/22 15:45 04/21/22 07:06 Prismasol Bgk 4/ 2.5 - 5,000 Ml Bag CRRT Not Given CONT BREANNA Protocol Chlorhexidine Gluc fritz 1 applic 04/21/22 01:00 04/21/22 00:57 Chlorhexidine Gl uconate 4% Btl 118 Ml TOPICAL 1 applic 0100 BREANNA Administration Clonidine HCl 1 patch 04/18/22 12:00 04/18/22 12:09 Clonidine 0.3 Mg /24 Hr Patch TRANSDERMA 1 patch Q7D BREANNA Administration Collagenase 1 applic 04/13/22 00:00 04/21/22 00:58 Collagenase Oint 30 Gm TOPICAL 1 applic Q24H BREANNA Administration Enoxaparin Sodium 150 mg 04/18/22 14:00 04/20/22 01:55 Enoxaparin 150 M g/Ml Syringe SUBCUT 150 mg Q12H BREANNA Administration Fluoxetine HCl 20 mg 04/10/22 09:30 04/21/22 08:50 Fluoxetine 20 Mg Capsule PO 20 mg BID BREANNA Administration Heparin Sodium (Po rcine) 200 - 500 unit 04/12/22 16:15 04/21/22 03:43 Heparin Lock Flu sh 500 Unit/5 Ml S yringe IV Not Given Q12H BREANNA Heparin Sodium (Po rcine) 200 - 500 unit 04/12/22 16:13 04/14/22 22:39 Heparin Lock Flu sh 500 Unit/5 Ml S yringe IV 500 unit PRN PRN Administration Central line flus h Hydralazine HCl 10 mg 04/19/22 09:09 04/19/22 21:52 Hydralazine 20 M g/Ml Inj 1 Ml IVP 10 mg Q4H PRN Administration bp> 180./100 Hydralazine HCl 25 mg 04/21/22 09:00 04/21/22 08:50 Hydralazine 25 M g Tablet PO 25 mg TID BREANNA Administration Amino Acids/Electr olytes 1,000 mls @ 10 ml s/hr 04/12/22 20:45 04/21/22 03:23 Clinimix E 4.25% -10% IV Infused .Q24H BREANNA Infusion Albumin Human 25 gm in 100 mls @ 60 mls/hr 04/17/22 11:00 04/21/22 11:09 Albumin IV 60 mls/hr Q8H BREANNA Administration Meropenem 1,000 mg / Sodium 50 mls @ 100 mls/ hr 04/18/22 15:00 04/21/22 07:16 Chloride IV 100 mls/hr Q8H BREANNA Administration Nicardipine/Sodium Chloride 20 mg in 200 mls @ 0 mls/hr 04/19/22 21:30 04/21/22 03:23 Cardene IV Infused .Q0M BREANNA Titration Protocol As Directed Propofol 1,000 mg in 100 m ls @ 0 mls/hr 04/19/22 23:45 04/21/22 10:42 Diprivan IV 40 mcg/kg/min .Q0M BREANNA 61.56 mls/hr Administration Protocol Per Protocol Fentanyl 2,500 mcg / Sodium 250 mls @ 0 mls/h r 04/19/22 23:45 04/21/22 01:26 Chloride IV 100 mcg/hr .Q0M BREANNA 10 mls/hr Administration Protocol Per Protocol Midazolam HCl 100 mg/ Sodium 100 mls @ 0 mls/h r 04/20/22 09:00 04/21/22 10:11 Chloride IV 4 mg/hr .Q0M BREANNA 4 mls/hr Titration Protocol Per Protocol Vancomycin HCl 2,0 00 mg/ 500 mls @ 250 mls /hr 04/20/22 15:00 04/21/22 05:13 Sodium Chloride IV Infused Q12H BREANNA Infusion Lanolin 1 applic 04/15/22 14:00 04/16/22 20:05 Lanolin Oint 7 G m TOPICAL 1 applic PRN PRN Administration DRYNESS Lidocaine HCl 1 applic 04/11/22 23:30 04/12/22 01:57 Lidocaine 2% Jel ly 6 Ml TOPICAL 1 applic PRN PRN Administration PAIN Lorazepam 2 mg 04/19/22 18:56 04/19/22 19:39 Lorazepam 2 Mg/M l Inj 1 Ml IVP 2 mg Q4H PRN Administration ANXIETY Methocarbamol 500 mg 04/10/22 09:30 04/11/22 18:29 Methocarbamol 50 0 Mg Tablet PO 500 mg BID BREANNA Administration Morphine Sulfate 2 mg 04/19/22 18:17 04/19/22 22:13 Morphine 4 Mg/Ml Sdv 1 Ml IVP 2 mg Q8H PRN Administration SEVERE PAIN Nitroglycerin 0.5 inch 04/14/22 10:35 04/19/22 19:30 Nitroglycerin 1 Gm/Inch Oint Pkt TOPICAL 0.5 inch Q6H PRN Administration Blood pressure gr eater than 180/100 Ondansetron HCl 4 mg 04/09/22 19:24 04/10/22 19:49 Ondansetron 2 Mg /Ml Sdv 2 Ml IVP 4 mg Q6H PRN Administration NAUSEA AND VOMITI NG Pantoprazole Sodiu m 40 mg 04/10/22 22:15 04/21/22 08:50 Pantoprazole 40 Mg Sdv IVP 40 mg DAILY BREANNA Administration Potassium Chloride 10 meq 04/11/22 09:15 04/11/22 10:14 Potassium Chlori de Er 10 Meq Table t PO 10 meq DAILY BREANNA Administration Senna/Docusate Sod ium 1 tab 04/10/22 09:00 04/21/22 08:50 Sennosides-Docus ate Tablet PO 1 tab DAILY BREANNA Administration Sodium Chloride 5 - 10 ml 04/12/22 16:15 04/21/22 03:43 Sodium Chloride 0.9 % (Flush) Syri nge 10 Ml IV Not Given Q12H BREANNA Sodium Chloride 5 - 10 ml 04/12/22 16:13 04/14/22 22:39 Sodium Chloride 0.9 % (Flush) Syri nge 10 Ml IV 10 ml PRN PRN Administration Central line flus h Sodium Chloride 1,000 - 7,000 ml 04/20/22 15:37 04/20/22 16:15 Sodium Chloride 0.9% 1,000 Ml Bag CRRT 7,000 ml PRN PRN Administration For priming CRRT Machine Vitals/I&O/Wt Last Vital Signs Temp 96.3 F L 04/21/22 05:00 Pulse 56 L 04/21/22 10:00 Resp 22 H 04/21/22 09:03 BP 117/57 04/21/22 10:00 Pulse Ox 91 04/21/22 10:00 O2 Del Method 04/21/22 07:35 O2 Flow Rate 612 04/16/22 06:07 FiO2 95 04/21/22 09:03 04/20/22 04/21/22 04/21/22 22:59 06:59 14:59 Intake Total 1442 / 2259.632 1267.967 / 3527.599 340.562 / 340.562 Output Total 1050 / 1050 Balance 392 / 5465.921 8905.967 / 2477.599 340.562 / 340.562 Weight last 48 hrs Weight 222.742 kg Weight 236.492 kg Physical Exam Narrative: Intubated, sedated on mechanical ventilation Resp: OTHER: Diminished air entry bilaterally, bilateral crackles predominantly in the lower lung contreras. Cardio: COMMON NORMALS: regular rate, regular rhythm, S1 normal heart sound present, S2 normal heart sound present, No gallops present (Cardio), No murmurs present (Cardio), No rub (Cardio) and Peripheral pulses 2+ throughout RATE: regular rate RHYTHM: regular rhythm HEART SOUNDS: S1 normal heart sound present and S2 normal heart sound present PERIPHERAL PULSES: Peripheral pulses 2+ throughout GI: COMMON NORMALS: Normal to inspection, nondistended, normoactive bowel sounds present, Soft to palpation, non-tender, No hepatosplenomegaly present and no masses AUSCULTATION: Yes normoactive bowel sounds PALPATION: Yes Soft to palpation and Yes No hepatosplenomegaly present RECTAL EXAM: deferred Extremity: COMMON NORMALS: no clubbing, cyanosis or edema and no pedal edema OTHER: 2+ bilateral lower extremity pitting edema Urinary Catheter Management: Coude: Cath Placed During This Visit: yes Reason for Continuing Indwelling Catheter: Accurate Measurement of Urinary Output in Critically Ill Patients Urinary Catheter Date of Insertion: 04/09/22 Urinary Catheter Time of Insertion: 15:30 Data : 04/21/22 03:29 04/21/22 09:45 A&P Assessment and plan (1) DIC (disseminated intravascular coagulation): (2) CHF exacerbation: (3) Hyponatremia: (4) Oliguria: (5) V tach: (6) Obesity hypoventilation syndrome: (7) Aspiration pneumonitis: (8) Sepsis: (9) Wound infection: (10) Stasis leg ulcer: (11) Chronic acquired lymphedema: (12) Morbid obesity: Plan Assessment: Septic shock Respiratory failure with hypoxia and hypercapnia secondary to severe ARDS likely secondary to aspiration pneumonia Acute renal failure secondary to ATN secondary to sepsis Obesity hypoventilation syndrome History of chronic acquired lymphedema Morbid obesity Hypertension Heart failure 61-year-old female with past medical history of chronic acquired lymphedema morbid obesity, hyperthyroidism hypertension, was brought in with chief complaint of nausea vomiting fever and chills, was initially admitted for the management of sepsis secondary to right lower extremity cellulitis, unfortunately she had a complicated hospital course, resulting in development of, acute renal failure, possibly secondary to ATN secondary to sepsis, as well as septic shock, secondary to aspiration pneumonia, severe ARDS secondary to aspiration pneumonia, initially on BiPAP, but later had to be intubated, as she was not responding to BiPAP. For her acute renal failure likely secondary to ATN secondary to sepsis she was initially on hemodialysis, kidney function has recovered, though currently she continues to be on Bumex IV as well as, SCUF, for volume overload. With regards to her sepsis blood culture has been negative so far, urine culture is negative CT lower leg RT wo con: Similar-appearing diffuse extensive edema RIGHT lower extremity extending to the foot.No evidence of drainable abscess or fluid collection.No evidence of osteomyelitis. She has been kept on broad-spectrum antibiotics. For acute hypoxic, hypercapnic respiratory failure : secondary to severe ARDS secondary to aspiration pneumonia, She had to be intubated, after extreme persuasion as family was not ready for intubation initially, s/p bronc, showed erythematous mucosa throughout bilateral bronchial tree;culture has been sent, results awaited. Later hospital course has also been complicated by development of hypertensive emergencies: For which patient has been kept on IV antihypertensive drip. Patient has been empirically kept on therapeutic anticoagulation as there has been concern for possible PE, no CT imaging studies so far has been pursued given the size of the patient. 2D echo : Is a poor quality due to poor quality window. Ultimate aim is to try for LTAC placement. CODE STATUS: Limited resuscitation DVT prophylaxis not needed: On therapeutic anticoagulation Attestations Medical Necessity Statement*: Patient needs to be in hospital management of respiratory failure Time Spent in Patient Care: Greater than 35 minutes (>than 50% of time spent in counselling and/or direct pt care on unit). Critical Care Time: Critical Care Time (min): 45 Coding Level of Care Code Acute Caretaker Grounds for Chg Fwd Exam Expanded Problem Focused Diagnoses DIC (disseminated intravascular coagulation) D65 CHF exacerbation I50.9 Hyponatremia E87.1 Oliguria R34 V tach I47.20 Obesity hypoventilation syndrome E66.2 Aspiration pneumonitis J69.0 Sepsis A41.9 Wound infection T14.8XXA; L08.9 Stasis leg ulcer I83.009; L97.909 Chronic acquired lymphedema I89.0 Morbid obesity E66.01
--- NOTE | 2022-04-21 11:57 | PC.CHAP ---
Pastoral Care Encounter/Spiritual Assessment Type of Contact [] Declined wound care center consultant visit [] Patient/Family/Request visit [] Outpatient visit [] Follow-up visit [] Physician referral [] Code/Alert [x] Routine visit [] Staff referral [] Actively dying [] Patient sleeping [x] Family support [] [] Out of room [] Palliative care [] [] Receiving care in room [] Pre-surgical visit [] Trauma [] Long length of stay [x] ICU visit [x] Other:PT on vent... Relational/Emotional Strength [] Patient feels connected with others/family/visitors/staff [] Distress [] Loneliness/isolation [] Abandonment Spirituality of Patient [] Person of Opal [] Attends Islam of their Opal [] Believes in Prayer [] Reads Bible or Yarsani materials [] There are Spiritual issues to be addressed Printer Slot[employer]per Interventions [x] Prayer [] Active listening [] Non-anxious presence [] Spiritual/emotional support [] Crisis/trauma care [] Spiritual counseling [] Bereavement support [] Provided bereavement packet [] Provided Bible/devotional materials [] Provided toy/stuffed animal, coloring book to patient or family member [] Provided Communion [] Anointing/[place] [] Salvation [x] Completed spiritual assessment [] Other: Impact on Illness or Injury [] Angry [] Fearful [] Anxious [] Often cries [] Exhaustion [] Unable to work [] Unable to attend mormonism [] Unable to walk/stand [] Unable to read [] Unable to drive [] Unable to eat/drink [] Unable to sleep [] Unable to be with family [] Patient intubated [] Other: Summary Time spent with patient
[2022-04-21] MEDS: enoxaparin 150 mg/mL Syringe SUBCUT (14:19)
[2022-04-21 14:54] LABS: Albumin Level 3.1 g/dL (3.5-5.2); Blood Urea Nitrogen 38 mg/dL (6-20); Calcium 8.4 mg/dL (8.5-10.5); Carbon Dioxide 27 mmol/L (22-29); Chloride 104 mmol/L (98-107); Glucose 72 mg/dL (65-115); Magnesium 1.7 mg/dL (1.7-2.3); Phosphorus 3.6 mg/dL (2.5-4.5); Sodium 143 mmol/L (136-145); Vancomycin Random 28.1 ug/mL (20.0-40.0)
[2022-04-21 14:57] LABS: Anion Gap 15.7 (5-19); Potassium 3.7 mmol/L (3.5-5.1)
[2022-04-21] MEDS: sodium chloride 0.9 % (flush) syringe 10 mL IV (17:21)
--- NOTE | 2022-04-21 19:57 | P.PN_ITS ---
Subjective Subjective: Patient was seen and examined this morning, currently intubated sedated on mechanical ventilation. Fio2 down to 95% continues to get CRRT for more fluid removal recommended to start trickle feeds, taper down versed, pt is maintaining better BP without requiring Cardene drip Medications: Reviewed: Yes Medication Review Details: Generic Name Dose Route Start Last Admin Trade Name Freq PRN Reason Stop Dose Admin Acetaminophen 500 mg 04/09/22 19:24 04/11/22 19:48 Acetaminophen 50 0 Mg Tablet PO 500 mg Q4H PRN Administration fever Albuterol/Ipratrop ium 3 ml 04/20/22 20:00 04/21/22 07:52 Ipratropium-Albu terol 3 Ml Neb INHALATION 3 ml Q6H.RESP BREANNA Administration Artificial Tears 1 drop 04/19/22 09:08 04/20/22 01:52 Artificial Tears Op Soln 15 Ml Btl EYE-BOTH 1 drop Q4H PRN Administration DRY EYE(S) Bacitracin 1 applic 04/09/22 21:00 04/21/22 09:19 Bacitracin Ointm ent 28 Gm TOPICAL 1 applic TID BREANNA Administration Protocol Bumetanide 2 mg 04/19/22 12:00 04/21/22 11:09 Bumetanide 0.25 Mg/Ml Sdv 10 Ml IVP 2 mg Q8H BREANNA Administration CRRT Dialysis Solu tion 5,000 ml 04/20/22 15:45 04/21/22 07:06 Prismasol Bgk 4/ 2.5 - 5,000 Ml Bag CRRT Not Given CONT BREANNA Protocol Chlorhexidine Gluc fritz 1 applic 04/21/22 01:00 04/21/22 00:57 Chlorhexidine Gl uconate 4% Btl 118 Ml TOPICAL 1 applic 0100 BREANNA Administration Clonidine HCl 1 patch 04/18/22 12:00 04/18/22 12:09 Clonidine 0.3 Mg /24 Hr Patch TRANSDERMA 1 patch Q7D BREANNA Administration Collagenase 1 applic 04/13/22 00:00 04/21/22 00:58 Collagenase Oint 30 Gm TOPICAL 1 applic Q24H BREANNA Administration Enoxaparin Sodium 150 mg 04/18/22 14:00 04/20/22 01:55 Enoxaparin 150 M g/Ml Syringe SUBCUT 150 mg Q12H BREANNA Administration Fluoxetine HCl 20 mg 04/10/22 09:30 04/21/22 08:50 Fluoxetine 20 Mg Capsule PO 20 mg BID BREANNA Administration Heparin Sodium (Po rcine) 200 - 500 unit 04/12/22 16:15 04/21/22 03:43 Heparin Lock Flu sh 500 Unit/5 Ml S yringe IV Not Given Q12H BREANNA Heparin Sodium (Po rcine) 200 - 500 unit 04/12/22 16:13 04/14/22 22:39 Heparin Lock Flu sh 500 Unit/5 Ml S yringe IV 500 unit PRN PRN Administration Central line flus h Hydralazine HCl 10 mg 04/19/22 09:09 04/19/22 21:52 Hydralazine 20 M g/Ml Inj 1 Ml IVP 10 mg Q4H PRN Administration bp> 180./100 Hydralazine HCl 25 mg 04/21/22 09:00 04/21/22 08:50 Hydralazine 25 M g Tablet PO 25 mg TID BREANNA Administration Amino Acids/Electr olytes 1,000 mls @ 10 ml s/hr 04/12/22 20:45 04/21/22 03:23 Clinimix E 4.25% -10% IV Infused .Q24H BREANNA Infusion Albumin Human 25 gm in 100 mls @ 60 mls/hr 04/17/22 11:00 04/21/22 11:09 Albumin IV 60 mls/hr Q8H BREANNA Administration Meropenem 1,000 mg / Sodium 50 mls @ 100 mls/ hr 04/18/22 15:00 04/21/22 07:16 Chloride IV 100 mls/hr Q8H BREANNA Administration Nicardipine/Sodium Chloride 20 mg in 200 mls @ 0 mls/hr 04/19/22 21:30 04/21/22 03:23 Cardene IV Infused .Q0M BREANNA Titration Protocol As Directed Propofol 1,000 mg in 100 m ls @ 0 mls/hr 04/19/22 23:45 04/21/22 10:42 Diprivan IV 40 mcg/kg/min .Q0M BREANNA 61.56 mls/hr Administration Protocol Per Protocol Fentanyl 2,500 mcg / Sodium 250 mls @ 0 mls/h r 04/19/22 23:45 04/21/22 01:26 Chloride IV 100 mcg/hr .Q0M BREANNA 10 mls/hr Administration Protocol Per Protocol Midazolam HCl 100 mg/ Sodium 100 mls @ 0 mls/h r 04/20/22 09:00 04/21/22 10:11 Chloride IV 4 mg/hr .Q0M BREANNA 4 mls/hr Titration Protocol Per Protocol Vancomycin HCl 2,0 00 mg/ 500 mls @ 250 mls /hr 04/20/22 15:00 04/21/22 05:13 Sodium Chloride IV Infused Q12H BREANNA Infusion Lanolin 1 applic 04/15/22 14:00 04/16/22 20:05 Lanolin Oint 7 G m TOPICAL 1 applic PRN PRN Administration DRYNESS Lidocaine HCl 1 applic 04/11/22 23:30 04/12/22 01:57 Lidocaine 2% Jel ly 6 Ml TOPICAL 1 applic PRN PRN Administration PAIN Lorazepam 2 mg 04/19/22 18:56 04/19/22 19:39 Lorazepam 2 Mg/M l Inj 1 Ml IVP 2 mg Q4H PRN Administration ANXIETY Methocarbamol 500 mg 04/10/22 09:30 04/11/22 18:29 Methocarbamol 50 0 Mg Tablet PO 500 mg BID BREANNA Administration Morphine Sulfate 2 mg 04/19/22 18:17 04/19/22 22:13 Morphine 4 Mg/Ml Sdv 1 Ml IVP 2 mg Q8H PRN Administration SEVERE PAIN Nitroglycerin 0.5 inch 04/14/22 10:35 04/19/22 19:30 Nitroglycerin 1 Gm/Inch Oint Pkt TOPICAL 0.5 inch Q6H PRN Administration Blood pressure gr eater than 180/100 Ondansetron HCl 4 mg 04/09/22 19:24 04/10/22 19:49 Ondansetron 2 Mg /Ml Sdv 2 Ml IVP 4 mg Q6H PRN Administration NAUSEA AND VOMITI NG Pantoprazole Sodiu m 40 mg 04/10/22 22:15 04/21/22 08:50 Pantoprazole 40 Mg Sdv IVP 40 mg DAILY BREANNA Administration Potassium Chloride 10 meq 04/11/22 09:15 04/11/22 10:14 Potassium Chlori de Er 10 Meq Table t PO 10 meq DAILY BREANNA Administration Senna/Docusate Sod ium 1 tab 04/10/22 09:00 04/21/22 08:50 Sennosides-Docus ate Tablet PO 1 tab DAILY BREANNA Administration Sodium Chloride 5 - 10 ml 04/12/22 16:15 04/21/22 03:43 Sodium Chloride 0.9 % (Flush) Syri nge 10 Ml IV Not Given Q12H BREANNA Sodium Chloride 5 - 10 ml 04/12/22 16:13 04/14/22 22:39 Sodium Chloride 0.9 % (Flush) Syri nge 10 Ml IV 10 ml PRN PRN Administration Central line flus h Sodium Chloride 1,000 - 7,000 ml 04/20/22 15:37 04/20/22 16:15 Sodium Chloride 0.9% 1,000 Ml Bag CRRT 7,000 ml PRN PRN Administration For priming CRRT Machine Vitals/I&O/Wt Last Vital Signs Temp 97.5 F L 04/21/22 18:00 Pulse 78 04/21/22 19:37 Resp 22 H 04/21/22 19:38 BP 114/59 04/21/22 18:00 Pulse Ox 90 04/21/22 19:38 O2 Del Method 04/21/22 19:37 O2 Flow Rate 612 04/16/22 06:07 FiO2 95 04/21/22 19:38 04/21/22 04/21/22 04/21/22 06:59 14:59 22:59 Intake Total 1267.967 / 3527.599 687.006 / 687.006 100 / 787.006 Balance 1267.967 / 2477.599 687.006 / 687.006 100 / 787.006 Weight last 48 hrs Weight 491 lb 1 oz Weight 521 lb 6 oz Physical Exam Narrative: PHYSICAL EXAM: General: lying in bed, sedated and intubated. HEENT:NCAT, PERRLA, EOMI Neck: Supple Lungs: Bilateral upper lung zones clear-difficult to auscultate given patient's body size Heart: s1/s2, RRR Abd: soft, NT, ND, BS + Normoactive Extremities: Chronic bilateral lymphedema, right anterior burton-open clear wound with surrounding erythema with no significant bruising. 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 SKIN: no rash LDA: # CVC: Right internal jugular # HD Cath : 04/13/2022 right femoral line # Morton: Present Urinary Catheter Management: Coude: Cath Placed During This Visit: yes Reason for Continuing Indwelling Catheter: Accurate Measurement of Urinary Output in Critically Ill Patients Urinary Catheter Date of Insertion: 04/09/22 Urinary Catheter Time of Insertion: 15:30 Data : 04/21/22 03:29 04/21/22 21:38 Other Labs: Radiology Impressions KUB X-Ray 04/11/22 07:37 IMPRESSION: Nonspecific bowel gas pattern, as noted above. Renal Ultrasound 04/12/22 15:56 IMPRESSION: 1. Examination is limited secondary to body habitus. 2. Urinary bladder is not visualized. 3. The abdominal aorta is obscured. 4. No obvious hydronephrosis. 5. Probable echogenic right renal cortex compared to the liver consistent with bilateral medical renal disease. Chest Ultrasound 04/16/22 08:55 IMPRESSION: No pleural effusions. Lower Extremity CT 04/16/22 09:01 IMPRESSION: 1. Similar-appearing diffuse extensive edema RIGHT lower extremity extending to the foot. 2. No evidence of drainable abscess or fluid collection. 3. No evidence of osteomyelitis. 4. Previously described tiny suspected area of ulceration about the lateral malleolus is unchanged. Chest X-Ray 04/20/22 03:40 IMPRESSION: 1. Lines and tubes, as noted above. 2. Unchanged lung volumes. Slightly decreased moderate bilateral perihilar lung interstitial and airspace opacities with coalescence in the lung bases. The unchanged small bilateral pleural effusions. 3. Unchanged cardiomegaly. Laboratory Results WBC 6.4 10^3/uL (4.0-10.0) 04/21/22 03:29 RBC 3.52 10^6/uL (4.1-5.3) L 04/21/22 03:29 Hgb 9.8 g/dL (11.5-15.3) L 04/21/22 03:29 Hct 33.6 % (37.0-47.0) L 04/21/22 03:29 MCV 95.5 fl (81-99) 04/21/22 03:29 MCH 27.8 pg (28.0-34.0) L 04/21/22 03:29 MCHC 29.2 g/dL (30.0-36.0) L 04/21/22 03:29 RDW 18.0 % (12.1-15.1) H 04/21/22 03:29 Plt Count 114 10^3/cmm (130-400) L 04/21/22 03:29 MPV 11.8 fL (7.4-10.4) H 04/21/22 03:29 Neut % (Auto) 76.1 % 04/21/22 03:29 Lymph % (Auto) 14.8 % 04/21/22 03:29 Billings % (Auto) 6.4 % 04/21/22 03:29 Eos % (Auto) 1.4 % 04/21/22 03:29 Baso % (Auto) 0.2 % 04/21/22 03:29 Neut # (Auto) 4.85 10^3/uL (1.8-7.7) 04/21/22 03:29 Lymph # (Auto) 0.9 10^3/uL (0.8-4.8) 04/21/22 03:29 Billings # (Auto) 0.4 10^3/uL (0.2-0.9) 04/21/22 03:29 Eos # (Auto) 0.1 10^3/uL (0.0-0.8) 04/21/22 03:29 Baso # (Auto) 0.0 10^3/uL (0.0-0.1) 04/21/22 03:29 Nucleated RBC % (auto) 0 % 04/21/22 03:29 Total Counted 100 (0-100) 04/09/22 14:25 Atypical Lymphs % 1.0 % (0-5) 04/09/22 14:25 Absolute Neutrophils 11.8 10^3/cmm (1.4-6.5) H 04/09/22 14:25 Segmented Neutrophils 91 % 04/09/22 14:25 Abs Segm Neuts (Man) 11.5 10/cmm (1.6-7.1) H 04/09/22 14:25 Band Neutrophils 3.0 % 04/09/22 14:25 Abs Band Neuts (Man) 0.4 10^3/cmm (0.0-1.2) 04/09/22 14:25 Absolute Lymphocytes 0.6 10^3/cmm (1.2-3.4) L 04/09/22 14:25 Lymphocytes (Manual) 4 % 04/09/22 14:25 Monocytes (Manual) 1.0 % 04/09/22 14:25 Absolute Monocytes 0.1 10^3/cmm (0.1-0.6) 04/09/22 14:25 Eosinophils (Manual) 0 % 04/09/22 14:25 Absolute Eosinophils 0.0 10^3/cmm (0.0-0.7) 04/09/22 14:25 Basophils (Manual) 0.0 % 04/09/22 14:25 Absolute Basophils 0.0 10^3/cmm (0.0-0.2) 04/09/22 14:25 Nucleated RBCs # 0.0 /100WBC 04/21/22 03:29 Platelet Estimate Normal (Normal) 04/09/22 14:25 Giant Platelets Trace 04/09/22 14:25 Polychromasia Trace 04/09/22 14:25 Hypochromasia Trace 04/09/22 14:25 Poikilocytosis Trace 04/09/22 14:25 Anisocytosis Trace 04/09/22 14:25 Microcytosis Trace 04/09/22 14:25 Macrocytosis Trace 04/09/22 14:25 Spherocytes Trace 04/09/22 14:25 Target Cells Trace 04/09/22 14:25 Tear Drop Cells Trace 04/09/22 14:25 Ovalocytes Trace 04/09/22 14:25 Flomot Cells Trace 04/09/22 14:25 ESR 24 mm/hr (0-15) H 04/09/22 14:25 PT 15.70 SECONDS (12.1-14.9) H 04/17/22 03:05 INR 1.22 (0.8-1.2) H 04/17/22 03:05 APTT 52.7 SECONDS (23.9-36.7) H 04/18/22 09:00 Fibrinogen 760 mg/dL (174-498) H 04/17/22 03:05 Fibrin Degrad Products Neg, <10 ug/mL (NEG) 04/17/22 03:05 D-Dimer 2.24 ug/mIFEU (0-0.59) H 04/17/22 03:05 Specimen Type Arterial 04/21/22 08:35 Sample Site Radial, left 04/21/22 08:35 ABG pH 7.34 (7.35-7.45) L 04/21/22 08:35 ABG pCO2 56.8 mmHg (35-45) H 04/21/22 08:35 ABG pO2 72.2 mmHg (80.0-100.0) L 04/21/22 08:35 ABG HCO3 30.7 mmol/L (22-26) H 04/21/22 08:35 ABG O2 Saturation 95.1 04/21/22 08:35 ABG Base Excess 3.8 mmol/L (-2.0-2.0) H 04/21/22 08:35 Harsha Test Pos 04/21/22 08:35 A-a O2 Gradient 1.3 mmHg (5-10) L 04/21/22 08:35 Hematocrit 33.7 % (37-47) L 04/21/22 08:35 Hgb O2 Saturation 93.1 % (95-100) L 04/21/22 08:35 Carboxyhemoglobin 1.1 %THgb (0.4-20.1) 04/21/22 08:35 Methemoglobin 0.9 % (0.4-1.5) 04/21/22 08:35 Total Hemoglobin 11.0 g/dL (12-16) L 04/21/22 08:35 Sodium 147.0 mmol/L (131-143) H 04/21/22 08:35 Potassium 3.1 mmol/L (3.5-5.0) L 04/21/22 08:35 Glucose 80.0 mg/dL (70-115) 04/21/22 08:35 Ionized Calcium 1.1 mmol/L (1.1-1.4) 04/21/22 08:35 O2 Delivery Device Vent 04/21/22 08:35 O2 Liters/Min 15.0 % 04/10/22 21:45 FiO2 100.0 % 04/20/22 04:00 Tidal Volume 0.40 04/20/22 04:00 PEEP 12.0 cmH20 04/20/22 04:00 Lehr Attendant ID Gd 04/21/22 08:35 Sodium 147 mmol/L (136-145) H 04/21/22 21:38 Potassium 4.1 mmol/L (3.5-5.1) 04/21/22 21:38 Chloride 106 mmol/L (98-107) 04/21/22 21:38 Carbon Dioxide 28 mmol/L (22-29) 04/21/22 21:38 Anion Gap 17.1 (5-19) 04/21/22 21:38 BUN 39 mg/dL (6-20) H 04/21/22 21:38 Creatinine 1.4 mg/dL (0.5-0.9) H 04/21/22 21:38 GFR Calculation 38.5 mL/min (90-130) L 04/21/22 21:38 Glucose 80 mg/dL (65-115) 04/21/22 21:38 POC Glucose 80 mg/dL (70-110) 04/20/22 17:27 Estimat Average Glucose 105 04/12/22 16:04 Hemoglobin A1c 5.3 % (4.0-6.0) 04/12/22 16:04 Calculated Osmolality 302 mOsm/kg (285-295) H 04/20/22 02:58 Lactate 1.3 mmol/L (0.5-2.2) 04/15/22 00:55 Calcium 8.4 mg/dL (8.5-10.5) L 04/21/22 21:38 Phosphorus 4.3 mg/dL (2.5-4.5) 04/21/22 21:38 Magnesium 1.7 mg/dL (1.7-2.3) 04/21/22 21:38 Total Bilirubin 1.1 mg/dL (0.15-1.2) 04/20/22 02:58 AST 17 U/L (0-32) 04/20/22 02:58 ALT 10 U/L (0-33) 04/20/22 02:58 Alkaline Phosphatase 71 U/L (35-105) 04/20/22 02:58 Creatine Kinase 35 U/L (26-192) 04/15/22 00:55 Troponin T Gen 5 ng/L 49 ng/L (0-10) H 04/12/22 09:18 Troponin T Baseline 54 ng/L (0-10) H 04/12/22 16:04 Troponin T 120 Minute 54.26 ng/L (0-10) H 04/12/22 18:38 Delta Troponin T 0.26 ABS# (0-10) 04/12/22 18:38 Troponin T Hi Sens 6Hr 52.47 ng/L (0-10) H 04/12/22 22:04 Troponin T Hi Sens 6Hr Delta -1.53 ng/L (0-12) L 04/12/22 22:04 C-Reactive Protein 375.7 mg/L (0.0-4.9) H 04/13/22 03:29 NT-Pro-B Natriuret Pep 9213 pg/mL (0-125) H 04/15/22 00:55 Total Protein 6.9 g/dL (6.6-8.7) 04/20/22 02:58 Albumin 3.3 g/dL (3.5-5.2) L 04/21/22 21:38 Globulin 3.9 g/dL (1.3-4.6) 04/20/22 02:58 Procalcitonin 9.20 ng/mL (0-0.5) H 04/09/22 17:12 TSH 0.44 uIU/mL (0.27-4.20) 04/09/22 17:12 Urine Color Dark yellow (Yellow) 04/12/22 16:04 Urine Appearance Cloudy (CLEAR) A 04/12/22 16:04 Urine pH 5 (5-7) 04/12/22 16:04 Ur Specific Forsan 1.010 (1.005-1.030) 04/12/22 16:04 Urine Protein 1+ (Negative) H 04/12/22 16:04 Urine Glucose (UA) Norm (Normal) 04/12/22 16:04 Urine Ketones 1+ (Negative) H 04/12/22 16:04 Urine Blood 3+ (Negative) H 04/12/22 16:04 Urine Nitrate Negative (Negative) 04/12/22 16:04 Urine Bilirubin 1+ (Negative) H 04/12/22 16:04 Urine Urobilinogen Norm mg/dL (Negative) 04/12/22 16:04 Ur Leukocyte Esterase Trace (Negative) H 04/12/22 16:04 Urine RBC 5-10 /hpf (0-2) H 04/12/22 16:04 Urine WBC 5-10 /hpf (0-5) H 04/12/22 16:04 Ur Eosinophil Smear 0 (0-0) 04/12/22 16:04 Ur Squamous Epith Cells 0-4 /hpf (0-5) H 04/12/22 16:04 Amorphous Sediment 2+ /hpf 04/12/22 16:04 Urine Bacteria 1+ /hpf (NONE) H 04/12/22 16:04 Urine Eosinophils No eosinophils seen 04/12/22 16:04 Ur Random Microalbumin 30 ug/dL (0-20) H 04/12/22 16:04 Ur Random Sodium 12 mmol/L 04/12/22 16:04 Ur Random Potassium 11 04/12/22 16:04 Ur Random Potassium 11 mmol/L 04/12/22 16:04 Ur Random Chloride 15 mmol/L 04/12/22 16:04 Urine Creatinine 65 mg/dL (28-217) 04/12/22 16:04 Microalb/Creat Ratio 462 mg/dL (0-20) H 04/12/22 16:04 Fluid Color Red 04/20/22 15:45 Fluid Appearance Turbid 04/20/22 15:45 Fluid WBC 2739 /uL 04/20/22 15:45 Fluid RBC 32.000 10^3/uL 04/20/22 15:45 Fld Polynuclear WBCs # 1.121 04/20/22 15:45 Fld Polynuclear WBCs % 40.900 % 04/20/22 15:45 Fl Mononucl WBCs #(Auto) 1.618 04/20/22 15:45 Fl Mononuclear % Auto 59.100 % 04/20/22 15:45 Vancomycin Trough 9.3 ug/mL (10-15) L 04/16/22 11:10 Random Vancomycin 28.1 ug/mL (20.0-40.0) 04/21/22 14:20 Serum Ketones Negative (Negative) 04/12/22 16:04 Coronavirus 229E (PCR) Not detected (NOT DETECT) 04/09/22 15:30 Hep Bs Antigen Non-reactive (Nonreactive) 04/12/22 16:04 Hepatitis C Antibody Non-reactive (Nonreactive) 04/12/22 16:04 SARS-CoV-2 (PCR) Not detected (NOT DETECT) 04/09/22 15:30 Micro: Microbiology 04/20/22 15:45 Gram Stain - Final Lung Left Lower Lobe Bronchoalveolar Lavage Culture - Preliminary A&P Assessment and plan (1) Acute and chronic respiratory failure with hypercapnia: (2) Aspiration pneumonitis: (3) ANY (acute kidney injury): (4) Difficult ventilator weaning: (5) CHF exacerbation: (6) Obesity hypoventilation syndrome: (7) Sepsis: (8) ARDS (adult respiratory distress syndrome): (9) Stasis leg ulcer: (10) Chronic acquired lymphedema: (11) Hypertension: Qualifiers: Hypertension type: essential hypertension Qualified Code(s): I10 - Essential (primary) hypertension (12) Morbid obesity: (13) Hypertensive emergency: Plan 61-year-old morbidly obese patient with BMI 52, hypothyroidism, ALON, possible underlying obesity hypoventilation syndrome, with chronic bilateral lower extremity lymphedema-initially 04/09/2022 admitted for right lower leg c ellulitis-started on antibiotics, later went into ANY and fluid overload as well as recurrent vomitings causing aspiration pneumonia-all resulting in acute on chronic hypercapnic/hypoxic respiratory failure for which she was on BiPAP for almost a week-refusing intubation until day 9-at which point she had hypertensive emergency with SBP 264 causing nasal bleeds aspiration-complicating airway-resulting in intubation for airway protection. NEURO: #Sedated with Versed 6 Mg/hour, propofol 40 Mg/hour, fentanyl 100 mcg/hr - recommended to taper down versed PULM: #Acute on chronic hypercarbic/hypoxic respiratory failure secondary to ARDS due to aspiration pneumonia and fluid overload; airway protection from nasal be due to hypertension #Underlying chronic hypercapnic respiratory failure secondary to obesity hypoventilation syndrome/ALON -Currently sedated and intubated with CMV with tidal volume 400/PEEP of 18/respiratory rate 14/FiO2 95%; 7.34/56/72/30 -We will continue to monitor and come down on FiO2 as feasible -Continue DuoNeb nebulization every 6 hours as needed -S/p bronchoscopy today 04/20/2022-showed erythematous mucosa throughout bilateral bronchial tree; aspirated 15 mL BAL from left lower lobe with some mucous plugs and it-sent for BAL cultures and analysis -Continue vancomycin and meropenem -Unable to obtain CT chest given patient's body habitus 500 pounds CVS: #Hypertensive emergency-causing nasal bleeds -Currently off Cardene drip and maintaining SBP 1 20-1 50 -Initial echocardiogram was uninterpretable due to body habitus, repeat echo report pending -Suspect component of diastolic dysfunction given her morbid obesity and cannot rule out LV systolic function based on prior echo; repeat Echo done and awaiting report GI: -Nutrition; TPN-will hold for 2 days to avoid fluid overload -will start her on trickle feeds -LFTs are normal RENAL: -ANY-secondary to sepsis- leading to refractory fluid overload -Renal functions improving, urine output improving-patient on Bumex 2 Mg every 8 hour to maintain net even to net negative balance -Hypokalemia, hypomagnesemia-corrected -Renal on board-considering CRRT for more fluid removal HEM: -No leukocytosis; not in DIC as patient has normal fibrinogen and FDP -Monitor platelets -No more active nasal bleeding noted -DVT prophylaxis: Lovenox ENDO: -Sugars well controlled-not requiring insulin coverage at this point of time ID: -Right lower leg cellulitis-currently on vancomycin -CT did not show any evidence of abscess -Wound looks clean Code Status: Limited resuscitation Disposition: Currently we will continue in ICU Critically ill: Prognosis syed ROSA discussed with: Family members, RN, RT and hospitalist ICU CHECKLIST: Problem list updated Verbal orders reviewed and signed Analgesia: On fentanyl gtt. Glycemic Control: N/A Nutrition: trickle tube feeds Restraint Renewal (within 24 hrs): Yes Ulcer Prophylaxis: Yes PPI Chemical Thromboprophylaxis: Prophylaxis: lovenox Mechanical Thromboprophylaxis: Yes but too big for her Calves Need for Central line: Yes for multiple medications and drips Need for Morton catheter: Yes Attestations 2 Medical Necessity Statement*: Patient intubated mechanically ventilated, need close monitoring in ICU Time Spent in Patient Care: Greater than 35 minutes (>than 50% of time spent in counselling and/or direct pt care on unit) . Critical Care Time: The high probability of a clinically significant, sudden or life threatening deterioration of the patient's?[neurological, pulmonary, cardiac, GI, hematologic, infectious]?system(s) required my full and direct attention, intervention and personal management. The critical care time is as s hown. This time is in addition to time spent performing any reported procedures but includes the following: [x]?Data and vital sign review and interpretation [x]?Patient assessment, examination and intervention [x]?Documentation [x]?Medication orders and management Critical Care Time (min): 45 Coding Level of Care Code Established Pt Acute Ehs Manager for [facility] Fwd Patient Type Established History Comprehensive Exam Comprehensive Medical Decision Making Moderate Complexity Diagnoses Acute and chronic respiratory failure with hypercapnia J96.22 Aspiration pneumonitis J69.0 ANY (acute kidney injury) N17.9 Difficult ventilator weaning Z99.11 CHF exacerbation I50.9 Obesity hypoventilation syndrome E66.2 Sepsis A41.9 ARDS (adult respiratory distress syndrome) J80 Stasis leg ulcer I83.009; L97.909 Chronic acquired lymphedema I89.0 Hypertension I10 Hypertension type: essential hypertension Morbid obesity E66.01 Hypertensive emergency I16.1 Time Spent (min) 45
[2022-04-21 22:09] LABS: Albumin Level 3.3 g/dL (3.5-5.2); Anion Gap 17.1 (5-19); Blood Urea Nitrogen 39 mg/dL (6-20); Calcium 8.4 mg/dL (8.5-10.5); Carbon Dioxide 28 mmol/L (22-29); Chloride 106 mmol/L (98-107); Glomerular Filtration Rate 38.5 mL/min (90-130); Glucose 80 mg/dL (65-115); Magnesium 1.7 mg/dL (1.7-2.3); Phosphorus 4.3 mg/dL (2.5-4.5); Potassium 4.1 mmol/L (3.5-5.1); Sodium 147 mmol/L (136-145)
[2022-04-22] VITALS (46 sets, daily range): BP systolic 99–148; BP diastolic 50–93; PULSE 60–75; RESP 16–24; TEMP 35.3–36.1; O2SAT 90–100; BMI 73.9
[2022-04-22] MEDS: propofol 1,000 MG/100 ML INJ 61.56 MG IV ×13 (00:23→22:30)
[2022-04-22] MEDS: chlorhexidine gluconate 4% Btl 118 mL 1 APPLIC TOPICAL (01:13)
[2022-04-22] MEDS: ipratropium-albuterol 3 mL Neb INHALATION ×4 (01:32→19:59)
[2022-04-22] MEDS: enoxaparin 150 mg/mL Syringe SUBCUT ×2 (02:54→14:42)
[2022-04-22 03:41] LABS: Basophils % 0.4 %; Eosinophils # 0.1 10^3/uL (0.0-0.8); Eosinophils % 1.6 %; Hematocrit 35.8 % (37.0-47.0); Hemoglobin 10.5 g/dL (11.5-15.3); Lymphocytes # 0.8 10^3/uL (0.8-4.8); Lymphocytes % 11.1 %; Mean Corpuscular HGB Conc 29.3 g/dL (30.0-36.0); Mean Corpuscular Volume 95.5 fl (81-99); Mean Platelet Volume 11.9 fL (7.4-10.4); Monocytes # 0.4 10^3/uL (0.2-0.9); Monocytes % 5.6 %; Neutrophils # 6.01 10^3/uL (1.8-7.7); Neutrophils % 80.5 %; Nucleated Red Blood Cells % 0 %; Platelet Count 143 10^3/cmm (130-400); Red Blood Count 3.75 10^6/uL (4.1-5.3); Red Cell Distribution Width 18.3 % (12.1-15.1); White Blood Count 7.5 10^3/uL (4.0-10.0)
[2022-04-22 04:07] LABS: Alanine Aminotransferase 7 U/L (0-33); Albumin Level 3.4 g/dL (3.5-5.2); Alkaline Phosphatase 57 U/L (35-105); Anion Gap 18.2 (5-19); Aspartate Amino Transferase 12 U/L (0-32); Blood Urea Nitrogen 42 mg/dL (6-20); Calcium 8.5 mg/dL (8.5-10.5); Carbon Dioxide 27 mmol/L (22-29); Chloride 106 mmol/L (98-107); Globulin 3.7 g/dL (1.3-4.6); Glomerular Filtration Rate 30.8 mL/min (90-130); Glucose 75 mg/dL (65-115); Magnesium 1.7 mg/dL (1.7-2.3); Osmolality Calculated 313 mOsm/kg (285-295); Phosphorus 4.8 mg/dL (2.5-4.5); Potassium 4.2 mmol/L (3.5-5.1); Sodium 147 mmol/L (136-145); Total Bilirubin 0.8 mg/dL (0.15-1.2); Total Protein 7.1 g/dL (6.6-8.7)
[2022-04-22] MEDS: bumetanide 0.25 mg/mL SDV 10 mL 2 MG IVP ×3 (04:09→19:37)
[2022-04-22 04:53] LABS: ABG PCO2 58.5 mmHg (35-45); ABG PH Result 7.28 (7.35-7.45); Alveolar-Arterial Oxygen Gradi 68.7 mmHg (5-10); Base Excess ABG -0.5 mmol/L (-2.0-2.0); Blood Gas Operator Identificat JB; Blood Gas Sample Site Brachial, left; Blood Gas Sample Type Arterial; Blood Gas Tidal Volume 0.42; Carboxyhemoglobin 0.9 %THgb (0.4-20.1); HCO3 ABG 27.5 mmol/L (22-26); HGB O2 Sat 94.4 % (95-100); Ionized Calcium Level - ABG 1.1 mmol/L (1.1-1.4); Methemoglobin 1.2 % (0.4-1.5); Oxygen Device VENT; Oxygen Saturation ABG 96.4; PO2 ABG 84.5 mmHg (80.0-100.0); Potassium Level - ABG 3.9 mmol/L (3.5-5.0); Total Hemoglobin 13.7 g/dL (12-16)
--- NOTE | 2022-04-22 05:00 | XR_ITS ---
WS: [id number] Portable AP supine chest, 04/22/2022 Clinical Data: pna Comparison: Portable chest, 04/20/2022 Findings: The right internal jugular venous catheter, endotracheal tube and nasogastric tube remain i n the same position. The heart is enlarged. The bilateral pulmonary opacities remain the same. There are monitor leads on the chest wall. XR/XR chest 1V portable [id number] Impression: No change from chest x-ray 2 days ago.
[2022-04-22] MEDS: meropenem 1,000 MG in sodium chloride 0.9% (plus) 50 ML 100 MG IV ×3 (06:23→22:37)
--- NOTE | 2022-04-22 06:49 | PC.NURSE ---
Shift Note Frequent safety and comfort rounds continue. Orders and/or nursing care completed as indicated. Patient monitored for response to intervention and treatment(s). Education provided includes CRRT. Patient family verbalize understanding of teaching. Patient had an uneventful shift, remains intubated on CRRT. Vent settings are as follows; mode-VC-AC, FiO2-90%, VT-450, PEEP-16, rate-22. Propofol, Fentanyl and Meropenem infusing per protocol & orders, please see MAR for infusion rates. Patient has several skin issues, please see wound assessment for details. CRRT running in SCUF mode per orders, please see CRRT assessment for details. Will continue to monitor.
--- NOTE | 2022-04-22 06:50 | PC.NURSE ---
Bedside report completed with Jack Subramanian RN
--- NOTE | 2022-04-22 07:16 | PM.PN ---
Subjective Subjective: -Patient was seen and examined this morning, -Still intubated and sedated and-off Versed -She is able to maintain her blood pressures without any pressure support and maintaining normal maps without Cardene -Yesterday she was on slow continuous ultrafiltration a total of close to 4 L was removed-which may be the reason for her low urine output -Her ABG showed improvement in her PaO2 to 84% but PF ratio is < 100;Currently her FiO2 on ventilator tapered down to 80% and she maintaining good saturations on monitor -BMP showed hyponatremia and slight worsening in BUN/creatinine-discussed with nephrology and decided to stop continuous ultrafiltration and perform slow ultrafiltration for couple of hours and plan to remove 2.5 L today -So far all the cultures are negative; -Discussed with patient's daughter at bedside about patient medical condition and explained that there is slow progress in her FiO2 requirements but still requiring 80% on ventilator and will continue to monitor for now. Medications: Reviewed: Yes Medication Review Details: Generic Name Dose Route Start Last Admin Trade Name Freq PRN Reason Stop Dose Admin Acetaminophen 500 mg 04/09/22 19:24 04/11/22 19:48 Acetaminophen 50 0 Mg Tablet PO 500 mg Q4H PRN Administration fever Albuterol/Ipratrop ium 3 ml 04/20/22 20:00 04/21/22 07:52 Ipratropium-Albu terol 3 Ml Neb INHALATION 3 ml Q6H.RESP BREANNA Administration Artificial Tears 1 drop 04/19/22 09:08 04/20/22 01:52 Artificial Tears Op Soln 15 Ml Btl EYE-BOTH 1 drop Q4H PRN Administration DRY EYE(S) Bacitracin 1 applic 04/09/22 21:00 04/21/22 09:19 Bacitracin Ointm ent 28 Gm TOPICAL 1 applic TID BREANNA Administration Protocol Bumetanide 2 mg 04/19/22 12:00 04/21/22 11:09 Bumetanide 0.25 Mg/Ml Sdv 10 Ml IVP 2 mg Q8H BREANNA Administration CRRT Dialysis Solu tion 5,000 ml 04/20/22 15:45 04/21/22 07:06 Prismasol Bgk 4/ 2.5 - 5,000 Ml Bag CRRT Not Given CONT BREANNA Protocol Chlorhexidine Gluc fritz 1 applic 04/21/22 01:00 04/21/22 00:57 Chlorhexidine Gl uconate 4% Btl 118 Ml TOPICAL 1 applic 0100 BREANNA Administration Clonidine HCl 1 patch 04/18/22 12:00 04/18/22 12:09 Clonidine 0.3 Mg /24 Hr Patch TRANSDERMA 1 patch Q7D BREANNA Administration Collagenase 1 applic 04/13/22 00:00 04/21/22 00:58 Collagenase Oint 30 Gm TOPICAL 1 applic Q24H BREANNA Administration Enoxaparin Sodium 150 mg 04/18/22 14:00 04/20/22 01:55 Enoxaparin 150 M g/Ml Syringe SUBCUT 150 mg Q12H BREANNA Administration Fluoxetine HCl 20 mg 04/10/22 09:30 04/21/22 08:50 Fluoxetine 20 Mg Capsule PO 20 mg BID BREANNA Administration Heparin Sodium (Po rcine) 200 - 500 unit 04/12/22 16:15 04/21/22 03:43 Heparin Lock Flu sh 500 Unit/5 Ml S yringe IV Not Given Q12H BREANNA Heparin Sodium (Po rcine) 200 - 500 unit 04/12/22 16:13 04/14/22 22:39 Heparin Lock Flu sh 500 Unit/5 Ml S yringe IV 500 unit PRN PRN Administration Central line flus h Hydralazine HCl 10 mg 04/19/22 09:09 04/19/22 21:52 Hydralazine 20 M g/Ml Inj 1 Ml IVP 10 mg Q4H PRN Administration bp> 180./100 Hydralazine HCl 25 mg 04/21/22 09:00 04/21/22 08:50 Hydralazine 25 M g Tablet PO 25 mg TID BREANNA Administration Amino Acids/Electr olytes 1,000 mls @ 10 ml s/hr 04/12/22 20:45 04/21/22 03:23 Clinimix E 4.25% -10% IV Infused .Q24H BREANNA Infusion Albumin Human 25 gm in 100 mls @ 60 mls/hr 04/17/22 11:00 04/21/22 11:09 Albumin IV 60 mls/hr Q8H BREANNA Administration Meropenem 1,000 mg / Sodium 50 mls @ 100 mls/ hr 04/18/22 15:00 04/21/22 07:16 Chloride IV 100 mls/hr Q8H BREANNA Administration Nicardipine/Sodium Chloride 20 mg in 200 mls @ 0 mls/hr 04/19/22 21:30 04/21/22 03:23 Cardene IV Infused .Q0M BREANNA Titration Protocol As Directed Propofol 1,000 mg in 100 m ls @ 0 mls/hr 04/19/22 23:45 04/21/22 10:42 Diprivan IV 40 mcg/kg/min .Q0M BREANNA 61.56 mls/hr Administration Protocol Per Protocol Fentanyl 2,500 mcg / Sodium 250 mls @ 0 mls/h r 04/19/22 23:45 04/21/22 01:26 Chloride IV 100 mcg/hr .Q0M BREANNA 10 mls/hr Administration Protocol Per Protocol Midazolam HCl 100 mg/ Sodium 100 mls @ 0 mls/h r 04/20/22 09:00 04/21/22 10:11 Chloride IV 4 mg/hr .Q0M BREANNA 4 mls/hr Titration Protocol Per Protocol Vancomycin HCl 2,0 00 mg/ 500 mls @ 250 mls /hr 04/20/22 15:00 04/21/22 05:13 Sodium Chloride IV Infused Q12H BREANNA Infusion Lanolin 1 applic 04/15/22 14:00 04/16/22 20:05 Lanolin Oint 7 G m TOPICAL 1 applic PRN PRN Administration DRYNESS Lidocaine HCl 1 applic 04/11/22 23:30 04/12/22 01:57 Lidocaine 2% Jel ly 6 Ml TOPICAL 1 applic PRN PRN Administration PAIN Lorazepam 2 mg 04/19/22 18:56 04/19/22 19:39 Lorazepam 2 Mg/M l Inj 1 Ml IVP 2 mg Q4H PRN Administration ANXIETY Methocarbamol 500 mg 04/10/22 09:30 04/11/22 18:29 Methocarbamol 50 0 Mg Tablet PO 500 mg BID BREANNA Administration Morphine Sulfate 2 mg 04/19/22 18:17 04/19/22 22:13 Morphine 4 Mg/Ml Sdv 1 Ml IVP 2 mg Q8H PRN Administration SEVERE PAIN Nitroglycerin 0.5 inch 04/14/22 10:35 04/19/22 19:30 Nitroglycerin 1 Gm/Inch Oint Pkt TOPICAL 0.5 inch Q6H PRN Administration Blood pressure gr eater than 180/100 Ondansetron HCl 4 mg 04/09/22 19:24 04/10/22 19:49 Ondansetron 2 Mg /Ml Sdv 2 Ml IVP 4 mg Q6H PRN Administration NAUSEA AND VOMITI NG Pantoprazole Sodiu m 40 mg 04/10/22 22:15 04/21/22 08:50 Pantoprazole 40 Mg Sdv IVP 40 mg DAILY BREANNA Administration Potassium Chloride 10 meq 04/11/22 09:15 04/11/22 10:14 Potassium Chlori de Er 10 Meq Table t PO 10 meq DAILY BREANNA Administration Senna/Docusate Sod ium 1 tab 04/10/22 09:00 04/21/22 08:50 Sennosides-Docus ate Tablet PO 1 tab DAILY BREANNA Administration Sodium Chloride 5 - 10 ml 04/12/22 16:15 04/21/22 03:43 Sodium Chloride 0.9 % (Flush) Syri nge 10 Ml IV Not Given Q12H BREANNA Sodium Chloride 5 - 10 ml 04/12/22 16:13 04/14/22 22:39 Sodium Chloride 0.9 % (Flush) Syri nge 10 Ml IV 10 ml PRN PRN Administration Central line flus h Sodium Chloride 1,000 - 7,000 ml 04/20/22 15:37 04/20/22 16:15 Sodium Chloride 0.9% 1,000 Ml Bag CRRT 7,000 ml PRN PRN Administration For priming CRRT Machine Vitals/I&O/Wt Last Vital Signs Temp 96.9 F L 04/22/22 06:00 Pulse 63 04/22/22 06:00 Resp 22 H 04/22/22 05:45 BP 120/68 04/22/22 06:00 Pulse Ox 96 04/22/22 05:45 O2 Del Method 04/22/22 06:00 O2 Flow Rate 612 04/16/22 06:07 FiO2 90 04/22/22 06:00 04/21/22 04/22/22 04/22/22 22:59 06:59 14:59 Intake Total 679.934 / 1521.940 500 / 1.940 Output Total 325 / 325 Balance 679.934 / 1521.940 175 / 1696.940 Weight last 48 hrs Weight 472 lb 3 oz Weight 491 lb 1 oz Physical Exam Narrative: PHYSICAL EXAM: General: lying in bed, sedated and intubated. HEENT:NCAT, PERRLA, EOMI Neck: Supple Lungs: Bilateral upper lung zones clear-difficult to auscultate given patient's body size Heart: s1/s2, RRR Abd: soft, NT, ND, BS + Normoactive Extremities: Chronic bilateral lymphedema, right anterior burton-open clear wound with surrounding erythema with no significant bruising. CENTRAL OFFICE FRAME WIRER: sedated and limited CENTRAL OFFICE FRAME WIRER exam possible. SKIN: no rash LDA: # CVC: Right internal jugular # HD Cath : 04/13/2022 right femoral line # Morton: Present Urinary Catheter Management: Coude: Cath Placed During This Visit: yes Reason for Continuing Indwelling Catheter: Accurate Measurement of Urinary Output in Critically Ill Patients Urinary Catheter Date of Insertion: 04/09/22 Urinary Catheter Time of Insertion: 15:30 Data : 04/22/22 03:30 04/22/22 09:35 Other Labs: Radiology Impressions KUB X-Ray 04/11/22 07:37 IMPRESSION: Nonspecific bowel gas pattern, as noted above. Renal Ultrasound 04/12/22 15:56 IMPRESSION: 1. Examination is limited secondary to body habitus. 2. Urinary bladder is not visualized. 3. The abdominal aorta is obscured. 4. No obvious hydronephrosis. 5. Probable echogenic right renal cortex compared to the liver consistent with bilateral medical renal disease. Chest Ultrasound 04/16/22 08:55 IMPRESSION: No pleural effusions. Lower Extremity CT 04/16/22 09:01 IMPRESSION: 1. Similar-appearing diffuse extensive edema RIGHT lower extremity extending to the foot. 2. No evidence of drainable abscess or fluid collection. 3. No evidence of osteomyelitis. 4. Previously described tiny suspected area of ulceration about the lateral malleolus is unchanged. Chest X-Ray 04/22/22 05:00 Impression: No change from chest x-ray 2 days ago. Laboratory Results WBC 7.5 10^3/uL (4.0-10.0) 04/22/22 03:30 RBC 3.75 10^6/uL (4.1-5.3) L 04/22/22 03:30 Hgb 10.5 g/dL (11.5-15.3) L 04/22/22 03:30 Hct 35.8 % (37.0-47.0) L 04/22/22 03:30 MCV 95.5 fl (81-99) 04/22/22 03:30 MCH 28.0 pg (28.0-34.0) 04/22/22 03:30 MCHC 29.3 g/dL (30.0-36.0) L 04/22/22 03:30 RDW 18.3 % (12.1-15.1) H 04/22/22 03:30 Plt Count 143 10^3/cmm (130-400) 04/22/22 03:30 MPV 11.9 fL (7.4-10.4) H 04/22/22 03:30 Neut % (Auto) 80.5 % 04/22/22 03:30 Lymph % (Auto) 11.1 % 04/22/22 03:30 [facility] % (Auto) 5.6 % 04/22/22 03:30 Eos % (Auto) 1.6 % 04/22/22 03:30 Baso % (Auto) 0.4 % 04/22/22 03:30 Neut # (Auto) 6.01 10^3/uL (1.8-7.7) 04/22/22 03:30 Lymph # (Auto) 0.8 10^3/uL (0.8-4.8) 04/22/22 03:30 [facility] # (Auto) 0.4 10^3/uL (0.2-0.9) 04/22/22 03:30 Eos # (Auto) 0.1 10^3/uL (0.0-0.8) 04/22/22 03:30 Baso # (Auto) 0.0 10^3/uL (0.0-0.1) 04/22/22 03:30 Nucleated RBC % (auto) 0 % 04/22/22 03:30 Total Counted 100 (0-100) 04/09/22 14:25 Atypical Lymphs % 1.0 % (0-5) 04/09/22 14:25 Absolute Neutrophils 11.8 10^3/cmm (1.4-6.5) H 04/09/22 14:25 Segmented Neutrophils 91 % 04/09/22 14:25 Abs Segm Neuts (Man) 11.5 10/cmm (1.6-7.1) H 04/09/22 14:25 Band Neutrophils 3.0 % 04/09/22 14:25 Abs Band Neuts (Man) 0.4 10^3/cmm (0.0-1.2) 04/09/22 14:25 Absolute Lymphocytes 0.6 10^3/cmm (1.2-3.4) L 04/09/22 14:25 Lymphocytes (Manual) 4 % 04/09/22 14:25 Monocytes (Manual) 1.0 % 04/09/22 14:25 Absolute Monocytes 0.1 10^3/cmm (0.1-0.6) 04/09/22 14:25 Eosinophils (Manual) 0 % 04/09/22 14: Absolute Eosinophils 0.0 10^3/cmm (0.0-0.7) 04/09/22 14:25 Basophils (Manual) 0.0 % 04/09/22 14: Absolute Basophils 0.0 10^3/cmm (0.0-0.2) 04/09/22 14:25 Nucleated RBCs # 0.0 /100WBC 04/22/22 03:30 Platelet Estimate Normal (Normal) 04/09/22 14:25 Giant Platelets Trace 04/09/22 14:25 Polychromasia Trace 04/09/22 14:25 Hypochromasia Trace 04/09/22 14:25 Poikilocytosis Trace 04/09/22 14:25 Anisocytosis Trace 04/09/22 14:25 Microcytosis Trace 04/09/22 14:25 Macrocytosis Trace 04/09/22 14:25 Spherocytes Trace 04/09/22 14:25 Target Cells Trace 04/09/22 14:25 Tear Drop Cells Trace 04/09/22 14:25 Ovalocytes Trace 04/09/22 14:25 [place] Cells Trace 04/09/22 14:25 ESR 24 mm/hr (0-15) H 04/09/22 14:25 PT 15.70 SECONDS (12.1-14.9) H 04/17/22 03:05 INR 1.22 (0.8-1.2) H 04/17/22 03:05 APTT 52.7 SECONDS (23.9-36.7) H 04/18/22 09:00 Fibrinogen 760 mg/dL (174-498) H 04/17/22 03:05 Fibrin Degrad Products Neg, <10 ug/mL (NEG) 04/17/22 03:05 D-Dimer 2.24 ug/mIFEU (0-0.59) H 04/17/22 03:05 Specimen Type Arterial 04/22/22 04:30 Sample Site Brachial, left 04/22/22 04:30 ABG pH 7.28 (7.35-7.45) L 04/22/22 04:30 ABG pCO2 58.5 mmHg (35-45) H 04/22/22 04:30 ABG pO2 84.5 mmHg (80.0-100.0) 04/22/22 04:30 ABG HCO3 27.5 mmol/L (22-26) H 04/22/22 04:30 ABG O2 Saturation 96.4 04/22/22 04:30 ABG Base Excess -0.5 mmol/L (-2.0-2.0) 04/22/22 04:30 Harsha Test N/a 04/22/22 04:30 A-a O2 Gradient 68.7 mmHg (5-10) H 04/22/22 04:30 Hematocrit 42.0 % (37-47) 04/22/22 04:30 Hgb O2 Saturation 94.4 % (95-100) L 04/22/22 04:30 Carboxyhemoglobin 0.9 %THgb (0.4-20.1) 04/22/22 04:30 Methemoglobin 1.2 % (0.4-1.5) 04/22/22 04:30 Total Hemoglobin 13.7 g/dL (12-16) 04/22/22 04:30 Sodium 146.0 mmol/L (131-143) H 04/22/22 04:30 Potassium 3.9 mmol/L (3.5-5.0) 04/22/22 04:30 Glucose 74.0 mg/dL (70-115) 04/22/22 04:30 Ionized Calcium 1.1 mmol/L (1.1-1.4) 04/22/22 04:30 O2 Delivery Device Vent 04/22/22 04:30 O2 Liters/Min 15.0 % 04/10/22 21:45 FiO2 95.0 % 04/22/22 04:30 Tidal Volume 0.42 04/22/22 04:30 PEEP 18.0 cmH20 04/22/22 04:30 Artificial Breast Fabricator ID Shamir 04/22/22 04:30 Sodium 146 mmol/L (136-145) H 04/22/22 09:35 Potassium 4.1 mmol/L (3.5-5.1) 04/22/22 09:35 Chloride 105 mmol/L (98-107) 04/22/22 09:35 Carbon Dioxide 25 mmol/L (22-29) 04/22/22 09:35 Anion Gap 20.1 (5-19) H 04/22/22 09:35 BUN 42 mg/dL (6-20) H 04/22/22 09:35 Creatinine 1.9 mg/dL (0.5-0.9) H 04/22/22 09:35 GFR Calculation 27.1 mL/min (90-130) L 04/22/22 09:35 Glucose 71 mg/dL (65-115) 04/22/22 09:35 POC Glucose 80 mg/dL (70-110) 04/20/22 17:27 Estimat Average Glucose 105 04/12/22 16:04 Hemoglobin A1c 5.3 % (4.0-6.0) 04/12/22 16:04 Calculated Osmolality 313 mOsm/kg (285-295) H 04/22/22 03:30 Lactate 1.3 mmol/L (0.5-2.2) 04/15/22 00:55 Calcium 8.5 mg/dL (8.5-10.5) 04/22/22 09:35 Phosphorus 4.9 mg/dL (2.5-4.5) H 04/22/22 09:35 Magnesium 1.7 mg/dL (1.7-2.3) 04/22/22 09:35 Total Bilirubin 0.8 mg/dL (0.15-1.2) 04/22/22 03:30 AST 12 U/L (0-32) 04/22/22 03:30 ALT 7 U/L (0-33) 04/22/22 03:30 Alkaline Phosphatase 57 U/L (35-105) 04/22/22 03:30 Creatine Kinase 35 U/L (26-192) 04/15/22 00:55 Troponin T Gen 5 ng/L 49 ng/L (0-10) H 04/12/22 09:18 Troponin T Baseline 54 ng/L (0-10) H 04/12/22 16:04 Troponin T 120 Minute 54.26 ng/L (0-10) H 04/12/22 18:38 Delta Troponin T 0.26 ABS# (0-10) 04/12/22 18:38 Troponin T Hi Sens 6Hr 52.47 ng/L (0-10) H 04/12/22 22:04 Troponin T Hi Sens 6Hr Delta -1.53 ng/L (0-12) L 04/12/22 22:04 C-Reactive Protein 375.7 mg/L (0.0-4.9) H 04/13/22 03:29 NT-Pro-B Natriuret Pep 9213 pg/mL (0-125) H 04/15/22 00:55 Total Protein 7.1 g/dL (6.6-8.7) 04/22/22 03:30 Albumin 3.2 g/dL (3.5-5.2) L 04/22/22 09:35 Globulin 3.7 g/dL (1.3-4.6) 04/22/22 03:30 Procalcitonin 9.20 ng/mL (0-0.5) H 04/09/22 17:12 TSH 0.44 uIU/mL (0.27-4.20) 04/09/22 17:12 Urine Color Dark yellow (Yellow) 04/12/22 16:04 Urine Appearance Cloudy (CLEAR) A 04/12/22 16:04 Urine pH 5 (5-7) 04/12/22 16:04 Ur Specific [place] 1.010 (1.005-1.030) 04/12/22 16:04 Urine Protein 1+ (Negative) H 04/12/22 16:04 Urine Glucose (UA) Norm (Normal) 04/12/22 16:04 Urine Ketones 1+ (Negative) H 04/12/22 16:04 Urine Blood 3+ (Negative) H 04/12/22 16:04 Urine Nitrate Negative (Negative) 04/12/22 16:04 Urine Bilirubin 1+ (Negative) H 04/12/22 16:04 Urine Urobilinogen Norm mg/dL (Negative) 04/12/22 16:04 Ur Leukocyte Esterase Trace (Negative) H 04/12/22 16:04 Urine RBC 5-10 /hpf (0-2) H 04/12/22 16:04 Urine WBC 5-10 /hpf (0-5) H 04/12/22 16:04 Ur Eosinophil Smear 0 (0-0) 04/12/22 16:04 Ur Squamous Epith Cells 0-4 /hpf (0-5) H 04/12/22 16:04 Amorphous Sediment 2+ /hpf 04/12/22 16:04 Urine Bacteria 1+ /hpf (NONE) H 04/12/22 16:04 Urine Eosinophils No eosinophils seen 04/12/22 16:04 Ur Random Microalbumin 30 ug/dL (0-20) H 04/12/22 16:04 Ur Random Sodium 12 mmol/L 04/12/22 16:04 Ur Random Potassium 11 04/12/22 16:04 Ur Random Potassium 11 mmol/L 04/12/22 16:04 Ur Random Chloride 15 mmol/L 04/12/22 16:04 Urine Creatinine 65 mg/dL (28-217) 04/12/22 16:04 Microalb/Creat Ratio 462 mg/dL (0-20) H 04/12/22 16:04 Fluid Color Red 04/20/22 15:45 Fluid Appearance Turbid 04/20/22 15:45 Fluid WBC 2739 /uL 04/20/22 15:45 Fluid RBC 32.000 10^3/uL 04/20/22 15:45 Fld Polynuclear WBCs # 1.121 04/20/22 15:45 Fld Polynuclear WBCs % 40.900 % 04/20/22 15:45 Fl Mononucl WBCs #(Auto) 1.618 04/20/22 15:45 Fl Mononuclear % Auto 59.100 % 04/20/22 15:45 Vancomycin Trough 9.3 ug/mL (10-15) L 04/16/22 11:10 Random Vancomycin 28.1 ug/mL (20.0-40.0) 04/21/22 14:20 Serum Ketones Negative (Negative) 04/12/22 16:04 Coronavirus 229E (PCR) Not detected (NOT DETECT) 04/09/22 15:30 Hep Bs Antigen Non-reactive (Nonreactive) 04/12/22 16:04 Hepatitis C Antibody Non-reactive (Nonreactive) 04/12/22 16:04 SARS-CoV-2 (PCR) Not detected (NOT DETECT) 04/09/22 15:30 Micro: Microbiology 04/20/22 15:45 Gram Stain - Final Lung Left Lower Lobe Bronchoalveolar Lavage Culture - Preliminary A&P Assessment and plan (1) Acute and chronic respiratory failure with hypercapnia: (2) Aspiration pneumonitis: (3) ANY (acute kidney injury): (4) Difficult ventilator weaning: (5) CHF exacerbation: (6) Obesity hypoventilation syndrome: (7) Sepsis: (8) ARDS (adult respiratory distress syndrome): (9) Stasis leg ulcer: (10) Chronic acquired lymphedema: (11) Hypertension: Qualifiers: Hypertension type: essential hypertension Qualified Code(s): I10 - Essential (primary) hypertension (12) Morbid obesity: (13) Hypertensive emergency: Plan 61-year-old morbidly obese patient with BMI 52, hypothyroidism, ALON, possible underlying obesity hypoventilation syndrome, with chronic bilateral lower extremity lymphedema-initially 04/09/2022 admitted for right lower leg cellulitis-started on antibiotics, later went into ANY and fluid overload as well as recurrent vomitings causing aspiration pneumonia-all resulting in acute on chronic hypercapnic/hypoxic respiratory failure for which she was on BiPAP for almost a week-refusing intubation until day 9-at which point she had hypertensive emergency with SBP 264 causing nasal bleeds aspiration-complicating airway-resulting in intubation for airway protection. NEURO: #Sedated propofol 40 Mg/hour, fentanyl 100 mcg/hr - off Versed -On fentanyl 100 MCG and propofol 40 -Will do awakening trial once her FiO2 requirements come down PULM: #Acute on chronic hypercarbic/hypoxic respiratory failure secondary to ARDS due to aspiration pneumonia and fluid overload; airway protection from nasal be due to hypertension #Underlying chronic hypercapnic respiratory failure secondary to obesity hypoventilation syndrome/ALON -Currently sedated and intubated with CMV with tidal volume 420/PEEP 18/respiratory rate 14/FiO2 95%; 7.2 8/58/84/20 7/96%-there is some improvement in her PaO2 but PF ratio still remains < 100 ; -Currently tidal volume increased to 450 and FiO2 decreased to 80% and patient is saturating >90% -We will continue to monitor and come down on FiO2 as feasible -Continue DuoNeb nebulization every 6 hours as needed -S/p bronchoscopy today 04/20/2022-showed erythematous mucosa throughout bilateral bronchial tree; aspirated 15 mL BAL from left lower lobe with some mucous plugs and it -BAL cultures are pending -Continue vancomycin and meropenem -Unable to obtain CT chest given patient's body habitus ~500 pounds CVS: #Hypertensive emergency-causing nasal bleeds - resolved -Currently off Cardene drip and maintaining SBP 1 20-1 50 -Initial echocardiogram was uninterpretable due to body habitus, -Suspect component of diastolic dysfunction given her morbid obesity and cannot rule out LV systolic function based on prior echo; GI: -Nutrition; TPN-will hold to avoid fluid overload -Informed RN start her on trickle tube feeds nephro -LFTs are normal RENAL: -ANY-secondary to sepsis- leading to refractory fluid overload -urine output improved with Bumex 2 Mg every 8 hour over last 24 hours she did not make any urine as she was on slow continuous ultrafiltration and removed her close to 4 L -Now renal functions are slightly worsening with hypernatremia-discussed with nephrology and agreed to back off on diuresis-she will get slow ultrafiltration for 2 hours with a target to remove 2.5 L -Hypokalemia, hypomagnesemia-corrected -Renal on board HEM: -No leukocytosis; not in DIC as patient has normal fibrinogen and FDP -Monitor platelets -No more active nasal bleeding noted -DVT prophylaxis: Lovenox ENDO: -Sugars well controlled-not requiring insulin coverage at this point of time ID: -Right lower leg cellulitis-currently on vancomycin -CT did not show any evidence of abscess -Wound looks clean -Patient was on several antibiotics since admission-vancomycin for last 14 days (she did not get any dose for 3 days in between); cefepime for 8 days, meropenem for last 4 days, doxycycline for 5 days, Flagyl for 5 days. -If BAL cultures are negative-I would rather discontinue all antibiotics unless patient spikes fevers or there is evidence of leukocytosis Code Status: Limited resuscitation Disposition: Currently we will continue in ICU Critically ill: Yes MD discussed with: Family members, RN, RT, telenephrology and hospitalist ICU CHECKLIST: Problem list updated Verbal orders reviewed and signed Analgesia: On fentanyl gtt. Glycemic Control: N/A Nutrition: trickle tube feeds Restraint Renewal (within 24 hrs): Yes Ulcer Prophylaxis: Yes PPI Chemical Thromboprophylaxis: Prophylaxis: lovenox Mechanical Thromboprophylaxis: Yes but too big for her Calves Need for Central line: Yes for multiple medications and drips Need for Morton catheter: Yes I had an extensive discussion with daughter at bedside-and explained about medical condition, prognosis and treatment plan. She verbalized understanding and agreed with the plan. Attestations Medical Necessity Statement*: Patient intubated mechanically ventilated, need close monitoring in ICU Time Spent in Patient Care: Greater than 35 minutes (>than 50% of time spent in counselling and/or direct pt care on unit). Critical Care Time: The high probability of a clinically significant, sudden or life threatening deterioration of the patient's?[neurological, pulmonary, cardiac, GI, hematologic, infectious]?system(s) required my full and direct attention, intervention and personal management. The critical care time is as shown. This time is in addition to time spent performing any reported procedures but includes the following: [x]?Data and vital sign review and interpretation [x]?Patient assessment, examination and intervention [x]?Documentation [x]?Medication orders and management Critical Care Time (min): 45 Coding Level of Care Code Established Pt Acute Brush Operator for Chg Fwd Patient Type Established History Comprehensive Exam Comprehensive Medical Decision Making High Complexity Diagnoses Acute and chronic respiratory failure with hypercapnia J96.22 Aspiration pneumonitis J69.0 ANY (acute kidney injury) N17.9 Difficult ventilator weaning Z99.11 CHF exacerbation I50.9 Obesity hypoventilation syndrome E66.2 Sepsis A41.9 ARDS (adult respiratory distress syndrome) J80 Stasis leg ulcer I83.009; L97.909 Chronic acquired lymphedema I89.0 Hypertension I10 Hypertension type: essential hypertension Morbid obesity E66.01 Hypertensive emergency I16.1 Time Spent (min) 45
--- NOTE | 2022-04-22 08:10 | PM.PN ---
Subjective Subjective: remains intubated, sedated, prone. not able to obtain a ROS Medications: Reviewed: Yes Medication Review Details: Current Medications Acetaminophen (Acetaminophen 500 Mg Tablet) 500 mg PO Q4H PRN PRN Reason: fever Last Admin: 04/11/22 19:48 Dose: 500 mg Albuterol/Ipratropium (Ipratropium-Albuterol 3 Ml Neb) 3 ml INHALATION Q6H PRN PRN Reason: SHORTNESS OF BREATH Albuterol/Ipratropium (Ipratropium-Albuterol 3 Ml Neb) 3 ml INHALATION Q6H.RESP [facility] Last Admin: 04/22/22 07:48 Dose: 3 ml Alteplase, Recombinant (Alteplase 1 Mg/Ml Sdv 2 Ml) 0 mg INTRACATH Q2H PRN; Protocol PRN Reason: Poor Catheter Flow/ Clotted Catheter Artificial Tears (Artificial Tears Op Soln 15 Ml Btl) 1 drop EYE-BOTH Q4H PRN PRN Reason: DRY EYE(S) Last Admin: 04/20/22 01:52 Dose: 1 drop Bacitracin (Bacitracin Ointment 28 Gm) 1 applic TOPICAL TID [facility]; Protocol Last Admin: 04/21/22 20:55 Dose: Not Given Bumetanide (Bumetanide 0.25 Mg/Ml Sdv 10 Ml) 2 mg IVP Q12H [facility] CRRT Dialysis Solution (Prismasol Bgk 4/2.5 - 5,000 Ml Bag) 5,000 ml CRRT CONT [facility]; Protocol Last Admin: 04/21/22 14:56 Dose: Not Given Chlorhexidine Gluconate (Chlorhexidine Gluconate 4% Btl 118 Ml) 1 applic TOPICAL 0100 [facility] Last Admin: 04/22/22 01:13 Dose: 1 applic Collagenase (Collagenase Oint 30 Gm) 1 applic TOPICAL Q24H [facility] Last Admin: 04/21/22 23:05 Dose: Not Given Enoxaparin Sodium (Enoxaparin 150 Mg/Ml Syringe) 150 mg SUBCUT Q12H [facility] Last Admin: 04/22/22 02:54 Dose: 150 mg Fluoxetine HCl (Fluoxetine 20 Mg Capsule) 20 mg PO BID [facility] Last Admin: 04/21/22 18:13 Dose: 20 mg Heparin Sodium (Porcine) (Heparin Lock Flush 500 Unit/5 Ml Syringe) 200 - 500 unit IV Q12H [facility] Last Admin: 04/22/22 03:37 Dose: Not Given Heparin Sodium (Porcine) (Heparin Lock Flush 500 Unit/5 Ml Syringe) 200 - 500 unit IV PRN PRN PRN Reason: Central line flush Last Admin: 04/14/22 22:39 Dose: 500 unit Heparin Sodium (Porcine) (Heparin Lock Flush 500 Unit/5 Ml Syringe) 500 unit IV PRN PRN PRN Reason: At CRRT disconnect Hydralazine HCl (Hydralazine 20 Mg/Ml Inj 1 Ml) 10 mg IVP Q4H PRN PRN Reason: bp> 180./100 Last Admin: 04/19/22 21:52 Dose: 10 mg Hydralazine HCl (Hydralazine 25 Mg Tablet) 25 mg PO TID [facility] Last Admin: 04/21/22 21:39 Dose: 25 mg Hydromorphone HCl (Hydromorphone 1 Mg/Ml Inj 1 Ml) 0.2 mg IVP Q4H PRN PRN Reason: PAIN Amino Acids/Electrolytes (Clinimix E 4.25%-10%) 1,000 mls @ 10 mls/hr IV .Q24H [facility] Last Admin: 04/21/22 20:52 Dose: Not Given Sodium Chloride (Sodium Chloride 0.9%) 1,000 mls @ 0 mls/hr IV .Q0M PRN PRN Reason: hypotension or symptomatic Sodium Chloride (Sodium Chloride 0.9%) 1,000 mls @ 0 mls/hr IV .Q0M PRN PRN Reason: hypotension or symptomatic Albumin Human (Albumin) 25 gm in 100 mls @ 60 mls/hr IV Q8H [facility] Last Infusion: 04/22/22 04:29 Dose: Infused Meropenem 1,000 mg/ Sodium (Chloride) 50 mls @ 100 mls/hr IV Q8H [facility] Last Admin: 04/22/22 06:23 Dose: 100 mls/hr Propofol (Diprivan) 1,000 mg in 100 mls @ 0 mls/hr IV .Q0M [facility]; Protocol Last Admin: 04/22/22 06:23 Dose: 40 mcg/kg/min, 61.56 mls/hr Fentanyl 2,500 mcg/ Sodium (Chloride) 250 mls @ 0 mls/hr IV .Q0M [facility]; Protocol Last Admin: 04/21/22 20:54 Dose: 100 mcg/hr, 10 mls/hr Midazolam HCl 100 mg/ Sodium (Chloride) 100 mls @ 0 mls/hr IV .Q0M [facility]; Protocol Last Titration: 04/21/22 19:00 Dose: 0 mg/hr, 0 mls/hr Vancomycin HCl 2,000 mg/ (Sodium Chloride) 500 mls @ 250 mls/hr IV Q12H [facility] Last Infusion: 04/21/22 05:13 Dose: Infused Lanolin (Lanolin Oint 7 Gm) 1 applic TOPICAL PRN PRN PRN Reason: DRYNESS Last Admin: 04/16/22 20:05 Dose: 1 applic Lidocaine HCl (Lidocaine 2% Jelly 6 Ml) 1 applic TOPICAL PRN PRN PRN Reason: PAIN Last Admin: 04/12/22 01:57 Dose: 1 applic Lidocaine HCl (Lidocaine 1% Inj 20 Ml Mdv (Ml)) 0.1 ml INTRADERMA PRN PRN PRN Reason: Anesthetic Catheter Placement Lorazepam (Lorazepam 2 Mg/Ml Inj 1 Ml) 2 mg IVP Q4H PRN PRN Reason: ANXIETY Last Admin: 04/19/22 19:39 Dose: 2 mg Methocarbamol (Methocarbamol 500 Mg Tablet) 500 mg PO BID [facility] Last Admin: 04/11/22 18:29 Dose: 500 mg Morphine Sulfate (Morphine 4 Mg/Ml Sdv 1 Ml) 2 mg IVP Q8H PRN PRN Reason: SEVERE PAIN Last Admin: 04/19/22 22:13 Dose: 2 mg Nitroglycerin (Nitroglycerin 1 Gm/Inch Oint Pkt) 0.5 inch TOPICAL Q6H PRN PRN Reason: Blood pressure greater than 180/100 Last Admin: 04/19/22 19:30 Dose: 0.5 inch Ondansetron HCl (Ondansetron 2 Mg/Ml Sdv 2 Ml) 4 mg IVP Q6H PRN PRN Reason: NAUSEA AND VOMITING Last Admin: 04/10/22 19:49 Dose: 4 mg Pantoprazole Sodium (Pantoprazole 40 Mg Sdv) 40 mg IVP DAILY [facility] Last Admin: 04/21/22 08:50 Dose: 40 mg Potassium Chloride (Potassium Chloride Er 10 Meq Tablet) 10 meq PO DAILY [facility] Last Admin: 04/11/22 10:14 Dose: 10 meq Senna/Docusate Sodium (Sennosides-Docusate Tablet) 1 tab PO DAILY [facility] Last Admin: 04/21/22 08:50 Dose: 1 tab Sodium Chloride (Sodium Chloride 0.9 % (Flush) Syringe 10 Ml) 5 - 10 ml IV Q12H [facility] Last Admin: 04/22/22 03:37 Dose: Not Given Sodium Chloride (Sodium Chloride 0.9 % (Flush) Syringe 10 Ml) 5 - 10 ml IV PRN PRN PRN Reason: Central line flush Last Admin: 04/14/22 22:39 Dose: 10 ml Sodium Chloride (Sodium Chloride 0.9% 1,000 Ml Bag) 1,000 - 7,000 ml CRRT PRN PRN PRN Reason: For priming CRRT Machine Last Admin: 04/20/22 16:15 Dose: 7,000 ml Vitals/I&O/Wt Last Vital Signs Temp 96.9 F L 04/22/22 06:00 Pulse 60 04/22/22 07:48 Resp 22 H 04/22/22 07:51 BP 120/68 04/22/22 06:00 Pulse Ox 97 04/22/22 07:51 O2 Del Method 04/22/22 07:48 O2 Flow Rate 612 04/16/22 06:07 FiO2 90 04/22/22 07:51 04/21/22 04/22/22 04/22/22 22:59 06:59 14:59 Intake Total 679.934 / 1521.940 500 / 2021.940 Output Total 325 / 325 Balance 679.934 / 1521.940 175 / 1696.940 Weight last 48 hrs Weight 214.181 kg Weight 222.742 kg Physical Exam Narrative: prone in bed on CRRT vs noted- vent fio2=90% heent- nc/at, eomi neck obese lungs crackles b/l heart reg abd soft, nt, nd, + bs ext b/l edema skin cellulitis on leg neuro- sedated Urinary Catheter Management: Coude: Cath Placed During This Visit: yes Reason for Continuing Indwelling Catheter: Accurate Measurement of Urinary Output in Critically Ill Patients Urinary Catheter Date of Insertion: 04/09/22 Urinary Catheter Time of Insertion: 15:30 Data : 04/22/22 03:30 04/22/22 03:30 Micro: Microbiology 04/20/22 15:45 Gram Stain - Final Lung Left Lower Lobe Bronchoalveolar Lavage Culture - Preliminary A&P Assessment and plan (1) Acute kidney injury: see below Plan 61 yr old female rt leg cellulitis and ATN 1AKI - required daily HD via RT femoral temp HD catheter on 04-12-22 - did SCUF last 2 days -hold SCUF -will start SUF - 2 hrsremove 2.5 l hypernatremia from UF 2. cellulitis- abx per medicine- dose for ANY on HD -keep vanco trough under 19 3. htn- monitor w/ fluid removal- improved w/ propofol 4. resp acidosis- now intubated. Q ARDS seen and examined w/ [employer]- telehealth visit time spent 30 min discussed w/ Liliana Wang and Datar Attestations Medical Necessity Statement*: VDRF, ANY Time Spent in Patient Care: 16 - 35 minutes (>than 50% of time spent in counselling and/or direct pt care on unit). Coding Level of Care Code Acute Dye Range Feeder for Kinga Watson Diagnoses Acute kidney injury N17.9
--- NOTE | 2022-04-22 08:30 | PC.NURSE ---
Propofol gtt Pump: Weight changed on pump to reflect patient's current weight
[2022-04-22] MEDS: pantoprazole 40 mg SDV IVP (08:36)
[2022-04-22] MEDS: sennosides-docusate Tablet 1 TAB PO (08:38)
[2022-04-22] MEDS: fluoxetine 20 mg Capsule PO ×2 (08:38→17:44)
[2022-04-22] MEDS: sodium chloride 0.9% 1,000 mL Bag CRRT (09:13)
[2022-04-22] MEDS: bacitracin ointment 28 gm 1 APPLIC TOPICAL ×3 (10:11→20:17)
[2022-04-22] MEDS: sodium chloride 0.9 % (flush) syringe 10 mL IV ×2 (10:15→15:45)
[2022-04-22] MEDS: sodium chloride 0.9% 1,000 ML 1 ML IV ×2 (10:16→10:58)
[2022-04-22 10:18] LABS: Albumin Level 3.2 g/dL (3.5-5.2); Anion Gap 20.1 (5-19); Blood Urea Nitrogen 42 mg/dL (6-20); Calcium 8.5 mg/dL (8.5-10.5); Carbon Dioxide 25 mmol/L (22-29); Chloride 105 mmol/L (98-107); Glomerular Filtration Rate 27.1 mL/min (90-130); Glucose 71 mg/dL (65-115); Magnesium 1.7 mg/dL (1.7-2.3); Phosphorus 4.9 mg/dL (2.5-4.5); Potassium 4.1 mmol/L (3.5-5.1); Sodium 146 mmol/L (136-145)
[2022-04-22 11:08] LABS: Glucose Point of Care 96 mg/dL (70-110)
--- NOTE | 2022-04-22 13:32 | PC.NUTR ---
Consult for TF received. Pt receiving Diprivan 61.56 mls/hr which provides 1625 kcals. Currently Pt. on Nepro 1.8 trickle feeds. Recommend increasing Nepro 1.8 10 mls Q8H as tolerated until goal rate of 25 mls/hr is reached with fresh water flushes 100 mls Q4H or per MD discretion. With each water flush, recommend 1 scoop Beneprotein powder to add more protein. Details in RD assessment.
--- NOTE | 2022-04-22 14:00 | PC.NURSE ---
Bedside report completed with NILDA Milner Care transferred to her.
--- NOTE | 2022-04-22 17:58 | P.PN_ITS ---
Subjective Subjective: Patient was seen and examined this morning, currently intubated sedated on mechanical ventilation. Her a.m. labs vitals have been reviewed, ABG reviewed, supplemental oxygen requirement have come down to 80%. Medications: Reviewed: Yes Medication Review Details: Generic Name Dose Route Start Last Admin Trade Name Freq PRN Reason Stop Dose Admin Acetaminophen 500 mg 04/09/22 19:24 04/11/22 19:48 Acetaminophen 50 0 Mg Tablet PO 500 mg Q4H PRN Administration fever Albuterol/Ipratrop ium 3 ml 04/20/22 20:00 04/22/22 13:48 Ipratropium-Albu terol 3 Ml Neb INHALATION 3 ml Q6H.RESP [facility] Administration Artificial Tears 1 drop 04/19/22 09:08 04/20/22 01:52 Artificial Tears Op Soln 15 Ml Btl EYE-BOTH 1 drop Q4H PRN Administration DRY EYE(S) Bacitracin 1 applic 04/09/22 21:00 04/22/22 15:44 Bacitracin Ointm ent 28 Gm TOPICAL 1 applic TID [facility] Administration Protocol Bumetanide 2 mg 04/22/22 07:30 04/22/22 08:37 Bumetanide 0.25 Mg/Ml Sdv 10 Ml IVP 2 mg Q12H [facility] Administration Chlorhexidine Gluc fritz 1 applic 04/21/22 01:00 04/22/22 01:13 Chlorhexidine Gl uconate 4% Btl 118 Ml TOPICAL 1 applic 0100 [facility] Administration Collagenase 1 applic 04/13/22 00:00 04/21/22 23:05 Collagenase Oint 30 Gm TOPICAL Not Given Q24H [facility] Enoxaparin Sodium 150 mg 04/18/22 14:00 04/22/22 14:42 Enoxaparin 150 M g/Ml Syringe SUBCUT 150 mg Q12H [facility] Administration Fluoxetine HCl 20 mg 04/10/22 09:30 04/22/22 08:38 Fluoxetine 20 Mg Capsule PO 20 mg BID [facility] Administration Heparin Sodium (Po rcine) 200 - 500 unit 04/12/22 16:15 04/22/22 15:45 Heparin Lock Flu sh 500 Unit/5 Ml S yringe IV Not Given Q12H [facility] Heparin Sodium (Po rcine) 200 - 500 unit 04/12/22 16:13 04/14/22 22:39 Heparin Lock Flu sh 500 Unit/5 Ml S yringe IV 500 unit PRN PRN Administration Central line flus h Hydralazine HCl 10 mg 04/19/22 09:09 04/19/22 21:52 Hydralazine 20 M g/Ml Inj 1 Ml IVP 10 mg Q4H PRN Administration bp> 180./100 Sodium Chloride 1,000 mls @ 0 mls /hr 04/14/22 07:19 04/22/22 10:16 Sodium Chloride 0.9% IV 1 mls/hr .Q0M PRN Administration hypotension or sy mptomatic As Directed Albumin Human 25 gm in 100 mls @ 60 mls/hr 04/17/22 11:00 04/22/22 13:00 Albumin IV Infused Q8H [facility] Infusion Meropenem 1,000 mg / Sodium 50 mls @ 100 mls/ hr 04/18/22 15:00 04/22/22 14:56 Chloride IV 100 mls/hr Q8H [facility] Administration Propofol 1,000 mg in 100 m ls @ 0 mls/hr 04/19/22 23:45 04/22/22 16:34 Diprivan IV 40 mcg/kg/min .Q0M [facility] 61.56 mls/hr Administration Protocol Per Protocol Fentanyl 2,500 mcg / Sodium 250 mls @ 0 mls/h r 04/19/22 23:45 04/21/22 20:54 Chloride IV 100 mcg/hr .Q0M [facility] 10 mls/hr Administration Protocol Per Protocol Midazolam HCl 100 mg/ Sodium 100 mls @ 0 mls/h r 04/20/22 09:00 04/21/22 19:00 Chloride IV 0 mg/hr .Q0M [facility] 0 mls/hr Titration Protocol Per Protocol Vancomycin HCl 2,0 00 mg/ 500 mls @ 250 mls /hr 04/20/22 15:00 04/21/22 05:13 Sodium Chloride IV Infused Q12H [facility] Infusion Sodium Chloride 1,000 mls @ 0 mls /hr 04/22/22 10:30 04/22/22 10:58 Sodium Chloride 0.9% IV 1 mls/hr .Q0M [facility] Administration As Directed Lanolin 1 applic 04/15/22 14:00 04/16/22 20:05 Lanolin Oint 7 G m TOPICAL 1 applic PRN PRN Administration DRYNESS Lidocaine HCl 1 applic 04/11/22 23:30 04/12/22 01:57 Lidocaine 2% Jel ly 6 Ml TOPICAL 1 applic PRN PRN Administration PAIN Lorazepam 2 mg 04/19/22 18:56 04/19/22 19:39 Lorazepam 2 Mg/M l Inj 1 Ml IVP 2 mg Q4H PRN Administration ANXIETY Methocarbamol 500 mg 04/10/22 09:30 04/11/22 18:29 Methocarbamol 50 0 Mg Tablet PO 500 mg BID [facility] Administration Morphine Sulfate 2 mg 04/19/22 18:17 04/19/22 22:13 Morphine 4 Mg/Ml Sdv 1 Ml IVP 2 mg Q8H PRN Administration SEVERE PAIN Nitroglycerin 0.5 inch 04/14/22 10:35 04/19/22 19:30 Nitroglycerin 1 Gm/Inch Oint Pkt TOPICAL 0.5 inch Q6H PRN Administration Blood pressure gr eater than 180/100 Ondansetron HCl 4 mg 04/09/22 19:24 04/10/22 19:49 Ondansetron 2 Mg /Ml Sdv 2 Ml IVP 4 mg Q6H PRN Administration NAUSEA AND VOMITI NG Pantoprazole Sodiu m 40 mg 04/10/22 22:15 04/22/22 08:36 Pantoprazole 40 Mg Sdv IVP 40 mg DAILY [facility] Administration Potassium Chloride 10 meq 04/11/22 09:15 04/11/22 10:14 Potassium Chlori de Er 10 Meq Table t PO 10 meq DAILY [facility] Administration Senna/Docusate Sod ium 1 tab 04/10/22 09:00 04/22/22 08:38 Sennosides-Docus ate Tablet PO 1 tab DAILY [facility] Administration Sodium Chloride 5 - 10 ml 04/12/22 16:15 04/22/22 15:45 Sodium Chloride 0.9 % (Flush) Syri nge 10 Ml IV 10 ml Q12H [facility] Administration Sodium Chloride 5 - 10 ml 04/12/22 16:13 04/22/22 10:15 Sodium Chloride 0.9 % (Flush) Syri nge 10 Ml IV 10 ml PRN PRN Administration Central line flus h Vitals/I&O/Wt Last Vital Signs Temp 95.6 F L 04/22/22 10:30 Pulse 61 04/22/22 17:11 Resp 23 H 04/22/22 17:12 BP 121/66 04/22/22 17:11 Pulse Ox 92 04/22/22 17:12 O2 Del Method 04/22/22 17:11 O2 Flow Rate 80 04/22/22 12:30 FiO2 80 04/22/22 17:12 04/22/22 04/22/22 04/22/22 06:59 14:59 22:59 Intake Total 500 / 2021.940 901.286 / 901.286 100 / 1001.286 Output Total 325 / 325 2600 / 2600 0 / 2600 Balance 175 / 1696.940 -1698.714 / -1698.714 100 / -1598.714 Weight last 48 hrs Weight 214.181 kg Weight 222.742 kg Physical Exam Narrative: Intubated, sedated on mechanical ventilation Resp: OTHER: Diminished air entry bilaterally, bilateral crackles predominantly in the lower lung contreras. Cardio: COMMON NORMALS: regular rate, regular rhythm, S1 normal heart sound present, S2 normal heart sound present, No gallops present (Cardio), No murmurs present (Cardio), No rub (Cardio) and Peripheral pulses 2+ throughout RATE: regular rate RHYTHM: regular rhythm HEART SOUNDS: S1 normal heart sound present and S2 normal heart sound present PERIPHERAL PULSES: Peripheral pulses 2+ throughout GI: COMMON NORMALS: Normal to inspection, nondistended, normoactive bowel sounds present, Soft to palpation, non-tender, No hepatosplenomegaly present and no masses AUSCULTATION: Yes normoactive bowel sounds PALPATION: Yes Soft to palpation and Yes No hepatosplenomegaly present RECTAL EXAM: deferred Extremity: COMMON NORMALS: no clubbing, cyanosis or edema and no pedal edema OTHER: 2+ bilateral lower extremity pitting edema Urinary Catheter Management: Coude: Cath Placed During This Visit: yes Reason for Continuing Indwelling Catheter: Accurate Measurement of Urinary Output in Critically Ill Patients Urinary Catheter Date of Insertion: 04/09/22 Urinary Catheter Time of Insertion: 15:30 Data : 04/22/22 03:30 04/22/22 09:35 Micro: Microbiology 04/20/22 15:45 Gram Stain - Final Lung Left Lower Lobe Bronchoalveolar Lavage Culture - Preliminary A&P Assessment and plan (1) DIC (disseminated intravascular coagulation): (2) CHF exacerbation: (3) Hyponatremia: (4) Oliguria: (5) V tach: (6) Obesity hypoventilation syndrome: (7) Aspiration pneumonitis: (8) Sepsis: (9) Wound infection: (10) Stasis leg ulcer: (11) Chronic acquired lymphedema: (12) Morbid obesity: Plan Assessment: Septic shock Respiratory failure with hypoxia and hypercapnia secondary to severe ARDS likely secondary to aspiration pneumonia Acute renal failure secondary to ATN secondary to sepsis Obesity hypoventilation syndrome History of chronic acquired lymphedema Morbid obesity Hypertension Heart failure 61-year-old female with past medical history of chronic acquired lymphedema morbid obesity, hyperthyroidism hypertension, was brought in with chief complaint of nausea vomiting fever and chills, was initially admitted for the management of sepsis secondary to right lower extremity cellulitis, unfortunately she had a complicated hospital course, resulting in development of, acute renal failure, possibly secondary to ATN secondary to sepsis, as well as septic shock, secondary to aspiration pneumonia, severe ARDS secondary to aspiration pneumonia, initially on BiPAP, but later had to be intubated, as she was not responding to BiPAP. For her acute renal failure likely secondary to ATN secondary to sepsis she was initially on hemodialysis, kidney function has recovered, though currently she continues to be on Bumex IV as well as, SCUF, for volume overload. With regards to her sepsis blood culture has been negative so far, urine culture is negative CT lower leg RT wo con: Similar-appearing diffuse extensive edema RIGHT lower extremity extending to the foot.No evidence of drainable abscess or fluid collection.No evidence of osteomyelitis. She has been kept on broad-spectrum antibiotics. For acute hypoxic, hypercapnic respiratory failure : secondary to severe ARDS secondary to aspiration pneumonia/volume overload. She had to be intubated, after extreme persuasion as family was not ready for intubation initially, s/p bronc, showed erythematous mucosa throughout bilateral bronchial tree;culture has been sent, results awaited. Later hospital course has also been complicated by development of hypertensive emergencies: For which patient has been kept on IV antihypertensive drip. Patient has been empirically kept on therapeutic anticoagulation as there has been concern for possible PE, no CT imaging studies so far has been pursued given the size of the patient. 2D echo : Is a poor quality due to poor quality window. Ultimate aim is to try for LTAC placement. CODE STATUS: Limited resuscitation DVT prophylaxis not needed: On therapeutic anticoagulation Attestations Medical Necessity Statement*: Patient is in hospital for management of respiratory failure Time Spent in Patient Care: Greater than 35 minutes (>than 50% of time spent in counselling and/or direct pt care on unit) . Coding Level of Care Code Acute Gas Well Pumper for g Fwd Diagnoses DIC (disseminated intravascular coagulation) D65 CHF exacerbation I50.9 Hyponatremia E87.1 Oliguria R34 V tach I47.20 Obesity hypoventilation syndrome E66.2 Aspiration pneumonitis J69.0 Sepsis A41.9 Wound infection T14.8XXA; L08.9 Stasis leg ulcer I83.009; L97.909 Chronic acquired lymphedema I89.0 Morbid obesity E66.01
[2022-04-23] VITALS (35 sets, daily range): BP systolic 101–122; BP diastolic 46–65; PULSE 67–85; RESP 13–22; TEMP 36.1–36.9; O2SAT 91–97
[2022-04-23] MEDS: propofol 1,000 MG/100 ML INJ 61.56 MG IV ×3 (00:24→04:16)
[2022-04-23] MEDS: collagenase oint 30 gm 1 APPLIC TOPICAL (00:24)
[2022-04-23] MEDS: chlorhexidine gluconate 4% Btl 118 mL 1 APPLIC TOPICAL (00:24)
[2022-04-23 01:11] LABS: Glucose Point of Care 73 mg/dL (70-110)
[2022-04-23] MEDS: ipratropium-albuterol 3 mL Neb INHALATION ×4 (02:03→19:55)
[2022-04-23] MEDS: enoxaparin 150 mg/mL Syringe SUBCUT ×2 (02:14→14:00)
[2022-04-23] MEDS: sodium chloride 0.9 % (flush) syringe 10 mL IV ×2 (03:46→16:26)
[2022-04-23 04:30] LABS: Alanine Aminotransferase 7 U/L (0-33); Albumin Level 3.4 g/dL (3.5-5.2); Alkaline Phosphatase 59 U/L (35-105); Aspartate Amino Transferase 18 U/L (0-32); Blood Urea Nitrogen 47 mg/dL (6-20); Calcium 8.8 mg/dL (8.5-10.5); Carbon Dioxide 26 mmol/L (22-29); Chloride 103 mmol/L (98-107); Glomerular Filtration Rate 19.7 mL/min (90-130); Glucose 68 mg/dL (65-115); Magnesium 1.8 mg/dL (1.7-2.3); Osmolality Calculated 307 mOsm/kg (285-295); Phosphorus 6.6 mg/dL (2.5-4.5); Sodium 143 mmol/L (136-145); Total Bilirubin 0.7 mg/dL (0.15-1.2); Total Protein 7.4 g/dL (6.6-8.7)
[2022-04-23 04:34] LABS: Glucose Point of Care 79 mg/dL (70-110)
[2022-04-23 04:38] LABS: Vancomycin Random 25.4 ug/mL (20.0-40.0)
[2022-04-23 04:40] LABS: ABG PH Result 7.23 (7.35-7.45); Alveolar-Arterial Oxygen Gradi 58.4 mmHg (5-10); Arterial Blood Gas Hematocrit 32.8 % (37-47); Base Excess ABG -2.9 mmol/L (-2.0-2.0); Blood Gas Allen Test Pos; Blood Gas Operator Identificat WALCI; Blood Gas Sample Site Radial, right; Blood Gas Sample Type Arterial; Carboxyhemoglobin 0.9 %THgb (0.4-20.1); HCO3 ABG 25.4 mmol/L (22-26); Ionized Calcium Level - ABG 1.2 mmol/L (1.1-1.4); Methemoglobin 1.3 % (0.4-1.5); Oxygen Device VENT; Oxygen Saturation ABG 96.1; PO2 ABG 84.7 mmHg (80.0-100.0); Potassium Level - ABG 4.8 mmol/L (3.5-5.0); Total Hemoglobin 10.7 g/dL (12-16)
[2022-04-23 04:41] LABS: Anion Gap 19.1 (5-19)
[2022-04-23 04:42] LABS: Potassium 5.1 mmol/L (3.5-5.1)
[2022-04-23 04:43] LABS: ABG PCO2 61.4 mmHg (35-45)
[2022-04-23] MEDS: meropenem 1,000 MG in sodium chloride 0.9% (plus) 50 ML 100 MG IV ×3 (06:15→23:23)
[2022-04-23] MEDS: propofol 1,000 MG/100 ML INJ 53.87 MG IV ×5 (06:15→15:24)
--- NOTE | 2022-04-23 06:47 | P.PN_ITS ---
Subjective Subjective: remains intubated and sedated. tolerated SUF yesterday. can not obtain a ROS due to poor MS Medications: Reviewed: Yes Medication Review Details: Current Medications Acetaminophen (Acetaminophen 500 Mg Tablet) 500 mg PO Q4H PRN PRN Reason: fever Last Admin: 04/11/22 19:48 Dose: 500 mg Albuterol/Ipratropium (Ipratropium-Albuterol 3 Ml Neb) 3 ml INHALATION Q6H PRN PRN Reason: SHORTNESS OF BREATH Albuterol/Ipratropium (Ipratropium-Albuterol 3 Ml Neb) 3 ml INHALATION Q6H.RESP [facility] Last Admin: 04/23/22 02:03 Dose: 3 ml Artificial Tears (Artificial Tears Op Soln 15 Ml Btl) 1 drop EYE-BOTH Q4H PRN PRN Reason: DRY EYE(S) Last Admin: 04/20/22 01:52 Dose: 1 drop Bacitracin (Bacitracin Ointment 28 Gm) 1 applic TOPICAL TID [facility]; Protocol Last Admin: 04/22/22 20:17 Dose: 1 applic Bumetanide (Bumetanide 0.25 Mg/Ml Sdv 10 Ml) 2 mg IVP Q12H [facility] Last Admin: 04/22/22 19:37 Dose: 2 mg Chlorhexidine Gluconate (Chlorhexidine Gluconate 4% Btl 118 Ml) 1 applic TOPICAL 0100 [facility] Last Admin: 04/23/22 00:24 Dose: 1 applic Collagenase (Collagenase Oint 30 Gm) 1 applic TOPICAL Q24H [facility] Last Admin: 04/23/22 00:24 Dose: 1 applic Enoxaparin Sodium (Enoxaparin 150 Mg/Ml Syringe) 150 mg SUBCUT Q12H [facility] Last Admin: 04/23/22 02:14 Dose: 150 mg Fluoxetine HCl (Fluoxetine 20 Mg Capsule) 20 mg PO BID [facility] Last Admin: 04/22/22 17:44 Dose: 20 mg Heparin Sodium (Porcine) (Heparin Lock Flush 500 Unit/5 Ml Syringe) 200 - 500 unit IV Q12H [facility] Last Admin: 04/23/22 03:44 Dose: Not Given Heparin Sodium (Porcine) (Heparin Lock Flush 500 Unit/5 Ml Syringe) 200 - 500 unit IV PRN PRN PRN Reason: Central line flush Last Admin: 04/14/22 22:39 Dose: 500 unit Hydralazine HCl (Hydralazine 20 Mg/Ml Inj 1 Ml) 10 mg IVP Q4H PRN PRN Reason: bp> 180./100 Last Admin: 04/19/22 21:52 Dose: 10 mg Hydromorphone HCl (Hydromorphone 1 Mg/Ml Inj 1 Ml) 0.2 mg IVP Q4H PRN PRN Reason: PAIN Sodium Chloride (Sodium Chloride 0.9%) 1,000 mls @ 0 mls/hr IV .Q0M PRN PRN Reason: hypotension or symptomatic Sodium Chloride (Sodium Chloride 0.9%) 1,000 mls @ 0 mls/hr IV .Q0M PRN PRN Reason: hypotension or symptomatic Last Admin: 04/22/22 10:16 Dose: 1 mls/hr Albumin Human (Albumin) 25 gm in 100 mls @ 60 mls/hr IV Q8H [facility] Last Infusion: 04/23/22 05:26 Dose: Infused Meropenem 1,000 mg/ Sodium (Chloride) 50 mls @ 100 mls/hr IV Q8H [facility] Last Admin: 04/23/22 06:15 Dose: 100 mls/hr Propofol (Diprivan) 1,000 mg in 100 mls @ 0 mls/hr IV .Q0M [facility]; Protocol Last Admin: 04/23/22 06:15 Dose: 35 mcg/kg/min, 53.87 mls/hr Fentanyl 2,500 mcg/ Sodium (Chloride) 250 mls @ 0 mls/hr IV .Q0M [facility]; Protocol Last Admin: 04/22/22 21:45 Dose: 100 mcg/hr, 10 mls/hr Midazolam HCl 100 mg/ Sodium (Chloride) 100 mls @ 0 mls/hr IV .Q0M [facility]; Protocol Last Titration: 04/21/22 19:00 Dose: 0 mg/hr, 0 mls/hr Vancomycin HCl 2,000 mg/ (Sodium Chloride) 500 mls @ 250 mls/hr IV Q12H [facility] Last Infusion: 04/21/22 05:13 Dose: Infused Sodium Chloride (Sodium Chloride 0.9%) 1,000 mls @ 0 mls/hr IV .Q0M [facility] Last Admin: 04/22/22 10:58 Dose: 1 mls/hr Lanolin (Lanolin Oint 7 Gm) 1 applic TOPICAL PRN PRN PRN Reason: DRYNESS Last Admin: 04/16/22 20:05 Dose: 1 applic Lidocaine HCl (Lidocaine 2% Jelly 6 Ml) 1 applic TOPICAL PRN PRN PRN Reason: PAIN Last Admin: 04/12/22 01:57 Dose: 1 applic Lidocaine HCl (Lidocaine 1% Inj 20 Ml Mdv (Ml)) 0.1 ml INTRADERMA PRN PRN PRN Reason: Anesthetic Catheter Placement Lorazepam (Lorazepam 2 Mg/Ml Inj 1 Ml) 2 mg IVP Q4H PRN PRN Reason: ANXIETY Last Admin: 04/19/22 19:39 Dose: 2 mg Methocarbamol (Methocarbamol 500 Mg Tablet) 500 mg PO BID [facility] Last Admin: 04/11/22 18:29 Dose: 500 mg Morphine Sulfate (Morphine 4 Mg/Ml Sdv 1 Ml) 2 mg IVP Q8H PRN PRN Reason: SEVERE PAIN Last Admin: 04/19/22 22:13 Dose: 2 mg Nitroglycerin (Nitroglycerin 1 Gm/Inch Oint Pkt) 0.5 inch TOPICAL Q6H PRN PRN Reason: Blood pressure greater than 180/100 Last Admin: 04/19/22 19:30 Dose: 0.5 inch Ondansetron HCl (Ondansetron 2 Mg/Ml Sdv 2 Ml) 4 mg IVP Q6H PRN PRN Reason: NAUSEA AND VOMITING Last Admin: 04/10/22 19:49 Dose: 4 mg Pantoprazole Sodium (Pantoprazole 40 Mg Sdv) 40 mg IVP DAILY [facility] Last Admin: 04/22/22 08:36 Dose: 40 mg Potassium Chloride (Potassium Chloride Er 10 Meq Tablet) 10 meq PO DAILY [facility] Last Admin: 04/11/22 10:14 Dose: 10 meq Senna/Docusate Sodium (Sennosides-Docusate Tablet) 1 tab PO DAILY [facility] Last Admin: 04/22/22 08:38 Dose: 1 tab Sodium Chloride (Sodium Chloride 0.9 % (Flush) Syringe 10 Ml) 5 - 10 ml IV Q12H [facility] Last Admin: 04/23/22 03:46 Dose: 10 ml Sodium Chloride (Sodium Chloride 0.9 % (Flush) Syringe 10 Ml) 5 - 10 ml IV PRN PRN PRN Reason: Central line flush Last Admin: 04/22/22 10:15 Dose: 10 ml Vitals/I&O/Wt Last Vital Signs Temp 95.6 F L 04/22/22 10:30 Pulse 69 04/23/22 05:45 Resp 22 H 04/23/22 04:26 BP 121/66 04/22/22 17:11 Pulse Ox 93 04/23/22 04:26 O2 Del Method 04/23/22 01:58 O2 Flow Rate 80 04/22/22 12:30 FiO2 85 04/23/22 04:26 04/22/22 04/22/22 04/23/22 14:59 22:59 06:59 Intake Total 901.286 / 901.286 798.5 / 1699.786 600.000 / 2299.786 Output Total 2600 / 2600 0 / 2600 Balance -1698.714 / -1698.714 798.5 / -900.214 600.000 / -300.214 Weight last 48 hrs Weight 223.9 kg Weight 214.181 kg Physical Exam Narrative: intubated, sedated in bed vs noted- vent fio2=85% PEEP 18.rr 20, TV 450 heent- nc/at, eomi neck obese lungs crackles b/l heart reg abd soft, nt, nd, + bs ext b/l edema skin cellulitis on leg neuro- sedated Urinary Catheter Management: Coude: Cath Placed During This Visit: yes Reason for Continuing Indwelling Catheter: Accurate Measurement of Urinary Output in Critically Ill Patients Urinary Catheter Date of Insertion: 04/09/22 Urinary Catheter Time of Insertion: 15:30 Data : 04/22/22 03:30 04/23/22 03:50 Micro: Microbiology 04/20/22 15:45 Gram Stain - Final Lung Left Lower Lobe Bronchoalveolar Lavage Culture - Preliminary A&P Assessment and plan (1) Acute kidney injury: see below Plan 61 yr old female rt leg cellulitis and ATN 1AKI - required daily HD via RT femoral temp HD catheter on 04-12-22 - requiring daily dialysis repeat 3.25 hrs, 2k, remove 3l as tolerated -hyperphosphatemia- monitor w/ dialysis and binder w/ feeds 2. cellulitis- abx per medicine- dose for ANY on HD -keep vanco trough under 19 -level today 25- hold dose 3. resp acidosis- now intubated. Q ARDS seen and examined w/ CARDIOLOGY CLINICAL CONSULTANT- telehealth visit time spent 25+ min Attestations Medical Necessity Statement*: vdrf, any Time Spent in Patient Care: 16 - 35 minutes (>than 50% of time spent in counselling and/or direct pt care on unit) . 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
[2022-04-23 08:24] LABS: Basophils % 0.4 %; Eosinophils # 0.1 10^3/uL (0.0-0.8); Eosinophils % 1.6 %; Hematocrit 34.9 % (37.0-47.0); Hemoglobin 10.3 g/dL (11.5-15.3); Lymphocytes # 0.7 10^3/uL (0.8-4.8); Lymphocytes % 10.8 %; Mean Corpuscular HGB Conc 29.5 g/dL (30.0-36.0); Mean Corpuscular Hemoglobin 28.5 pg (28.0-34.0); Mean Corpuscular Volume 96.4 fl (81-99); Mean Platelet Volume 11.5 fL (7.4-10.4); Monocytes # 0.4 10^3/uL (0.2-0.9); Monocytes % 6.3 %; Neutrophils % 80.2 %; Nucleated Red Blood Cells % 0 %; Platelet Count 176 10^3/cmm (130-400); Red Blood Count 3.62 10^6/uL (4.1-5.3); Red Cell Distribution Width 18.5 % (12.1-15.1); White Blood Count 6.9 10^3/uL (4.0-10.0)
[2022-04-23] MEDS: pantoprazole 40 mg SDV IVP (09:52)
[2022-04-23] MEDS: fluoxetine 20 mg Capsule PO ×2 (09:53→17:46)
[2022-04-23] MEDS: sennosides-docusate Tablet 1 TAB PO (09:53)
[2022-04-23] MEDS: bacitracin ointment 28 gm 1 APPLIC TOPICAL ×3 (10:13→20:54)
[2022-04-23 14:10] LABS: Glucose Point of Care 81 mg/dL (70-110)
--- NOTE | 2022-04-23 16:32 | P.PN_ITS ---
Subjective Subjective: Patient was seen and examined this morning, currently intubated sedated on mechanical ventilation. AM ABG: Has been reviewed, currently supplemental oxygen requirement staying around 80-90. Patient received hemodialysis yesterday, and is also scheduled for hemodialysis today. Her other vitals and labs have been reviewed. Medications: Reviewed: Yes Medication Review Details: Generic Name Dose Route Start Last Admin Trade Name Freq PRN Reason Stop Dose Admin Acetaminophen 500 mg 04/09/22 19:24 04/11/22 19:48 Acetaminophen 50 0 Mg Tablet PO 500 mg Q4H PRN Administration fever Albuterol/Ipratrop ium 3 ml 04/20/22 20:00 04/23/22 14:40 Ipratropium-Albu terol 3 Ml Neb INHALATION 3 ml Q6H.RESP BREANNA Administration Artificial Tears 1 drop 04/19/22 09:08 04/20/22 01:52 Artificial Tears Op Soln 15 Ml Btl EYE-BOTH 1 drop Q4H PRN Administration DRY EYE(S) Bacitracin 1 applic 04/09/22 21:00 04/23/22 16:12 Bacitracin Ointm ent 28 Gm TOPICAL 1 applic TID BREANNA Administration Protocol Chlorhexidine Gluc fritz 1 applic 04/21/22 01:00 04/23/22 00:24 Chlorhexidine Gl uconate 4% Btl 118 Ml TOPICAL 1 applic 0100 BREANNA Administration Collagenase 1 applic 04/13/22 00:00 04/23/22 00:24 Collagenase Oint 30 Gm TOPICAL 1 applic Q24H BREANNA Administration Enoxaparin Sodium 150 mg 04/18/22 14:00 04/23/22 14:00 Enoxaparin 150 M g/Ml Syringe SUBCUT 150 mg Q12H BREANNA Administration Fluoxetine HCl 20 mg 04/10/22 09:30 04/23/22 09:53 Fluoxetine 20 Mg Capsule PO 20 mg BID BREANNA Administration Heparin Sodium (Po rcine) 200 - 500 unit 04/12/22 16:15 04/23/22 16:26 Heparin Lock Flu sh 500 Unit/5 Ml S yringe IV 500 unit Q12H RBEANNA Administration Heparin Sodium (Po rcine) 200 - 500 unit 04/12/22 16:13 04/14/22 22:39 Heparin Lock Flu sh 500 Unit/5 Ml S yringe IV 500 unit PRN PRN Administration Central line flus h Hydralazine HCl 10 mg 04/19/22 09:09 04/19/22 21:52 Hydralazine 20 M g/Ml Inj 1 Ml IVP 10 mg Q4H PRN Administration bp> 180./100 Sodium Chloride 1,000 mls @ 0 mls /hr 04/14/22 07:19 04/22/22 10:16 Sodium Chloride 0.9% IV 1 mls/hr .Q0M PRN Administration hypotension or sy mptomatic As Directed Albumin Human 25 gm in 100 mls @ 60 mls/hr 04/17/22 11:00 04/23/22 14:33 Albumin IV Infused Q8H BREANNA Infusion Meropenem 1,000 mg / Sodium 50 mls @ 100 mls/ hr 04/18/22 15:00 04/23/22 16:27 Chloride IV Infused Q8H BREANNA Infusion Propofol 1,000 mg in 100 m ls @ 0 mls/hr 04/19/22 23:45 04/23/22 15:30 Diprivan IV 30 mcg/kg/min .Q0M BREANNA 46.17 mls/hr Titration Protocol Per Protocol Fentanyl 2,500 mcg / Sodium 250 mls @ 0 mls/h r 04/19/22 23:45 04/22/22 21:45 Chloride IV 100 mcg/hr .Q0M BREANNA 10 mls/hr Administration Protocol Per Protocol Midazolam HCl 100 mg/ Sodium 100 mls @ 0 mls/h r 04/20/22 09:00 04/21/22 19:00 Chloride IV 0 mg/hr .Q0M BREANNA 0 mls/hr Titration Protocol Per Protocol Vancomycin HCl 2,0 00 mg/ 500 mls @ 250 mls /hr 04/20/22 15:00 04/21/22 05:13 Sodium Chloride IV Infused Q12H BREANNA Infusion Sodium Chloride 1,000 mls @ 0 mls /hr 04/22/22 10:30 04/22/22 10:58 Sodium Chloride 0.9% IV 1 mls/hr .Q0M BREANNA Administration As Directed Lanolin 1 applic 04/15/22 14:00 04/16/22 20:05 Lanolin Oint 7 G m TOPICAL 1 applic PRN PRN Administration DRYNESS Lidocaine HCl 1 applic 04/11/22 23:30 04/12/22 01:57 Lidocaine 2% Jel ly 6 Ml TOPICAL 1 applic PRN PRN Administration PAIN Lorazepam 2 mg 04/19/22 18:56 04/19/22 19:39 Lorazepam 2 Mg/M l Inj 1 Ml IVP 2 mg Q4H PRN Administration ANXIETY Methocarbamol 500 mg 04/10/22 09:30 04/11/22 18:29 Methocarbamol 50 0 Mg Tablet PO 500 mg BID BREANNA Administration Morphine Sulfate 2 mg 04/19/22 18:17 04/19/22 22:13 Morphine 4 Mg/Ml Sdv 1 Ml IVP 2 mg Q8H PRN Administration SEVERE PAIN Nitroglycerin 0.5 inch 04/14/22 10:35 04/19/22 19:30 Nitroglycerin 1 Gm/Inch Oint Pkt TOPICAL 0.5 inch Q6H PRN Administration Blood pressure gr eater than 180/100 Ondansetron HCl 4 mg 04/09/22 19:24 04/10/22 19:49 Ondansetron 2 Mg /Ml Sdv 2 Ml IVP 4 mg Q6H PRN Administration NAUSEA AND VOMITI NG Pantoprazole Sodiu m 40 mg 04/10/22 22:15 04/23/22 09:52 Pantoprazole 40 Mg Sdv IVP 40 mg DAILY BREANNA Administration Senna/Docusate Sod ium 1 tab 04/10/22 09:00 04/23/22 09:53 Sennosides-Docus ate Tablet PO 1 tab DAILY BREANNA Administration Sodium Chloride 5 - 10 ml 04/12/22 16:15 04/23/22 16:26 Sodium Chloride 0.9 % (Flush) Syri nge 10 Ml IV 10 ml Q12H BREANNA Administration Sodium Chloride 5 - 10 ml 04/12/22 16:13 04/22/22 10:15 Sodium Chloride 0.9 % (Flush) Syri nge 10 Ml IV 10 ml PRN PRN Administration Central line flus h Vitals/I&O/Wt Last Vital Signs Temp 98.4 F 04/23/22 08:00 Pulse 75 04/23/22 14:41 Resp 22 H 04/23/22 14:49 BP 118/55 04/23/22 08:00 Pulse Ox 91 04/23/22 14:49 O2 Del Method 04/23/22 14:41 O2 Flow Rate 80 04/22/22 12:30 FiO2 90 04/23/22 14:49 04/23/22 04/23/22 04/23/22 06:59 14:59 22:59 Intake Total 650.000 / 2349.786 500 / 500 55.387 / 555.387 Balance 650.000 / -250.214 500 / 500 55.387 / 555.387 Weight last 48 hrs Weight 223.9 kg Weight 214.181 kg Physical Exam Narrative: Intubated, sedated on mechanical ventilation Resp: OTHER: Diminished air entry bilaterally, bilateral crackles predominantly in the lower lung contreras. Cardio: COMMON NORMALS: regular rate, regular rhythm, S1 normal heart sound present, S2 normal heart sound present, No gallops present (Cardio), No murmurs present (Cardio), No rub (Cardio) and Peripheral pulses 2+ throughout RATE: regular rate RHYTHM: regular rhythm HEART SOUNDS: S1 normal heart sound present and S2 normal heart sound present PERIPHERAL PULSES: Peripheral pulses 2+ throughout GI: COMMON NORMALS: Normal to inspection, nondistended, normoactive bowel sounds present, Soft to palpation, non-tender, No hepatosplenomegaly present and no masses AUSCULTATION: Yes normoactive bowel sounds PALPATION: Yes Soft to palpation and Yes No hepatosplenomegaly present RECTAL EXAM: deferred Extremity: COMMON NORMALS: no clubbing, cyanosis or edema and no pedal edema OTHER: 2+ bilateral lower extremity pitting edema Urinary Catheter Management: Coude: Cath Placed During This Visit: yes Reason for Continuing Indwelling Catheter: Accurate Measurement of Urinary Output in Critically Ill Patients Urinary Catheter Date of Insertion: 04/09/22 Urinary Catheter Time of Insertion: 15:30 Data : 04/23/22 07:50 04/23/22 03:50 Micro: Microbiology 04/20/22 15:45 Gram Stain - Final Lung Left Lower Lobe Bronchoalveolar Lavage Culture - Preliminary A&P Assessment and plan (1) DIC (disseminated intravascular coagulation): (2) CHF exacerbation: (3) Hyponatremia: (4) Oliguria: (5) V tach: (6) Obesity hypoventilation syndrome: (7) Aspiration pneumonitis: (8) Sepsis: (9) Wound infection: (10) Stasis leg ulcer: (11) Chronic acquired lymphedema: (12) Morbid obesity: Plan Assessment: Septic shock Respiratory failure with hypoxia and hypercapnia secondary to severe ARDS likely secondary to aspiration pneumonia Acute renal failure secondary to ATN secondary to sepsis Obesity hypoventilation syndrome History of chronic acquired lymphedema Morbid obesity Hypertension Heart failure 61-year-old female with past medical history of chronic acquired lymphedema morbid obesity, hyperthyroidism hypertension, was brought in with chief complaint of nausea vomiting fever and chills, was initially admitted for the management of sepsis secondary to right lower extremity cellulitis, unfortunately she had a complicated hospital course, resulting in development of, acute renal failure, possibly secondary to ATN secondary to sepsis, as well as septic shock, secondary to aspiration pneumonia, severe ARDS secondary to aspiration pneumonia, initially on BiPAP, but later had to be intubated, as she was not responding to BiPAP. For her acute renal failure likely secondary to ATN secondary to sepsis she is on hemodialysis. With regards to her sepsis blood culture has been negative so far, urine culture is negative CT lower leg RT wo con: Similar-appearing diffuse extensive edema RIGHT lower extremity extending to the foot.No evidence of drainable abscess or fluid collection.No evidence of osteomyelitis. She has been kept on broad-spectrum antibiotics. For acute hypoxic, hypercapnic respiratory failure : secondary to severe ARDS secondary to aspiration pneumonia/volume overload. She had to be intubated, a fter extreme persuasion as family was not ready for intubation initially, s/p bronc, showed erythematous mucosa throughout bilateral bronchial tree;culture has been sent, results awaited. Later hospital course has also been complicated by development of hypertensive emergencies: For which patient has been kept on IV antihypertensive drip. Patient has been empirically kept on therapeutic anticoagulation as there has been concern for possible PE, no CT imaging studies so far has been pursued given the size of the patient. 2D echo : Is a poor quality due to poor quality window. Ultimate aim is to try for LTAC placement. CODE STATUS: Limited resuscitation DVT prophylaxis not needed: On therapeutic anticoagulation Attestations Medical Necessity Statement*: Patient is to be in hospital for management of respiratory failure. Time Spent in Patient Care: Greater than 35 minutes Critical Care Time: The high probability of a clinically significant, sudden or life threatening deterioration of the patient's [] system(s) required my full and direct attention, intervention and personal management. The critical care time is as shown. 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
--- NOTE | 2022-04-23 17:12 | PM.PN ---
Subjective Subjective: -Seen patient at bedside today -Other labs and imaging reviewed -Yesterday received hemodialysis and about3 L were removed-she did not have any urine output -Today morning AGG reviewed-pH 7.23 however CO2 is 61 which is right about her baseline and to compensate for bicarb is less than what is expected-appears to be in metabolic acidosis, discussed with telemetry nephrology and plan is to get another session of hemodialysis today -Otherwise PF ratio close to 100-patient is on FiO2 85% -BAL cultures still pending-patient continues to be on vancomycin and meropenem, no leukocytosis-had some hypothermia episodes Medications: Reviewed: Yes Medication Review Details: Generic Name Dose Route Start Last Admin Trade Name Freq PRN Reason Stop Dose Admin Acetaminophen 500 mg 04/09/22 19:24 04/11/22 19:48 Acetaminophen 50 0 Mg Tablet PO 500 mg Q4H PRN Administration fever Albuterol/Ipratrop ium 3 ml 04/20/22 20:00 04/23/22 14:40 Ipratropium-Albu terol 3 Ml Neb INHALATION 3 ml Q6H.RESP BREANNA Administration Artificial Tears 1 drop 04/19/22 09:08 04/20/22 01:52 Artificial Tears Op Soln 15 Ml Btl EYE-BOTH 1 drop Q4H PRN Administration DRY EYE(S) Bacitracin 1 applic 04/09/22 21:00 04/23/22 16:12 Bacitracin Ointm ent 28 Gm TOPICAL 1 applic TID BREANNA Administration Protocol Chlorhexidine Gluc fritz 1 applic 04/21/22 01:00 04/23/22 00:24 Chlorhexidine Gl uconate 4% Btl 118 Ml TOPICAL 1 applic 0100 BREANNA Administration Collagenase 1 applic 04/13/22 00:00 04/23/22 00:24 Collagenase Oint 30 Gm TOPICAL 1 applic Q24H BREANNA Administration Enoxaparin Sodium 150 mg 04/18/22 14:00 04/23/22 14:00 Enoxaparin 150 M g/Ml Syringe SUBCUT 150 mg Q12H BREANNA Administration Fluoxetine HCl 20 mg 04/10/22 09:30 04/23/22 09:53 Fluoxetine 20 Mg Capsule PO 20 mg BID BREANNA Administration Heparin Sodium (Po rcine) 200 - 500 unit 04/12/22 16:15 04/23/22 16:26 Heparin Lock Flu sh 500 Unit/5 Ml S yringe IV 500 unit Q12H BREANNA Administration Heparin Sodium (Po rcine) 200 - 500 unit 04/12/22 16:13 04/14/22 22:39 Heparin Lock Flu sh 500 Unit/5 Ml S yringe IV 500 unit PRN PRN Administration Central line flus h Hydralazine HCl 10 mg 04/19/22 09:09 04/19/22 21:52 Hydralazine 20 M g/Ml Inj 1 Ml IVP 10 mg Q4H PRN Administration bp> 180./100 Sodium Chloride 1,000 mls @ 0 mls /hr 04/14/22 07:19 04/22/22 10:16 Sodium Chloride 0.9% IV 1 mls/hr .Q0M PRN Administration hypotension or sy mptomatic As Directed Albumin Human 25 gm in 100 mls @ 60 mls/hr 04/17/22 11:00 04/23/22 14:33 Albumin IV Infused Q8H BREANNA Infusion Meropenem 1,000 mg / Sodium 50 mls @ 100 mls/ hr 04/18/22 15:00 04/23/22 16:27 Chloride IV Infused Q8H BREANNA Infusion Propofol 1,000 mg in 100 m ls @ 0 mls/hr 04/19/22 23:45 04/23/22 15:30 Diprivan IV 30 mcg/kg/min .Q0M BREANNA 46.17 mls/hr Titration Protocol Per Protocol Fentanyl 2,500 mcg / Sodium 250 mls @ 0 mls/h r 04/19/22 23:45 04/22/22 21:45 Chloride IV 100 mcg/hr .Q0M BREANNA 10 mls/hr Administration Protocol Per Protocol Midazolam HCl 100 mg/ Sodium 100 mls @ 0 mls/h r 04/20/22 09:00 04/21/22 19:00 Chloride IV 0 mg/hr .Q0M BREANNA 0 mls/hr Titration Protocol Per Protocol Vancomycin HCl 2,0 00 mg/ 500 mls @ 250 mls /hr 04/20/22 15:00 04/21/22 05:13 Sodium Chloride IV Infused Q12H BREANNA Infusion Sodium Chloride 1,000 mls @ 0 mls /hr 04/22/22 10:30 04/22/22 10:58 Sodium Chloride 0.9% IV 1 mls/hr .Q0M BREANNA Administration As Directed Lanolin 1 applic 04/15/22 14:00 04/16/22 20:05 Lanolin Oint 7 G m TOPICAL 1 applic PRN PRN Administration DRYNESS Lidocaine HCl 1 applic 04/11/22 23:30 04/12/22 01:57 Lidocaine 2% Jel ly 6 Ml TOPICAL 1 applic PRN PRN Administration PAIN Lorazepam 2 mg 04/19/22 18:56 04/19/22 19:39 Lorazepam 2 Mg/M l Inj 1 Ml IVP 2 mg Q4H PRN Administration ANXIETY Methocarbamol 500 mg 04/10/22 09:30 04/11/22 18:29 Methocarbamol 50 0 Mg Tablet PO 500 mg BID BREANNA Administration Morphine Sulfate 2 mg 04/19/22 18:17 04/19/22 22:13 Morphine 4 Mg/Ml Sdv 1 Ml IVP 2 mg Q8H PRN Administration SEVERE PAIN Nitroglycerin 0.5 inch 04/14/22 10:35 04/19/22 19:30 Nitroglycerin 1 Gm/Inch Oint Pkt TOPICAL 0.5 inch Q6H PRN Administration Blood pressure gr eater than 180/100 Ondansetron HCl 4 mg 04/09/22 19:24 04/10/22 19:49 Ondansetron 2 Mg /Ml Sdv 2 Ml IVP 4 mg Q6H PRN Administration NAUSEA AND VOMITI NG Pantoprazole Sodiu m 40 mg 04/10/22 22:15 04/23/22 09:52 Pantoprazole 40 Mg Sdv IVP 40 mg DAILY BREANNA Administration Senna/Docusate Sod ium 1 tab 04/10/22 09:00 04/23/22 09:53 Sennosides-Docus ate Tablet PO 1 tab DAILY BREANNA Administration Sodium Chloride 5 - 10 ml 04/12/22 16:15 04/23/22 16:26 Sodium Chloride 0.9 % (Flush) Syri nge 10 Ml IV 10 ml Q12H BREANNA Administration Sodium Chloride 5 - 10 ml 04/12/22 16:13 04/22/22 10:15 Sodium Chloride 0.9 % (Flush) Syri nge 10 Ml IV 10 ml PRN PRN Administration Central line flus h Vitals/I&O/Wt Last Vital Signs Temp 98.4 F 04/23/22 08:00 Pulse 75 04/23/22 14:41 Resp 22 H 04/23/22 17:00 BP 118/55 04/23/22 08:00 Pulse Ox 93 04/23/22 17:00 O2 Del Method 04/23/22 14:41 O2 Flow Rate 80 04/22/22 12:30 FiO2 85 04/23/22 17:00 04/23/22 04/23/22 04/23/22 06:59 14:59 22:59 Intake Total 650.000 / 2349.786 500 / 500 55.387 / 555.387 Balance 650.000 / -250.214 500 / 500 55.387 / 555.387 Weight last 48 hrs Weight 493 lb 9.84 oz Weight 472 lb 3 oz Physical Exam Narrative: PHYSICAL EXAM: General: lying in bed, sedated and intubated. HEENT:NCAT, PERRLA, EOMI Neck: Supple Lungs: Bilateral upper lung zones clear-difficult to auscultate given patient's body size Heart: s1/s2, RRR Abd: soft, NT, ND, BS + Normoactive Extremities: Chronic bilateral lymphedema, right anterior burton-open clear wound with surrounding erythema with no significant bruising. ORAL HEALTH THERAPIST: sedated and limited ORAL HEALTH THERAPIST exam possible. SKIN: no rash LDA: # CVC: Right internal jugular # HD Cath : 04/13/2022 right femoral line # Morton: Present Urinary Catheter Management: Coude: Cath Placed During This Visit: yes Reason for Continuing Indwelling Catheter: Accurate Measurement of Urinary Output in Critically Ill Patients Urinary Catheter Date of Insertion: 04/09/22 Urinary Catheter Time of Insertion: 15:30 Data : 04/23/22 07:50 04/23/22 03:50 Other Labs: Radiology Impressions KUB X-Ray 04/11/22 07:37 IMPRESSION: Nonspecific bowel gas pattern, as noted above. Renal Ultrasound 04/12/22 15:56 IMPRESSION: 1. Examination is limited secondary to body habitus. 2. Urinary bladder is not visualized. 3. The abdominal aorta is obscured. 4. No obvious hydronephrosis. 5. Probable echogenic right renal cortex compared to the liver consistent with bilateral medical renal disease. Chest Ultrasound 04/16/22 08:55 IMPRESSION: No pleural effusions. Lower Extremity CT 04/16/22 09:01 IMPRESSION: 1. Similar-appearing diffuse extensive edema RIGHT lower extremity extending to the foot. 2. No evidence of drainable abscess or fluid collection. 3. No evidence of osteomyelitis. 4. Previously described tiny suspected area of ulceration about the lateral malleolus is unchanged. Chest X-Ray 04/22/22 05:00 Impression: No change from chest x-ray 2 days ago. Laboratory Results WBC 6.9 10^3/uL (4.0-10.0) 04/23/22 07:50 RBC 3.62 10^6/uL (4.1-5.3) L 04/23/22 07:50 Hgb 10.3 g/dL (11.5-15.3) L 04/23/22 07:50 Hct 34.9 % (37.0-47.0) L 04/23/22 07:50 MCV 96.4 fl (81-99) 04/23/22 07:50 MCH 28.5 pg (28.0-34.0) 04/23/22 07:50 MCHC 29.5 g/dL (30.0-36.0) L 04/23/22 07:50 RDW 18.5 % (12.1-15.1) H 04/23/22 07:50 Plt Count 176 10^3/cmm (130-400) 04/23/22 07:50 MPV 11.5 fL (7.4-10.4) H 04/23/22 07:50 Neut % (Auto) 80.2 % 04/23/22 07:50 Lymph % (Auto) 10.8 % 04/23/22 07:50 [place] % (Auto) 6.3 % 04/23/22 07:50 Eos % (Auto) 1.6 % 04/23/22 07:50 Baso % (Auto) 0.4 % 04/23/22 07:50 Neut # (Auto) 5.50 10^3/uL (1.8-7.7) 04/23/22 07:50 Lymph # (Auto) 0.7 10^3/uL (0.8-4.8) L 04/23/22 07:50 [place] # (Auto) 0.4 10^3/uL (0.2-0.9) 04/23/22 07:50 Eos # (Auto) 0.1 10^3/uL (0.0-0.8) 04/23/22 07:50 Baso # (Auto) 0.0 10^3/uL (0.0-0.1) 04/23/22 07:50 Nucleated RBC % (auto) 0 % 04/23/22 07:50 Total Counted 100 (0-100) 04/09/22 14:25 Atypical Lymphs % 1.0 % (0-5) 04/09/22 14:25 Absolute Neutrophils 11.8 10^3/cmm (1.4-6.5) H 04/09/22 14:25 Segmented Neutrophils 91 % 04/09/22 14:25 Abs Segm Neuts (Man) 11.5 10/cmm (1.6-7.1) H 04/09/22 14:25 Band Neutrophils 3.0 % 04/09/22 14:25 Abs Band Neuts (Man) 0.4 10^3/cmm (0.0-1.2) 04/09/22 14:25 Absolute Lymphocytes 0.6 10^3/cmm (1.2-3.4) L 04/09/22 14:25 Lymphocytes (Manual) 4 % 04/09/22 14:25 Monocytes (Manual) 1.0 % 04/09/22 14: Absolute Monocytes 0.1 10^3/cmm (0.1-0.6) 04/09/22 14:25 Eosinophils (Manual) 0 % 04/09/22 14:25 Absolute Eosinophils 0.0 10^3/cmm (0.0-0.7) 04/09/22 14:25 Basophils (Manual) 0.0 % 04/09/22 14:25 Absolute Basophils 0.0 10^3/cmm (0.0-0.2) 04/09/22 14:25 Nucleated RBCs # 0.0 /100WBC 04/23/22 07:50 Platelet Estimate Normal (Normal) 04/09/22 14:25 Giant Platelets Trace 04/09/22 14:25 Polychromasia Trace 04/09/22 14:25 Hypochromasia Trace 04/09/22 14:25 Poikilocytosis Trace 04/09/22 14:25 Anisocytosis Trace 04/09/22 14:25 Microcytosis Trace 04/09/22 14:25 Macrocytosis Trace 04/09/22 14:25 Spherocytes Trace 04/09/22 14:25 Target Cells Trace 04/09/22 14:25 Tear Drop Cells Trace 04/09/22 14:25 Ovalocytes Trace 04/09/22 14:25 Carlos Cells Trace 04/09/22 14:25 ESR 24 mm/hr (0-15) H 04/09/22 14:25 PT 15.70 SECONDS (12.1-14.9) H 04/17/22 03:05 INR 1.22 (0.8-1.2) H 04/17/22 03:05 APTT 52.7 SECONDS (23.9-36.7) H 04/18/22 09:00 Fibrinogen 760 mg/dL (174-498) H 04/17/22 03:05 Fibrin Degrad Products Neg, <10 ug/mL (NEG) 04/17/22 03:05 D-Dimer 2.24 ug/mIFEU (0-0.59) H 04/17/22 03:05 Specimen Type Arterial 04/23/22 04:28 Sample Site Radial, right 04/23/22 04:28 ABG pH 7.23 (7.35-7.45) L 04/23/22 04:28 ABG pCO2 61.4 mmHg (35-45) H* 04/23/22 04:28 ABG pO2 84.7 mmHg (80.0-100.0) 04/23/22 04:28 ABG HCO3 25.4 mmol/L (22-26) 04/23/22 04:28 ABG O2 Saturation 96.1 04/23/22 04:28 ABG Base Excess -2.9 mmol/L (-2.0-2.0) L 04/23/22 04:28 Harsha Test Pos 04/23/22 04:28 A-a O2 Gradient 58.4 mmHg (5-10) H 04/23/22 04:28 Hematocrit 32.8 % (37-47) L 04/23/22 04:28 Hgb O2 Saturation 94.0 % (95-100) L 04/23/22 04:28 Carboxyhemoglobin 0.9 %THgb (0.4-20.1) 04/23/22 04:28 Methemoglobin 1.3 % (0.4-1.5) 04/23/22 04:28 Total Hemoglobin 10.7 g/dL (12-16) L 04/23/22 04:28 Sodium 145.0 mmol/L (131-143) H 04/23/22 04:28 Potassium 4.8 mmol/L (3.5-5.0) 04/23/22 04:28 Glucose 66.0 mg/dL (70-115) L 04/23/22 04:28 Ionized Calcium 1.2 mmol/L (1.1-1.4) 04/23/22 04:28 O2 Delivery Device Vent 04/23/22 04:28 O2 Liters/Min 15.0 % 04/10/22 21:45 FiO2 85.0 % 04/23/22 04:28 Tidal Volume 0.42 04/22/22 04:30 PEEP 18.0 cmH20 04/23/22 04:28 Information Systems Professor ID [place] 04/23/22 04:28 Sodium 143 mmol/L (136-145) 04/23/22 03:50 Potassium 5.1 mmol/L (3.5-5.1) 04/23/22 03:50 Chloride 103 mmol/L (98-107) 04/23/22 03:50 Carbon Dioxide 26 mmol/L (22-29) 04/23/22 03:50 Anion Gap 19.1 (5-19) H 04/23/22 03:50 BUN 47 mg/dL (6-20) H 04/23/22 03:50 Creatinine 2.5 mg/dL (0.5-0.9) H 04/23/22 03:50 GFR Calculation 19.7 mL/min (90-130) L 04/23/22 03:50 Glucose 68 mg/dL (65-115) 04/23/22 03:50 POC Glucose 81 mg/dL (70-110) 04/23/22 14:05 Estimat Average Glucose 105 04/12/22 16:04 Hemoglobin A1c 5.3 % (4.0-6.0) 04/12/22 16:04 Calculated Osmolality 307 mOsm/kg (285-295) H 04/23/22 03:50 Lactate 1.3 mmol/L (0.5-2.2) 04/15/22 00:55 Calcium 8.8 mg/dL (8.5-10.5) 04/23/22 03:50 Phosphorus 6.6 mg/dL (2.5-4.5) H 04/23/22 03:50 Magnesium 1.8 mg/dL (1.7-2.3) 04/23/22 03:50 Total Bilirubin 0.7 mg/dL (0.15-1.2) 04/23/22 03:50 AST 18 U/L (0-32) 04/23/22 03:50 ALT 7 U/L (0-33) 04/23/22 03:50 Alkaline Phosphatase 59 U/L (35-105) 04/23/22 03:50 Creatine Kinase 35 U/L (26-192) 04/15/22 00:55 Troponin T Gen 5 ng/L 49 ng/L (0-10) H 04/12/22 09:18 Troponin T Baseline 54 ng/L (0-10) H 04/12/22 16:04 Troponin T 120 Minute 54.26 ng/L (0-10) H 04/12/22 18:38 Delta Troponin T 0.26 ABS# (0-10) 04/12/22 18:38 Troponin T Hi Sens 6Hr 52.47 ng/L (0-10) H 04/12/22 22:04 Troponin T Hi Sens 6Hr Delta -1.53 ng/L (0-12) L 04/12/22 22:04 C-Reactive Protein 375.7 mg/L (0.0-4.9) H 04/13/22 03:29 NT-Pro-B Natriuret Pep 9213 pg/mL (0-125) H 04/15/22 00:55 Total Protein 7.4 g/dL (6.6-8.7) 04/23/22 03:50 Albumin 3.4 g/dL (3.5-5.2) L 04/23/22 03:50 Globulin 4.0 g/dL (1.3-4.6) 04/23/22 03:50 Procalcitonin 9.20 ng/mL (0-0.5) H 04/09/22 17:12 TSH 0.44 uIU/mL (0.27-4.20) 04/09/22 17:12 Urine Color Dark yellow (Yellow) 04/12/22 16:04 Urine Appearance Cloudy (CLEAR) A 04/12/22 16:04 Urine pH 5 (5-7) 04/12/22 16:04 Ur Specific [place] 1.010 (1.005-1.030) 04/12/22 16:04 Urine Protein 1+ (Negative) H 04/12/22 16:04 Urine Glucose (UA) Norm (Normal) 04/12/22 16:04 Urine Ketones 1+ (Negative) H 04/12/22 16:04 Urine Blood 3+ (Negative) H 04/12/22 16:04 Urine Nitrate Negative (Negative) 04/12/22 16:04 Urine Bilirubin 1+ (Negative) H 04/12/22 16:04 Urine Urobilinogen Norm mg/dL (Negative) 04/12/22 16:04 Ur Leukocyte Esterase Trace (Negative) H 04/12/22 16:04 Urine RBC 5-10 /hpf (0-2) H 04/12/22 16:04 Urine WBC 5-10 /hpf (0-5) H 04/12/22 16:04 Ur Eosinophil Smear 0 (0-0) 04/12/22 16:04 Ur Squamous Epith Cells 0-4 /hpf (0-5) H 04/12/22 16:04 Amorphous Sediment 2+ /hpf 04/12/22 16:04 Urine Bacteria 1+ /hpf (NONE) H 04/12/22 16:04 Urine Eosinophils No eosinophils seen 04/12/22 16:04 Ur Random Microalbumin 30 ug/dL (0-20) H 04/12/22 16:04 Ur Random Sodium 12 mmol/L 04/12/22 16:04 Ur Random Potassium 11 04/12/22 16:04 Ur Random Potassium 11 mmol/L 04/12/22 16:04 Ur Random Chloride 15 mmol/L 04/12/22 16:04 Urine Creatinine 65 mg/dL (28-217) 04/12/22 16:04 Microalb/Creat Ratio 462 mg/dL (0-20) H 04/12/22 16:04 Fluid Color Red 04/20/22 15:45 Fluid Appearance Turbid 04/20/22 15:45 Fluid WBC 2739 /uL 04/20/22 15:45 Fluid RBC 32.000 10^3/uL 04/20/22 15:45 Fld Polynuclear WBCs # 1.121 04/20/22 15:45 Fld Polynuclear WBCs % 40.900 % 04/20/22 15:45 Fl Mononucl WBCs #(Auto) 1.618 04/20/22 15:45 Fl Mononuclear % Auto 59.100 % 04/20/22 15:45 Vancomycin Trough 9.3 ug/mL (10-15) L 04/16/22 11:10 Random Vancomycin 25.4 ug/mL (20.0-40.0) 04/23/22 03:50 Serum Ketones Negative (Negative) 04/12/22 16:04 Coronavirus 229E (PCR) Not detected (NOT DETECT) 04/09/22 15:30 Hep Bs Antigen Non-reactive (Nonreactive) 04/12/22 16:04 Hepatitis C Antibody Non-reactive (Nonreactive) 04/12/22 16:04 SARS-CoV-2 (PCR) Not detected (NOT DETECT) 04/09/22 15:30 Micro: Microbiology 04/20/22 15:45 Gram Stain - Final Lung Left Lower Lobe Bronchoalveolar Lavage Culture - Preliminary A&P Assessment and plan (1) Acute and chronic respiratory failure with hypercapnia: (2) Aspiration pneumonitis: (3) ANY (acute kidney injury): (4) Difficult ventilator weaning: (5) CHF exacerbation: (6) Obesity hypoventilation syndrome: (7) Sepsis: (8) ARDS (adult respiratory distress syndrome): (9) Stasis leg ulcer: (10) Chronic acquired lymphedema: (11) Hypertension: Qualifiers: Hypertension type: essential hypertension Qualified Code(s): I10 - Essential (primary) hypertension (12) Morbid obesity: (13) Hypertensive emergency: Plan [id number] morbidly obese patient with BMI 52, hypothyroidism, ALON, possible underlying obesity hypoventilation syndrome, with chronic bilateral lower extremity lymphedema-initially 04/09/2022 admitted for right lower leg cellulitis-started on antibiotics, later went into ANY and fluid overload as well as recurrent vomitings causing aspiration pneumonia-all resulting in acute on chronic hypercapnic/hypoxic respiratory failure for which she was on BiPAP for almost a week-refusing intubation until day 9-at which point she had hypertensive emergency with SBP 264 causing nasal bleeds aspiration-complicating airway-resulting in intubation for airway protection. NEURO: #Sedated propofol 40 Mg/hour, fentanyl 100 mcg/hr - off Versed -On fentanyl 100 MCG and propofol 40 -Will do awakening trial once her FiO2 requirements come down PULM: #Acute on chronic hypercarbic/hypoxic respiratory failure secondary to ARDS due to aspiration pneumonia and fluid overload; airway protection from nasal be due to hypertension #Underlying chronic hypercapnic respiratory failure secondary to obesity hypoventilation syndrome/ALON -Currently sedated and intubated with CMV with tidal volume 420/PEEP 18/respiratory rate 14/FiO2 95%; -pH 7.23 however CO2 is 61 which is right about her baseline and to compensate for bicarb is less than what is expected-appears to be in metabolic acidosis, discussed with telemetry nephrology and plan is to get another session of hemodialysis today -Otherwise PF ratio close to 100-patient is on FiO2 85% -We will continue to monitor and come down on FiO2 as feasible -Continue DuoNeb nebulization every 6 hours as needed -S/p bronchoscopy today 04/20/2022-showed erythematous mucosa throughout bilateral bronchial tree; aspirated 15 mL BAL from left lower lobe with some mucous plugs -BAL cultures are still pending -Continue vancomycin and meropenem -Unable to obtain CT chest given patient's body habitus ~500 pounds CVS: #Hypertensive emergency-causing nasal bleeds - resolved -Currently off Cardene drip and maintaining SBP 1 20-1 50 -Initial echocardiogram was uninterpretable due to body habitus, -Suspect component of diastolic dysfunction given her morbid obesity and cannot rule out LV systolic function based on prior echo; GI: -Nutrition; TPN-will hold to avoid fluid overload -Informed RN start her on trickle tube feeds nephro -LFTs are normal RENAL: -ANY-secondary to sepsis- leading to refractory fluid overload - ABG showed metabolic acidosis; currently on hemodialysis -Hypokalemia, hypomagnesemia-corrected -Renal on board HEM: -No leukocytosis; not in DIC as patient has normal fibrinogen and FDP -Monitor platelets -No more active nasal bleeding noted -DVT prophylaxis: Lovenox ENDO: -Sugars well controlled-not requiring insulin coverage at this point of time ID: -Right lower leg cellulitis-currently on vancomycin -CT did not show any evidence of abscess -Wound looks clean -Patient was on several antibiotics since admission-vancomycin for last 14 days (she did not get any dose for 3 days in between); cefepime for 8 days, meropenem for last 4 days, doxycycline for 5 days, Flagyl for 5 days. -If BAL cultures are negative-I I have recommended to discontinue all antibiotics as she has adequate antibiotic coverage until now. Unless patient spikes fevers or there is evidence of leukocytosis or other signs of sepsis Code Status: Limited resuscitation Disposition: Currently we will continue in ICU Critically ill: Yes MD discussed with: Family members, RN, RT, telenephrology and hospitalist ICU CHECKLIST: Problem list updated Verbal orders reviewed and signed Analgesia: On fentanyl gtt. Glycemic Control: N/A Nutrition: trickle tube feeds Restraint Renewal (within 24 hrs): Yes Ulcer Prophylaxis: Yes PPI Chemical Thromboprophylaxis: Prophylaxis: lovenox Mechanical Thromboprophylaxis: Yes but too big for her Calves Need for Central line: Yes for multiple medications and drips Need for Morton catheter: Yes I had an extensive discussion with daughter at bedside-and explained about medical condition, prognosis and treatment plan. She verbalized understanding and agreed with the plan. Attestations Medical Necessity Statement*: Patient intubated mechanically ventilated, need close monitoring in ICU Time Spent in Patient Care: Greater than 35 minutes (>than 50% of time spent in counselling and/or direct pt care on unit). Critical Care Time: The high probability of a clinically significant, sudden or life threatening deterioration of the patient's?[neurological, pulmonary, cardiac, GI, hematologic, infectious]?system(s) required my full and direct attention, intervention and personal management. The critical care time is as shown. This time is in addition to time spent performing any reported procedures but includes the following: [x]?Data and vital sign review and interpretation [x]?Patient assessment, examination and intervention [x]?Documentation [x]?Medication orders and management Critical Care Time (min): 45 Coding Level of Care Code Acute Property Field Inspector for g Fwd Diagnoses Acute and chronic respiratory failure with hypercapnia J96.22 Aspiration pneumonitis J69.0 ANY (acute kidney injury) N17.9 Difficult ventilator weaning Z99.11 CHF exacerbation I50.9 Obesity hypoventilation syndrome E66.2 Sepsis A41.9 ARDS (adult respiratory distress syndrome) J80 Stasis leg ulcer I83.009; L97.909 Chronic acquired lymphedema I89.0 Hypertension I10 Hypertension type: essential hypertension Morbid obesity E66.01 Hypertensive emergency I16.1 Time Spent (min) 45
[2022-04-23] MEDS: propofol 1,000 MG/100 ML INJ 46.17 MG IV ×2 (17:46→20:12)
[2022-04-23 18:21] LABS: Glucose Point of Care 80 mg/dL (70-110)
[2022-04-23] MEDS: lanolin oint 7 gm 1 APPLIC TOPICAL (20:14)
[2022-04-23] MEDS: propofol 1,000 MG/100 ML INJ 38.48 MG IV (23:36)
[2022-04-24] VITALS (62 sets, daily range): BP systolic 83–191; BP diastolic 42–91; PULSE 70–90; RESP 22–30; TEMP 36.6–37.4; O2SAT 88–95
[2022-04-24] MEDS: collagenase oint 30 gm 1 APPLIC TOPICAL (00:38)
[2022-04-24] MEDS: chlorhexidine gluconate 4% Btl 118 mL 1 APPLIC TOPICAL (00:39)
[2022-04-24 02:04] LABS: Glucose Point of Care 80 mg/dL (70-110)
[2022-04-24] MEDS: enoxaparin 150 mg/mL Syringe SUBCUT ×2 (02:25→14:56)
[2022-04-24] MEDS: ipratropium-albuterol 3 mL Neb INHALATION ×4 (02:25→19:56)
[2022-04-24] MEDS: propofol 1,000 MG/100 ML INJ 30.78 MG IV (02:33)
--- NOTE | 2022-04-24 04:00 | XRR_ITS ---
PROCEDURE INFORMATION: Exam: XR Chest Exam date and time: 04/24/2022 4:42 AM Age: 61 years old Clinical indication: Condition or disease; Lung condition and disease; Pneumonia; Patient HX: --f/u continued resp failure. Intubated. TECHNIQUE: Imaging protocol: Radiologic exam of the chest. Views: 1 view. COMPARISON: CR XR chest 1V portable [id number] 04/22/2022 5:50 AM FINDINGS: Tubes, catheters and devices: Endotracheal tube, feeding tube, central venous catheter again demonstrated. The endotracheal tube terminates 6.4 cm above the sachi. Lungs: Emphysematous change, interstitial disease, and asymmetric airspace disease (left greater than right). Pleural spaces: Left pleural effusion. Heart/Mediastinum: Cardiomegaly with increased caliber of the pulmonary vasculature. Bones/joints: Degenerative change. XR/XR chest 1V portable [id number] IMPRESSION: 1. Emphysematous change, interstitial disease, and asymmetric airspace disease (left greater than right). 2. Left pleural effusion. 3. Endotracheal tube, feeding tube, central venous catheter again demonstrated. The endotracheal tube terminates 6.4 cm above the sachi.
[2022-04-24 04:07] LABS: ABG PH Result 7.21 (7.35-7.45); Base Excess ABG -1.6 mmol/L (-2.0-2.0); Blood Gas Allen Test Pos; Blood Gas Operator Identificat JB; Blood Gas Sample Site Radial, right; Blood Gas Sample Type Arterial; HCO3 ABG 27.7 mmol/L (22-26); HGB O2 Sat 90.8 % (95-100); Ionized Calcium Level - ABG 1.2 mmol/L (1.1-1.4); Methemoglobin 1.3 % (0.4-1.5); Oxygen Device VENT; PO2 ABG 69.9 mmHg (80.0-100.0); Potassium Level - ABG 4.3 mmol/L (3.5-5.0); Total Hemoglobin 12.7 g/dL (12-16)
[2022-04-24 04:08] LABS: Alveolar-Arterial Oxygen Gradi 58.7 mmHg (5-10); Blood Gas Tidal Volume 0.45
[2022-04-24 04:33] LABS: Basophils % 0.4 %; Eosinophils # 0.1 10^3/uL (0.0-0.8); Eosinophils % 1.2 %; Hematocrit 35.9 % (37.0-47.0); Hemoglobin 10.3 g/dL (11.5-15.3); Lymphocytes # 0.9 10^3/uL (0.8-4.8); Lymphocytes % 10.3 %; Mean Corpuscular HGB Conc 28.7 g/dL (30.0-36.0); Mean Corpuscular Hemoglobin 27.8 pg (28.0-34.0); Mean Corpuscular Volume 96.8 fl (81-99); Mean Platelet Volume 11.4 fL (7.4-10.4); Monocytes # 0.6 10^3/uL (0.2-0.9); Monocytes % 7.4 %; Neutrophils # 6.84 10^3/uL (1.8-7.7); Neutrophils % 80.2 %; Nucleated Red Blood Cells % 0 %; Platelet Count 184 10^3/cmm (130-400); Red Blood Count 3.71 10^6/uL (4.1-5.3); Red Cell Distribution Width 18.7 % (12.1-15.1); White Blood Count 8.5 10^3/uL (4.0-10.0)
[2022-04-24 05:02] LABS: Alanine Aminotransferase 6 U/L (0-33); Albumin Level 3.7 g/dL (3.5-5.2); Alkaline Phosphatase 67 U/L (35-105); Anion Gap 18.6 (5-19); Aspartate Amino Transferase 22 U/L (0-32); Blood Urea Nitrogen 31 mg/dL (6-20); Carbon Dioxide 27 mmol/L (22-29); Chloride 99 mmol/L (98-107); Globulin 4.1 g/dL (1.3-4.6); Glomerular Filtration Rate 21.7 mL/min (90-130); Glucose 78 mg/dL (65-115); Magnesium 1.9 mg/dL (1.7-2.3); Osmolality Calculated 295 mOsm/kg (285-295); Phosphorus 5.8 mg/dL (2.5-4.5); Potassium 4.6 mmol/L (3.5-5.1); Sodium 140 mmol/L (136-145); Total Bilirubin 0.9 mg/dL (0.15-1.2); Total Protein 7.8 g/dL (6.6-8.7)
[2022-04-24] MEDS: sodium chloride 0.9 % (flush) syringe 10 mL IV ×2 (05:08→15:43)
[2022-04-24] MEDS: meropenem 1,000 MG in sodium chloride 0.9% (plus) 50 ML 100 MG IV ×3 (06:18→22:30)
--- NOTE | 2022-04-24 06:50 | PC.NURSE ---
Bedside report completed with NILDA Boothe
[2022-04-24 08:12] LABS: Glucose Point of Care 85 mg/dL (70-110)
--- NOTE | 2022-04-24 08:20 | PC.NURSE ---
Fentanyl gtt and Propofol gtt stopped for sedation vacation.
--- NOTE | 2022-04-24 09:10 | P.PN_ITS ---
Subjective Subjective: -Seen patient at bedside today -Overall clinically did not change much same since intubation-with still requiring 90% FiO2 on ventilator and hemodialysis dependent-with underlying metabolic acidosis -Her total intake in the last 24 hours was 2.1 L and but removed 2.5 L through hemodialysis -she may 10 cc urine -Otherwise PF ratio < 100-patient is on FiO2 90% -BAL cultures still pending -There is some increased erythema noted around the right lower leg concerning for cellulitis however there is no leukocytosis, no fever spikes but she had some hypothermia episodes couple of days ago-continues to be on vancomycin and meropenem -Today we will taper down sedation and check for mentation -Other labs and imaging reviewed-chest x-ray continues to show diffuse interstitial disease with asymmetric airspace disease. Findings suggestive of left lower lobe opacity suspicious for pleural effusion continues to exist on chest x-ray but with ultrasound did not see significant fluid pocket during my previous ultrasound exam and unable to send patient to CT chest given her body habitus -Family requesting transfer to higher facility Medications: Reviewed: Yes Medication Review Details: Generic Name Dose Route Start Last Admin Trade Name Freq PRN Reason Stop Dose Admin Acetaminophen 500 mg 04/09/22 19:24 04/11/22 19:48 Acetaminophen 50 0 Mg Tablet PO 500 mg Q4H PRN Administration fever Albuterol/Ipratrop ium 3 ml 04/20/22 20:00 04/23/22 14:40 Ipratropium-Albu terol 3 Ml Neb INHALATION 3 ml Q6H.RESP BREANNA Administration Artificial Tears 1 drop 04/19/22 09:08 04/20/22 01:52 Artificial Tears Op Soln 15 Ml Btl EYE-BOTH 1 drop Q4H PRN Administration DRY EYE(S) Bacitracin 1 applic 04/09/22 21:00 04/23/22 16:12 Bacitracin Ointm ent 28 Gm TOPICAL 1 applic TID BREANNA Administration Protocol Chlorhexidine Gluc fritz 1 applic 04/21/22 01:00 04/23/22 00:24 Chlorhexidine Gl uconate 4% Btl 118 Ml TOPICAL 1 applic 0100 BREANNA Administration Collagenase 1 applic 04/13/22 00:00 04/23/22 00:24 Collagenase Oint 30 Gm TOPICAL 1 applic Q24H BREANNA Administration Enoxaparin Sodium 150 mg 04/18/22 14:00 04/23/22 14:00 Enoxaparin 150 M g/Ml Syringe SUBCUT 150 mg Q12H BREANNA Administration Fluoxetine HCl 20 mg 04/10/22 09:30 04/23/22 09:53 Fluoxetine 20 Mg Capsule PO 20 mg BID BREANNA Administration Heparin Sodium (Po rcine) 200 - 500 unit 04/12/22 16:15 04/23/22 16:26 Heparin Lock Flu sh 500 Unit/5 Ml S yringe IV 500 unit Q12H BREANNA Administration Heparin Sodium (Po rcine) 200 - 500 unit 04/12/22 16:13 04/14/22 22:39 Heparin Lock Flu sh 500 Unit/5 Ml S yringe IV 500 unit PRN PRN Administration Central line flus h Hydralazine HCl 10 mg 04/19/22 09:09 04/19/22 21:52 Hydralazine 20 M g/Ml Inj 1 Ml IVP 10 mg Q4H PRN Administration bp> 180./100 Sodium Chloride 1,000 mls @ 0 mls /hr 04/14/22 07:19 04/22/22 10:16 Sodium Chloride 0.9% IV 1 mls/hr .Q0M PRN Administration hypotension or sy mptomatic As Directed Albumin Human 25 gm in 100 mls @ 60 mls/hr 04/17/22 11:00 04/23/22 14:33 Albumin IV Infused Q8H BREANNA Infusion Meropenem 1,000 mg / Sodium 50 mls @ 100 mls/ hr 04/18/22 15:00 04/23/22 16:27 Chloride IV Infused Q8H BREANNA Infusion Propofol 1,000 mg in 100 m ls @ 0 mls/hr 04/19/22 23:45 04/23/22 15:30 Diprivan IV 30 mcg/kg/min .Q0M BREANNA 46.17 mls/hr Titration Protocol Per Protocol Fentanyl 2,500 mcg / Sodium 250 mls @ 0 mls/h r 04/19/22 23:45 04/22/22 21:45 Chloride IV 100 mcg/hr .Q0M BREANNA 10 mls/hr Administration Protocol Per Protocol Midazolam HCl 100 mg/ Sodium 100 mls @ 0 mls/h r 04/20/22 09:00 04/21/22 19:00 Chloride IV 0 mg/hr .Q0M BREANNA 0 mls/hr Titration Protocol Per Protocol Vancomycin HCl 2,0 00 mg/ 500 mls @ 250 mls /hr 04/20/22 15:00 04/21/22 05:13 Sodium Chloride IV Infused Q12H BREANNA Infusion Sodium Chloride 1,000 mls @ 0 mls /hr 04/22/22 10:30 04/22/22 10:58 Sodium Chloride 0.9% IV 1 mls/hr .Q0M BREANNA Administration As Directed Lanolin 1 applic 04/15/22 14:00 04/16/22 20:05 Lanolin Oint 7 G m TOPICAL 1 applic PRN PRN Administration DRYNESS Lidocaine HCl 1 applic 04/11/22 23:30 04/12/22 01:57 Lidocaine 2% Jel ly 6 Ml TOPICAL 1 applic PRN PRN Administration PAIN Lorazepam 2 mg 04/19/22 18:56 04/19/22 19:39 Lorazepam 2 Mg/M l Inj 1 Ml IVP 2 mg Q4H PRN Administration ANXIETY Methocarbamol 500 mg 04/10/22 09:30 04/11/22 18:29 Methocarbamol 50 0 Mg Tablet PO 500 mg BID BREANNA Administration Morphine Sulfate 2 mg 04/19/22 18:17 04/19/22 22:13 Morphine 4 Mg/Ml Sdv 1 Ml IVP 2 mg Q8H PRN Administration SEVERE PAIN Nitroglycerin 0.5 inch 04/14/22 10:35 04/19/22 19:30 Nitroglycerin 1 Gm/Inch Oint Pkt TOPICAL 0.5 inch Q6H PRN Administration Blood pressure gr eater than 180/100 Ondansetron HCl 4 mg 04/09/22 19:24 04/10/22 19:49 Ondansetron 2 Mg /Ml Sdv 2 Ml IVP 4 mg Q6H PRN Administration NAUSEA AND VOMITI NG Pantoprazole Sodiu m 40 mg 04/10/22 22:15 04/23/22 09:52 Pantoprazole 40 Mg Sdv IVP 40 mg DAILY BREANNA Administration Senna/Docusate Sod ium 1 tab 04/10/22 09:00 04/23/22 09:53 Sennosides-Docus ate Tablet PO 1 tab DAILY BREANNA Administration Sodium Chloride 5 - 10 ml 04/12/22 16:15 04/23/22 16:26 Sodium Chloride 0.9 % (Flush) Syri nge 10 Ml IV 10 ml Q12H BREANNA Administration Sodium Chloride 5 - 10 ml 04/12/22 16:13 04/22/22 10:15 Sodium Chloride 0.9 % (Flush) Syri nge 10 Ml IV 10 ml PRN PRN Administration Central line flus h Vitals/I&O/Wt Last Vital Signs Temp 98.5 F 04/24/22 04:30 Pulse 80 04/24/22 08:14 Resp 22 H 04/24/22 07:55 BP 118/58 04/24/22 06:00 Pulse Ox 90 04/24/22 07:55 O2 Del Method 04/24/22 07:50 O2 Flow Rate 80 04/22/22 12:30 FiO2 90 04/24/22 07:55 04/23/22 04/24/22 04/24/22 22:59 06:59 14:59 Intake Total 1180.782 / 1680.782 428.267 / 2109.049 39.583 / 39.583 Output Total Balance 1180.782 / 1680.782 408.267 / 2089.049 39.583 / 39.583 Weight last 48 hrs Weight 465 lb 13.388 oz Weight 493 lb 9.84 oz Physical Exam Narrative: PHYSICAL EXAM: General: lying in bed, sedated and intubated. HEENT:NCAT, PERRLA, EOMI Neck: Supple Lungs: Bilateral upper lung zones clear-difficult to auscultate given patient's body size Heart: s1/s2, RRR Abd: soft, NT, ND, BS + Normoactive Extremities: Chronic bilateral lymphedema, right anterior burton-open clear wound with surrounding erythema with no significant bruising. There is an area of increased redness above this open wound MERCHANDISE PICKUP/RECEIVING ASSOCIATE: sedated and limited MERCHANDISE PICKUP/RECEIVING ASSOCIATE exam possible. SKIN: no rash LDA: # CVC: Right internal jugular # HD Cath : 04/13/2022 right femoral line # Morton: Present Urinary Catheter Management: Coude: Cath Placed During This Visit: yes Reason for Continuing Indwelling Catheter: Accurate Measurement of Urinary Output in Critically Ill Patients Urinary Catheter Date of Insertion: 04/09/22 Urinary Catheter Time of Insertion: 15:30 Data : 04/24/22 04:14 04/24/22 04:14 Other Labs: Radiology Impressions KUB X-Ray 04/11/22 07:37 IMPRESSION: Nonspecific bowel gas pattern, as noted above. Renal Ultrasound 04/12/22 15:56 IMPRESSION: 1. Examination is limited secondary to body habitus. 2. Urinary bladder is not visualized. 3. The abdominal aorta is obscured. 4. No obvious hydronephrosis. 5. Probable echogenic right renal cortex compared to the liver consistent with bilateral medical renal disease. Chest Ultrasound 04/16/22 08:55 IMPRESSION: No pleural effusions. Lower Extremity CT 04/16/22 09:01 IMPRESSION: 1. Similar-appearing diffuse extensive edema RIGHT lower extremity extending to the foot. 2. No evidence of drainable abscess or fluid collection. 3. No evidence of osteomyelitis. 4. Previously described tiny suspected area of ulceration about the lateral malleolus is unchanged. Chest X-Ray 04/24/22 04:00 IMPRESSION: 1. Emphysematous change, interstitial disease, and asymmetric airspace disease (left greater than right). 2. Left pleural effusion. 3. Endotracheal tube, feeding tube, central venous catheter again demonstrated. The endotracheal tube terminates 6.4 cm above the sachi. Laboratory Results WBC 8.5 10^3/uL (4.0-10.0) 04/24/22 04:14 RBC 3.71 10^6/uL (4.1-5.3) L 04/24/22 04:14 Hgb 10.3 g/dL (11.5-15.3) L 04/24/22 04:14 Hct 35.9 % (37.0-47.0) L 04/24/22 04:14 MCV 96.8 fl (81-99) 04/24/22 04:14 MCH 27.8 pg (28.0-34.0) L 04/24/22 04:14 MCHC 28.7 g/dL (30.0-36.0) L 04/24/22 04:14 RDW 18.7 % (12.1-15.1) H 04/24/22 04:14 Plt Count 184 10^3/cmm (130-400) 04/24/22 04:14 MPV 11.4 fL (7.4-10.4) H 04/24/22 04:14 Neut % (Auto) 80.2 % 04/24/22 04:14 Lymph % (Auto) 10.3 % 04/24/22 04:14 Spencer % (Auto) 7.4 % 04/24/22 04:14 Eos % (Auto) 1.2 % 04/24/22 04:14 Baso % (Auto) 0.4 % 04/24/22 04:14 Neut # (Auto) 6.84 10^3/uL (1.8-7.7) 04/24/22 04:14 Lymph # (Auto) 0.9 10^3/uL (0.8-4.8) 04/24/22 04:14 Spencer # (Auto) 0.6 10^3/uL (0.2-0.9) 04/24/22 04:14 Eos # (Auto) 0.1 10^3/uL (0.0-0.8) 04/24/22 04:14 Baso # (Auto) 0.0 10^3/uL (0.0-0.1) 04/24/22 04:14 Nucleated RBC % (auto) 0 % 04/24/22 04:14 Total Counted 100 (0-100) 04/09/22 14:25 Atypical Lymphs % 1.0 % (0-5) 04/09/22 14:25 Absolute Neutrophils 11.8 10^3/cmm (1.4-6.5) H 04/09/22 14:25 Segmented Neutrophils 91 % 04/09/22 14:25 Abs Segm Neuts (Man) 11.5 10/cmm (1.6-7.1) H 04/09/22 14:25 Band Neutrophils 3.0 % 04/09/22 14:25 Abs Band Neuts (Man) 0.4 10^3/cmm (0.0-1.2) 04/09/22 14:25 Absolute Lymphocytes 0.6 10^3/cmm (1.2-3.4) L 04/09/22 14:25 Lymphocytes (Manual) 4 % 04/09/22 14:25 Monocytes (Manual) 1.0 % 04/09/22 14:25 Absolute Monocytes 0.1 10^3/cmm (0.1-0.6) 04/09/22 14:25 Eosinophils (Manual) 0 % 04/09/22 14:25 Absolute Eosinophils 0.0 10^3/cmm (0.0-0.7) 04/09/22 14:25 Basophils (Manual) 0.0 % 04/09/22 14:25 Absolute Basophils 0.0 10^3/cmm (0.0-0.2) 04/09/22 14:25 Nucleated RBCs # 0.0 /100WBC 04/24/22 04:14 Platelet Estimate Normal (Normal) 04/09/22 14:25 Giant Platelets Trace 04/09/22 14:25 Polychromasia Trace 04/09/22 14:25 Hypochromasia Trace 04/09/22 14:25 Poikilocytosis Trace 04/09/22 14:25 Anisocytosis Trace 04/09/22 14:25 Microcytosis Trace 04/09/22 14:25 Macrocytosis Trace 04/09/22 14:25 Spherocytes Trace 04/09/22 14:25 Target Cells Trace 04/09/22 14:25 Tear Drop Cells Trace 04/09/22 14:25 Ovalocytes Trace 04/09/22 14:25 Carlos Cells Trace 04/09/22 14:25 ESR 24 mm/hr (0-15) H 04/09/22 14:25 PT 15.70 SECONDS (12.1-14.9) H 04/17/22 03:05 INR 1.22 (0.8-1.2) H 04/17/22 03:05 APTT 52.7 SECONDS (23.9-36.7) H 04/18/22 09:00 Fibrinogen 760 mg/dL (174-498) H 04/17/22 03:05 Fibrin Degrad Products Neg, <10 ug/mL (NEG) 04/17/22 03:05 D-Dimer 2.24 ug/mIFEU (0-0.59) H 04/17/22 03:05 Specimen Type Arterial 04/24/22 03:44 Sample Site Radial, right 04/24/22 03:44 ABG pH 7.21 (7.35-7.45) L 04/24/22 03:44 ABG pCO2 69.0 mmHg (35-45) H* 04/24/22 03:44 ABG pO2 69.9 mmHg (80.0-100.0) L 04/24/22 03:44 ABG HCO3 27.7 mmol/L (22-26) H 04/24/22 03:44 ABG O2 Saturation 93.0 04/24/22 03:44 ABG Base Excess -1.6 mmol/L (-2.0-2.0) 04/24/22 03:44 Harsha Test Pos 04/24/22 03:44 A-a O2 Gradient 58.7 mmHg (5-10) H 04/24/22 03:44 Hematocrit 39.0 % (37-47) 04/24/22 03:44 Hgb O2 Saturation 90.8 % (95-100) L 04/24/22 03:44 Carboxyhemoglobin 1.0 %THgb (0.4-20.1) 04/24/22 03:44 Methemoglobin 1.3 % (0.4-1.5) 04/24/22 03:44 Total Hemoglobin 12.7 g/dL (12-16) 04/24/22 03:44 Sodium 140.0 mmol/L (131-143) 04/24/22 03:44 Potassium 4.3 mmol/L (3.5-5.0) 04/24/22 03:44 Glucose 77.0 mg/dL (70-115) 04/24/22 03:44 Ionized Calcium 1.2 mmol/L (1.1-1.4) 04/24/22 03:44 O2 Delivery Device Vent 04/24/22 03:44 O2 Liters/Min 15.0 % 04/10/22 21:45 FiO2 85.0 % 04/24/22 03:44 Tidal Volume 0.45 04/24/22 03:44 PEEP 18.0 cmH20 04/24/22 03:44 Jewelry Drilling Machine Operator ID Shamir 04/24/22 03:44 Sodium 140 mmol/L (136-145) 04/24/22 04:14 Potassium 4.6 mmol/L (3.5-5.1) 04/24/22 04:14 Chloride 99 mmol/L (98-107) 04/24/22 04:14 Carbon Dioxide 27 mmol/L (22-29) 04/24/22 04:14 Anion Gap 18.6 (5-19) 04/24/22 04:14 BUN 31 mg/dL (6-20) H 04/24/22 04:14 Creatinine 2.3 mg/dL (0.5-0.9) H 04/24/22 04:14 GFR Calculation 21.7 mL/min (90-130) L 04/24/22 04:14 Glucose 78 mg/dL (65-115) 04/24/22 04:14 POC Glucose 80 mg/dL (70-110) 04/24/22 01:54 Estimat Average Glucose 105 04/12/22 16:04 Hemoglobin A1c 5.3 % (4.0-6.0) 04/12/22 16:04 Calculated Osmolality 295 mOsm/kg (285-295) 04/24/22 04:14 Lactate 1.3 mmol/L (0.5-2.2) 04/15/22 00:55 Calcium 9.0 mg/dL (8.5-10.5) 04/24/22 04:14 Phosphorus 5.8 mg/dL (2.5-4.5) H 04/24/22 04:14 Magnesium 1.9 mg/dL (1.7-2.3) 04/24/22 04:14 Total Bilirubin 0.9 mg/dL (0.15-1.2) 04/24/22 04:14 AST 22 U/L (0-32) 04/24/22 04:14 ALT 6 U/L (0-33) 04/24/22 04:14 Alkaline Phosphatase 67 U/L (35-105) 04/24/22 04:14 Creatine Kinase 35 U/L (26-192) 04/15/22 00:55 Troponin T Gen 5 ng/L 49 ng/L (0-10) H 04/12/22 09:18 Troponin T Baseline 54 ng/L (0-10) H 04/12/22 16:04 Troponin T 120 Minute 54.26 ng/L (0-10) H 04/12/22 18:38 Delta Troponin T 0.26 ABS# (0-10) 04/12/22 18:38 Troponin T Hi Sens 6Hr 52.47 ng/L (0-10) H 04/12/22 22:04 Troponin T Hi Sens 6Hr Delta -1.53 ng/L (0-12) L 04/12/22 22:04 C-Reactive Protein 375.7 mg/L (0.0-4.9) H 04/13/22 03:29 NT-Pro-B Natriuret Pep 9213 pg/mL (0-125) H 04/15/22 00:55 Total Protein 7.8 g/dL (6.6-8.7) 04/24/22 04:14 Albumin 3.7 g/dL (3.5-5.2) 04/24/22 04:14 Globulin 4.1 g/dL (1.3-4.6) 04/24/22 04:14 Procalcitonin 9.20 ng/mL (0-0.5) H 04/09/22 17:12 TSH 0.44 uIU/mL (0.27-4.20) 04/09/22 17:12 Urine Color Dark yellow (Yellow) 04/12/22 16:04 Urine Appearance Cloudy (CLEAR) A 04/12/22 16:04 Urine pH 5 (5-7) 04/12/22 16:04 Ur Specific [place] 1.010 (1.005-1.030) 04/12/22 16:04 Urine Protein 1+ (Negative) H 04/12/22 16:04 Urine Glucose (UA) Norm (Normal) 04/12/22 16:04 Urine Ketones 1+ (Negative) H 04/12/22 16:04 Urine Blood 3+ (Negative) H 04/12/22 16:04 Urine Nitrate Negative (Negative) 04/12/22 16:04 Urine Bilirubin 1+ (Negative) H 04/12/22 16:04 Urine Urobilinogen Norm mg/dL (Negative) 04/12/22 16:04 Ur Leukocyte Esterase Trace (Negative) H 04/12/22 16:04 Urine RBC 5-10 /hpf (0-2) H 04/12/22 16:04 Urine WBC 5-10 /hpf (0-5) H 04/12/22 16:04 Ur Eosinophil Smear 0 (0-0) 04/12/22 16:04 Ur Squamous Epith Cells 0-4 /hpf (0-5) H 04/12/22 16:04 Amorphous Sediment 2+ /hpf 04/12/22 16:04 Urine Bacteria 1+ /hpf (NONE) H 04/12/22 16:04 Urine Eosinophils No eosinophils seen 04/12/22 16:04 Ur Random Microalbumin 30 ug/dL (0-20) H 04/12/22 16:04 Ur Random Sodium 12 mmol/L 04/12/22 16:04 Ur Random Potassium 11 04/12/22 16:04 Ur Random Potassium 11 mmol/L 04/12/22 16:04 Ur Random Chloride 15 mmol/L 04/12/22 16:04 Urine Creatinine 65 mg/dL (28-217) 04/12/22 16:04 Microalb/Creat Ratio 462 mg/dL (0-20) H 04/12/22 16:04 Fluid Color Red 04/20/22 15:45 Fluid Appearance Turbid 04/20/22 15:45 Fluid WBC 2739 /uL 04/20/22 15:45 Fluid RBC 32.000 10^3/uL 04/20/22 15:45 Fld Polynuclear WBCs # 1.121 04/20/22 15:45 Fld Polynuclear WBCs % 40.900 % 04/20/22 15:45 Fl Mononucl WBCs #(Auto) 1.618 04/20/22 15:45 Fl Mononuclear % Auto 59.100 % 04/20/22 15:45 Vancomycin Trough 9.3 ug/mL (10-15) L 04/16/22 11:10 Random Vancomycin 25.4 ug/mL (20.0-40.0) 04/23/22 03:50 Serum Ketones Negative (Negative) 04/12/22 16:04 Coronavirus 229E (PCR) Not detected (NOT DETECT) 04/09/22 15:30 Hep Bs Antigen Non-reactive (Nonreactive) 04/12/22 16:04 Hepatitis C Antibody Non-reactive (Nonreactive) 04/12/22 16:04 SARS-CoV-2 (PCR) Not detected (NOT DETECT) 04/09/22 15:30 Micro: Microbiology 04/20/22 15:45 Gram Stain - Final Lung Left Lower Lobe Bronchoalveolar Lavage Culture - Preliminary A&P Assessment and plan (1) Acute and chronic respiratory failure with hypercapnia: (2) Aspiration pneumonitis: (3) ANY (acute kidney injury): (4) Difficult ventilator weaning: (5) CHF exacerbation: (6) Obesity hypoventilation syndrome: (7) Sepsis: (8) ARDS (adult respiratory distress syndrome): (9) Stasis leg ulcer: (10) Chronic acquired lymphedema: (11) Hypertension: Qualifiers: Hypertension type: essential hypertension Qualified Code(s): I10 - Essential (primary) hypertension (12) Morbid obesity: (13) Hypertensive emergency: Plan 61-year-old morbidly obese patient with BMI 52, hypothyroidism, ALON, possible underlying obesity hypoventilation syndrome, with chronic bilateral lower extremity lymphedema-initially 04/09/2022 admitted for right lower leg cellulitis-started on antibiotics, later went into ANY and fluid overload as well as recurrent vomitings causing aspiration pneumonia-all resulting in acute on chronic hypercapnic/hypoxic respiratory failure for which she was on BiPAP for almost a week-refusing intubation until day 9-at which point she had hypertensive emergency with SBP 264 causing nasal bleeds aspiration-complicating airway-resulting in intubation for airway protection. NEURO: #Sedated propofol 40 Mg/hour, fentanyl 100 mcg/hr - off Versed -On fentanyl 100 MCG and propofol 40 -Plan is to further taper off sedation and do awakening trial to see patient's mentation PULM: #Acute on chronic hypercarbic/hypoxic respiratory failure secondary to ARDS due to aspiration pneumonia and fluid overload; airway protection from nasal be due to hypertension #Underlying chronic hypercapnic respiratory failure secondary to obesity hypoventilation syndrome/ALON -Currently sedated and intubated with CMV with tidal volume 420/PEEP 18/respiratory rate 14/FiO2 95%; -pH 7. 2 1 however CO2 is 69 which is right about her baseline and to compensate for bicarb is less than what is expected- appears to be in metabolic acidosis, discussed with telemetry nephrology and plan is to get another session of hemodialysis today -Otherwise PF ratio < 100-patient is on FiO2 90 % -We will continue to monitor and come down on FiO2 as feasible -Continue DuoNeb nebulization every 6 hours as needed -S/p bronchoscopy today 04/20/2022-showed erythematous mucosa throughout bilateral bronchial tree; aspirated 15 mL BAL from left lower lobe with some mucous plugs -BAL cultures are still pending -Continue vancomycin and meropenem -Unable to obtain CT chest given patient's body habitus ~500 pounds -Area and imaging concerning for left pleural effusion-ultrasound did not did not show good pocket-may be her body habitus is making it difficult CVS: #Hypertensive emergency-causing nasal bleeds - resolved -Currently off Cardene drip and maintaining SBP 1 20-1 50 but she required Levophed during dialysis -Initial echocardiogram was uninterpretable due to body habitus, -Suspect component of diastolic dysfunction given her morbid obesity and cannot rule out LV systolic function based on prior echo; GI: -Nutrition; TPN-will hold to avoid fluid overload -Currently on trickle tube feeds nephro -LFTs are normal RENAL: -ANY-secondary to sepsis- leading to refractory fluid overload - ABG showed metabolic acidosis; currently on hemodialysis -Hypokalemia, hypomagnesemia-corrected -Nephrology on board HEM: -No leukocytosis; not in DIC as patient has normal fibrinogen and FDP -Monitor platelets -No more active nasal bleeding noted -DVT prophylaxis: Lovenox ENDO: -Sugars well controlled-not requiring insulin coverage at this point of time ID: -Right lower leg cellulitis-currently on vancomycin -CT did not show any evidence of abscess -Wound looks clean -Patient was on several antibiotics since admission-vancomycin for last 16 days (she did not get any dose for 3 days in between); cefepime for 8 days, meropenem for last 6 days, doxycycline for 5 days, Flagyl for 5 days. -If BAL cultures are negative-I I have recommended to discontinue all antibiotics as she has adequate antibiotic coverage until now. Unless patient spikes fevers or there is evidence of leukocytosis or other signs of sepsis Code Status: Limited resuscitation Disposition: Currently we will continue in ICU Critically ill: Yes discussed with: Family members, RN, RT, telenephrology and hospitalist ICU CHECKLIST: Problem list updated Verbal orders reviewed and signed Analgesia: On fentanyl gtt. Glycemic Control: N/A Nutrition: trickle tube feeds Restraint Renewal (within 24 hrs): Yes Ulcer Prophylaxis: Yes PPI Chemical Thromboprophylaxis: Prophylaxis: lovenox Mechanical Thromboprophylaxis: Yes but too big for her Calves Need for Central line: Yes for multiple medications and drips Need for Morton catheter: Yes I had an extensive discussion with daughter at bedside on 04/22-and explained about medical condition, prognosis and treatment plan. She verbalized understanding and agreed with the plan. I think patient has significant ARDS requiring mechanical ventilation and renal failure requiring hemodialysis-clinically looking more dehydrated but ABG suggestive of metabolic acidosis-we will continue to support mechanical ventilation and hope she recovers from ARDS and renal failure. So far she has adequate antibiotic coverage and all cultures are negative ( except BAL cultures are pending and redness in right bur[place] area) with no evidence of leukocytosis or fever curve. Unable to obtain CT head to check for any intracranial bleed given her hypertensive emergency due to her body habitus but her pupils are normal with good reflexes. We will taper off sedation and see if she has good mentation and gross. movements in her extremities. Also there is a suspicious left lower lobe opacity on chest x-rays questionable for left pleural effusion- with my ultrasound examination it was very difficult to visualize any good pocket given her body habitus-again we are unable to obtain a CT chest, however she does not have any other signs and symptoms of ongoing infection and she is getting hemodialysis. Unable to assess her cardiac function due to uninterpretable echo. Higher centers may have advanced imaging modalities for bariatric patients which may give him more information. Other than that we will continue to closely monitor and care for patient in ICU. I have discussed my thought process in detail with the hospitalist taking care of the patient and is going to have detailed discussion with patient's family and may transfer to higher center if there is an accepting facility Attestations Medical Necessity Statement*: Patient intubated mechanically ventilated, need close monitoring in ICU Time Spent in Patient Care: Greater than 35 minutes (>than 50% of time spent in counselling and/or direct pt care on unit) . Critical Care Time: The high probability of a clinically significant, sudden or life threatening deterioration of the patient's?[neurological, pulmonary, cardiac, GI, infectious]?system(s) required my full and direct attention, intervention and personal management. The critical care time is as shown. This time is in addition to time spent performing any reported procedures but inclu scott the following: [x]?Data and vital sign review and interpretation [x]?Patient assessment, examination and intervention [x]?Documentation [x]?Medication orders and management Critical Care Time (min): 45 Coding Level of Care Code Established Pt Acute Geophysical Support Specialist for Chg Fwd Patient Type Established History Comprehensive Exam Comprehensive Medical Decision Making High Complexity Diagnoses Acute and chronic respiratory failure with hypercapnia J96.22 Aspiration pneumonitis J69.0 ANY (acute kidney injury) N17.9 Difficult ventilator weaning Z99.11 CHF exacerbation I50.9 Obesity hypoventilation syndrome E66.2 Sepsis A41.9 ARDS (adult respiratory distress syndrome) J80 Stasis leg ulcer I83.009; L97.909 Chronic acquired lymphedema I89.0 Hypertension I10 Hypertension type: essential hypertension Morbid obesity E66.01 Hypertensive emergency I16.1 Time Spent (min) 45
--- NOTE | 2022-04-24 09:30 | PC.NURSE ---
Dr Wang notified of family's request to transfer pt to facility with bariatric CT, etc
--- NOTE | 2022-04-24 10:02 | PM.PN ---
Vitals/I&O/Wt Last Vital Signs Temp 98.5 F 04/24/22 04:30 Pulse 80 04/24/22 08:14 Resp 22 H 04/24/22 09:21 BP 118/58 04/24/22 06:00 Pulse Ox 91 04/24/22 09:21 O2 Del Method 04/24/22 07:50 O2 Flow Rate 80 04/22/22 12:30 FiO2 90 04/24/22 09:21 04/23/22 04/24/22 04/24/22 22:59 06:59 14:59 Intake Total 1180.782 / 1680.782 428.267 / 2109.049 39.583 / 39.583 Output Total Balance 1180.782 / 1680.782 408.267 / 2089.049 39.583 / 39.583 Weight last 48 hrs Weight 211.3 kg Weight 223.9 kg Physical Exam Narrative: PHYSICAL EXAM: General: lying in bed, sedated and intubated. HEENT:NCAT, PERRLA, EOMI Neck: Supple Lungs: Bilateral upper lung zones clear-difficult to auscultate given patient's body size Heart: s1/s2, RRR Abd: soft, NT, ND, BS + Normoactive Extremities: Chronic bilateral lymphedema, right anterior burton-open clear wound with surrounding erythema with no significant bruising. There is an area of increased redness above this open wound WOUND CARE TECHNICIAN: sedated and limited WOUND CARE TECHNICIAN exam possible. SKIN: no rash Urinary Catheter Management: Coude: Cath Placed During This Visit: yes Reason for Continuing Indwelling Catheter: Accurate Measurement of Urinary Output in Critically Ill Patients Urinary Catheter Date of Insertion: 04/09/22 Urinary Catheter Time of Insertion: 15:30 Data : 04/24/22 04:14 04/24/22 04:14 Micro: Microbiology 04/20/22 15:45 Gram Stain - Final Lung Left Lower Lobe Bronchoalveolar Lavage Culture - Preliminary A&P Assessment and plan (1) ANY (acute kidney injury): 61 yr old female rt leg cellulitis and ATN 1AKI - required daily HD via RT femoral temp? HD catheter on 04-12-22 - requiring daily dialysis repeat HD today -3.25? hrs, 2k, remove 3l as tolerated -hyperphosphatemia- monitor w/ dialysis and binder w/ feeds 2. cellulitis-? abx per medicine-? dose for ANY on HD -keep? vanco? trough under 19 -level today 25- hold dose 3. Resp acidosis- now intubated.? Q ARDS seen and examined w/ RESIDENTIAL INSURANCE INSPECTOR- telehealth visit time spent 25+ min Attestations Medical Necessity Statement*: Patient intubated mechanically ventilated, need close monitoring in ICU Critical Care Time: The high probability of a clinically significant, sudden or life threatening deterioration of the patient's?[neurological, pulmonary, cardiac, GI, infectious]?system(s) required my full and direct attention, intervention and personal management. The critical care time is as shown. This time is in addition to time spent performing any reported procedures but includes the following: [x]?Data and vital sign review and interpretation [x]?Patient assessment, examination and intervention [x]?Documentation [x]?Medication orders and management Coding Level of Care Code Established Pt Acute Extrusion Die Template Maker for Chg Fwd Patient Type Established History Problem Focused Exam Problem Focused Medical Decision Making Straight Forward Diagnoses ANY (acute kidney injury) N17.9
[2022-04-24 10:25] LABS: Glucose Point of Care 78 mg/dL (70-110)
[2022-04-24] MEDS: pantoprazole 40 mg SDV IVP (10:26)
[2022-04-24] MEDS: fluoxetine 20 mg Capsule PO ×2 (10:26→18:56)
[2022-04-24] MEDS: sennosides-docusate Tablet 1 TAB PO (10:26)
[2022-04-24] MEDS: bacitracin ointment 28 gm 1 APPLIC TOPICAL ×3 (10:27→21:22)
--- NOTE | 2022-04-24 10:30 | PC.NURSE ---
Dr Wang, on unit, notified of tube feeding residual of 270ml. Verbal orders to stop tube feeding received and completed.
[2022-04-24] MEDS: lanolin oint 7 gm 1 APPLIC TOPICAL ×2 (11:08→14:56)
--- NOTE | 2022-04-24 12:05 | PC.NURSE ---
nose; Removed old cotton ball fro patient's nose. 15minutes later a moderate amount of reddish brown drainage ran out. Cleaned pt's face, applied fresh cotton ball to left nostril.
[2022-04-24] MEDS: heparin, porcine 1,000 unit/mL INJ 10 mL HE (12:14)
--- NOTE | 2022-04-24 12:46 | PM.PN ---
Subjective Subjective: Was seen and examined this morning, continue to be intubated sedated on mechanical ventilation, Received hemodialysis yesterday with removal of 2.5 Ls, total intake in the last 24 hours is around 2 Ls Patient is barely making any urine,now. Her a.m. ABG, x-ray chest, vitals and labs have been reviewed. Medications: Reviewed: Yes Medication Review Details: Generic Name Dose Route Start Last Admin Trade Name Freq PRN Reason Stop Dose Admin Acetaminophen 500 mg 04/09/22 19:24 04/11/22 19:48 Acetaminophen 50 0 Mg Tablet PO 500 mg Q4H PRN Administration fever Albuterol/Ipratrop ium 3 ml 04/20/22 20:00 04/24/22 07:54 Ipratropium-Albu terol 3 Ml Neb INHALATION 3 ml Q6H.RESP BREANNA Administration Artificial Tears 1 drop 04/19/22 09:08 04/20/22 01:52 Artificial Tears Op Soln 15 Ml Btl EYE-BOTH 1 drop Q4H PRN Administration DRY EYE(S) Bacitracin 1 applic 04/09/22 21:00 04/24/22 10:27 Bacitracin Ointm ent 28 Gm TOPICAL 1 applic TID BREANNA Administration Protocol Chlorhexidine Gluc fritz 1 applic 04/21/22 01:00 04/24/22 00:39 Chlorhexidine Gl uconate 4% Btl 118 Ml TOPICAL 1 applic 0100 BREANNA Administration Collagenase 1 applic 04/13/22 00:00 04/24/22 00:38 Collagenase Oint 30 Gm TOPICAL 1 applic Q24H BREANNA Administration Enoxaparin Sodium 150 mg 04/18/22 14:00 04/24/22 02:25 Enoxaparin 150 M g/Ml Syringe SUBCUT 150 mg Q12H BREANNA Administration Fluoxetine HCl 20 mg 04/10/22 09:30 04/24/22 10:26 Fluoxetine 20 Mg Capsule PO 20 mg BID BREANNA Administration Heparin Sodium (Po rcine) 200 - 500 unit 04/12/22 16:15 04/24/22 05:08 Heparin Lock Flu sh 500 Unit/5 Ml S yringe IV Not Given Q12H BREANNA Heparin Sodium (Po rcine) 200 - 500 unit 04/12/22 16:13 04/14/22 22:39 Heparin Lock Flu sh 500 Unit/5 Ml S yringe IV 500 unit PRN PRN Administration Central line flus h Hydralazine HCl 10 mg 04/19/22 09:09 04/19/22 21:52 Hydralazine 20 M g/Ml Inj 1 Ml IVP 10 mg Q4H PRN Administration bp> 180./100 Sodium Chloride 1,000 mls @ 0 mls /hr 04/14/22 07:19 04/22/22 10:16 Sodium Chloride 0.9% IV 1 mls/hr .Q0M PRN Administration hypotension or sy mptomatic As Directed Albumin Human 25 gm in 100 mls @ 60 mls/hr 04/17/22 11:00 04/24/22 10:27 Albumin IV 60 mls/hr Q8H BREANNA Administration Meropenem 1,000 mg / Sodium 50 mls @ 100 mls/ hr 04/18/22 15:00 04/24/22 06:18 Chloride IV 100 mls/hr Q8H BREANNA Administration Propofol 1,000 mg in 100 m ls @ 0 mls/hr 04/19/22 23:45 04/24/22 09:30 Diprivan IV Infused .Q0M BREANNA Titration Protocol Per Protocol Fentanyl 2,500 mcg / Sodium 250 mls @ 0 mls/h r 04/19/22 23:45 04/24/22 08:10 Chloride IV 0 mcg/hr .Q0M BREANNA 0 mls/hr Titration Protocol Per Protocol Midazolam HCl 100 mg/ Sodium 100 mls @ 0 mls/h r 04/20/22 09:00 04/21/22 19:00 Chloride IV 0 mg/hr .Q0M BREANNA 0 mls/hr Titration Protocol Per Protocol Vancomycin HCl 2,0 00 mg/ 500 mls @ 250 mls /hr 04/20/22 15:00 04/21/22 05:13 Sodium Chloride IV Infused Q12H BREANNA Infusion Sodium Chloride 1,000 mls @ 0 mls /hr 04/22/22 10:30 04/22/22 10:58 Sodium Chloride 0.9% IV 1 mls/hr .Q0M BREANNA Administration As Directed Norepinephrine Bit artrate 4 mg 254 mls @ 0 mls/h r 04/23/22 16:30 04/23/22 21:15 / Dextrose IV 0 mcg/min .Q0M BREANNA 0 mls/hr Titration Protocol Per Protocol Lanolin 1 applic 04/15/22 14:00 04/24/22 11:08 Lanolin Oint 7 G m TOPICAL 1 applic PRN PRN Administration DRYNESS Lidocaine HCl 1 applic 04/11/22 23:30 04/12/22 01:57 Lidocaine 2% Jel ly 6 Ml TOPICAL 1 applic PRN PRN Administration PAIN Lorazepam 2 mg 04/19/22 18:56 04/19/22 19:39 Lorazepam 2 Mg/M l Inj 1 Ml IVP 2 mg Q4H PRN Administration ANXIETY Methocarbamol 500 mg 04/10/22 09:30 04/11/22 18:29 Methocarbamol 50 0 Mg Tablet PO 500 mg BID BREANNA Administration Morphine Sulfate 2 mg 04/19/22 18:17 04/19/22 22:13 Morphine 4 Mg/Ml Sdv 1 Ml IVP 2 mg Q8H PRN Administration SEVERE PAIN Nitroglycerin 0.5 inch 04/14/22 10:35 04/19/22 19:30 Nitroglycerin 1 Gm/Inch Oint Pkt TOPICAL 0.5 inch Q6H PRN Administration Blood pressure gr eater than 180/100 Ondansetron HCl 4 mg 04/09/22 19:24 04/10/22 19:49 Ondansetron 2 Mg /Ml Sdv 2 Ml IVP 4 mg Q6H PRN Administration NAUSEA AND VOMITI NG Pantoprazole Sodiu m 40 mg 04/10/22 22:15 04/24/22 10:26 Pantoprazole 40 Mg Sdv IVP 40 mg DAILY BREANNA Administration Senna/Docusate Sod ium 1 tab 04/10/22 09:00 04/24/22 10:26 Sennosides-Docus ate Tablet PO 1 tab DAILY BREANNA Administration Sodium Chloride 5 - 10 ml 04/12/22 16:15 04/24/22 05:08 Sodium Chloride 0.9 % (Flush) Syri nge 10 Ml IV 10 ml Q12H BREANNA Administration Sodium Chloride 5 - 10 ml 04/12/22 16:13 04/22/22 10:15 Sodium Chloride 0.9 % (Flush) Syri nge 10 Ml IV 10 ml PRN PRN Administration Central line flus h Vitals/I&O/Wt Last Vital Signs Temp 98.5 F 04/24/22 04:30 Pulse 80 04/24/22 08:14 Resp 25 H 04/24/22 11:21 BP 118/58 04/24/22 06:00 Pulse Ox 91 04/24/22 09:21 O2 Del Method 04/24/22 07:50 O2 Flow Rate 80 04/22/22 12:30 FiO2 90 04/24/22 11:21 04/23/22 04/24/22 04/24/22 22:59 06:59 14:59 Intake Total 1180.782 / 1680.782 428.267 / 2109.049 139.583 / 139.583 Output Total Balance 1180.782 / 1680.782 408.267 / 2089.049 139.583 / 139.583 Weight last 48 hrs Weight 211.3 kg Weight 223.9 kg Physical Exam Narrative: Intubated, sedated on mechanical ventilation Resp: OTHER: Diminished air entry bilaterally, bilateral crackles predominantly in the lower lung contreras. Cardio: COMMON NORMALS: regular rate, regular rhythm, S1 normal heart sound present, S2 normal heart sound present, No gallops present (Cardio), No murmurs present (Cardio), No rub (Cardio) and Peripheral pulses 2+ throughout RATE: regular rate RHYTHM: regular rhythm HEART SOUNDS: S1 normal heart sound present and S2 normal heart sound present PERIPHERAL PULSES: Peripheral pulses 2+ throughout GI: COMMON NORMALS: Normal to inspection, nondistended, normoactive bowel sounds present, Soft to palpation, non-tender, No hepatosplenomegaly present and no masses AUSCULTATION: Yes normoactive bowel sounds PALPATION: Yes Soft to palpation and Yes No hepatosplenomegaly present RECTAL EXAM: deferred Extremity: COMMON NORMALS: no clubbing, cyanosis or edema and no pedal edema OTHER: 2+ bilateral lower extremity pitting edema, right lower extremity redness, right lower extremity wound is appropriately dressed and packed. Chronic lymphedema. Urinary Catheter Management: Coude: Cath Placed During This Visit: yes Reason for Continuing Indwelling Catheter: Accurate Measurement of Urinary Output in Critically Ill Patients Urinary Catheter Date of Insertion: 04/09/22 Urinary Catheter Time of Insertion: 15:30 Data : 04/24/22 04:14 04/24/22 04:14 Micro: Microbiology 04/20/22 15:45 Gram Stain - Final Lung Left Lower Lobe Bronchoalveolar Lavage Culture - Preliminary A&P Assessment and plan (1) DIC (disseminated intravascular coagulation): (2) CHF exacerbation: (3) Hyponatremia: (4) Oliguria: (5) V tach: (6) Obesity hypoventilation syndrome: (7) Aspiration pneumonitis: (8) Sepsis: (9) Wound infection: (10) Stasis leg ulcer: (11) Chronic acquired lymphedema: (12) Morbid obesity: Plan Assessment: Septic shock Respiratory failure with hypoxia and hypercapnia secondary to severe ARDS likely secondary to aspiration pneumonia Acute renal failure secondary to ATN secondary to sepsis Obesity hypoventilation syndrome History of chronic acquired lymphedema Morbid obesity Hypertension Heart failure 61-year-old female with past medical history of chronic acquired lymphedema morbid obesity, hyperthyroidism hypertension, was brought in with chief complaint of nausea vomiting fever and chills, was initially admitted for the management of sepsis secondary to right lower extremity cellulitis, unfortunately she had a complicated hospital course, resulting in development of, acute renal failure, possibly secondary to ATN secondary to sepsis, as well as septic shock, secondary to aspiration pneumonia, severe ARDS secondary to aspiration pneumonia, initially on BiPAP, but later had to be intubated, as she was not responding to BiPAP. For her acute renal failure likely secondary to ATN secondary to sepsis she is on hemodialysis. With regards to her sepsis blood culture has been negative so far, urine culture is negative CT lower leg RT wo con: Similar-appearing diffuse extensive edema RIGHT lower extremity extending to the foot.No evidence of drainable abscess or fluid collection.No evidence of osteomyelitis. She has been kept on broad-spectrum antibiotics. For acute hypoxic, hypercapnic respiratory failure : secondary to severe ARDS secondary to aspiration pneumonia/volume overload. She had to be intubated, after extreme persuasion as family was not ready for intubation initially, s/p bron, showed erythematous mucosa throughout bilateral bronchial tree;culture has been sent, results awaited. Later hospital course has also been complicated by development of hypertensive emergencies: For which patient has been kept on IV antihypertensive drip. Patient has been empirically kept on therapeutic anticoagulation as there has been concern for possible PE, no CT imaging studies so far has been pursued given the size of the patient. 2D echo : Is a poor quality due to poor quality window. Ultimate aim is to try for LTAC placement. CODE STATUS: Limited resuscitation Family is contemplating transfer to higher level of care : Which is perfectly understandable: Given her no progress in the clinical status since admission. DVT prophylaxis not needed: On therapeutic anticoagulation Attestations Medical Necessity Statement*: Patient is in hospital for management of septic shock, acute renal failure respiratory failure. Time Spent in Patient Care: Greater than 35 minutes (>than 50% of time spent in counselling and/or direct pt care on unit). Critical Care Time: The high probability of a clinically significant, sudden or life threatening deterioration of the patient's [] system(s) required my full and direct attention, intervention and personal management. The critical care time is as shown. This time is in addition to time spent performing any reported procedures but includes the following: [x] Data and vital sign review and interpretation [x] Patient assessment, examination and intervention [x] Documentation [x] Medication orders and management Critical Care Time (min): 30 Coding Level of Care Code Acute Satellite Dish Technician for [facility] Fwd Diagnoses DIC (disseminated intravascular coagulation) D65 CHF exacerbation I50.9 Hyponatremia E87.1 Oliguria R34 V tach I47.20 Obesity hypoventilation syndrome E66.2 Aspiration pneumonitis J69.0 Sepsis A41.9 Wound infection T14.8XXA; L08.9 Stasis leg ulcer I83.009; L97.909 Chronic acquired lymphedema I89.0 Morbid obesity E66.01
[2022-04-24 14:07] LABS: Glucose Point of Care 87 mg/dL (70-110)
--- NOTE | 2022-04-24 14:34 | PC.NURSE ---
Versed gtt wasted. Aprrox 14 ml. See Aug. Witness by RENEE AguilarN.
[2022-04-24] MEDS: artificial tears Op Soln 15 mL Btl 1 DROP EYE-BOTH (14:56)
--- NOTE | 2022-04-24 15:11 | PC.NUTR ---
Pt currently on Nepro 1.8 @ 20 mls/hr. When medically appropriate, recommend increasing 10 mls Q8H as tolerated until goal rate of 40 mls/hr is reached with fresh water flushes 100 mls Q4H or per MD discretion. With each flush, recommend 1 scoop Beneprotein powder to add 42 grams more protein/day. Details in RD assessment.
--- NOTE | 2022-04-24 15:15 | PC.NURSE ---
Addendum entered by Brea Shearer RN 04/24/22 19:03: Family stated [facility] is the chioce for the bariatric care, Dr Wang notified. Original Note: BP 189/91. PRN Hydralazine andNitro have 180/[address] Wang of BP. Orders received to given the PRN Hydralazine and Nitro for her BP. Also inquired about progress of transfer per Anisha, pt's daughter's request. Will wait a day or tow, see how her mentation is with sedation off. .
[2022-04-24] MEDS: nitroglycerin 1 gm/inch oint Pkt 0.5 INCH TOPICAL (15:29)
[2022-04-24] MEDS: hyDRALAzine 20 mg/mL INJ 1 mL 10 MG IVP (15:29)
[2022-04-24 17:20] LABS: Glucose Point of Care 89 mg/dL (70-110)
--- NOTE | 2022-04-24 17:48 | PC.NURSE ---
Unable to reposition pt every 2 hours this shift due to dialysis treatment and difficulty related to body habitus.
--- NOTE | 2022-04-24 18:00 | PC.NURSE ---
Restraints: released until extremity movement noted while sedation off. Intervention remains active.
[2022-04-24 18:02] LABS: Glucose Point of Care 87 mg/dL (70-110)
--- NOTE | 2022-04-24 19:00 | PC.NURSE ---
Bedside report completed with NILDA Braun
--- NOTE | 2022-04-24 19:20 | PC.NURSE ---
Shift Note: Pt remains intubated. Sedation stopped by 0830. No purposeful movements noted throughout shift. Pupils are equally and equally reactive. Her eyes only opened during oral suctioning, no gagging noted. Respiratory rate has stayed with vent at 22 breaths per minute. FIO2 needs remain at 90%. Heart sounds bounding . Hemodialysis done today, net output of 3 liters. Pt remains anuric. Daughter remianed at bedside for most of shift. Daughter Anisha, asked Dr Wang about transferred pt to a facitly with more bariatric capabilities. Frequent safety and comfort rounds continue. Orders and/or nursing care completed as indicated. Patient monitored for response to intervention and treatment(s). Education provided include plan of care, progress and medications. Patient unable to respond or comprehend. DaughterAnisha verbalized her understanding, however appears to be incognizant of the delicate critical nature of patient. Will continue to monitor.
[2022-04-25] VITALS (35 sets, daily range): BP systolic 108–150; BP diastolic 59–86; PULSE 84–109; RESP 22–33; TEMP 36.8–38.7; O2SAT 89–93
[2022-04-25] MEDS: chlorhexidine gluconate 4% Btl 118 mL 1 APPLIC TOPICAL (01:16)
[2022-04-25] MEDS: enoxaparin 150 mg/mL Syringe SUBCUT ×2 (01:16→14:35)
[2022-04-25] MEDS: ipratropium-albuterol 3 mL Neb INHALATION ×4 (02:37→19:39)
[2022-04-25 03:32] LABS: Basophils % 0.2 %; Eosinophils # 0.1 10^3/uL (0.0-0.8); Eosinophils % 0.6 %; Hematocrit 33.7 % (37.0-47.0); Hemoglobin 9.8 g/dL (11.5-15.3); Lymphocytes % 11.5 %; Mean Corpuscular HGB Conc 29.1 g/dL (30.0-36.0); Mean Corpuscular Hemoglobin 28.3 pg (28.0-34.0); Mean Corpuscular Volume 97.4 fl (81-99); Mean Platelet Volume 11.2 fL (7.4-10.4); Monocytes # 0.8 10^3/uL (0.2-0.9); Monocytes % 9.1 %; Neutrophils # 6.83 10^3/uL (1.8-7.7); Nucleated Red Blood Cells % 0 %; Platelet Count 185 10^3/cmm (130-400); Red Blood Count 3.46 10^6/uL (4.1-5.3); Red Cell Distribution Width 18.6 % (12.1-15.1); White Blood Count 8.8 10^3/uL (4.0-10.0)
[2022-04-25 03:58] LABS: Alanine Aminotransferase 6 U/L (0-33); Albumin Level 3.8 g/dL (3.5-5.2); Alkaline Phosphatase 63 U/L (35-105); Anion Gap 21.9 (5-19); Aspartate Amino Transferase 22 U/L (0-32); Blood Urea Nitrogen 46 mg/dL (6-20); Calcium 9.2 mg/dL (8.5-10.5); Carbon Dioxide 24 mmol/L (22-29); Chloride 97 mmol/L (98-107); Globulin 3.8 g/dL (1.3-4.6); Glomerular Filtration Rate 14.8 mL/min (90-130); Glucose 71 mg/dL (65-115); Osmolality Calculated 296 mOsm/kg (285-295); Phosphorus 6.7 mg/dL (2.5-4.5); Potassium 4.9 mmol/L (3.5-5.1); Sodium 138 mmol/L (136-145); Total Bilirubin 0.9 mg/dL (0.15-1.2); Total Protein 7.6 g/dL (6.6-8.7)
[2022-04-25 04:05] LABS: Vancomycin Random 21.3 ug/mL (20.0-40.0)
[2022-04-25] MEDS: meropenem 1,000 MG in sodium chloride 0.9% (plus) 50 ML 100 MG IV ×3 (06:27→22:50)
--- NOTE | 2022-04-25 06:55 | PC.NURSE ---
Bedside report completed with NILDA Alberts
[2022-04-25 09:08] LABS: ABG PH Result 7.23 (7.35-7.45); Alveolar-Arterial Oxygen Gradi 64.3 mmHg (5-10); Arterial Blood Gas Hematocrit 32.9 % (37-47); Base Excess ABG -2.7 mmol/L (-2.0-2.0); Blood Gas Allen Test Pos; Blood Gas Operator Identificat GD; Blood Gas Sample Site Radial, left; Blood Gas Sample Type Arterial; Blood Gas Tidal Volume 0.45; Carboxyhemoglobin 1.2 %THgb (0.4-20.1); HCO3 ABG 25.6 mmol/L (22-26); HGB O2 Sat 92.8 % (95-100); Ionized Calcium Level - ABG 1.2 mmol/L (1.1-1.4); Methemoglobin 1.3 % (0.4-1.5); Oxygen Device VENT; Oxygen Saturation ABG 95.2; PO2 ABG 77.5 mmHg (80.0-100.0); Potassium Level - ABG 4.8 mmol/L (3.5-5.0); Total Hemoglobin 10.7 g/dL (12-16)
[2022-04-25 09:10] LABS: ABG PCO2 61.5 mmHg (35-45)
[2022-04-25] MEDS: pantoprazole 40 mg SDV IVP (09:25)
[2022-04-25] MEDS: bacitracin ointment 28 gm 1 APPLIC TOPICAL ×3 (09:25→20:09)
[2022-04-25 11:36] LABS: Glucose Point of Care 78 mg/dL (70-110)
--- NOTE | 2022-04-25 12:00 | PC.NURSE ---
and pt's daughter, Reggie asked for a update out in waiting room. Marlen, RT and I discussed with them pt's lack of progress, Respiratory failure, kidney failure, lack of movement. reiterating Dr Wallace's conversation this am. All questions answered.
--- NOTE | 2022-04-25 14:32 | PC.NURSE ---
Addendum entered by Sarah Navas RN 04/25/22 14:33: Witnessed by this RN Original Note: Fentanyl gtt wasted, see MAr, nearly 206ml. Witnessed by Sarah Navas Rn.. Pt remains off sedation
[2022-04-25] MEDS: sodium chloride 0.9 % (flush) syringe 10 mL IV (15:43)
--- NOTE | 2022-04-25 16:30 | PC.NURSE ---
Nose bleeding from left nostril. Dr Wang notified. Nasal tampon inserted as ordered. 3ml air in each port. Lovenox and heparin lock flushes discontinued as ordered.
--- NOTE | 2022-04-25 16:30 | PM.PN ---
Subjective Subjective: Patient was seen and examined this morning, continue to be intubated sedated on mechanical ventilation, Am abg and Labs have been reviewed.she has been off sedation since yesterday morning, but currently has no response,current plan is continue to monitor her off sedation. She is also having low grade Fever with noted TMax: 100.1, continue to have barely any urine output. Medications: Reviewed: Yes Medication Review Details: Generic Name Dose Route Start Last Admin Trade Name Freq PRN Reason Stop Dose Admin Acetaminophen 500 mg 04/09/22 19:24 04/11/22 19:48 Acetaminophen 50 0 Mg Tablet PO 500 mg Q4H PRN Administration fever Albuterol/Ipratrop ium 3 ml 04/20/22 20:00 04/25/22 13:33 Ipratropium-Albu terol 3 Ml Neb INHALATION 3 ml Q6H.RESP BREANNA Administration Artificial Tears 1 drop 04/19/22 09:08 04/24/22 14:56 Artificial Tears Op Soln 15 Ml Btl EYE-BOTH 1 drop Q4H PRN Administration DRY EYE(S) Bacitracin 1 applic 04/09/22 21:00 04/25/22 14:42 Bacitracin Ointm ent 28 Gm TOPICAL 1 applic TID BREANNA Administration Protocol Chlorhexidine Gluc fritz 1 applic 04/21/22 01:00 04/25/22 01:16 Chlorhexidine Gl uconate 4% Btl 118 Ml TOPICAL 1 applic 0100 BREANNA Administration Collagenase 1 applic 04/13/22 00:00 04/25/22 01:13 Collagenase Oint 30 Gm TOPICAL Not Given Q24H BREANNA Enoxaparin Sodium 150 mg 04/18/22 14:00 04/25/22 14:35 Enoxaparin 150 M g/Ml Syringe SUBCUT 150 mg Q12H BREANNA Administration Heparin Sodium (Po rcine) 200 - 500 unit 04/12/22 16:15 04/25/22 15:43 Heparin Lock Flu sh 500 Unit/5 Ml S yringe IV 500 unit Q12H BREANNA Administration Heparin Sodium (Po rcine) 200 - 500 unit 04/12/22 16:13 04/14/22 22:39 Heparin Lock Flu sh 500 Unit/5 Ml S yringe IV 500 unit PRN PRN Administration Central line flus h Hydralazine HCl 10 mg 04/19/22 09:09 04/24/22 15:29 Hydralazine 20 M g/Ml Inj 1 Ml IVP 10 mg Q4H PRN Administration bp> 180./100 Sodium Chloride 1,000 mls @ 0 mls /hr 04/14/22 07:19 04/22/22 10:16 Sodium Chloride 0.9% IV 1 mls/hr .Q0M PRN Administration hypotension or sy mptomatic As Directed Albumin Human 25 gm in 100 mls @ 60 mls/hr 04/17/22 11:00 04/25/22 13:00 Albumin IV Infused Q8H BREANNA Infusion Meropenem 1,000 mg / Sodium 50 mls @ 100 mls/ hr 04/18/22 15:00 04/25/22 15:05 Chloride IV Infused Q8H BREANNA Infusion Propofol 1,000 mg in 100 m ls @ 0 mls/hr 04/19/22 23:45 04/24/22 09:30 Diprivan IV Infused .Q0M BREANNA Titration Protocol Per Protocol Fentanyl 2,500 mcg / Sodium 250 mls @ 0 mls/h r 04/19/22 23:45 04/25/22 14:31 Chloride IV Infused .Q0M BREANNA Titration Protocol Per Protocol Midazolam HCl 100 mg/ Sodium 100 mls @ 0 mls/h r 04/20/22 09:00 04/24/22 14:34 Chloride IV Infused .Q0M BREANNA Titration Protocol Per Protocol Vancomycin HCl 2,0 00 mg/ 500 mls @ 250 mls /hr 04/20/22 15:00 04/21/22 05:13 Sodium Chloride IV Infused Q12H BREANNA Infusion Sodium Chloride 1,000 mls @ 0 mls /hr 04/22/22 10:30 04/22/22 10:58 Sodium Chloride 0.9% IV 1 mls/hr .Q0M BREANNA Administration As Directed Norepinephrine Bit artrate 4 mg 254 mls @ 0 mls/h r 04/23/22 16:30 04/25/22 14:31 / Dextrose IV Infused .Q0M BREANNA Titration Protocol Per Protocol Lanolin 1 applic 04/15/22 14:00 04/24/22 14:56 Lanolin Oint 7 G m TOPICAL 1 applic PRN PRN Administration DRYNESS Lidocaine HCl 1 applic 04/11/22 23:30 04/12/22 01:57 Lidocaine 2% Jel ly 6 Ml TOPICAL 1 applic PRN PRN Administration PAIN Lorazepam 2 mg 04/19/22 18:56 04/19/22 19:39 Lorazepam 2 Mg/M l Inj 1 Ml IVP 2 mg Q4H PRN Administration ANXIETY Methocarbamol 500 mg 04/10/22 09:30 04/11/22 18:29 Methocarbamol 50 0 Mg Tablet PO 500 mg BID BREANNA Administration Morphine Sulfate 2 mg 04/19/22 18:17 04/19/22 22:13 Morphine 4 Mg/Ml Sdv 1 Ml IVP 2 mg Q8H PRN Administration SEVERE PAIN Nitroglycerin 0.5 inch 04/14/22 10:35 04/24/22 15:29 Nitroglycerin 1 Gm/Inch Oint Pkt TOPICAL 0.5 inch Q6H PRN Administration Blood pressure gr eater than 180/100 Ondansetron HCl 4 mg 04/09/22 19:24 04/10/22 19:49 Ondansetron 2 Mg /Ml Sdv 2 Ml IVP 4 mg Q6H PRN Administration NAUSEA AND VOMITI NG Pantoprazole Sodiu m 40 mg 04/10/22 22:15 04/25/22 09:25 Pantoprazole 40 Mg Sdv IVP 40 mg DAILY BREANNA Administration Sodium Chloride 5 - 10 ml 04/12/22 16:15 04/25/22 15:43 Sodium Chloride 0.9 % (Flush) Syri nge 10 Ml IV 10 ml Q12H BREANNA Administration Sodium Chloride 5 - 10 ml 04/12/22 16:13 04/22/22 10:15 Sodium Chloride 0.9 % (Flush) Syri nge 10 Ml IV 10 ml PRN PRN Administration Central line flus h Vitals/I&O/Wt Last Vital Signs Temp 100.1 F H 04/25/22 13:00 Pulse 89 04/25/22 15:00 Resp 30 H 04/25/22 15:48 BP 137/59 04/25/22 15:00 Pulse Ox 90 04/25/22 15:48 O2 Del Method 04/25/22 15:00 O2 Flow Rate 80 04/22/22 12:30 FiO2 85 04/25/22 15:48 04/25/22 04/25/22 04/25/22 06:59 14:59 22:59 Intake Total 200 / 1129.583 100 / 100 50 / 150 Output Total 15 / 3315 Balance 185 / -2185.417 90 / 90 50 / 140 Weight last 48 hrs Weight 256.37 kg Weight 211.3 kg Physical Exam Narrative: Intubated, sedated on mechanical ventilation Resp: OTHER: Diminished air entry bilaterally, bilateral crackles predominantly in the lower lung contreras. Cardio: COMMON NORMALS: regular rate, regular rhythm, S1 normal heart sound present, S2 normal heart sound present, No gallops present (Cardio), No murmurs present (Cardio), No rub (Cardio) and Peripheral pulses 2+ throughout RATE: regular rate RHYTHM: regular rhythm HEART SOUNDS: S1 normal heart sound present and S2 normal heart sound present PERIPHERAL PULSES: Peripheral pulses 2+ throughout GI: COMMON NORMALS: Normal to inspection, nondistended, normoactive bowel sounds present, Soft to palpation, non-tender, No hepatosplenomegaly present and no masses AUSCULTATION: Yes normoactive bowel sounds PALPATION: Yes Soft to palpation and Yes No hepatosplenomegaly present RECTAL EXAM: deferred Extremity: COMMON NORMALS: no clubbing, cyanosis or edema and no pedal edema OTHER: 2+ bilateral lower extremity pitting edema, right lower extremity redness, right lower extremity wound is appropriately dressed and packed. Chronic lymphedema. Urinary Catheter Management: Coude: Cath Placed During This Visit: yes Reason for Continuing Indwelling Catheter: Accurate Measurement of Urinary Output in Critically Ill Patients Urinary Catheter Date of Insertion: 04/09/22 Urinary Catheter Time of Insertion: 15:30 Data : 04/25/22 03:07 04/25/22 03:07 Micro: Microbiology 04/20/22 15:45 Gram Stain - Final Lung Left Lower Lobe Bronchoalveolar Lavage Culture - Final Gabbie albicans A&P Assessment and plan (1) DIC (disseminated intravascular coagulation): (2) CHF exacerbation: (3) Hyponatremia: (4) Oliguria: (5) V tach: (6) Obesity hypoventilation syndrome: (7) Aspiration pneumonitis: (8) Sepsis: (9) Wound infection: (10) Stasis leg ulcer: (11) Chronic acquired lymphedema: (12) Morbid obesity: Plan Assessment: Septic shock Respiratory failure with hypoxia and hypercapnia secondary to severe ARDS likely secondary to aspiration pneumonia Acute renal failure secondary to ATN secondary to sepsis Obesity hypoventilation syndrome History of chronic acquired lymphedema Morbid obesity ALON/OHS Hypertension Heart failure 61-year-old female with past medical history of chronic acquired lymphedema morbid obesity, hyperthyroidism hypertension, was brought in with chief complaint of nausea vomiting fever and chills, was initially admitted for the management of sepsis secondary to right lower extremity cellulitis, unfortunately she had a complicated hospital course, resulting in development of, acute renal failure, possibly secondary to ATN secondary to sepsis, as well as septic shock, secondary to aspiration pneumonia, severe ARDS secondary to aspiration pneumonia, initially on BiPAP, but later had to be intubated, as she was not responding to BiPAP. For her acute renal failure likely secondary to ATN secondary to sepsis she is on hemodialysis. With regards to her sepsis blood culture has been negative so far, urine culture is negative CT lower leg RT wo con: Similar-appearing diffuse extensive edema RIGHT lower extremity extending to the foot.No evidence of drainable abscess or fluid collection.No evidence of osteomyelitis. She has been kept on broad-spectrum antibiotics. For acute hypoxic, hypercapnic respiratory failure : secondary to severe ARDS secondary to aspiration pneumonia/volume overload. She had to be intubated, after extreme persuasion as family was not ready for intubation initially, s/p bronc, showed erythematous mucosa throughout bilateral bronchial tree;culture has been sent, results awaited. Later hospital course has also been complicated by development of hypertensive emergencies: For which patient has been kept on IV antihypertensive drip. Patient has been empirically kept on therapeutic anticoagulation as there has been concern for possible PE, no CT imaging studies so far has been pursued given the size of the patient. 2D echo : Is a poor quality due to poor quality window. Ultimate aim is to try for LTAC placement. CODE STATUS: Limited resuscitation Family is contemplating transfer to higher level of care : Which is perfectly understandable: Given her no progress in the clinical status since admission. DVT prophylaxis not needed: On therapeutic anticoagulation Attestations Medical Necessity Statement*: Patient needs to be in hospital for the management of sepsis,r/f Coding Level of Care Code Acute Field Human Resources Manager for [facility] Fwd Diagnoses DIC (disseminated intravascular coagulation) D65 CHF exacerbation I50.9 Hyponatremia E87.1 Oliguria R34 V tach I47.20 Obesity hypoventilation syndrome E66.2 Aspiration pneumonitis J69.0 Sepsis A41.9 Wound infection T14.8XXA; L08.9 Stasis leg ulcer I83.009; L97.909 Chronic acquired lymphedema I89.0 Morbid obesity E66.01
--- NOTE | 2022-04-25 17:38 | PM.PN ---
Subjective Subjective: No sig change in pt status remains on 90 % Fio2 Vitals/I&O/Wt Last Vital Signs Temp 100.1 F H 04/25/22 13:00 Pulse 89 04/25/22 15:00 Resp 30 H 04/25/22 15:48 BP 137/59 04/25/22 15:00 Pulse Ox 90 04/25/22 15:48 O2 Del Method 04/25/22 15:00 O2 Flow Rate 80 04/22/22 12:30 FiO2 85 04/25/22 15:48 04/25/22 04/25/22 04/25/22 06:59 14:59 22:59 Intake Total 200 / 1129.583 100 / 100 50 / 150 Output Total 15 / 3315 Balance 185 / -2185.417 90 / 90 50 / 140 Weight last 48 hrs Weight 256.37 kg Weight 211.3 kg Physical Exam Narrative: Intubated, sedated on mechanical ventilation Resp: OTHER: Diminished air entry bilaterally, bilateral crackles predominantly in the lower lung contreras. Urinary Catheter Management: Coude: Cath Placed During This Visit: yes Reason for Continuing Indwelling Catheter: Accurate Measurement of Urinary Output in Critically Ill Patients Urinary Catheter Date of Insertion: 04/09/22 Urinary Catheter Time of Insertion: 15:30 Data : 04/25/22 03:07 04/25/22 03:07 Micro: Microbiology 04/20/22 15:45 Gram Stain - Final Lung Left Lower Lobe Bronchoalveolar Lavage Culture - Final Gbabie albicans A&P Assessment and plan (1) ARDS (adult respiratory distress syndrome): [address] [address] Progress Note Signed Patient: Evelyn Vail MR#: [id number] : 1960 Age/Sex: 61 / F ADM Date: 04/09/22 Loc: ICU? Room/Bed: [place] [address] Encounter Date: 04/24/[address]: Emil Wang MD Report Number: [id number] Vitals/I&O/Wt Last Vital Signs Temp ?98.5 F ?04/24/22 04:30 Pulse ?80 ?04/24/22 08:14 Resp ?22 H ?04/24/22 09:21 BP ?118/58 ?04/24/22 06:00 Pulse Ox ?91 ?04/24/22 09:21 O2 Del Method ? ?04/24/22 07:50 O2 Flow Rate ?80 ?04/22/22 12:30 FiO2 ?90 ?04/24/22 09:21 ? 04/23/22 04/24/22 04/24/22 ? 22:59 06:59 14:59 Intake Total 1180.782 / 1680.782 428.267 / 2109.049 39.583 / 39.583 Output Total ? ? Balance 1180.782 / 1680.782 408.267 / 2089.049 39.583 / 39.583 Weight last 48 hrs Weight? 211.3 kg? Weight? 223.9 kg? Physical Exam Narrative:?? PHYSICAL EXAM: General: lying in bed, sedated and intubated. HEENT:NCAT, PERRLA, EOMI Neck: Supple Lungs: Bilateral upper lung zones clear-difficult to auscultate given patient's body size Heart: s1/s2, RRR Abd: soft, NT, ND, BS + Normoactive Extremities: Chronic bilateral lymphedema, right anterior burton-open clear wound with surrounding erythema with no significant bruising.? There is an area of increased redness above this open wound? SUPERVISOR LAUNDRY: sedated and limited SUPERVISOR LAUNDRY exam possible. SKIN: no rash ? Urinary Catheter Management:?? Coude: Cath Placed During This Visit: yes Reason for Continuing Indwelling Catheter: Accurate Measurement of Urinary Output in Critically Ill Patients Urinary Catheter Date of Insertion: 04/09/22 Urinary Catheter Time of Insertion: 15:30 ? Data : 04/24/22 04:14? 04/24/22 04:14? Micro: Microbiology ?04/20/22 15:45 Gram Stain - Final ?Lung Left Lower Lobe Bronchoalveolar Lavage Culture - Preliminary A&P Assessment and plan (1) ANY (acute kidney injury): 61 yr old female rt leg cellulitis and ATN 1AKI - required daily HD via RT femoral temp? HD catheter on 04-12-22 - has been getting HD daily - holdoff on HD today -hyperphosphatemia- monitor w/ dialysis and binder w/ feeds 2. cellulitis-? abx per medicine-? dose for ANY on HD -keep? vanco? trough under 19 3. Resp acidosis- now intubated.? Q ARDS seen and examined w/ BAKERY TEAM LEADER- telehealth visit time spent 25+ min Attestations Medical Necessity Statement*: Patient needs to be in hospital for the management of sepsis,r/f Coding Level of Care Code Established Pt Acute Inseam Leveler for Chg Fwd Patient Type Established History Problem Focused Exam Problem Focused Medical Decision Making Straight Forward Diagnoses ARDS (adult respiratory distress syndrome) J80
[2022-04-25 17:44] LABS: Glucose Point of Care 80 mg/dL (70-110)
--- NOTE | 2022-04-25 18:20 | PC.NURSE ---
Shift Note: Pt remains intubated and on 90% FIO2. Unable to wean oxygen down. Pt's s O2 sats decreased and respiratory rate increases while just repositioning her up in the bed. Sedation remains off. No purposeful movement continues. Only movement noted is during oral suctioning and her eyes open occasionally. Her nose started bleeding again, anticoagulation medications discontinued again. This am OG clamped, pale milligan drainage( tube feeding like) noted, Dr Wang notified. Gastric tube now to Low intermittent suction, green drainage noted. 12ml of thick red brown urine noted this shift. Frequent safety and comfort rounds continue. Orders and/or nursing care completed as indicated. Patient monitored for response to intervention and treatment(s). Education provided includes Kidney failure, Respiratory failure, purposeful movement, albumin, protonix, lack of progess and plan of care discussed. . Patient unable to respond. and daughter Javon verbalized understanding of progress, plan of care and topics discussed. Will continue to monitor.
--- NOTE | 2022-04-25 19:08 | PC.NURSE ---
Bedside report completed with NILDA Napoles
[2022-04-25] MEDS: acetaminophen 650 mg/20.3 mL UDC 500 MG PO (20:08)
[2022-04-25] MEDS: hyDRALAzine 20 mg/mL INJ 1 mL 10 MG IVP (20:09)
[2022-04-25] MEDS: propofol 1,000 MG/100 ML INJ 23.09 MG IV (21:06)
--- NOTE | 2022-04-25 21:35 | P.EN_ITS ---
Event Note Event Note: Persistent epistaxis, blood flowing around balloon packing, overflowing also from the mouth. Inflated balloon until ship pilot cuff firm as a temporizing measure. Tracking with reeling machine setup operator unfortunately no ENT available occupational therapy aide kim. Discussed with her . Too unstable to transfer currently. Discussed repacking as well as packing bilaterally to provide additional pressure. Discussed risk of further bleeding with removal, discussed risk of necrosis, other complications. Repacked by Dr Desai with topical TXA anterior and posterior balloon inflation bilaterally. Discussed also risks of TXA, DDAVP with although slightly lower possibility of uremic platelet dysfunction, BUN was 46 this morning. Has been getting HD daily. would like to proceed with both IV medications as well. Discussed with pharmacy currently only 32 mcg DDAVP available to give. Discussed with we will give the lower dose/all that's available. Check DIC panel. Discussing with general surgery unable to assist for visualization of bleed/cautery in nasopharynx. Discussed with , overall prognosis is poor. He states that they are considering transfer to [facility] with the team. Will need ENT assessment either if they are able to assess her here, or otherwise if stable enough for transfer if goals of care remain the same. Event Notes Attestations Time Spent in Patient Care: The high probability of a clinically significant, sudden or life threatening deterioration of the patient's heme, ENT system(s) required my full and direct attention, intervention and personal management. The critical care time is as shown. This time is in addition to time spent performing any reported procedures but includes the following: x Data and vital sign review and interpretation x Patient assessment, examination and intervention x Documentation x Medication orders and management Critical care time 60 minutes.
[2022-04-25 22:54] LABS: Glucose Point of Care 91 mg/dL (70-110)
[2022-04-25 23:00] LABS: INR 1.24 (0.8-1.2)
[2022-04-25 23:01] LABS: Fibrinogen 625 mg/dL (174-498); Partial Thromboplastin Time 46.3 SECONDS (23.9-36.7)
[2022-04-25] MEDS: acetaminophen 1,000 MG/100 ML PIGGYBACK 400 MG IV (23:03)
[2022-04-25 23:04] LABS: D Dimer 2.91 ug/mIFEU (0-0.59)
[2022-04-26] VITALS (37 sets, daily range): BP systolic 102–156; BP diastolic 54–80; PULSE 85–98; RESP 22–38; TEMP 37.6–38.4; O2SAT 88–91
[2022-04-26] MEDS: phytonadione (ADULT) 10 mg/mL Ampule 1 mL 5 MG PO (00:19)
[2022-04-26] MEDS: collagenase oint 30 gm 1 APPLIC TOPICAL (00:21)
[2022-04-26] MEDS: propofol 1,000 MG/100 ML INJ 23.09 MG IV ×2 (01:01→05:56)
--- NOTE | 2022-04-26 01:27 | PC.NURSE ---
2024- dr villa notified of large amounts of alejandrina red blood coming from nose and mouth despite rhino rockets present as well of respiratory rate 50s-60s. ordered to restart iv sedation to assist with respiratory rate, spo2 high 80s, txa topical and iv ordered, dic panel ordered, dr villa placing calls to ent and general surgery for assist with nasal bleeding, neither available, er md to bedside to assist with topical txa administration and placement of bilateral nasal tampons. will monitor.
[2022-04-26] MEDS: ipratropium-albuterol 3 mL Neb INHALATION ×4 (01:36→19:26)
[2022-04-26 03:09] LABS: ABG PCO2 59.2 mmHg (35-45); ABG PH Result 7.23 (7.35-7.45); Alveolar-Arterial Oxygen Gradi 61.7 mmHg (5-10); Arterial Blood Gas Hematocrit 32.4 % (37-47); Base Excess ABG -3.5 mmol/L (-2.0-2.0); Blood Gas Allen Test Pos; Blood Gas Operator Identificat JB; Blood Gas Sample Site Radial, right; Blood Gas Sample Type Arterial; Blood Gas Tidal Volume 0.45; Carboxyhemoglobin 1.3 %THgb (0.4-20.1); HCO3 ABG 24.6 mmol/L (22-26); HGB O2 Sat 90.1 % (95-100); Ionized Calcium Level - ABG 1.2 mmol/L (1.1-1.4); Methemoglobin 0.9 % (0.4-1.5); Oxygen Device VENT; Oxygen Saturation ABG 92.1; Potassium Level - ABG 5.4 mmol/L (3.5-5.0); Total Hemoglobin 10.6 g/dL (12-16)
[2022-04-26 05:30] LABS: Basophils % 0.4 %; Eosinophils % 0.4 %; Hematocrit 32.9 % (37.0-47.0); Hemoglobin 9.4 g/dL (11.5-15.3); Lymphocytes # 1.2 10^3/uL (0.8-4.8); Lymphocytes % 12.6 %; Mean Corpuscular HGB Conc 28.6 g/dL (30.0-36.0); Mean Corpuscular Hemoglobin 27.7 pg (28.0-34.0); Mean Corpuscular Volume 97.1 fl (81-99); Monocytes % 10.5 %; Neutrophils # 7.29 10^3/uL (1.8-7.7); Neutrophils % 75.4 %; Nucleated Red Blood Cells % 0 %; Platelet Count 210 10^3/cmm (130-400); Red Blood Count 3.39 10^6/uL (4.1-5.3); Red Cell Distribution Width 18.5 % (12.1-15.1); White Blood Count 9.7 10^3/uL (4.0-10.0)
[2022-04-26 05:46] LABS: INR 1.23 (0.8-1.2)
[2022-04-26 05:48] LABS: Fibrinogen 580 mg/dL (174-498); Partial Thromboplastin Time 42.1 SECONDS (23.9-36.7)
[2022-04-26] MEDS: meropenem 1,000 MG in sodium chloride 0.9% (plus) 50 ML 100 MG IV ×3 (05:55→23:14)
[2022-04-26] MEDS: pantoprazole 40 mg SDV IVP (08:59)
[2022-04-26] MEDS: bacitracin ointment 28 gm 1 APPLIC TOPICAL ×3 (09:08→23:18)
[2022-04-26] MEDS: propofol 1,000 MG/100 ML INJ 30.78 MG IV (09:51)
[2022-04-26 10:08] LABS: Glucose Point of Care 85 mg/dL (70-110)
--- NOTE | 2022-04-26 11:09 | PC.SOCIAL ---
IMM Update Patient remains intubated. Copy of IMM placed @ bedside. Copy in chart dated, and initialed.
[2022-04-26 11:25] LABS: Anion Gap 23.6 (5-19); Blood Urea Nitrogen 55 mg/dL (6-20); Calcium 9.3 mg/dL (8.5-10.5); Carbon Dioxide 23 mmol/L (22-29); Chloride 98 mmol/L (98-107); Glomerular Filtration Rate 10.8 mL/min (90-130); Glucose 63 mg/dL (65-115); Osmolality Calculated 301 mOsm/kg (285-295); Potassium 5.6 mmol/L (3.5-5.1); Sodium 139 mmol/L (136-145)
--- NOTE | 2022-04-26 11:59 | PC.NURSE ---
Verbal orders from Dr. Wang to pause Propofol and decrease fentanyl to 25mcg/hr. See MAR for titration.
--- NOTE | 2022-04-26 12:42 | PM.TDS ---
Transfer Summary Providers Date of Admission: 04/09/22 16:03 Date of Discharge/Transfer: 04/26/22 Attending Provider at Admission: Cornelio Snyder MD Attending Provider at Transfer: Emil Wang MD Primary Care Provider: Chloe Gonzalez APN Transfer Plans: Anticipated date of transfer: 04/26/22. Diagnoses at Discharge Discharge Diagnosis (1) ARDS (adult respiratory distress syndrome): Status: Acute Reason for Visit Reason for Visit Leg pain, fever Hospital Course Hospital Course 61-year-old female with past medical history of chronic acquired lymphedema morbid obesity, hyperthyroidism hypertension, was brought in with chief complaint of nausea vomiting fever and chills, was initially admitted for the management of sepsis secondary to right lower extremity cellulitis, unfortunately she had a complicated hospital course, resulting in development of, acute renal failure, possibly secondary to ATN secondary to sepsis, as well as septic shock, secondary to aspiration pneumonia, severe ARDS secondary to aspiration pneumonia/volume overload, initially on BiPAP, but later had to be intubated, as she was not responding to BiPAP. For her acute renal failure likely secondary to ATN secondary to sepsis she is on hemodialysis. With regards to her sepsis blood culture has been negative so far, urine culture is negative CT lower leg RT wo con: Similar-appearing diffuse extensive edema RIGHT lower extremity extending to the foot.No evidence of drainable abscess or fluid collection.No evidence of osteomyelitis. She has been kept on broad-spectrum antibiotics. Empirically antifungal has also been started on 04/26, as BAL culture: Showing Gabbie albicans. Less likely Invasive fungal pneumonia, more likely colonization. For acute hypoxic, hypercapnic respiratory failure : secondary to severe ARDS secondary to aspiration pneumonia/volume overload. She had to be intubated, after extreme persuasion as family was not ready for intubation initially, s/p bronc,?showed erythematous mucosa throughout bilateral bronchial tree;culture: Gabbie albican likely colonization, less likely invasive fungal pneumonia: Later hospital course has also been complicated by development of hypertensive emergencies: For which patient was kept on IV antihypertensive drip.?Patient has been empirically kept on therapeutic anticoagulation as there has been concern for possible PE, no CT imaging studies so far has been pursued given the size of the patient. Therapeutic anticoagulation was discontinued on 04/26, as she started having epistaxis, could be contributed to Uremia associated platelet dysfunction, for which she received nasal packing, desmopressin,traneamic acid. For most part patient has been off any vasopressor/or inotropic support. Currently patient has been off sedation for close to 48 hours: But unfortunately she has not shown any significant purposeful movements. Pertinent imaging studies: 2D echo : Is a poor quality due to poor quality window. CT lower leg RT wo con: Similar-appearing diffuse extensive edema RIGHT lower extremity extending to the foot. No evidence of drainable abscess or fluid collection. No evidence of osteomyelitis. rt Lower extremity ultrasound: Most recent ABG: pH 7.23, PCO2 59, PO2 67 , FiO2 85% P/F : 78 Most recent XR chest: 04/24: Emphysematous change, interstitial disease, and asymmetric airspace disease (left greater than right). Left pleural effusion. Physical Exam Narrative: Intubated, sedated on mechanical ventilation HENMT: NOSE: Epistaxis present OTHER: b/l nasal packing Resp: OTHER: Diminished air entry bilaterally, bilateral crackles predominantly in the lower lung contreras. Cardio: COMMON NORMALS: regular rate, regular rhythm, S1 normal heart sound present, S2 normal heart sound present, No gallops present (Cardio), No murmurs present (Cardio), No rub (Cardio) and Peripheral pulses 2+ throughout RATE: regular rate RHYTHM: regular rhythm HEART SOUNDS: S1 normal heart sound present and S2 normal heart sound present PERIPHERAL PULSES: Peripheral pulses 2+ throughout GI: COMMON NORMALS: Normal to inspection, nondistended, normoactive bowel sounds present, Soft to palpation, non-tender, No hepatosplenomegaly present and no masses AUSCULTATION: Yes normoactive bowel sounds PALPATION: Yes Soft to palpation and Yes No hepatosplenomegaly present RECTAL EXAM: deferred Extremity: COMMON NORMALS: no clubbing, cyanosis or edema and no pedal edema OTHER: 2+ bilateral lower extremity pitting edema, right lower extremity redness, right lower extremity wound is appropriately dressed and packed. Chronic lymphedema. Urinary Catheter Management: Coude: Cath Placed During This Visit: yes Reason for Continuing Indwelling Catheter: Accurate Measurement of Urinary Output in Critically Ill Patients Urinary Catheter Date of Insertion: 04/09/22 Urinary Catheter Time of Insertion: 15:30 TS Data Studies Completed and Pending Pending at discharge Category Date Time Status ABG FULL [Arterial Blood Gas Full] AM LABS Lab 04/27/22 04:00 Ordered ABG FULL [Arterial Blood Gas Full] AM LABS Lab 04/28/22 04:00 Ordered Blood Culture Stat Lab 04/25/22 23:10 Results CBC Auto Diff [Complete Blood Count w/Auto] AM LABS Lab 04/27/22 04:00 Ordered CBC Auto Diff [Complete Blood Count w/Auto] AM LABS Lab 04/28/22 04:00 Ordered CBC Auto Diff [Complete Blood Count w/Auto] AM LABS Lab 04/29/22 04:00 Ordered CMP [Comprehensive Metabolic Panel] AM LABS Lab 04/27/22 04:00 Ordered CMP [Comprehensive Metabolic Panel] AM LABS Lab 04/28/22 04:00 Ordered CMP [Comprehensive Metabolic Panel] AM LABS Lab 04/29/22 04:00 Ordered Phosphorus AM LABS Lab 04/27/22 04:00 Ordered Vancomycin Trough AM LABS Lab 04/27/22 04:00 Ordered Labs from last 24 hours 04/26/22 04/26/22 04/26/22 10:04 04:45 04:45 WBC 9.7 RBC 3.39 L Hgb 9.4 L Hct 32.9 L MCV 97.1 MCH 27.7 L MCHC 28.6 L RDW 18.5 H Plt Count 210 MPV 11.0 H Neut % (Auto) 75.4 Lymph % (Auto) 12.6 Spencer % (Auto) 10.5 Eos % (Auto) 0.4 Baso % (Auto) 0.4 Neut # (Auto) 7.29 Lymph # (Auto) 1.2 Spencer # (Auto) 1.0 H Eos # (Auto) 0.0 Baso # (Auto) 0.0 Nucleated RBC % (auto) 0 Nucleated RBCs # 0.0 PT 15.80 H INR 1.23 H APTT 42.1 H Fibrinogen 580 H Fibrin Degrad Products D-Dimer Specimen Type Sample Site ABG pH ABG pCO2 ABG pO2 ABG HCO3 ABG O2 Saturation ABG Base Excess Harsha Test A-a O2 Gradient Hematocrit Hgb O2 Saturation Carboxyhemoglobin Methemoglobin Total Hemoglobin Sodium Potassium Glucose Ionized Calcium O2 Delivery Device FiO2 Tidal Volume PEEP Body Service Team Member ID Chloride Carbon Dioxide Anion Gap BUN Creatinine GFR Calculation POC Glucose 85 Calculated Osmolality Calcium 04/26/22 04/26/22 04/25/22 04:44 02:56 22:38 WBC RBC Hgb Hct MCV MCH MCHC RDW Plt Count MPV Neut % (Auto) Lymph % (Auto) Spencer % (Auto) Eos % (Auto) Baso % (Auto) Neut # (Auto) Lymph # (Auto) Spencer # (Auto) Eos # (Auto) Baso # (Auto) Nucleated RBC % (auto) Nucleated RBCs # PT INR APTT Fibrinogen Fibrin Degrad Products D-Dimer Specimen Type Arterial Sample Site Radial, right ABG pH 7.23 L ABG pCO2 59.2 H ABG pO2 67.0 L ABG HCO3 24.6 ABG O2 Saturation 92.1 ABG Base Excess -3.5 L Harsha Test Pos A-a O2 Gradient 61.7 H Hematocrit 32.4 L Hgb O2 Saturation 90.1 L Carboxyhemoglobin 1.3 Methemoglobin 0.9 Total Hemoglobin 10.6 L Sodium 139 142.0 Potassium 5.6 H 5.4 H Glucose 63 L 80.0 Ionized Calcium 1.2 O2 Delivery Device Vent FiO2 85.0 Tidal Volume 0.45 PEEP 18.0 Body Service Team Member ID Shamir Chloride 98 Carbon Dioxide 23 Anion Gap 23.6 H BUN 55 H Creatinine 4.2 H GFR Calculation 10.8 L POC Glucose 91 Calculated Osmolality 301 H Calcium 9.3 04/25/22 04/25/22 22:37 17:39 WBC RBC Hgb Hct MCV MCH MCHC RDW Plt Count MPV Neut % (Auto) Lymph % (Auto) Spencer % (Auto) Eos % (Auto) Baso % (Auto) Neut # (Auto) Lymph # (Auto) Spencer # (Auto) Eos # (Auto) Baso # (Auto) Nucleated RBC % (auto) Nucleated RBCs # PT 15.90 H INR 1.24 H APTT 46.3 H Fibrinogen 625 H Fibrin Degrad Products Pos, 10-40 H D-Dimer 2.91 H Specimen Type Sample Site ABG pH ABG pCO2 ABG pO2 ABG HCO3 ABG O2 Saturation ABG Base Excess Harsha Test A-a O2 Gradient Hematocrit Hgb O2 Saturation Carboxyhemoglobin Methemoglobin Total Hemoglobin Sodium Potassium Glucose Ionized Calcium O2 Delivery Device FiO2 Tidal Volume PEEP Body Service Team Member ID Chloride Carbon Dioxide Anion Gap BUN Creatinine GFR Calculation POC Glucose 80 Calculated Osmolality Calcium Completed Studies During Hospitalization Category Date Time Status CT lower leg RT w con [id number] Stat Cat Scan 04/09/[address] lower leg RT wo con* [id number] Routine Cat Scan 04/16/22 09:01 Completed CXRP [XR chest 1V portable [id number]] Routine Exams 04/12/22 18:02 Completed CXRP [XR chest 1V portable [id number]] Routine Exams 04/14/22 16:48 Completed CXRP [XR chest 1V portable [id number]] Stat Exams 04/10/22 21:49 Completed XR KUB portable [id number] Routine Exams 04/11/22 07:37 Completed XR chest 1V [id number] Stat Exams 04/19/22 23:47 Completed XR chest 1V portable [id number] Routine Exams 04/10/22 08:55 Completed XR chest 1V portable [id number] Routine Exams 04/15/22 04:00 Completed XR chest 1V portable [id number] Routine Exams 04/16/22 07:22 Completed XR chest 1V portable [id number] Routine Exams 04/18/22 04:00 Completed XR chest 1V portable [id number] Routine Exams 04/22/22 05:00 Completed XR chest 1V portable [id number] Routine Exams 04/24/22 04:00 Completed XR chest 1V portable [id number] Stat Exams 04/12/22 15:37 Completed XR chest 1V portable [id number] Stat Exams 04/19/22 01:25 Completed XR chest 1V portable 53296 Stat Exams 04/20/22 03:40 Completed CV. echo wo/w contrast [id number] Routine Ultrasound 04/11/22 10:11 Completed [place] chest [id number] Routine Ultrasound 04/16/22 08:55 Completed US kidney bilateral [US renal BI* [id number]] Routine Ultrasound 04/12/22 15:56 Completed Laboratory Last Values WBC 9.7 10^3/uL (4.0-10.0) 04/26/22 04:45 RBC 3.39 10^6/uL (4.1-5.3) L 04/26/22 04:45 Hgb 9.4 g/dL (11.5-15.3) L 04/26/22 04:45 Hct 32.9 % (37.0-47.0) L 04/26/22 04:45 MCV 97.1 fl (81-99) 04/26/22 04:45 MCH 27.7 pg (28.0-34.0) L 04/26/22 04:45 MCHC 28.6 g/dL (30.0-36.0) L 04/26/22 04:45 RDW 18.5 % (12.1-15.1) H 04/26/22 04:45 Plt Count 210 10^3/cmm (130-400) 04/26/22 04:45 MPV 11.0 fL (7.4-10.4) H 04/26/22 04:45 Neut % (Auto) 75.4 % 04/26/22 04:45 Lymph % (Auto) 12.6 % 04/26/22 04:45 Spencer % (Auto) 10.5 % 04/26/22 04:45 Eos % (Auto) 0.4 % 04/26/22 04:45 Baso % (Auto) 0.4 % 04/26/22 04:45 Neut # (Auto) 7.29 10^3/uL (1.8-7.7) 04/26/22 04:45 Lymph # (Auto) 1.2 10^3/uL (0.8-4.8) 04/26/22 04:45 Spencer # (Auto) 1.0 10^3/uL (0.2-0.9) H 04/26/22 04:45 Eos # (Auto) 0.0 10^3/uL (0.0-0.8) 04/26/22 04:45 Baso # (Auto) 0.0 10^3/uL (0.0-0.1) 04/26/22 04:45 Nucleated RBC % (auto) 0 % 04/26/22 04:45 Total Counted 100 (0-100) 04/09/22 14:25 Atypical Lymphs % 1.0 % (0-5) 04/09/22 14:25 Absolute Neutrophils 11.8 10^3/cmm (1.4-6.5) H 04/09/22 14:25 Segmented Neutrophils 91 % 04/09/22 14:25 Abs Segm Neuts (Man) 11.5 10/cmm (1.6-7.1) H 04/09/22 14:25 Band Neutrophils 3.0 % 04/09/22 14:25 Abs Band Neuts (Man) 0.4 10^3/cmm (0.0-1.2) 04/09/22 14:25 Absolute Lymphocytes 0.6 10^3/cmm (1.2-3.4) L 04/09/22 14:25 Lymphocytes (Manual) 4 % 04/09/22 14:25 Monocytes (Manual) 1.0 % 04/09/22 14:25 Absolute Monocytes 0.1 10^3/cmm (0.1-0.6) 04/09/22 14:25 Eosinophils (Manual) 0 % 04/09/22 14:25 Absolute Eosinophils 0.0 10^3/cmm (0.0-0.7) 04/09/22 14:25 Basophils (Manual) 0.0 % 04/09/22 14:25 Absolute Basophils 0.0 10^3/cmm (0.0-0.2) 04/09/22 14:25 Nucleated RBCs # 0.0 /100WBC 04/26/22 04:45 Platelet Estimate Normal (Normal) 04/09/22 14:25 Giant Platelets Trace 04/09/22 14:25 Polychromasia Trace 04/09/22 14:25 Hypochromasia Trace 04/09/22 14:25 Poikilocytosis Trace 04/09/22 14:25 Anisocytosis Trace 04/09/22 14:25 Microcytosis Trace 04/09/22 14:25 Macrocytosis Trace 04/09/22 14:25 Spherocytes Trace 04/09/22 14:25 Target Cells Trace 04/09/22 14:25 Tear Drop Cells Trace 04/09/22 14:25 Ovalocytes Trace 04/09/22 14:25 Carlos Cells Trace 04/09/22 14:25 ESR 24 mm/hr (0-15) H 04/09/22 14:25 PT 15.80 SECONDS (12.1-14.9) H 04/26/22 04:45 INR 1.23 (0.8-1.2) H 04/26/22 04:45 APTT 42.1 SECONDS (23.9-36.7) H 04/26/22 04:45 Fibrinogen 580 mg/dL (174-498) H 04/26/22 04:45 Fibrin Degrad Products Pos, 10-40 ug/mL (NEG) H 04/25/22 22:37 D-Dimer 2.91 ug/mIFEU (0-0.59) H 04/25/22 22:37 Specimen Type Arterial 04/26/22 02:56 Sample Site Radial, right 04/26/22 02:56 ABG pH 7.23 (7.35-7.45) L 04/26/22 02:56 ABG pCO2 59.2 mmHg (35-45) H 04/26/22 02:56 ABG pO2 67.0 mmHg (80.0-100.0) L 04/26/22 02:56 ABG HCO3 24.6 mmol/L (22-26) 04/26/22 02:56 ABG O2 Saturation 92.1 04/26/22 02:56 ABG Base Excess -3.5 mmol/L (-2.0-2.0) L 04/26/22 02:56 Harsha Test Pos 04/26/22 02:56 A-a O2 Gradient 61.7 mmHg (5-10) H 04/26/22 02:56 Hematocrit 32.4 % (37-47) L 04/26/22 02:56 Hgb O2 Saturation 90.1 % (95-100) L 04/26/22 02:56 Carboxyhemoglobin 1.3 %THgb (0.4-20.1) 04/26/22 02:56 Methemoglobin 0.9 % (0.4-1.5) 04/26/22 02:56 Total Hemoglobin 10.6 g/dL (12-16) L 04/26/22 02:56 Sodium 142.0 mmol/L (131-143) 04/26/22 02:56 Potassium 5.4 mmol/L (3.5-5.0) H 04/26/22 02:56 Glucose 80.0 mg/dL (70-115) 04/26/22 02:56 Ionized Calcium 1.2 mmol/L (1.1-1.4) 04/26/22 02:56 O2 Delivery Device Vent 04/26/22 02:56 O2 Liters/Min 15.0 % 04/10/22 21:45 FiO2 85.0 % 04/26/22 02:56 Tidal Volume 0.45 04/26/22 02:56 PEEP 18.0 cmH20 04/26/22 02:56 Body Service Team Member ID Shamir 04/26/22 02:56 Sodium 139 mmol/L (136-145) 04/26/22 04:44 Potassium 5.6 mmol/L (3.5-5.1) H 04/26/22 04:44 Chloride 98 mmol/L (98-107) 04/26/22 04:44 Carbon Dioxide 23 mmol/L (22-29) 04/26/22 04:44 Anion Gap 23.6 (5-19) H 04/26/22 04:44 BUN 55 mg/dL (6-20) H 04/26/22 04:44 Creatinine 4.2 mg/dL (0.5-0.9) H 04/26/22 04:44 GFR Calculation 10.8 mL/min (90-130) L 04/26/22 04:44 Glucose 63 mg/dL (65-115) L 04/26/22 04:44 POC Glucose 85 mg/dL (70-110) 04/26/22 10:04 Estimat Average Glucose 105 04/12/22 16:04 Hemoglobin A1c 5.3 % (4.0-6.0) 04/12/22 16:04 Calculated Osmolality 301 mOsm/kg (285-295) H 04/26/22 04:44 Lactate 1.3 mmol/L (0.5-2.2) 04/15/22 00:55 Calcium 9.3 mg/dL (8.5-10.5) 04/26/22 04:44 Phosphorus 6.7 mg/dL (2.5-4.5) H 04/25/22 03:07 Magnesium 2.0 mg/dL (1.7-2.3) 04/25/22 03:07 Total Bilirubin 0.9 mg/dL (0.15-1.2) 04/25/22 03:07 AST 22 U/L (0-32) 04/25/22 03:07 ALT 6 U/L (0-33) 04/25/22 03:07 Alkaline Phosphatase 63 U/L (35-105) 04/25/22 03:07 Creatine Kinase 35 U/L (26-192) 04/15/22 00:55 Troponin T Gen 5 ng/L 49 ng/L (0-10) H 04/12/22 09:18 Troponin T Baseline 54 ng/L (0-10) H 04/12/22 16:04 Troponin T 120 Minute 54.26 ng/L (0-10) H 04/12/22 18:38 Delta Troponin T 0.26 ABS# (0-10) 04/12/22 18:38 Troponin T Hi Sens 6Hr 52.47 ng/L (0-10) H 04/12/22 22:04 Troponin T Hi Sens 6Hr Delta -1.53 ng/L (0-12) L 04/12/22 22:04 C-Reactive Protein 375.7 mg/L (0.0-4.9) H 04/13/22 03:29 NT-Pro-B Natriuret Pep 9213 pg/mL (0-125) H 04/15/22 00:55 Total Protein 7.6 g/dL (6.6-8.7) 04/25/22 03:07 Albumin 3.8 g/dL (3.5-5.2) 04/25/22 03:07 Globulin 3.8 g/dL (1.3-4.6) 04/25/22 03:07 Procalcitonin 9.20 ng/mL (0-0.5) H 04/09/22 17:12 TSH 0.44 uIU/mL (0.27-4.20) 04/09/22 17:12 Urine Color Dark yellow (Yellow) 04/12/22 16:04 Urine Appearance Cloudy (CLEAR) A 04/12/22 16:04 Urine pH 5 (5-7) 04/12/22 16:04 Ur Specific [place] 1.010 (1.005-1.030) 04/12/22 16:04 Urine Protein 1+ (Negative) H 04/12/22 16:04 Urine Glucose (UA) Norm (Normal) 04/12/22 16:04 Urine Ketones 1+ (Negative) H 04/12/22 16:04 Urine Blood 3+ (Negative) H 04/12/22 16:04 Urine Nitrate Negative (Negative) 04/12/22 16:04 Urine Bilirubin 1+ (Negative) H 04/12/22 16:04 Urine Urobilinogen Norm mg/dL (Negative) 04/12/22 16:04 Ur Leukocyte Esterase Trace (Negative) H 04/12/22 16:04 Urine RBC 5-10 /hpf (0-2) H 04/12/22 16:04 Urine WBC 5-10 /hpf (0-5) H 04/12/22 16:04 Ur Eosinophil Smear 0 (0-0) 04/12/22 16:04 Ur Squamous Epith Cells 0-4 /hpf (0-5) H 04/12/22 16:04 Amorphous Sediment 2+ /hpf 04/12/22 16:04 Urine Bacteria 1+ /hpf (NONE) H 04/12/22 16:04 Urine Eosinophils No eosinophils seen 04/12/22 16:04 Ur Random Microalbumin 30 ug/dL (0-20) H 04/12/22 16:04 Ur Random Sodium 12 mmol/L 04/12/22 16:04 Ur Random Potassium 11 04/12/22 16:04 Ur Random Potassium 11 mmol/L 04/12/22 16:04 Ur Random Chloride 15 mmol/L 04/12/22 16:04 Urine Creatinine 65 mg/dL (28-217) 04/12/22 16:04 Microalb/Creat Ratio 462 mg/dL (0-20) H 04/12/22 16:04 Fluid Color Red 04/20/22 15:45 Fluid Appearance Turbid 04/20/22 15:45 Fluid WBC 2739 /uL 04/20/22 15:45 Fluid RBC 32.000 10^3/uL 04/20/22 15:45 Fld Polynuclear WBCs # 1.121 04/20/22 15:45 Fld Polynuclear WBCs % 40.900 % 04/20/22 15:45 Fl Mononucl WBCs #(Auto) 1.618 04/20/22 15:45 Fl Mononuclear % Auto 59.100 % 04/20/22 15:45 Vancomycin Trough 9.3 ug/mL (10-15) L 04/16/22 11:10 Random Vancomycin 21.3 ug/mL (20.0-40.0) 04/25/22 03:07 Serum Ketones Negative (Negative) 04/12/22 16:04 Coronavirus 229E (PCR) Not detected (NOT DETECT) 04/09/22 15:30 Hep Bs Antigen Non-reactive (Nonreactive) 04/12/22 16:04 Hepatitis C Antibody Non-reactive (Nonreactive) 04/12/22 16:04 SARS-CoV-2 (PCR) Not detected (NOT DETECT) 04/09/22 15:30 Radiology Impressions KUB X-Ray 04/11/22 07:37 IMPRESSION: Nonspecific bowel gas pattern, as noted above. Renal Ultrasound 04/12/22 15:56 IMPRESSION: 1. Examination is limited secondary to body habitus. 2. Urinary bladder is not visualized. 3. The abdominal aorta is obscured. 4. No obvious hydronephrosis. 5. Probable echogenic right renal cortex compared to the liver consistent with bilateral medical renal disease. Chest Ultrasound 04/16/22 08:55 IMPRESSION: No pleural effusions. Lower Extremity CT 04/16/22 09:01 IMPRESSION: 1. Similar-appearing diffuse extensive edema RIGHT lower extremity extending to the foot. 2. No evidence of drainable abscess or fluid collection. 3. No evidence of osteomyelitis. 4. Previously described tiny suspected area of ulceration about the lateral malleolus is unchanged. Chest X-Ray 04/24/22 04:00 IMPRESSION: 1. Emphysematous change, interstitial disease, and asymmetric airspace disease (left greater than right). 2. Left pleural effusion. 3. Endotracheal tube, feeding tube, central venous catheter again demonstrated. The endotracheal tube terminates 6.4 cm above the sachi. Recent Clincial Data Last Vital Signs Temp 100.0 F H 04/26/22 12:00 Pulse 85 04/26/22 12:00 Resp 22 H 04/26/22 11:41 BP 129/57 04/26/22 12:00 Pulse Ox 91 04/26/22 12:00 O2 Del Method 04/26/22 12:00 O2 Flow Rate 80 04/22/22 12:30 FiO2 85 04/26/22 11:41 Vital Signs Temp Pulse Resp BP Pulse Ox O2 Del Method FiO2 04/26/22 12:00 100.0 F H 85 129/57 91 Mechanical Ventilation 04/26/22 11:00 87 128/59 88 L Mechanical Ventilation 04/26/22 11:41 22 H 90 85 04/26/22 10:00 87 139/59 88 L Mechanical Ventilation 85 04/26/22 09:00 87 136/61 90 Mechanical Ventilation 85 04/26/22 09:42 36 H 89 L 85 04/26/22 08:00 100.8 F H 88 146/63 89 L Mechanical Ventilation 04/26/22 07:00 88 146/63 90 Mechanical Ventilation 04/26/22 08:02 89 04/26/22 07:45 36 H 90 85 04/26/22 07:45 87 34 H 90 Mechanical Ventilation 85 04/26/22 06:24 33 H 90 85 04/26/22 05:34 100.4 F H 04/26/22 05:34 98 04/26/22 03:25 99.7 F H 04/26/22 04:31 38 H 90 85 04/26/22 01:37 33 H 89 L 85 04/26/22 01:37 92 33 H 89 L Mechanical Ventilation 85 04/26/22 01:34 99.7 F H Mechanical Ventilation 85 Intake & Output/Weight 04/24/22 04/25/22 04/26/22 04/27/22 06:59 06:59 06:59 06:59 Intake Total 2109.049 / 2109.049 1129.583 / 1129.583 955.998 / 955.998 215.664 / 215.664 Output Total 3315 / 3315 362 / 362 Balance 2089.049 / 2089.049 -2185.417 / -2185.417 593.998 / 593.998 215.664 / 215.664 Weight 211.3 kg 256.37 kg 224.936 kg Vitals Last Vital Signs Temp 100.0 F H 04/26/22 12:00 Pulse 85 04/26/22 12:00 Resp 22 H 04/26/22 11:41 BP 129/57 04/26/22 12:00 Pulse Ox 91 04/26/22 12:00 O2 Del Method 04/26/22 12:00 O2 Flow Rate 80 04/22/22 12:30 FiO2 85 04/26/22 11:41 TS Medications Medications Acetaminophen (Acetaminophen 650 Mg/20.3 Ml Udc) 500 mg PO Q4H PRN PRN Reason: MILD PAIN OR INCREASE TEMP Last Admin: 04/25/22 20:08 Dose: 500 mg Albuterol/Ipratropium (Ipratropium-Albuterol 3 Ml Neb) 3 ml INHALATION Q6H PRN PRN Reason: SHORTNESS OF BREATH Albuterol/Ipratropium (Ipratropium-Albuterol 3 Ml Neb) 3 ml INHALATION Q6H.RESP BREANNA Last Admin: 04/26/22 07:53 Dose: 3 ml Artificial Tears (Artificial Tears Op Soln 15 Ml Btl) 1 drop EYE-BOTH Q4H PRN PRN Reason: DRY EYE(S) Last Admin: 04/24/22 14:56 Dose: 1 drop Bacitracin (Bacitracin Ointment 28 Gm) 1 applic TOPICAL TID [facility]; Protocol Last Admin: 04/26/22 09:08 Dose: 1 applic Chlorhexidine Gluconate (Chlorhexidine Gluconate 4% Btl 118 Ml) 1 applic TOPICAL 0100 [facility] Last Admin: 04/26/22 00:22 Dose: Not Given Collagenase (Collagenase Oint 30 Gm) 1 applic TOPICAL Q24H [facility] Last Admin: 04/26/22 00:21 Dose: 1 applic Dextrose (Dextrose 50% Syringe 50 Ml) 50 ml IVP ONCE ONE Stop: 04/26/22 12:46 Hydralazine HCl (Hydralazine 20 Mg/Ml Inj 1 Ml) 10 mg IVP Q4H PRN PRN Reason: bp> 180./100 Last Admin: 04/25/22 20:09 Dose: 10 mg Hydromorphone HCl (Hydromorphone 1 Mg/Ml Inj 1 Ml) 0.2 mg IVP Q4H PRN PRN Reason: PAIN Sodium Chloride (Sodium Chloride 0.9%) 1,000 mls @ 0 mls/hr IV .Q0M PRN PRN Reason: hypotension or symptomatic Sodium Chloride (Sodium Chloride 0.9%) 1,000 mls @ 0 mls/hr IV .Q0M PRN PRN Reason: hypotension or symptomatic Last Admin: 04/22/22 10:16 Dose: 1 mls/hr Albumin Human (Albumin) 25 gm in 100 mls @ 60 mls/hr IV Q8H [facility] Last Admin: 04/26/22 12:08 Dose: 60 mls/hr Meropenem 1,000 mg/ Sodium (Chloride) 50 mls @ 100 mls/hr IV Q8H [facility] Last Infusion: 04/26/22 08:27 Dose: Infused Propofol (Diprivan) 1,000 mg in 100 mls @ 0 mls/hr IV .Q0M [facility]; Protocol Last Titration: 04/26/22 11:59 Dose: 0 mcg/kg/min, 0 mls/hr Fentanyl 2,500 mcg/ Sodium (Chloride) 250 mls @ 0 mls/hr IV .Q0M [facility]; Protocol Last Admin: 04/26/22 11:59 Dose: 250 mcg/hr, 25 mls/hr Midazolam HCl 100 mg/ Sodium (Chloride) 100 mls @ 0 mls/hr IV .Q0M [facility]; Protocol Last Titration: 04/24/22 14:34 Dose: Infused Sodium Chloride (Sodium Chloride 0.9%) 1,000 mls @ 0 mls/hr IV .Q0M [facility] Last Admin: 04/22/22 10:58 Dose: 1 mls/hr Albumin Human (Albumin) 12.5 gm in 50 mls @ 60 mls/hr IV PRN PRN PRN Reason: Hypotension and/or symptomatic Norepinephrine Bitartrate 4 mg (/ Dextrose) 254 mls @ 0 mls/hr IV .Q0M [facility]; Protocol Last Titration: 04/25/22 14:31 Dose: Infused Caspofungin 50 mg/ Sodium (Chloride) 250 mls @ 250 mls/hr IV Q24H [facility] Insulin Human Regular 10 unit/ (N/A) 0.1 mls @ 0 mls/hr IVP ONCE ONE Stop: 04/26/22 12:46 Lanolin (Lanolin Oint 7 Gm) 1 applic TOPICAL PRN PRN PRN Reason: DRYNESS Last Admin: 04/24/22 14:56 Dose: 1 applic Lidocaine HCl (Lidocaine 2% Jelly 6 Ml) 1 applic TOPICAL PRN PRN PRN Reason: PAIN Last Admin: 04/12/22 01:57 Dose: 1 applic Lidocaine HCl (Lidocaine 1% Inj 20 Ml Mdv (Ml)) 0.1 ml INTRADERMA PRN PRN PRN Reason: Anesthetic Catheter Placement Lorazepam (Lorazepam 2 Mg/Ml Inj 1 Ml) 2 mg IVP Q4H PRN PRN Reason: ANXIETY Last Admin: 04/19/22 19:39 Dose: 2 mg Methocarbamol (Methocarbamol 500 Mg Tablet) 500 mg PO BID BREANNA Last Admin: 04/11/22 18:29 Dose: 500 mg Morphine Sulfate (Morphine 4 Mg/Ml Sdv 1 Ml) 2 mg IVP Q8H PRN PRN Reason: SEVERE PAIN Last Admin: 04/19/22 22:13 Dose: 2 mg Nitroglycerin (Nitroglycerin 1 Gm/Inch Oint Pkt) 0.5 inch TOPICAL Q6H PRN PRN Reason: Blood pressure greater than 180/100 Last Admin: 04/24/22 15:29 Dose: 0.5 inch Ondansetron HCl (Ondansetron 2 Mg/Ml Sdv 2 Ml) 4 mg IVP Q6H PRN PRN Reason: NAUSEA AND VOMITING Last Admin: 04/10/22 19:49 Dose: 4 mg Pantoprazole Sodium (Pantoprazole 40 Mg Sdv) 40 mg IVP DAILY [facility] Last Admin: 04/26/22 08:59 Dose: 40 mg Sodium Bicarbonate (Sodium Bicarbonate 8.4% 1 Meq/Ml 50ml Syr) 50 meq IVP ONCE ONE Stop: 04/26/22 12:46 Sodium Chloride (Sodium Chloride 0.9 % (Flush) Syringe 10 Ml) 5 - 10 ml IV Q12H BREANNA Last Admin: 04/26/22 03:05 Dose: Not Given Sodium Chloride (Sodium Chloride 0.9 % (Flush) Syringe 10 Ml) 5 - 10 ml IV PRN PRN PRN Reason: Central line flush Last Admin: 04/22/22 10:15 Dose: 10 ml Discontinued Medications Acetaminophen (Acetaminophen 500 Mg Tablet) 500 mg PO Q4H PRN PRN Reason: fever Last Admin: 04/11/22 19:48 Dose: 500 mg Hydrocodone Bitart/Acetaminophen (Hydrocodone-Acetaminophen 5-325 Mg Tablet) 1 tab PO Q4H PRN PRN Reason: MODERATE PAIN Last Admin: 04/10/22 20:49 Dose: 1 tab Albuterol/Ipratropium (Ipratropium-Albuterol 3 Ml Neb) 3 ml INHALATION Q4H.RESPIRATORY BREANNA Last Admin: 04/20/22 15:13 Dose: 3 ml Alteplase, Recombinant (Alteplase 1 Mg/Ml Sdv 2 Ml) 0 mg INTRACATH Q2H PRN; Protocol PRN Reason: Poor Catheter Flow/ Clotted Catheter Amlodipine Besylate (Amlodipine 5 Mg Tablet) 5 mg PO DAILY [facility] Last Admin: 04/18/22 08:39 Dose: Not Given Bumetanide (Bumetanide 0.25 Mg/Ml Sdv 10 Ml) 2 mg IVP Q8H BREANNA Last Admin: 04/22/22 04:09 Dose: 2 mg Bumetanide (Bumetanide 0.25 Mg/Ml Sdv 10 Ml) 2 mg IVP Q12H [facility]ANNA Last Admin: 04/22/22 19:37 Dose: 2 mg CRRT Dialysis Solution (Prismasol Bgk 4/2.5 - 5,000 Ml Bag) 5,000 ml CRRT CONT [facility]; Protocol Last Admin: 04/21/22 14:56 Dose: Not Given Clonidine HCl (Clonidine 0.3 Mg/24 Hr Patch) 1 patch TRANSDERMA Q7D [facility] Last Admin: 04/18/22 12:09 Dose: 1 patch Collagenase (Collagenase Oint 30 Gm) 1 applic TOPICAL DAILY [facility] Last Admin: 04/12/22 13:25 Dose: Not Given Collagenase (Collagenase Oint 30 Gm) 1 applic TOPICAL Q24H [facility]NA Collagenase (Collagenase Oint 30 Gm) 1 applic TOPICAL Q24H [facility] Dextrose (Dextrose 50% Syringe 50 Ml) 25 ml IVP ONCE ONE Stop: 04/12/22 16:32 Last Admin: 04/12/22 18:20 Dose: 25 ml Dextrose (Dextrose 50% Syringe 50 Ml) 50 ml IVP ONCE ONE Stop: 04/20/22 17:56 Last Admin: 04/20/22 18:06 Dose: 50 ml Enoxaparin Sodium (Enoxaparin 150 Mg/Ml Syringe) 150 mg SUBCUT Q24H [facility] Last Admin: 04/12/22 11:48 Dose: 150 mg Enoxaparin Sodium (Enoxaparin 150 Mg/Ml Syringe) 150 mg SUBCUT Q12H [facility] Last Admin: 04/25/22 14:35 Dose: 150 mg Etomidate (Etomidate 2 Mg/Ml Inj) 30 mg IVP NOW ONE Stop: 04/19/22 23:31 Last Admin: 04/19/22 23:35 Dose: 30 mg Fluoxetine HCl (Fluoxetine 20 Mg Capsule) 20 mg PO BID [facility] Last Admin: 04/24/22 18:56 Dose: 20 mg Furosemide (Furosemide 10 Mg/Ml Sdv 4ml) 40 mg IVP Q24H [facility] Last Admin: 04/12/22 09:24 Dose: 40 mg Furosemide (Furosemide 10 Mg/Ml Sdv 4ml) 40 mg IVP ONCE ONE Stop: 04/11/22 18:27 Last Admin: 04/11/22 18:35 Dose: 40 mg Furosemide (Furosemide 10 Mg/Ml Sdv 10ml) 100 mg IVP ONCE ONE Stop: 04/12/22 12:56 Last Admin: 04/12/22 14:08 Dose: 100 mg Furosemide (Furosemide 10 Mg/Ml Sdv 10ml) 60 mg IVP Q12H [facility] Last Admin: 04/15/22 08:02 Dose: 60 mg Furosemide (Furosemide 10 Mg/Ml Sdv 10ml) 60 mg IVP Q24H [facility] Last Admin: 04/16/22 06:48 Dose: 60 mg Furosemide (Furosemide 10 Mg/Ml Sdv 10ml) 60 mg IVP Q8H [facility] Last Admin: 04/16/22 15:43 Dose: 60 mg Furosemide (Furosemide 10 Mg/Ml Sdv 4ml) 40 mg IVP ONCE ONE Stop: 04/26/22 12:30 Heparin Sodium (Porcine) (Heparin 5,000 Unit/Ml Inj 1 Ml) 5,000 unit SUBCUT Q8H [facility] Last Admin: 04/11/22 04:34 Dose: 5,000 unit Heparin Sodium (Porcine) (Heparin Lock Flush 500 Unit/5 Ml Syringe) 200 - 500 unit IV Q12H [facility] Last Admin: 04/25/22 15:43 Dose: 500 unit Heparin Sodium (Porcine) (Heparin Lock Flush 500 Unit/5 Ml Syringe) 200 - 500 unit IV PRN PRN PRN Reason: Central line flush Last Admin: 04/14/22 22:39 Dose: 500 unit Heparin Sodium (Porcine) (Heparin, Porcine 1,000 Unit/Ml Inj 10 Ml) 1,000 unit IV ONCE ONE Stop: 04/13/22 10:31 Last Admin: 04/13/22 11:23 Dose: 1,000 unit Heparin Sodium (Porcine) (Heparin 5,000 Unit/Ml Inj 1 Ml) 0 unit IV PRN PRN; Protocol PRN Reason: Heparin weight-base protocol Last Admin: 04/18/22 09:54 Dose: 2,800 unit Heparin Sodium (Porcine) (Heparin, Porcine 1,000 Unit/Ml Inj 10 Ml) 0 unit HE ONCE ONE Stop: 04/13/22 11:16 Last Admin: 04/13/22 11:24 Dose: Not Given Heparin Sodium (Porcine) (Heparin, Porcine 1,000 Unit/Ml Inj 10 Ml) 1,000 unit IV ONCE ONE Stop: 04/14/22 07:20 Last Admin: 04/14/22 09:22 Dose: Not Given Heparin Sodium (Porcine) (Heparin, Porcine 1,000 Unit/Ml Inj 10 Ml) 0 unit HE ONCE ONE Stop: 04/14/22 08:46 Last Admin: 04/14/22 09:23 Dose: 10,000 unit Heparin Sodium (Porcine) (Heparin, Porcine 1,000 Unit/Ml Inj 10 Ml) 0 unit HE ONCE ONE Stop: 04/15/22 14:31 Last Admin: 04/15/22 15:52 Dose: 10,000 unit Heparin Sodium (Porcine) (Heparin, Porcine 1,000 Unit/Ml Inj 10 Ml) 0 unit HE ONCE ONE Stop: 04/18/22 09:16 Last Admin: 04/18/22 09:54 Dose: 10,000 unit Heparin Sodium (Porcine) (Heparin Lock Flush 500 Unit/5 Ml Syringe) 500 unit IV PRN PRN PRN Reason: At CRRT disconnect Last Admin: 04/22/22 10:14 Dose: 500 unit Heparin Sodium (Porcine) (Heparin, Porcine 1,000 Unit/Ml Inj 10 Ml) 0 unit HE ONCE ONE Stop: 04/24/22 12:01 Last Admin: 04/24/22 12:14 Dose: 10,000 unit Hydralazine HCl (Hydralazine 20 Mg/Ml Inj 1 Ml) 10 mg IVP Q6H PRN PRN Reason: bp> 180./100 Last Admin: 04/19/22 04:36 Dose: 10 mg Hydralazine HCl (Hydralazine 25 Mg Tablet) 25 mg PO TID [facility] Last Admin: 04/15/22 21:05 Dose: Not Given Hydralazine HCl (Hydralazine 20 Mg/Ml Inj 1 Ml) 10 mg IVP ONCE ONE Stop: 04/15/22 08:36 Last Admin: 04/15/22 09:30 Dose: 10 mg Hydralazine HCl (Hydralazine 25 Mg Tablet) 50 mg PO TID [facility] Last Admin: 04/20/22 21:22 Dose: 50 mg Hydralazine HCl (Hydralazine 20 Mg/Ml Inj 1 Ml) 10 mg IVP ONCE ONE Stop: 04/19/22 20:26 Last Admin: 04/19/22 20:31 Dose: 10 mg Hydralazine HCl (Hydralazine 25 Mg Tablet) 25 mg PO TID [facility] Last Admin: 04/21/22 21:39 Dose: 25 mg Hydralazine HCl (Hydralazine 25 Mg Tablet) 10 mg PO TID [facility] Vancomycin HCl 2,000 mg/ (Sodium Chloride) 500 mls @ 250 mls/hr IV ONCE ONE; Protocol Stop: 04/09/22 17:32 Last Infusion: 04/09/22 23:01 Dose: Infused Metronidazole (Flagyl Iv) 500 mg in 100 mls @ 100 mls/hr IV ONCE ONE Stop: 04/09/22 16:32 Last Infusion: 04/09/22 20:30 Dose: Infused Cefepime HCl 2,000 mg/ Sodium (Chloride) 50 mls @ 100 mls/hr IV ONCE ONE; Protocol Stop: 04/09/22 16:02 Last Infusion: 04/09/22 17:30 Dose: Infused Sodium Chloride (Sodium Chloride 0.9%) 1,848 mls @ 1,848 mls/hr IV .Q1H ONE Stop: 04/09/22 16:47 Last Infusion: 04/09/22 17:54 Dose: Infused Sodium Chloride (Sodium Chloride 0.9%) 1,000 mls @ 75 mls/hr IV .[id number] [facility]ANNA Last Infusion: 04/10/22 09:47 Dose: Infused Vancomycin HCl 2,000 mg/ (Sodium Chloride) 500 mls @ 250 mls/hr IV Q12H [facility]; Protocol Last Infusion: 04/12/22 11:19 Dose: Infused Cefepime HCl 1,000 mg/ Sodium (Chloride) 50 mls @ 100 mls/hr IV Q12H [facility]; Protocol Last Infusion: 04/19/22 09:11 Dose: Infused Metronidazole (Flagyl Iv) 500 mg in 100 mls @ 100 mls/hr IV Q8H [facility]; Protocol Last Infusion: 04/12/22 06:37 Dose: Infused Vancomycin HCl 2,000 mg/ (Sodium Chloride) 500 mls @ 250 mls/hr IV Q12H [facility]; Protocol Vancomycin HCl 2,000 mg/ (Sodium Chloride) 500 mls @ 250 mls/hr IV Q18H [facility]; Protocol Norepinephrine Bitartrate 4 mg (/ Dextrose) 254 mls @ 0 mls/hr IV .Q0M [facility]; Protocol Last Titration: 04/19/22 08:05 Dose: Infused Acetaminophen (Acetaminophen) 1,000 mg in 100 mls @ 400 mls/hr IV ONCE ONE Stop: 04/11/22 23:24 Last Infusion: 04/12/22 00:03 Dose: Infused Lactated Ringer's (Lactated Ringers) 500 mls @ 999 mls/hr IV .Q31M ONE Stop: 04/12/22 09:28 Last Infusion: 04/12/22 11:19 Dose: Infused Furosemide 100 mg/ Sodium (Chloride) 50 mls @ 15 mls/hr IV .Q3H20M [facility]; Protocol Last Titration: 04/13/22 10:43 Dose: Infused Amino Acids/Electrolytes (Clinimix E 4.25%-10%) 1,000 mls @ 10 mls/hr IV .Q24H [facility] Last Admin: 04/21/22 20:52 Dose: Not Given Heparin Sodium/Sodium Chloride (Heparin Drip) 25,000 unit in 500 mls @ 0 mls/hr IV .Q0M [facility]; Protocol Last Titration: 04/19/22 07:13 Dose: Infused Nicardipine/Sodium Chloride (Cardene) 20 mg in 200 mls @ 0 mls/hr IV .Q0M [facility]; Protocol Last Titration: 04/19/22 16:11 Dose: Infused Doxycycline Hyclate 100 mg/ (Sodium Chloride) 100 mls @ 100 mls/hr IV Q12H [facility]; Protocol Last Infusion: 04/20/22 02:42 Dose: Infused Furosemide 100 mg/ Sodium (Chloride) 50 mls @ 0 mls/hr IV .Q0M [facility]; Protocol Last Titration: 04/15/22 19:32 Dose: Infused Vancomycin HCl 1,000 mg/ (Sodium Chloride) 250 mls @ 250 mls/hr IV Q18H [facility]; Protocol Vancomycin HCl 1,000 mg/ (Sodium Chloride) 250 mls @ 250 mls/hr IV Q24H [facility]; Protocol Last Infusion: 04/16/22 14:01 Dose: Infused Dexmedetomidine/Sodium Chloride (Precedex) 400 mcg in 100 mls @ 0 mls/hr IV .Q0M [facility]; Protocol Last Titration: 04/20/22 00:12 Dose: Infused Sodium Nitroprusside 50 mg/ (Dextrose) 252 mls @ 0 mls/hr IV .Q0M [facility]; Protocol Last Titration: 04/16/22 16:45 Dose: Infused Labetalol HCl 300 mg/ Sodium (Chloride) 300 mls @ 0 mls/hr IV .Q0M [facility]; Protocol Last Titration: 04/19/22 08:05 Dose: Infused Metronidazole (Flagyl Iv) 500 mg in 100 mls @ 100 mls/hr IV Q8H [facility]; Protocol Last Infusion: 04/19/22 09:10 Dose: Infused Furosemide 100 mg/ Sodium (Chloride) 50 mls @ 0 mls/hr IV .Q0M [facility]; Protocol Last Titration: 04/19/22 10:32 Dose: Infused Sodium Chloride (Sodium Chloride 0.9%) 1,000 mls @ 150 mls/hr IV .Q6H40M [facility] Stop: 04/17/22 03:24 Last Admin: 04/17/22 00:37 Dose: Not Given Magnesium Sulfate (Magnesium Sulfate Premix) 2 gm in 50 mls @ 50 mls/hr IV ONCE ONE Stop: 04/19/22 11:20 Last Infusion: 04/19/22 12:50 Dose: Infused Nicardipine/Sodium Chloride (Cardene) 20 mg in 200 mls @ 0 mls/hr IV .Q0M [facility]; Protocol Last Titration: 04/21/22 03:23 Dose: Infused Etomidate (Amidate) Confirm Administered Dose 20 mls @ as directed .ROUTE .[facility]-MED ONE Stop: 04/19/22 23:31 Last Admin: 04/20/22 04:30 Dose: Not Given Vancomycin HCl 2,000 mg/ (Sodium Chloride) 500 mls @ 250 mls/hr IV Q12H [facility] Vancomycin HCl 2,000 mg/ (Sodium Chloride) 500 mls @ 250 mls/hr IV Q12H [facility] Last Infusion: 04/21/22 05:13 Dose: Infused Potassium Chloride (K-Pete) 100 mls @ 25 mls/hr IV ONCE ONE Stop: 04/20/22 21:59 Last Infusion: 04/20/22 22:07 Dose: Infused Magnesium Sulfate (Magnesium Sulfate Premix) 2 gm in 50 mls @ 50 mls/hr IV ONCE ONE Stop: 04/20/22 19:59 Last Infusion: 04/20/22 19:33 Dose: Infused Lidocaine HCl 5 ml/ Potassium (Chloride) 105 mls @ 50 mls/hr IV ONCE ONE Stop: 04/21/22 10:12 Last Infusion: 04/21/22 10:43 Dose: Infused Tranexamic Acid 1,000 mg/ (Sodium Chloride) 110 mls @ 330 mls/hr IV ONCE ONE Stop: 04/25/22 21:01 Last Admin: 04/25/22 21:13 Dose: 330 mls/hr Desmopressin Acetate 40 mcg/ (Sodium Chloride) 60 mls @ 110 mls/hr IV ONCE ONE Stop: 04/25/22 21:27 Tranexamic Acid 1,000 mg/ (Sodium Chloride) 110 mls @ 330 mls/hr IRRIGATION ONCE ONE Stop: 04/25/22 21:27 Last Admin: 04/25/22 21:21 Dose: 330 mls/hr Desmopressin Acetate 32 mcg/ (Sodium Chloride) 58 mls @ 110 mls/hr IV ONCE ONE Stop: 04/25/22 22:01 Last Infusion: 04/25/22 22:42 Dose: Infused Acetaminophen (Acetaminophen) 1,000 mg in 100 mls @ 400 mls/hr IV ONCE ONE Stop: 04/25/22 23:03 Last Admin: 04/25/22 23:03 Dose: 400 mls/hr Caspofungin 70 mg/ Sodium (Chloride) 250 mls @ 250 mls/hr IV ONCE ONE Stop: 04/26/22 09:59 Last Admin: 04/26/22 08:59 Dose: 250 mls/hr Iohexol (Iohexol 350 Mg/Ml 100 Ml Btl) 0 ml IV ONCE ONE Stop: 04/09/22 18:59 Last Admin: 04/09/22 18:59 Dose: 95 ml Labetalol HCl (Labetalol 5 Mg/Ml Sdv 20ml) 10 mg IVP ONCE ONE Stop: 04/15/22 03:06 Last Admin: 04/15/22 03:16 Dose: 10 mg Labetalol HCl (Labetalol 5 Mg/Ml Sdv 20ml) 10 mg IVP ONCE ONE Stop: 04/19/22 23:16 Last Admin: 04/20/22 01:13 Dose: Not Given Lidocaine HCl (Lidocaine 2% Jelly 6 Ml) 1 applic TOPICAL ONCE ONE Stop: 04/09/22 14:04 Last Admin: 04/09/22 14:21 Dose: 1 applic Lidocaine HCl (Lidocaine 2% Jelly 5 Ml) 1 applic TOPICAL PRN PRN PRN Reason: PAIN Lorazepam (Lorazepam 2 Mg/Ml Inj 1 Ml) 0.5 mg IVP Q4H PRN PRN Reason: ANXIETY Last Admin: 04/19/22 15:20 Dose: 0.5 mg Metolazone (Metolazone 5 Mg Tablet) 10 mg PO TID [facility] Last Admin: 04/13/22 09:59 Dose: Not Given Metronidazole (Metronidazole 500 Mg Tablet) 500 mg PO TID [facility] Last Admin: 04/10/22 20:50 Dose: 500 mg Morphine Sulfate (Morphine 4 Mg/Ml Sdv 1 Ml) 4 mg IVP ONCE ONE Stop: 04/09/22 12:52 Last Admin: 04/09/22 13:24 Dose: 4 mg Morphine Sulfate (Morphine Ir 15 Mg Tablet) 15 mg PO Q6H PRN PRN Reason: pAIN Last Admin: 04/11/22 07:07 Dose: 15 mg Morphine Sulfate (Morphine 4 Mg/Ml Sdv 1 Ml) 2 mg IVP ONCE ONE Stop: 04/14/22 13:01 Last Admin: 04/14/22 12:56 Dose: 2 mg Morphine Sulfate (Morphine 4 Mg/Ml Sdv 1 Ml) 2 mg IVP Q8M PRN PRN Reason: SEVERE PAIN Last Admin: 04/18/22 22:51 Dose: 2 mg Morphine Sulfate (Morphine 4 Mg/Ml Sdv 1 Ml) 2 mg IVP Q8M PRN PRN Reason: SEVERE PAIN Last Admin: 04/19/22 16:59 Dose: 2 mg Perflutren Protein Type A Microsphe (Perflutren Protein-A Microsphr 0.22 Mg/Ml Sdv 3 Ml) 0 ml IV ONCE ONE Stop: 04/11/22 09:22 Last Admin: 04/11/22 09:21 Dose: 3 ml Phytonadione (Phytonadione (Adult) 10 Mg/Ml Ampule 1 Ml) 5 mg PO ONCE ONE Stop: 04/25/22 23:58 Last Admin: 04/26/22 00:19 Dose: 5 mg Potassium Chloride (Potassium Chloride Er 10 Meq Tablet) 10 meq PO DAILY [facility] Last Admin: 04/11/22 10:14 Dose: 10 meq Potassium Chloride (Potassium Chloride Oral Liq 20 Meq/15 Ml Udc) 40 meq PO BID [facility] Stop: 04/20/22 22:00 Last Admin: 04/20/22 17:05 Dose: 40 meq Potassium Chloride (Potassium Chloride Oral Liq 20 Meq/15 Ml Udc) 40 meq PO ONCE ONE Stop: 04/21/22 01:49 Last Admin: 04/21/22 02:32 Dose: 40 meq Potassium Chloride (Potassium Chloride Oral Liq 20 Meq/15 Ml Udc) 40 meq PO ONCE ONE Stop: 04/21/22 07:28 Last Admin: 04/21/22 08:37 Dose: 40 meq Pregabalin (Pregabalin 100 Mg Capsule) 100 mg PO BID [facility] Last Admin: 04/12/22 09:54 Dose: Not Given Senna/Docusate Sodium (Sennosides-Docusate Tablet) 1 tab PO DAILY [facility] Last Admin: 04/24/22 10:26 Dose: 1 tab Sodium Bicarbonate (Sodium Bicarbonate 650 Mg Tablet) 650 mg PO TID [facility] Last Admin: 04/14/22 21:03 Dose: Not Given Sodium Bicarbonate (Sodium Bicarbonate 8.4% 1 Meq/Ml 50ml Syr) 50 meq IVP ONCE ONE Stop: 04/12/22 15:45 Last Admin: 04/12/22 18:20 Dose: 50 meq Sodium Chloride (Sodium Chloride 0.9% 1,000 Ml Bag) 1,000 - 7,000 ml CRRT PRN PRN PRN Reason: For priming CRRT Machine Last Admin: 04/22/22 09:13 Dose: 1,000 ml Succinylcholine Chloride (Succinylcholine 20 Mg/Ml Sdv 10ml) Confirm Administered Dose 200 mg .ROUTE .[facility]-MED ONE Stop: 04/19/22 23:32 Succinylcholine Chloride (Succinylcholine 20 Mg/Ml Sdv 10ml) 200 mg IV ONCE ONE Stop: 04/19/22 22:36 Last Admin: 04/19/22 23:35 Dose: 200 mg Allergies adhesive tape Allergy (Verified 04/13/22 05:41) ALGY-Redness of Skin hydrocodone Allergy (Verified 04/11/22 23:00) ALGY-Rash Penicillins Allergy (Verified 04/09/22 14:04) rash Home Medications fluoxetine 20 mg capsule (Prozac) 20 mg PO BID #60 caps 11/20/21 [Rx Confirmed 04/09/22] lisinopril 20 mg tablet 20 mg PO DAILY #30 tabs 11/20/21 [Rx Confirmed 04/09/22] meloxicam 15 mg tablet 15 mg PO QDAY 30 days #30 tabs 11/20/21 [Rx Confirmed 04/09/22] methocarbamol 500 mg tablet 500 mg PO BID #60 tabs 11/20/21 [Rx Confirmed 04/09/22] pregabalin 100 mg capsule (Lyrica) 100 mg PO BID #60 caps 11/20/21 [Rx Confirmed 04/09/22] acetaminophen 300 mg-codeine 60 mg tablet 1 tab PO Q6H PRN Pain 04/09/22 [History Confirmed 04/09/22] Discharge Plan Discharge Patient Disposition: Xfer Other Condition: Stable Prescriptions: Continued fluoxetine [Prozac] 20 mg capsule 20 mg PO BID Qty: 60 2RF lisinopril 20 mg tablet 20 mg PO DAILY Qty: 30 2RF meloxicam 15 mg tablet 15 mg PO QDAY 30 Days Qty: 30 2RF methocarbamol 500 mg tablet 500 mg PO BID Qty: 60 2RF pregabalin [Lyrica] 100 mg capsule 100 mg PO BID Qty: 60 2RF acetaminophen-codeine 300-60 mg tablet 1 tab PO Q6H PRN (Reason: Pain) Referrals: Chloe Gonzalez APN [Primary Care Provider] - Patient Instructions: Opioid Safety Transfer Attestations Time Spent in Transfer Care: greater than 30 min Quality Metrics Clinical Quality Measures [ No reported AMI, CVA or VTE this stay] Coding Level of Care Code Acute Diversional Therapist'S Assistant for g Fwd Diagnoses ARDS (adult respiratory distress syndrome) J80
--- NOTE | 2022-04-26 12:53 | PC.NURSE ---
Verbal orders received from Dr. Wallace, 1 amp bicarb, 1 amp D50, 10u insulin, and 40mg Lasix. See orders and MAR for further documentation.
[2022-04-26] MEDS: FUROsemide 10 mg/mL SDV 4mL 40 MG IVP (13:08)
[2022-04-26] MEDS: dextrose 50% syringe 50 mL IVP (13:11)
[2022-04-26] MEDS: sodium bicarbonate 8.4% 1 mEq/mL 50mL Syr 50 MEQ IVP (13:12)
--- NOTE | 2022-04-26 13:12 | P.PN_ITS ---
Subjective Subjective: Patient remains on a ventilator, on 85% FiO2, remains anuric Off pressors, blood pressure stable Vitals/I&O/Wt Last Vital Signs Temp 100.0 F H 04/26/22 12:00 Pulse 85 04/26/22 12:00 Resp 22 H 04/26/22 11:41 BP 129/57 04/26/22 12:00 Pulse Ox 91 04/26/22 12:00 O2 Del Method 04/26/22 12:00 O2 Flow Rate 80 04/22/22 12:30 FiO2 85 04/26/22 11:41 04/25/22 04/26/22 04/26/22 22:59 06:59 14:59 Intake Total 306.861 / 406.861 549.137 / 955.998 215.664 / 215.664 Output Total 352 / 362 0 / 362 Balance -45.139 / 44.861 549.137 / 593.998 215.664 / 215.664 Weight last 48 hrs Weight 224.936 kg Weight 256.37 kg Physical Exam Narrative: Remains on ventilator, no acute distress Has anasarca S1-S2 regular rate and rhythm per report Bilateral crackles per report Sluggish bowel sounds but improved 3+ lower extremity edema Urinary Catheter Management: Coude: Cath Placed During This Visit: yes Reason for Continuing Indwelling Catheter: Accurate Measurement of Urinary Output in Critically Ill Patients Urinary Catheter Date of Insertion: 04/09/22 Urinary Catheter Time of Insertion: 15:30 Data : 04/26/22 04:45 04/26/22 04:44 Micro: Microbiology 04/25/22 23:10 Blood Culture - Preliminary Blood SPECIMEN COLLECTED 04/25/22 23:19 Blood Culture - Preliminary Blood SPECIMEN COLLECTED 04/20/22 15:45 Gram Stain - Final Lung Left Lower Lobe Bronchoalveolar Lavage Culture - Final Gabbie albicans A&P Assessment and plan (1) Acute kidney injury: (1) ANY (acute kidney injury): 61 yr old female rt leg cellulitis and ATN 1AKI - -likely developed ATN from severe sepsis, no significant renal recovery yet -Patient received daily HD's with possible development of intra vascular volume depletion -Holding off on HD since yesterday-K slightly high today, will try med management if no improvement will require HD - RT femoral temp? HD catheter on 10-30-22 -Overall no significant improvement in patient's status, patient not a candidate for long-term dialysis -hyperphosphatemia- monitor w/ dialysis and binder w/ feeds 2. cellulitis-? abx per medicine-? dose for ANY on HD -keep? vanco? trough under 19 3. Resp failure, intubated: Requiring 80 to 100% FiO2, Discussed with patient's daughter at length yesterday. Patient's family requesting transfer for higher level of care, Overall has poor prognosis due to multiorgan failure and no signs of improvement thus far seen and examined w/ [facility]TER- telehealth visit time spent 25+ min Attestations Medical Necessity Statement*: Patient needs to be in hospital for the management of sepsis,r/f Coding Level of Care Code Acute Radio Communications Mechanician for Kinga Watson Diagnoses Acute kidney injury N17.9
[2022-04-26] MEDS: insulin regular-human 10 UNIT in SYRINGE 1 EACH IVP (13:13)
--- NOTE | 2022-04-26 13:31 | PC.NURSE ---
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 Nasal packing remains in place. Dr. Wang spoke with family about transferring.
[2022-04-26 14:06] LABS: Glucose Point of Care 98 mg/dL (70-110)
[2022-04-26] MEDS: propofol 1,000 MG/100 ML INJ 46.17 MG IV ×4 (14:55→22:05)
--- NOTE | 2022-04-26 16:26 | XRR_ITS ---
PROCEDURE INFORMATION: Exam: XR Abdomen Exam date and time: 04/26/2022 7:05 PM Age: 61 years old Clinical indication: Bloating; Additional info: Distention TECHNIQUE: Imaging protocol: Radiologic exam of the abdomen. Views: Frontal supine view of the abdomen. 1 View. COMPARISON: CR (ABDOMEN, ) 04/11/2022 8:21 AM FINDINGS: Limitations: Study is technically limited due to body habitus. Gastrointestinal tract: No evidence for bowel obstruction or perforation. Intraperitoneal space: No free intraperitoneal air. Organs: No organomegaly. Bones/joints: Multilevel degenerative changes of varying severity in the visualized spine. Other findings: A linear radiopaque focus projects over the lower right pelvis, it is uncertain whether this is internal or external to the patient. XR/XR KUB portable [id number] IMPRESSION: 1. No evidence for bowel obstruction or perforation. 2. A linear radiopaque focus projects over the lower right pelvis, it is uncertain whether this is internal or external to the patient. Recommend clinical correlation. 3. Incidental/nonacute findings are listed in the report.
--- NOTE | 2022-04-26 16:29 | USR_ITS ---
PROCEDURE INFORMATION: Exam: US Duplex Right Lower Extremity Veins, Limited Exam date and time: 04/26/2022 4:50 PM Age: 61 years old Clinical indication: Edema, localized; Lower extremity, right; Patient HX: PT in icu on vent. Please see recent CT legs TECHNIQUE: Imaging protocol: Real-time Duplex ultrasound of the Right Lower Extremity with 2-D nuñez scale, color Doppler flow and spectral waveform analysis with image documentation. Limited exam was focused on the right lower extremity veins. COMPARISON: CT lower leg RT wo con* [id number] 04/16/2022 1:09 PM FINDINGS: Right deep veins: Unremarkable. The common femoral, femoral, proximal profunda femoral, popliteal, posterior tibial, and peroneal veins are patent without thrombus. Normal Doppler waveforms. Normal compressibility and/or augmentation response. Right superficial veins: Unremarkable. Saphenofemoral junction is patent without thrombus. Soft tissues: Extensive subcutaneous edema in the right calf, similar to the prior CT scan. US/[place] [id number] IMPRESSION: 1. No evidence for deep venous thrombosis in the right lower extremity. 2. Extensive subcutaneous edema in the right calf, similar to the prior CT scan.
[2022-04-26] MEDS: sodium chloride 0.9 % (flush) syringe 10 mL IV (17:15)
[2022-04-26 18:18] LABS: Alanine Aminotransferase < 5 U/L (0-33); Albumin Level 3.8 g/dL (3.5-5.2); Alkaline Phosphatase 52 U/L (35-105); Anion Gap 20.8 (5-19); Aspartate Amino Transferase 26 U/L (0-32); Blood Urea Nitrogen 66 mg/dL (6-20); Calcium 9.5 mg/dL (8.5-10.5); Carbon Dioxide 24 mmol/L (22-29); Chloride 93 mmol/L (98-107); Globulin 4.1 g/dL (1.3-4.6); Glomerular Filtration Rate 10.3 mL/min (90-130); Glucose 78 mg/dL (65-115); Osmolality Calculated 292 mOsm/kg (285-295); Potassium 5.8 mmol/L (3.5-5.1); Sodium 132 mmol/L (136-145); Total Bilirubin 0.7 mg/dL (0.15-1.2); Total Protein 7.9 g/dL (6.6-8.7)
[2022-04-26 18:45] LABS: Glucose Point of Care 84 mg/dL (70-110)
[2022-04-26 22:04] LABS: Glucose Point of Care 77 mg/dL (70-110)
[2022-04-27] VITALS (30 sets, daily range): BP systolic 89–140; BP diastolic 44–69; PULSE 83–95; RESP 22–42; TEMP 37.3–38.6; O2SAT 79–90; BMI 77.0
[2022-04-27] MEDS: collagenase oint 30 gm 1 APPLIC TOPICAL ×2 (00:44→23:36)
[2022-04-27] MEDS: chlorhexidine gluconate 4% Btl 118 mL 1 APPLIC TOPICAL (00:44)
[2022-04-27] MEDS: propofol 1,000 MG/100 ML INJ 46.17 MG IV (00:50)
[2022-04-27 01:45] LABS: Glucose Point of Care 75 mg/dL (70-110)
[2022-04-27] MEDS: acetaminophen 650 mg/20.3 mL UDC 500 MG PO (01:48)
[2022-04-27] MEDS: ipratropium-albuterol 3 mL Neb INHALATION ×4 (02:10→20:00)
[2022-04-27] MEDS: propofol 1,000 MG/100 ML INJ 61.56 MG IV ×7 (03:29→20:59)
--- NOTE | 2022-04-27 03:38 | PC.NURSE ---
Patient developed fever of 101.5 after 0000 this AM. PO tylenol was administered and Temp remained at 101 1 hour later. Patient was also over-breathing the vent with respirations in the 40s. Sp02 dropped from 88 to 84/85%. Fi02 was raised after consult with respiratory to 100%. Saturation increased but Respirations remained tachypneic. Hospitalist notified after instructed 1hr wait time and order for 1000mg of IV acetaminophen was received.
[2022-04-27 03:40] LABS: Basophils % 0.4 %; Eosinophils # 0.1 10^3/uL (0.0-0.8); Eosinophils % 1.1 %; Hemoglobin 8.9 g/dL (11.5-15.3); Lymphocytes # 1.2 10^3/uL (0.8-4.8); Lymphocytes % 14.9 %; Mean Corpuscular HGB Conc 28.7 g/dL (30.0-36.0); Mean Corpuscular Hemoglobin 28.2 pg (28.0-34.0); Mean Corpuscular Volume 98.1 fl (81-99); Mean Platelet Volume 10.9 fL (7.4-10.4); Monocytes # 0.9 10^3/uL (0.2-0.9); Monocytes % 10.9 %; Neutrophils # 5.89 10^3/uL (1.8-7.7); Neutrophils % 71.8 %; Nucleated Red Blood Cells % 0 %; Platelet Count 186 10^3/cmm (130-400); Red Blood Count 3.16 10^6/uL (4.1-5.3); Red Cell Distribution Width 18.5 % (12.1-15.1); White Blood Count 8.2 10^3/uL (4.0-10.0)
[2022-04-27] MEDS: acetaminophen 1,000 MG/100 ML PIGGYBACK 400 MG IV (04:00)
[2022-04-27 04:38] LABS: Alanine Aminotransferase < 5 U/L (0-33); Albumin Level 3.9 g/dL (3.5-5.2); Alkaline Phosphatase 46 U/L (35-105); Anion Gap 23.9 (5-19); Aspartate Amino Transferase 23 U/L (0-32); Blood Urea Nitrogen 67 mg/dL (6-20); Calcium 9.3 mg/dL (8.5-10.5); Carbon Dioxide 24 mmol/L (22-29); Chloride 98 mmol/L (98-107); Globulin 3.9 g/dL (1.3-4.6); Glomerular Filtration Rate 8.9 mL/min (90-130); Glucose 73 mg/dL (65-115); Osmolality Calculated 308 mOsm/kg (285-295); Phosphorus 7.2 mg/dL (2.5-4.5); Potassium 5.9 mmol/L (3.5-5.1); Sodium 140 mmol/L (136-145); Total Bilirubin 0.7 mg/dL (0.15-1.2); Total Protein 7.8 g/dL (6.6-8.7)
[2022-04-27 04:40] LABS: Vancomycin Trough 17.1 ug/mL (10-15)
[2022-04-27] MEDS: sodium chloride 0.9 % (flush) syringe 10 mL IV (04:49)
[2022-04-27 05:35] LABS: Blood Gas Operator Identificat JB; Blood Gas Sample Site Brachial, left; Blood Gas Sample Type Arterial; Ionized Calcium Level - ABG 1.2 mmol/L (1.1-1.4)
[2022-04-27 05:59] LABS: Alveolar-Arterial Oxygen Gradi 74.3 mmHg (5-10); Arterial Blood Gas Hematocrit 27.8 % (37-47); Base Excess ABG -4.5 mmol/L (-2.0-2.0); Blood Gas Tidal Volume 0.45; Carboxyhemoglobin 1.1 %THgb (0.4-20.1); HCO3 ABG 24.1 mmol/L (22-26); HGB O2 Sat 90.4 % (95-100); Methemoglobin 1.5 % (0.4-1.5); Oxygen Device VENT; Oxygen Saturation ABG 92.8; PO2 ABG 71.5 mmHg (80.0-100.0); Total Hemoglobin 9.1 g/dL (12-16)
[2022-04-27 06:02] LABS: ABG PCO2 64.2 mmHg (35-45); ABG PH Result 7.18 (7.35-7.45)
[2022-04-27] MEDS: meropenem 1,000 MG in sodium chloride 0.9% (plus) 50 ML 100 MG IV (06:59)
[2022-04-27] MEDS: heparin, porcine 1,000 unit/mL INJ 10 mL HE (09:26)
[2022-04-27] MEDS: pantoprazole 40 mg SDV IVP ×2 (09:28→18:09)
[2022-04-27] MEDS: bacitracin ointment 28 gm 1 APPLIC TOPICAL ×2 (09:29→23:36)
--- NOTE | 2022-04-27 11:10 | P.PN_ITS ---
Subjective Subjective: on 100 % Fio2 Vitals/I&O/Wt Last Vital Signs Temp 101 F H 04/27/22 07:20 Pulse 83 04/27/22 07:25 Resp 22 H 04/27/22 09:27 BP 134/69 04/27/22 07:20 Pulse Ox 90 04/27/22 09:27 O2 Del Method 04/27/22 07:20 O2 Flow Rate 80 04/22/22 12:30 FiO2 100 04/27/22 09:27 04/26/22 04/27/22 04/27/22 22:59 06:59 14:59 Intake Total 450 / 1050.100 700.000 / 1750.100 200 / 200 Output Total 100 / 100 Balance 450 / 1050.100 600.000 / 1650.100 200 / 200 Weight last 48 hrs Weight 223.309 kg Weight 224.936 kg Physical Exam Narrative: Remains on ventilator, no acute distress Has anasarca S1-S2 regular rate and rhythm per report Bilateral crackles per report Sluggish bowel sounds but improved 3+ lower extremity edema Urinary Catheter Management: Coude: Cath Placed During This Visit: yes Reason for Continuing Indwelling Catheter: Accurate Measurement of Urinary Output in Critically Ill Patients Urinary Catheter Date of Insertion: 04/09/22 Urinary Catheter Time of Insertion: 15:30 Data : 04/27/22 03:17 04/27/22 03:17 Micro: Microbiology 04/25/22 23:10 Blood Culture - Preliminary Blood NEGATIVE TO DATE 04/25/22 23:19 Blood Culture - Preliminary Blood NEGATIVE TO DATE A&P Assessment and plan (1) ANY (acute kidney injury): [place] [address] Progress Note Signed Patient: Evelyn Vail MR#: [id number] : 1960 Age/Sex: 61 / F ADM Date: 04/09/22 Loc: ICU? Room/Bed: [place] [address] Encounter Date: 04/26/[address]: Emil Wang MD Report Number: [id number] Subjective Subjective:?? Patient remains on a ventilator, on 85% FiO2, remains anuric Off pressors, blood pressure stable Vitals/I&O/Wt Last Vital Signs Temp ?100.0 F H ?04/26/22 12:00 Pulse ?85 ?04/26/22 12:00 Resp ?22 H ?04/26/22 11:41 BP ?129/57 ?04/26/22 12:00 Pulse Ox ?91 ?04/26/22 12:00 O2 Del Method ? ?04/26/22 12:00 O2 Flow Rate ?80 ?04/22/22 12:30 FiO2 ?85 ?04/26/22 11:41 ? 04/25/22 04/26/22 04/26/22 ? 22:59 06:59 14:59 Intake Total 306.861 / 406.861 549.137 / 955.998 215.664 / 215.664 Output Total 352 / 362 0 / 362 ? Balance -45.139 / 44.861 549.137 / 593.998 215.664 / 215.664 Weight last 48 hrs Weight? 224.936 kg? Weight? 256.37 kg ? Physical Exam Narrative:?? Remains on ventilator, no acute distress Has anasarca S1-S2 regular rate and rhythm per report Bilateral crackles per report Sluggish bowel sounds but improved 3+ lower extremity edema Urinary Catheter Management:?? Coude: Cath Placed During This Visit: yes Reason for Continuing Indwelling Catheter: Accurate Measurement of Urinary Output in Critically Ill Patients Urinary Catheter Date of Insertion: 04/09/22 Urinary Catheter Time of Insertion: 15:30 ? Data : 04/26/22 04:45? 04/26/22 04:44? Micro: Microbiology ?04/25/22 23:10 Blood Culture - Preliminary ?Blood ?? SPECIMEN COLLECTED ?04/25/22 23:19 Blood Culture - Preliminary ?Blood ?? SPECIMEN COLLECTED ?04/20/22 15:45 Gram Stain - Final ?Lung Left Lower Lobe Bronchoalveolar Lavage Culture - Final ? ?? Gabbie albicans A&P Assessment and plan 61 yr old female rt leg cellulitis and ATN 1AKI - -likely developed ATN from severe sepsis, no significant renal recovery yet -Patient received daily HD's with possible development of intra vascular volume depletion -? RT femoral temp? HD catheter on 04-12-22 -Overall no significant improvement in patient's status, patient not a candidate for long-term dialysis - Has Hyperkalemia : Plan for HD today -hyperphosphatemia- monitor w/ dialysis and binder w/ feeds 2. cellulitis-? abx per medicine-? dose for ANY on HD -keep? vanco? trough under 19 3. 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
--- NOTE | 2022-04-27 11:54 | PC.CHAP ---
Pastoral Care Encounter/Spiritual Assessment Type of Contact [] Declined depot agent visit [] Patient/Family/Request visit [] Outpatient visit [] Follow-up visit [] Physician referral [] Code/Alert [x] Routine visit [] Staff referral [] Actively dying [] Patient sleeping [] Family support [] [] Out of room [] Palliative care [] [x] Receiving care in room [] Pre-surgical visit [] Trauma [] Long length of stay [x] ICU visit [x] Other: have visited family and PT every day... 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 Interventions [] Prayer [] Active listening [] Non-anxious presence [] Spiritual/emotional support [] Crisis/trauma care [] Spiritual counseling [] Bereavement support [] Provided bereavement packet [] Provided Bible/devotional materials [] Provided toy/stuffed animal, coloring book to patient or family member [] Provided Communion [] Anointing/[place] [] Salvation [x] Completed spiritual assessment [] Other: Impact on Illness or Injury [] Angry [] Fearful [] Anxious [] Often cries [] Exhaustion [] Unable to work [] Unable to attend rastafarian [] Unable to walk/stand [] Unable to read [] Unable to drive [] Unable to eat/drink [] Unable to sleep [] Unable to be with family [] Patient intubated [] Other: Summary Time spent with patient
[2022-04-27 13:56] LABS: Glucose Point of Care 88 mg/dL (70-110)
[2022-04-27 14:08] LABS: Basophils % 0.3 %; Eosinophils # 0.1 10^3/uL (0.0-0.8); Eosinophils % 1.3 %; Hematocrit 30.2 % (37.0-47.0); Hemoglobin 8.9 g/dL (11.5-15.3); Lymphocytes # 0.9 10^3/uL (0.8-4.8); Lymphocytes % 11.4 %; Mean Corpuscular HGB Conc 29.5 g/dL (30.0-36.0); Mean Corpuscular Hemoglobin 28.6 pg (28.0-34.0); Mean Corpuscular Volume 97.1 fl (81-99); Mean Platelet Volume 10.6 fL (7.4-10.4); Monocytes # 0.9 10^3/uL (0.2-0.9); Monocytes % 11.1 %; Neutrophils # 5.82 10^3/uL (1.8-7.7); Neutrophils % 75.1 %; Nucleated Red Blood Cells % 0 %; Platelet Count 171 10^3/cmm (130-400); Red Blood Count 3.11 10^6/uL (4.1-5.3); Red Cell Distribution Width 18.5 % (12.1-15.1); White Blood Count 7.7 10^3/uL (4.0-10.0)
--- NOTE | 2022-04-27 14:09 | P.PN_ITS ---
Subjective Subjective: -Clinically unchanged and there is no improvement since her intubation -When security shift manager try to reposition-patient quickly desaturated requiring 100% FiO2 -ABG today morning showed acidosis with with component of metabolic acidosis and hyperkalemia on CMP -Patient will get hemodialysis today -Overall her renal function did not recover from underlying ATN and she is pretty much dialysis dependent -Patient has high plateau pressures 34 on PEEP of 18 and her PF ratio is < 100 -I have updated patient's daughter at bedside again today that there is no improvement in her clinical condition and she is pretty much ventilator dependent for respiratory support with 100% FiO2 as well as dialysis dependent for her renal function -Bedside ultrasound examination did not show a significant pocket of left pleural effusion-although her morbid obesity does not help with clear images -She has been having significant bleeding from her nose which were packed; bleeding from NG tube and dark color urine; DIC panel showed FDP products with normal fibrinogen -She is in severe ARDS-vent dependent, not a candidate for ECMO given her BMI/Resp score -5 class IV risk 33% in-hospital survival with questionable neurological status, -She has been spiking fevers in the last 48 hours with normal white count and neutrophils-all cultures so far negative except BAL for Gabbie which most likely is commensal; however she has been getting vancomycin/meropenem and started on micafungin-another concern can be central fevers from intracranial bleeds -we do not have capabilities to do imaging studies for bariatric patients-CTA to rule out PE, pleural effusion, CT head to rule out strokes, and ENT 04/01 on-call services -Family requested transfer to higher center-and currently awaiting bed availability at [facility] Medications: Reviewed: Yes Medication Review Details: Generic Name Dose Route Start Last Admin Trade Name Freq PRN Reason Stop Dose Admin Acetaminophen 500 mg 04/09/22 19:24 04/11/22 19:48 Acetaminophen 50 0 Mg Tablet PO 500 mg Q4H PRN Administration fever Albuterol/Ipratrop ium 3 ml 04/20/22 20:00 04/25/22 13:33 Ipratropium-Albu terol 3 Ml Neb INHALATION 3 ml Q6H.RESP BREANNA Administration Artificial Tears 1 drop 04/19/22 09:08 04/24/22 14:56 Artificial Tears Op Soln 15 Ml Btl EYE-BOTH 1 drop Q4H PRN Administration DRY EYE(S) Bacitracin 1 applic 04/09/22 21:00 04/25/22 14:42 Bacitracin Ointm ent 28 Gm TOPICAL 1 applic TID BREANNA Administration Protocol Chlorhexidine Gluc fritz 1 applic 04/21/22 01:00 04/25/22 01:16 Chlorhexidine Gl uconate 4% Btl 118 Ml TOPICAL 1 applic 0100 BREANNA Administration Collagenase 1 applic 04/13/22 00:00 04/25/22 01:13 Collagenase Oint 30 Gm TOPICAL Not Given Q24H BREANNA Enoxaparin Sodium 150 mg 04/18/22 14:00 04/25/22 14:35 Enoxaparin 150 M g/Ml Syringe SUBCUT 150 mg Q12H BREANNA Administration Heparin Sodium (Po rcine) 200 - 500 unit 04/12/22 16:15 04/25/22 15:43 Heparin Lock Flu sh 500 Unit/5 Ml S yringe IV 500 unit Q12H BREANNA Administration Heparin Sodium (Po rcine) 200 - 500 unit 04/12/22 16:13 04/14/22 22:39 Heparin Lock Flu sh 500 Unit/5 Ml S yringe IV 500 unit PRN PRN Administration Central line flus h Hydralazine HCl 10 mg 04/19/22 09:09 04/24/22 15:29 Hydralazine 20 M g/Ml Inj 1 Ml IVP 10 mg Q4H PRN Administration bp> 180./100 Sodium Chloride 1,000 mls @ 0 mls /hr 04/14/22 07:19 04/22/22 10:16 Sodium Chloride 0.9% IV 1 mls/hr .Q0M PRN Administration hypotension or sy mptomatic As Directed Albumin Human 25 gm in 100 mls @ 60 mls/hr 04/17/22 11:00 04/25/22 13:00 Albumin IV Infused Q8H BREANNA Infusion Meropenem 1,000 mg / Sodium 50 mls @ 100 mls/ hr 04/18/22 15:00 04/25/22 15:05 Chloride IV Infused Q8H BREANNA Infusion Propofol 1,000 mg in 100 m ls @ 0 mls/hr 04/19/22 23:45 04/24/22 09:30 Diprivan IV Infused .Q0M BREANNA Titration Protocol Per Protocol Fentanyl 2,500 mcg / Sodium 250 mls @ 0 mls/h r 11/06/22 23:45 04/25/22 14:31 Chloride IV Infused .Q0M BREANNA Titration Protocol Per Protocol Midazolam HCl 100 mg/ Sodium 100 mls @ 0 mls/h r 04/20/22 09:00 04/24/22 14:34 Chloride IV Infused .Q0M BREANNA Titration Protocol Per Protocol Vancomycin HCl 2,0 00 mg/ 500 mls @ 250 mls /hr 04/20/22 15:00 04/21/22 05:13 Sodium Chloride IV Infused Q12H BREANNA Infusion Sodium Chloride 1,000 mls @ 0 mls /hr 04/22/22 10:30 04/22/22 10:58 Sodium Chloride 0.9% IV 1 mls/hr .Q0M BREANNA Administration As Directed Norepinephrine Bit artrate 4 mg 254 mls @ 0 mls/h r 04/23/22 16:30 04/25/22 14:31 / Dextrose IV Infused .Q0M BREANNA Titration Protocol Per Protocol Lanolin 1 applic 04/15/22 14:00 04/24/22 14:56 Lanolin Oint 7 G m TOPICAL 1 applic PRN PRN Administration DRYNESS Lidocaine HCl 1 applic 04/11/22 23:30 04/12/22 01:57 Lidocaine 2% Jel ly 6 Ml TOPICAL 1 applic PRN PRN Administration PAIN Lorazepam 2 mg 04/19/22 18:56 04/19/22 19:39 Lorazepam 2 Mg/M l Inj 1 Ml IVP 2 mg Q4H PRN Administration ANXIETY Methocarbamol 500 mg 04/10/22 09:30 04/11/22 18:29 Methocarbamol 50 0 Mg Tablet PO 500 mg BID BREANNA Administration Morphine Sulfate 2 mg 04/19/22 18:17 04/19/22 22:13 Morphine 4 Mg/Ml Sdv 1 Ml IVP 2 mg Q8H PRN Administration SEVERE PAIN Nitroglycerin 0.5 inch 04/14/22 10:35 04/24/22 15:29 Nitroglycerin 1 Gm/Inch Oint Pkt TOPICAL 0.5 inch Q6H PRN Administration Blood pressure gr eater than 180/100 Ondansetron HCl 4 mg 04/09/22 19:24 04/10/22 19:49 Ondansetron 2 Mg /Ml Sdv 2 Ml IVP 4 mg Q6H PRN Administration NAUSEA AND VOMITI NG Pantoprazole Sodiu m 40 mg 04/10/22 22:15 04/25/22 09:25 Pantoprazole 40 Mg Sdv IVP 40 mg DAILY BREANNA Administration Sodium Chloride 5 - 10 ml 04/12/22 16:15 04/25/22 15:43 Sodium Chloride 0.9 % (Flush) Syri nge 10 Ml IV 10 ml Q12H BREANNA Administration Sodium Chloride 5 - 10 ml 04/12/22 16:13 04/22/22 10:15 Sodium Chloride 0.9 % (Flush) Syri nge 10 Ml IV 10 ml PRN PRN Administration Central line flus h Vitals/I&O/Wt Last Vital Signs Temp 99.2 F 04/27/22 10:00 Pulse 95 04/27/22 13:45 Resp 33 H 04/27/22 13:31 BP 134/69 04/27/22 12:00 Pulse Ox 83 L 04/27/22 13:31 O2 Del Method 04/27/22 13:30 O2 Flow Rate 80 04/22/22 12:30 FiO2 100 04/27/22 13:31 04/26/22 04/27/22 04/27/22 22:59 06:59 14:59 Intake Total 450 / 1050.100 700.000 / 1750.100 610 / 610 Output Total 100 / 100 2302 / 2302 Balance 450 / 1050.100 600.000 / 1650.100 -1692 / -1692 Weight last 48 hrs Weight 492 lb 5 oz Weight 495 lb 14.4 oz Physical Exam Narrative: PHYSICAL EXAM: General: lying in bed, sedated and intubated. HEENT:NCAT, PERRLA, EOMI Neck: Supple Lungs: Bilateral upper lung zones clear-difficult to auscultate given patient's body size Heart: s1/s2, RRR Abd: soft, NT, ND, BS + Normoactive Extremities: Chronic bilateral lymphedema, right anterior burton-open clear wound with surrounding erythema with no significant bruising. 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 SKIN: no rash LDA: # CVC: Right internal jugular # HD Cath : 04/13/2022 right femoral line # Morton: Present Urinary Catheter Management: Coude: Cath Placed During This Visit: yes Reason for Continuing Indwelling Catheter: Accurate Measurement of Urinary Output in Critically Ill Patients Urinary Catheter Date of Insertion: 04/09/22 Urinary Catheter Time of Insertion: 15:30 Data 04/27/22 13:55 04/27/22 03:17 Other Labs: Radiology Impressions Renal Ultrasound 04/12/22 15:56 IMPRESSION: 1. Examination is limited secondary to body habitus. 2. Urinary bladder is not visualized. 3. The abdominal aorta is obscured. 4. No obvious hydronephrosis. 5. Probable echogenic right renal cortex compared to the liver consistent with bilateral medical renal disease. Chest Ultrasound 04/16/22 08:55 IMPRESSION: No pleural effusions. Lower Extremity CT 04/16/22 09:01 IMPRESSION: 1. Similar-appearing diffuse extensive edema RIGHT lower extremity extending to the foot. 2. No evidence of drainable abscess or fluid collection. 3. No evidence of osteomyelitis. 4. Previously described tiny suspected area of ulceration about the lateral malleolus is unchanged. KUB X-Ray 04/26/22 16:26 IMPRESSION: 1. No evidence for bowel obstruction or perforation. 2. A linear radiopaque focus projects over the lower right pelvis, it is uncertain whether this is internal or external to the patient. Recommend clinical correlation. 3. Incidental/nonacute findings are listed in the report. Venous Duplex 04/26/22 16:29 IMPRESSION: 1. No evidence for deep venous thrombosis in the right lower extremity. 2. Extensive subcutaneous edema in the right calf, similar to the prior CT scan. Chest X-Ray 04/27/22 14:14 IMPRESSION: 1. Significantly improved left pulmonary infiltrates since the previous exam. There is residual consolidating infiltrate in the left lower lobe and there are interstitial infiltrates remaining in the both lungs. 2. ET tube, right-sided central line and enteric tube unchanged in position. Laboratory Results WBC 7.7 10^3/uL (4.0-10.0) 04/27/22 13:55 RBC 3.11 10^6/uL (4.1-5.3) L 04/27/22 13:55 Hgb 8.9 g/dL (11.5-15.3) L 04/27/22 13:55 Hct 30.2 % (37.0-47.0) L 04/27/22 13:55 MCV 97.1 fl (81-99) 11/14/22 13:55 MCH 28.6 pg (28.0-34.0) 04/27/22 13:55 MCHC 29.5 g/dL (30.0-36.0) L 04/27/22 13:55 RDW 18.5 % (12.1-15.1) H 04/27/22 13:55 Plt Count 171 10^3/cmm (130-400) 04/27/22 13:55 MPV 10.6 fL (7.4-10.4) H 04/27/22 13:55 Neut % (Auto) 75.1 % 04/27/22 13:55 Lymph % (Auto) 11.4 % 04/27/22 13:55 [place] % (Auto) 11.1 % 04/27/22 13:55 Eos % (Auto) 1.3 % 04/27/22 13:55 Baso % (Auto) 0.3 % 04/27/22 13:55 Neut # (Auto) 5.82 10^3/uL (1.8-7.7) 04/27/22 13:55 Lymph # (Auto) 0.9 10^3/uL (0.8-4.8) 04/27/22 13:55 [place] # (Auto) 0.9 10^3/uL (0.2-0.9) 04/27/22 13:55 Eos # (Auto) 0.1 10^3/uL (0.0-0.8) 04/27/22 13:55 Baso # (Auto) 0.0 10^3/uL (0.0-0.1) 04/27/22 13:55 Nucleated RBC % (auto) 0 % 04/27/22 13:55 Total Counted 100 (0-100) 04/09/22 14:25 Atypical Lymphs % 1.0 % (0-5) 04/09/22 14:25 Absolute Neutrophils 11.8 10^3/cmm (1.4-6.5) H 04/09/22 14:25 Segmented Neutrophils 91 % 04/09/22 14:25 Abs Segm Neuts (Man) 11.5 10/cmm (1.6-7.1) H 04/09/22 14:25 Band Neutrophils 3.0 % 04/09/22 14:25 Abs Band Neuts (Man) 0.4 10^3/cmm (0.0-1.2) 04/09/22 14:25 Absolute Lymphocytes 0.6 10^3/cmm (1.2-3.4) L 04/09/22 14:25 Lymphocytes (Manual) 4 % 04/09/22 14:25 Monocytes (Manual) 1.0 % 04/09/22 14: Absolute Monocytes 0.1 10^3/cmm (0.1-0.6) 04/09/22 14:25 Eosinophils (Manual) 0 % 04/09/22 14:25 Absolute Eosinophils 0.0 10^3/cmm (0.0-0.7) 04/09/22 14:25 Basophils (Manual) 0.0 % 04/09/22 14: Absolute Basophils 0.0 10^3/cmm (0.0-0.2) 04/09/22 14:25 Nucleated RBCs # 0.0 /100WBC 04/27/22 13:55 Platelet Estimate Normal (Normal) 04/09/22 14:25 Giant Platelets Trace 04/09/22 14:25 Polychromasia Trace 04/09/22 14:25 Hypochromasia Trace 04/09/22 14:25 Poikilocytosis Trace 04/09/22 14:25 Anisocytosis Trace 04/09/22 14:25 Microcytosis Trace 04/09/22 14:25 Macrocytosis Trace 04/09/22 14:25 Spherocytes Trace 04/09/22 14:25 Target Cells Trace 04/09/22 14:25 Tear Drop Cells Trace 04/09/22 14:25 Ovalocytes Trace 04/09/22 14:25 Darling Cells Trace 04/09/22 14:25 ESR 24 mm/hr (0-15) H 04/09/22 14:25 PT 15.80 SECONDS (12.1-14.9) H 04/26/22 04:45 INR 1.23 (0.8-1.2) H 04/26/22 04:45 APTT 42.1 SECONDS (23.9-36.7) H 04/26/22 04:45 Fibrinogen 580 mg/dL (174-498) H 04/26/22 04:45 Fibrin Degrad Products Pos, 10-40 ug/mL (NEG) H 04/25/22 22:37 D-Dimer 2.91 ug/mIFEU (0-0.59) H 04/25/22 22:37 Specimen Type Arterial 04/27/22 05:12 Sample Site Brachial, left 04/27/22 05:12 ABG pH 7.18 (7.35-7.45) L* 04/27/22 05:12 ABG pCO2 64.2 mmHg (35-45) H* 04/27/22 05:12 ABG pO2 71.5 mmHg (80.0-100.0) L 04/27/22 05:12 ABG HCO3 24.1 mmol/L (22-26) 04/27/22 05:12 ABG O2 Saturation 92.8 04/27/22 05:12 ABG Base Excess -4.5 mmol/L (-2.0-2.0) L 04/27/22 05:12 Harsha Test N/a 04/27/22 05:12 A-a O2 Gradient 74.3 mmHg (5-10) H 04/27/22 05:12 Hematocrit 27.8 % (37-47) L 04/27/22 05:12 Hgb O2 Saturation 90.4 % (95-100) L 04/27/22 05:12 Carboxyhemoglobin 1.1 %THgb (0.4-20.1) 04/27/22 05:12 Methemoglobin 1.5 % (0.4-1.5) 04/27/22 05:12 Total Hemoglobin 9.1 g/dL (12-16) L 04/27/22 05:12 Sodium 142.0 mmol/L (131-143) 04/27/22 05:12 Potassium 6.0 mmol/L (3.5-5.0) H 04/27/22 05:12 Glucose 77.0 mg/dL (70-115) 04/27/22 05:12 Ionized Calcium 1.2 mmol/L (1.1-1.4) 04/27/22 05:12 O2 Delivery Device Vent 04/27/22 05:12 O2 Liters/Min 15.0 % 04/10/22 21:45 FiO2 100.0 % 04/27/22 05:12 Tidal Volume 0.45 04/27/22 05:12 PEEP 18.0 cmH20 04/27/22 05:12 Housing And Residence Life Director ID Shamir 04/27/22 05:12 Sodium 139 mmol/L (136-145) 04/27/22 13:55 Potassium 4.7 mmol/L (3.5-5.1) 04/27/22 13:55 Chloride 97 mmol/L (98-107) L 04/27/22 13:55 Carbon Dioxide 27 mmol/L (22-29) 04/27/22 13:55 Anion Gap 19.7 (5-19) H 04/27/22 13:55 BUN 41 mg/dL (6-20) H 04/27/22 13:55 Creatinine 3.3 mg/dL (0.5-0.9) H 04/27/22 13:55 GFR Calculation 14.3 mL/min (90-130) L 04/27/22 13:55 Glucose 79 mg/dL (65-115) 04/27/22 13:55 POC Glucose 88 mg/dL (70-110) 04/27/22 13:54 Estimat Average Glucose 105 04/12/22 16:04 Hemoglobin A1c 5.3 % (4.0-6.0) 04/12/22 16:04 Calculated Osmolality 297 mOsm/kg (285-295) H 04/27/22 13:55 Lactate 1.3 mmol/L (0.5-2.2) 04/15/22 00:55 Calcium 9.2 mg/dL (8.5-10.5) 04/27/22 13:55 Phosphorus 7.2 mg/dL (2.5-4.5) H 04/27/22 03:17 Magnesium 2.0 mg/dL (1.7-2.3) 04/25/22 03:07 Total Bilirubin 0.7 mg/dL (0.15-1.2) 04/27/22 13:55 AST 23 U/L (0-32) 04/27/22 13:55 ALT < 5 U/L (0-33) 04/27/22 13:55 Alkaline Phosphatase 42 U/L (35-105) 04/27/22 13:55 Creatine Kinase 35 U/L (26-192) 04/15/22 00:55 Troponin T Gen 5 ng/L 49 ng/L (0-10) H 04/12/22 09:18 Troponin T Baseline 54 ng/L (0-10) H 04/12/22 16:04 Troponin T 120 Minute 54.26 ng/L (0-10) H 04/12/22 18:38 Delta Troponin T 0.26 ABS# (0-10) 04/12/22 18:38 Troponin T Hi Sens 6Hr 52.47 ng/L (0-10) H 04/12/22 22:04 Troponin T Hi Sens 6Hr Delta -1.53 ng/L (0-12) L 04/12/22 22:04 C-Reactive Protein 375.7 mg/L (0.0-4.9) H 04/13/22 03:29 NT-Pro-B Natriuret Pep 9213 pg/mL (0-125) H 04/15/22 00:55 Total Protein 7.9 g/dL (6.6-8.7) 04/27/22 13:55 Albumin 4.1 g/dL (3.5-5.2) 04/27/22 13:55 Globulin 3.8 g/dL (1.3-4.6) 04/27/22 13:55 Procalcitonin 9.20 ng/mL (0-0.5) H 04/09/22 17:12 TSH 0.44 uIU/mL (0.27-4.20) 04/09/22 17:12 Urine Color Brown (Yellow) 04/27/22 13:55 Urine Appearance Turbid (CLEAR) A 04/27/22 13:55 Urine pH 5 (5-7) 04/27/22 13:55 Ur Specific [place] 1.020 (1.005-1.030) 04/27/22 13:55 Urine Protein 3+ (Negative) H 04/27/22 13:55 Urine Glucose (UA) Norm (Normal) 04/27/22 13:55 Urine Ketones Negative (Negative) 04/27/22 13:55 Urine Blood 3+ (Negative) H 04/27/22 13:55 Urine Nitrate Negative (Negative) 04/27/22 13:55 Urine Bilirubin 2+ (Negative) H 04/27/22 13:55 Urine Urobilinogen 4 mg/dL (Negative) H 04/27/22 13:55 Ur Leukocyte Esterase 1+ (Negative) H 04/27/22 13:55 Urine RBC 25-40 /hpf (0-2) H 04/27/22 13:55 Urine WBC >100 /hpf (0-5) H 04/27/22 13:55 Ur Eosinophil Smear 0 (0-0) 04/12/22 16:04 Ur Squamous Epith Cells 5-10 /hpf (0-5) H 04/27/22 13:55 Amorphous Sediment Not Reportable 04/27/22 13:55 Urine Bacteria 2+ /hpf (NONE) H 04/27/22 13:55 Urine Mucus 1+ /hpf 04/27/22 13:55 Urine Eosinophils No eosinophils seen 04/12/22 16:04 Ur Random Microalbumin 30 ug/dL (0-20) H 04/12/22 16:04 Ur Random Sodium 12 mmol/L 04/12/22 16:04 Ur Random Potassium 11 04/12/22 16:04 Ur Random Potassium 11 mmol/L 04/12/22 16:04 Ur Random Chloride 15 mmol/L 04/12/22 16:04 Urine Creatinine 65 mg/dL (28-217) 04/12/22 16:04 Microalb/Creat Ratio 462 mg/dL (0-20) H 04/12/22 16:04 Fluid Color Red 04/20/22 15:45 Fluid Appearance Turbid 04/20/22 15:45 Fluid WBC 2739 /uL 04/20/22 15:45 Fluid RBC 32.000 10^3/uL 04/20/22 15:45 Fld Polynuclear WBCs # 1.121 04/20/22 15:45 Fld Polynuclear WBCs % 40.900 % 04/20/22 15:45 Fl Mononucl WBCs #(Auto) 1.618 04/20/22 15:45 Fl Mononuclear % Auto 59.100 % 04/20/22 15:45 Vancomycin Trough 17.1 ug/mL (10-15) H 04/27/22 03:17 Random Vancomycin 21.3 ug/mL (20.0-40.0) 04/25/22 03:07 Serum Ketones Negative (Negative) 04/12/22 16:04 Coronavirus 229E (PCR) Not detected (NOT DETECT) 04/09/22 15:30 Hep Bs Antigen Non-reactive (Nonreactive) 04/12/22 16:04 Hepatitis C Antibody Non-reactive (Nonreactive) 04/12/22 16:04 SARS-CoV-2 (PCR) Not detected (NOT DETECT) 04/09/22 15:30 Micro: Microbiology 04/25/22 23:10 Blood Culture - Preliminary Blood NEGATIVE TO DATE 04/25/22 23:19 Blood Culture - Preliminary Blood NEGATIVE TO DATE A&P Assessment and plan (1) Acute and chronic respiratory failure with hypercapnia: (2) Aspiration pneumonitis: (3) ANY (acute kidney injury): (4) Difficult ventilator weaning: (5) CHF exacerbation: (6) Obesity hypoventilation syndrome: (7) Sepsis: (8) ARDS (adult respiratory distress syndrome): (9) Stasis leg ulcer: (10) Chronic acquired lymphedema: (11) Hypertension: Qualifiers: Hypertension type: essential hypertension Qualified Code(s): I10 - Essential (primary) hypertension (12) Morbid obesity: (13) Hypertensive emergency: Plan 61-year-old morbidly obese patient with BMI 52, hypothyroidism, ALON, possible underlying obesity hypoventilation syndrome, with chronic bilateral lower extremity lymphedema-initially 04/09/2022 admitted for right lower leg cellulitis-started on antibiotics, later went into ANY and fluid overload as well as recurrent vomitings causing aspiration pneumonia-all resulting in acute on chronic hypercapnic/hypoxic respiratory failure for which she was on BiPAP for almost a week-refusing intubation until day 9-at which point she had hypertensive emergency with SBP 264 causing nasal bleeds aspiration-complicating airway-resulting in intubation for airway protection. NEURO: #Sedated -On fentanyl 100 MCG and propofol 40 -No response even after tapering sedation-overnight?her respiratory rate went up to 40-how to put back her on sedation -Very difficult to wean off sedation -Unable to obtain CT head due to his body habitus to rule out any intracranial bleed/strokes PULM: #Acute on chronic hypercarbic/hypoxic respiratory failure secondary to severe ARDS due to aspiration pneumonia and fluid overload; airway protection from nasal be due to hypertension #Underlying chronic hypercapnic respiratory failure secondary to obesity hypoventilation syndrome/ALON #Currently ventilator dependent -Currently sedated and intubated with CMV with tidal volume 450/PEEP 18/respiratory rate 14/FiO2 100 %; -pH 7.18 however CO2 is 64 which is right about her baseline and to compensate for bicarb is less than what is expected- appears to be in metabolic acidosis, patient to get hemodialysis today -Otherwise PF ratio < 100-patient is on FiO2 100% % and PEEP 18 -Plateau pressures are already 34 on PEEP of 18 and peak inspiratory pressures 42 -We will continue to monitor and come down on FiO2 as feasible -Continue DuoNeb nebulization every 6 hours as needed -S/p bronchoscopy today 04/20/2022-showed erythematous mucosa throughout bilateral bronchial tree; aspirated 15 mL BAL from left lower lobe with some mucous plugs -BAL cultures-grew Gabbie-likely commensal -Currently on vancomycin and meropenem and micafungin -Unable to obtain CT chest given patient's body habitus ~500 pounds -Area and imaging concerning for left pleural effusion-ultrasound did not did not show good pocket-may be her body habitus is making it difficult-however patient does not have white count/neutrophilia CVS: #Hypertensive emergency- resolved -Currently off Cardene drip and maintaining SBP 1 20-1 50 but she required Levophed during dialysis -Initial echocardiogram was uninterpretable due to body habitus, -Suspect component of diastolic dysfunction given her morbid obesity and cannot rule out LV systolic function based on prior echo; GI: -Nutrition; TPN-will hold to avoid fluid overload -Currently on trickle tube feeds nephro -LFTs are normal RENAL: #Renal failure-hemodialysis dependent dependent -ANY-secondary to sepsis- leading to ATN -Hyperkalemia, ABG showed metabolic acidosis; currently on hemodialysis dependent without urine output -Nephrology on board HEM: -No leukocytosis; DIC with mild FDP products and normal fibrinogen -Monitor platelets -No more active nasal bleeding noted -DVT prophylaxis: Held Lovenox due to recurrent nasal bleeds ENDO: -Sugars well controlled-not requiring insulin coverage at this point of time ID: #Persistent fever spikes-suspect central fevers -Right lower leg cellulitis-currently on vancomycin -CT did not show any evidence of abscess -Wound looks clean but there is another area of concerning redness suspicious for cellulitis -Patient was on several antibiotics since admission-vancomycin for last 18 days (she did not get any dose for 3 days in between); cefepime for 8 days, meropenem for last 8 days, doxycycline for 5 days, Flagyl for 5 days. And she was also started on micafungin for 2 days -So far all cultures negative except BAL showing Gabbie which could be commensal -Another concern with recurrent nasal bleed 7 bleeding from NG tube-suspect if she had intracranial bleeds causing central fevers-however unable to obtain CT head to rule out intracranial bleeds Code Status: Limited resuscitation Disposition: Currently we will continue in ICU Critically ill: Yes MD discussed with: Family members, RN, RT, telenephrology and hospitalist ICU CHECKLIST: Problem list updated Verbal orders reviewed and signed Analgesia: On fentanyl gtt. Glycemic Control: N/A Nutrition: trickle tube feeds Restraint Renewal (within 24 hrs): Yes Ulcer Prophylaxis: Yes PPI Chemical Thromboprophylaxis: Prophylaxis: lovenox Mechanical Thromboprophylaxis: Yes but too big for her Calves Need for Central line: Yes for multiple medications and drips Need for Morton catheter: Yes I had an extensive discussion with daughter at bedside on 04/22 and again today 04/27/2022 -and explained that there is no change in her clinical status and her prognosis is very poor. And explained in detail about the following Patient is in severe ARDS and currently vent dependent and renal failure from ATN and dialysis dependent-clinically looking more dehydrated but ABG suggestive of metabolic acidosis and metabolic profile showing hyperkalemia. When turning off sedation patient did not wake up but continued to have tachypnea on ventilator which prompted to start sedation back again. Patient's RESP score is so -5 points; risk class III with 33% in-hospital survival for ECMO given her morbid obesity being another challenging situation to put her on ECMO. So far she has been on adequate antibiotic coverage and all cultures are negative ( except BAL cultures showed Gabbie which may be commensal) with no evidence of leukocytosis/left shift. She has been having persistent temperature spikes in the last 48 hours which can be central in origin however unable to obtain CT head to check for any intracranial bleed/infarcts. Attempts to taper off sedation causes patient to be significantly tachypneic 40 to 45/min. Also there is a suspicious left lower lobe opacity on chest x-rays questionable for left pleural effusion-with my ultrasound examination it was very difficult to visualize any good pocket given her body habitus-again we are unable to obtain a CT chest. Unable to assess her cardiac function due to uninterpretable echo. Higher centers may have advanced imaging modalities for bariatric patients which may give more information. Other than that we will continue to closely monitor and care for patient in ICU. I have explained again and again to patient's , her daughter that it is extremely difficult for her to get back to normal and the reasonable outcome will be patient being in vegetative state with ventilator/dialysis dependent for prolonged period of time and that they should discuss among family members and review goals of care. They verbalized understanding but is still hopeful that she will be transferred to higher center. Attestations Medical Necessity Statement*: Patient intubated mechanically ventilated, need close monitoring in ICU Time Spent in Patient Care: Greater than 35 minutes (>than 50% of time spent in counselling and/or direct pt care on unit) . Critical Care Time: The high probability of a clinically significant, sudden or life threatening deterioration of the patient's?[neurological, pulmonary, cardiac, GI, infectious]?system(s) required my full and direct attention, intervention and personal management. The critical care time is as shown. This time is in addition to time spent performing any reported procedures but includes the following: [x]?Data and vital sign review and interpretation [x]?Patient assessment, examination and intervention [x]?Documentation [x]?Medication orders and management Critical Care Time (min): 45 Coding Level of Care Code Established Pt Acute Labor Relations Manager for Chg Fwd Patient Type Established History Comprehensive Exam Comprehensive Medical Decision Making High Complexity Diagnoses Acute and chronic respiratory failure with hypercapnia J96.22 Aspiration pneumonitis J69.0 ANY (acute kidney injury) N17.9 Difficult ventilator weaning Z99.11 CHF exacerbation I50.9 Obesity hypoventilation syndrome E66.2 Sepsis A41.9 ARDS (adult respiratory distress syndrome) J80 Stasis leg ulcer I83.009; L97.909 Chronic acquired lymphedema I89.0 Hypertension I10 Hypertension type: essential hypertension Morbid obesity E66.01 Hypertensive emergency I16.1 Time Spent (min) 45
--- NOTE | 2022-04-27 14:14 | XR_ITS ---
WS: [id number] Exam: XR chest 1V portable [id number] Date/Time of Exam: 04/27/2022 2:14 PM Reason For Exam: Follow up Comparison 04/24/2022. ET tube is in place ending about 6 cm above the sachi unchanged in position. A right-sided IJ cathet er ends at the cavoatrial junction. An enteric tube extends below the diaphragm but the tip is not vi sible. The heart is enlarged. There is improving infiltrate in the mid and lower left lung since the previous study. There are still interstitial infiltrates in both lungs. No pneumothorax is seen. The mediastinum is unremarkable for technique. Bony structures are intact. XR/XR chest 1V portable [id number] IMPRESSION: 1. Significantly improved left pulmonary infiltrates since the previous exam. T here is residual consolidating infiltrate in the left lower lobe and there are interstitial infiltrates remaining in the both lungs. 2. ET tube, right-sided central line and enteric tube unchanged in position.
[2022-04-27 14:16] LABS: Urine Appearance Turbid (CLEAR); Urine Color Brown (Yellow); pH Urine 5 (5-7)
[2022-04-27 14:17] LABS: Bilirubin Urine 2+ (Negative); Blood Urine 3+ (Negative); Glucose Urine UA Norm (Normal); Ketones Urine Negative (Negative); Leukocyte Esterase Urine 1+ (Negative); Nitrate Urine Negative (Negative); Protein Urine 3+ (Negative); Urobilinogen Urine 4 mg/dL (Negative)
[2022-04-27 14:18] LABS: RBC Urine 25-40 /hpf (0-2); WBC Urine >100 /hpf (0-5)
[2022-04-27 14:19] LABS: Add Urine Culture? Yes; Bacteria Urine 2+ /hpf; Mucus Urine 1+ /hpf
[2022-04-27 14:29] LABS: Alanine Aminotransferase < 5 U/L (0-33); Albumin Level 4.1 g/dL (3.5-5.2); Alkaline Phosphatase 42 U/L (35-105); Anion Gap 19.7 (5-19); Aspartate Amino Transferase 23 U/L (0-32); Blood Urea Nitrogen 41 mg/dL (6-20); Calcium 9.2 mg/dL (8.5-10.5); Carbon Dioxide 27 mmol/L (22-29); Chloride 97 mmol/L (98-107); Globulin 3.8 g/dL (1.3-4.6); Glomerular Filtration Rate 14.3 mL/min (90-130); Glucose 79 mg/dL (65-115); Osmolality Calculated 297 mOsm/kg (285-295); Potassium 4.7 mmol/L (3.5-5.1); Sodium 139 mmol/L (136-145); Total Bilirubin 0.7 mg/dL (0.15-1.2); Total Protein 7.9 g/dL (6.6-8.7)
--- NOTE | 2022-04-27 16:59 | P.PN_ITS ---
Subjective Subjective: Hospital course, labs appreciated. Patient seen multiple times a day. Multiple goals of care discussion with family members. Today morning when seen patient was working dialysis. With tolerated dialysis over the weekend. Patient is sedated. With propofol and Versed. On maximal ventilator support with FiO2 100%, PEEP of 18. Minimal urine output. Urine color dark brown to black in color, patient has bilateral nasal packing from epistaxis. Dark hematemesis type NG tube secretion seen in the NG tube. BMP patient's blood pressure continues to trend down. Around 500 cc of darkish mixed blood aspirated through the NG tube. ABG from today morning appreciated. No bed still available at [facility] when called multiple times. Vitals/I&O/Wt Last Vital Signs Temp 99.2 F 04/27/22 10:00 Pulse 95 04/27/22 16:00 Resp 30 H 04/27/22 16:06 BP 134/69 04/27/22 16:00 Pulse Ox 87 L 04/27/22 16:06 O2 Del Method 04/27/22 13:30 O2 Flow Rate 80 04/22/22 12:30 FiO2 100 04/27/22 16:06 04/27/22 04/27/22 04/27/22 06:59 14:59 22:59 Intake Total 700.000 / 1750.100 710 / 710 Output Total 100 / 100 2712 / 2712 Balance 600.000 / 1650.100 -2001 / -2001 Weight last 48 hrs Weight 223.309 kg Weight 224.936 kg Physical Exam Narrative: General: lying in bed, sedated and intubated, morbidly obese, pallor present. HEENT:NCAT, PERRLA, EOMI Neck: Supple Lungs: Bilateral upper lung zones clear-difficult to auscultate given patient's body size Heart: s1/s2, RRR Abd: soft, BS + Normoactive Extremities: Chronic bilateral lymphedema, right anterior burton-open clear wound with surrounding erythema with no significant bruising. There is an area of increased redness above this open wound INDUSTRIAL ORGANIZATION MANAGER: sedated and limited INDUSTRIAL ORGANIZATION MANAGER exam possible. SKIN: no rash LDA: # CVC: Right internal jugular # HD Cath : 04/13/2022 right femoral line # Morton: Present Urinary Catheter Management: Coude: Cath Placed During This Visit: yes Reason for Continuing Indwelling Catheter: Accurate Measurement of Urinary Output in Critically Ill Patients Urinary Catheter Date of Insertion: 04/09/22 Urinary Catheter Time of Insertion: 15:30 Data : 04/27/22 18:53 04/27/22 13:55 Micro: Microbiology 04/25/22 23:10 Blood Culture - Preliminary Blood NEGATIVE TO DATE 04/25/22 23:19 Blood Culture - Preliminary Blood NEGATIVE TO DATE A&P Assessment and plan (1) ARDS (adult respiratory distress syndrome): (2) Aspiration pneumonitis: (3) ANY (acute kidney injury): (4) DIC (disseminated intravascular coagulation): (5) Acute and chronic respiratory failure with hypercapnia: (6) Metabolic acidosis: (7) Epistaxis: (8) Hypertensive emergency: (9) Difficult ventilator weaning: (10) CHF exacerbation: (11) Hyponatremia: (12) Peripheral vascular disease: (13) Morbid obesity: (14) Goals of care, counseling/discussion: Plan 61-year-old female with past medical history of chronic acquired lymphedema morbid obesity, hyperthyroidism hypertension, was brought in on 04/09 with chief complaint of nausea vomiting fever and chills, was initially admitted for the management of sepsis secondary to right lower extremity cellulitis, unfortunat prasad she had a complicated hospital course, resulting in development of, acute renal failure, possibly secondary to ATN secondary to sepsis, as well as septic shock, secondary to aspiration pneumonia, severe ARDS secondary to aspiration pneumonia, initially on BiPAP, but later had to be intubated, as she was not responding to BiPAP. For her acute renal failure likely secondary to ATN secondary to sepsis she is on hemodialysis. Neurological: Continue sedation with propofol and fentanyl. We will plan for sedation vacation. Pulmonary: ARDS: Currently 100% FiO2. ABG showing mixed metabolic and respiratory acidosis. Maintain PEEP around 16-18 as a plateau pressures. DuoNebs every 6 hour, desonide twice daily. Pulmonary toilet when possible. Frequent suctioning. Bronchoscopy cultures growing Gabbie albicans. Started on caspofungin on 04/26. For now we will continue. Cardiac: Keep mean artery pressure 65. No more hypertensive urgency. Levophed keeping mean arterial pressure around 60. Discussed with patient's family that unfortunately patient is developing renal failure, pulmonary failure and currently patient is critically ill with high chances of mortality and a negative outcome versus being ventilator/dialysis dependent. For now family wants to continue trying everything possible. We discussed unfortunately if patient's mean arterial pressure is being not being maintained by 1 pressor we will not go ahead and add on a second pressor. Also discussed given her metabolic acidosis patient is at a high risk of peripheral gangrene with pressors hence will not be able to go extremely high on pressors also. verbalized understanding. Renal: ATN leading to ANY: Dialysis dependent. Hyperkalemia: Appreciate nephrology recommendations. Continue with dialysis as needed. Concern for hematuria with possible renal casts. Will check urinalysis. GI: Currently n.p.o. Hold off on any tube feeds. We will hold off on PPN as well. Concerns for GI bleed given hematemesis though cannot rule out secondary to epistaxis. Increase Protonix to 40 mg IV twice daily. ENT: Bilateral epistaxis: Could be secondary to possible platelet dysfunction from renal dysfunction versus possible DIC though DIC panel shows normal fibrinogen. Patient currently has bilateral packing since 04/25 night. Will consult ENT for further recommendations. ID: Patient has been on multiple antibiotics for multiple days mostly over 15 days now. Blood cultures so far have remained negative. Sputum culture growing Gabbie. Hold off on any further antibiotics for now. We will continue vancomycin till patient has nasal packing. Last Vanco trough 17. Postdialysis we will give 1 g IV. Hematological: Patient having concerns for hematemesis versus extensive epistaxis causing hematemesis type fluid from NG tube. Repeat hemoglobin. Keep hemoglobin over 8. Will transfuse accordingly. DIC panel appreciated. F DP products with a normal fibrinogen level Goals of care discussion: Had extensive goals of care discussion with patient's , daughters at bedside multiple times during the day. We discussed that unfortunately patient is extremely critically ill with failure of lungs and kidneys leading to multiorgan dysfunction. We also discussed that unfortunately patient remains high ventilator support dependent along with daily dialysis dependent. We discussed given anuria, recurrent metabolic and respiratory acidosis, morbid obesity, bleeding diathesis from possible hematuria, possible hematemesis and ongoing extensive epistaxis it is highly likely that patient has a negative outcome with mortality. We also discussed at this point all the medical treatment seems to be futile currently. We also discussed that unfortunately patient is desaturating extensively on minimal move ment. We discussed even though we have started transfer to a higher center given all of the above it is highly likely that patient might pass away prior to transfer or during transfer. We discussed given all of the above if patient's blood pressure dropped or patient develops hypotension because of extensive metabolic acidosis patient might require multiple pressors which again might be futile and can cause further peripheral gangrene hence we will not go through aggressive with pressor treatment and maximum we will do is Levophed off around 5-10 mics per hour. verbalized understanding. Family for now would want to continue aggressive treatment 1 what she is currently. They want her to remain with current CODE STATUS. The same goals of care were also discussed with multiple other physicians including the director loss prevention Attestations Medical Necessity Statement*: Patient requires further hospitalization for management of multiorgan failure requiring ventilator support and dialysis while further goals of care discussions are done. Critical Care Time: The high probability of a clinically significant, sudden or life threatening deterioration of the patient's [] system(s) required my full and direct attention, intervention and personal management. The critical care time is as shown. This time is in addition to time spent performing any reported procedures but includes the following: [x] Data and vital sign review and interpretation [x] Patient assessment, examination and intervention [x] Documentation [x] Medication orders and management Critical Care Time (min): 90 Coding Level of Care Code Acute Shear Operator for g Fwd Diagnoses ARDS (adult respiratory distress syndrome) J80 Aspiration pneumonitis J69.0 ANY (acute kidney injury) N17.9 DIC (disseminated intravascular coagulation) D65 Acute and chronic respiratory failure with hypercapnia J96.22 Metabolic acidosis E87.20 Epistaxis R04.0 Hypertensive emergency I16.1 Difficult ventilator weaning Z99.11 CHF exacerbation I50.9 Hyponatremia E87.1 Peripheral vascular disease I73.9 Morbid obesity E66.01 Goals of care, counseling/discussion Z71.89
--- NOTE | 2022-04-27 17:43 | PM.CONSULT ---
Providers/Reason For Consult Consulting Physician/Specialty*: Dr. Michael Aguayo MD Otolaryngology, Head & Neck Surgery Reason for Consult*: Bilateral Epistaxis Requesting Physician: Dr. Chris Ayala MD Attending Physician: Chris Ayala MD Primary Care Provider: Chloe Gonzalez APN History of Present Illness History of Present Illness Evelyn Vail is a 61 year old female admitted for Sepsis and ARDS secondary to right lower extremity cellulitis. The patient has a complicated medical history including DIC and Lovenox use and developed bilateral epistaxis 2 days ago. She had bilaeral nasal packing placed at that time, but continued to have persistent, oozing epistaxis following her anterior/posterior nasal packing placement. I was consulted to assist in control of her epistaxis. Review of Systems General: Reports: 10 or more systems reviewed and unremarkable except in HPI and below, ROS unobtainable due to endotracheal tube, ROS unobtainable due to medical condition and ROS unobtainable due to mental status Medications/Allergies Home Medications Medication Instructions Recorded Confirmed Last Taken Type fluoxetine 20 mg capsule (Prozac) 20 mg PO BID #60 caps 11/20/21 04/09/22 Unknown Rx lisinopril 20 mg tablet 20 mg PO DAILY #30 tabs 11/20/21 04/09/22 Unknown Rx meloxicam 15 mg tablet 15 mg PO QDAY 30 days #30 tabs 11/20/21 04/09/22 Unknown Rx methocarbamol 500 mg tablet 500 mg PO BID #60 tabs 11/20/21 04/09/22 Unknown Rx pregabalin 100 mg capsule (Lyrica) 100 mg PO BID #60 caps 11/20/21 04/09/22 Unknown Rx acetaminophen 300 mg-codeine 60 mg 1 tab PO Q6H PRN Pain 04/09/22 04/09/22 Unknown History tablet Allergies Allergy/AdvReac Type Severity Reaction Status Date / Time adhesive tape Allergy ALGY-Redness Verified 04/13/22 05:41 of Skin hydrocodone Allergy ALGY-Rash Verified 04/11/22 23:00 Penicillins Allergy rash Verified 04/09/22 14:04 Current Medications Generic Name Dose Route Start Last Admin Trade Name Freq PRN Reason Stop Dose Admin Acetaminophen 500 mg 04/25/22 19:56 04/27/22 01:48 Acetaminophen 650 Mg/20.3 Ml Udc PO 500 mg Q4H PRN Administration MILD PAIN OR INCREASE TEMP Albuterol/Ipratropium 3 ml 04/20/22 20:00 04/27/22 13:34 Ipratropium-Albuterol 3 Ml Neb INHALATION 3 ml Q6H.RESP BREANNA Administration Artificial Tears 1 drop 04/19/22 09:08 04/24/22 14:56 Artificial Tears Op Soln 15 Ml Btl EYE-BOTH 1 drop Q4H PRN Administration DRY EYE(S) Bacitracin 1 applic 04/09/22 21:00 04/27/22 14:41 Bacitracin Ointment 28 Gm TOPICAL Not Given TID [facility] Protocol Chlorhexidine Gluconate 1 applic 04/21/22 01:00 04/27/22 00:44 Chlorhexidine Gluconate 4% Btl 118 Ml TOPICAL 1 applic 0100 BREANNA Administration Collagenase 1 applic 04/13/22 00:00 04/27/22 00:44 Collagenase Oint 30 Gm TOPICAL 1 applic Q24H BREANNA Administration Hydralazine HCl 10 mg 04/19/22 09:09 04/25/22 20:09 Hydralazine 20 Mg/Ml Inj 1 Ml IVP 10 mg Q4H PRN Administration bp> 180./100 Sodium Chloride 1,000 mls @ 0 mls/hr 04/14/22 07:19 04/22/22 10:16 Sodium Chloride 0.9% IV 1 mls/hr .Q0M PRN Administration hypotension or symptomatic As Directed Albumin Human 25 gm in 100 mls @ 60 mls/hr 04/17/22 11:00 04/27/22 10:37 Albumin IV 60 mls/hr Q8H BREANNA Administration Propofol 1,000 mg in 100 mls @ 0 mls/hr 04/19/22 23:45 04/27/22 14:40 Diprivan IV 40 mcg/kg/min .Q0M BREANNA 61.56 mls/hr Administration Protocol Per Protocol Fentanyl 2,500 mcg/ Sodium 250 mls @ 0 mls/hr 04/19/22 23:45 04/27/22 02:59 Chloride IV Infused .Q0M BREANNA Titration Protocol Per Protocol Midazolam HCl 100 mg/ Sodium 100 mls @ 0 mls/hr 04/20/22 09:00 04/24/22 14:34 Chloride IV Infused .Q0M BREANNA Titration Protocol Per Protocol Caspofungin 50 mg/ Sodium 250 mls @ 250 mls/hr 04/27/22 09:00 04/27/22 09:47 Chloride IV 250 mls/hr Q24H BREANNA Administration Lanolin 1 applic 04/15/22 14:00 04/24/22 14:56 Lanolin Oint 7 Gm TOPICAL 1 applic PRN PRN Administration DRYNESS Lidocaine HCl 1 applic 04/11/22 23:30 04/12/22 01:57 Lidocaine 2% Jelly 6 Ml TOPICAL 1 applic PRN PRN Administration PAIN Lorazepam 2 mg 04/19/22 18:56 04/19/22 19:39 Lorazepam 2 Mg/Ml Inj 1 Ml IVP 2 mg Q4H PRN Administration ANXIETY Methocarbamol 500 mg 04/10/22 09:30 04/11/22 18:29 Methocarbamol 500 Mg Tablet PO 500 mg BID BREANNA Administration Morphine Sulfate 2 mg 04/19/22 18:17 04/19/22 22:13 Morphine 4 Mg/Ml Sdv 1 Ml IVP 2 mg Q8H PRN Administration SEVERE PAIN Nitroglycerin 0.5 inch 04/14/22 10:35 04/24/22 15:29 Nitroglycerin 1 Gm/Inch Oint Pkt TOPICAL 0.5 inch Q6H PRN Administration Blood pressure greater than 180/100 Ondansetron HCl 4 mg 04/09/22 19:24 04/10/22 19:49 Ondansetron 2 Mg/Ml Sdv 2 Ml IVP 4 mg Q6H PRN Administration NAUSEA AND VOMITING Sodium Chloride 5 - 10 ml 04/12/22 16:15 04/27/22 15:30 Sodium Chloride 0.9 % (Flush) Syringe 10 Ml IV Not Given Q12H BREANNA Sodium Chloride 5 - 10 ml 04/12/22 16:13 04/22/22 10:15 Sodium Chloride 0.9 % (Flush) Syringe 10 Ml IV 10 ml PRN PRN Administration Central line flush PFSH Acute PFSH: Medical History Chronic acquired lymphedema Chronic osteoarthritis COVID-19 Fibromyalgia YAKOV (generalized anxiety disorder) Hypertension Hyperthyroidism Insomnia Morbid obesity Neuropathic pain Peripheral vascular disease Sleep apnea Vitamin D deficiency Surgical History History of delivery Hx of cholecystectomy Hx of hysterectomy Family History Other Cancer Diabetes Social History Smoking and tobacco status: never smoked Second hand smoke exposure: Yes Smoking risk assessment/counseling performed?: Yes Alcohol intake: never Desire information about alcohol rehabilitation?: No Counseling given: No Desire information about substance/drug rehabilitation?: No Counseling given: No Caregiver/support person: No Lives independently: Yes Household members: spouse Housing: House Marital status: Number of children: 2 Number of grandchildren: 3 Highest education level completed: High School Graduate service: No Current occupational status: disabled Pets and animals: No Current gender identity: Female Female Reproductive History: Para: 2 Vitals/I&O/Wt Last Vital Signs Temp 99.2 F 04/27/22 10:00 Pulse 95 04/27/22 16:00 Resp 30 H 04/27/22 16:06 BP 134/69 04/27/22 16:00 Pulse Ox 87 L 04/27/22 16:06 O2 Del Method 04/27/22 13:30 O2 Flow Rate 80 04/22/22 12:30 FiO2 100 04/27/22 16:06 04/27/22 04/27/22 04/27/22 06:59 14:59 22:59 Intake Total 700.000 / 1750.100 710 / 710 Output Total 100 / 100 2712 / 2712 Balance 600.000 / 1650.100 -2001 / Weight last 48 hrs Weight 223.309 kg Weight 224.936 kg Physical Exam Const: EXAM LIMITATIONS: altered mental status GENERAL APPEARANCE: patient mechanically ventilated HENMT: COMMON NORMALS: normocephalic and atraumatic HEAD & SCALP: normocephalic and atraumatic NOSE: Other nasal findings present (Bilateral nasal packing in place without oral or nasal bleeding. ) MOUTH: other (Oral ET tube in place.) Neck/C-Spine: COMMON NORMALS: no lymphadenopathy and supple Urinary Catheter Management: Coude: Cath Placed During This Visit: yes Reason for Continuing Indwelling Catheter: Accurate Measurement of Urinary Output in Critically Ill Patients Urinary Catheter Date of Insertion: 04/09/22 Urinary Catheter Time of Insertion: 15:30 Data 04/27/22 13:55 04/27/22 13:55 Micro: Microbiology 04/25/22 23:10 Blood Culture - Preliminary Blood NEGATIVE TO DATE 04/25/22 23:19 Blood Culture - Preliminary Blood NEGATIVE TO DATE A&P Assessment and plan (1) Epistaxis: Impression: Bilateral Epistaxis - Controlled with current bilateral nasal packing Plan: - Leave bilateral nasal packing in place for an additional 2-4 days - I recommend IV antibiotics that cover gram positive bacteria while the nasal packing is in place - Increase saline in the nasal packing balloons incrementally to control nasal bleeding - I will reevaluate the patient in 2-3 days - Please contact me for any problems prior to my f/u visit Consult Attestations Medical Necessity Statement: I was consulted to assist in treatment of the patient's epistaxis Coding Level of Care Code Acute Marketing Account Manager for Kinga Watson Diagnoses Epistaxis R04.0
[2022-04-27 19:01] LABS: Hematocrit 30.2 % (37.0-47.0); Hemoglobin 8.9 g/dL (11.5-15.3)
[2022-04-27] MEDS: vancomycin 1,000 MG in sodium chloride 0.9% 250 ML 250 MG IV (21:26)
[2022-04-27 22:29] LABS: Glucose Point of Care 75 mg/dL (70-110)
[2022-04-28] VITALS (37 sets, daily range): BP systolic 97–128; BP diastolic 48–64; PULSE 87–95; RESP 25–43; TEMP 37.2–39.6; O2SAT 90–100; BMI 76.7
[2022-04-28] MEDS: ipratropium-albuterol 3 mL Neb INHALATION ×4 (03:26→19:25)
[2022-04-28 03:36] LABS: ABG PCO2 58.7 mmHg (35-45); ABG PH Result 7.24 (7.35-7.45); Alveolar-Arterial Oxygen Gradi 74.9 mmHg (5-10); Arterial Blood Gas Hematocrit 25.7 % (37-47); Base Excess ABG -2.6 mmol/L (-2.0-2.0); Blood Gas Allen Test Pos; Blood Gas Sample Site Radial, left; Blood Gas Sample Type Arterial; Blood Gas Tidal Volume 0.45; Carboxyhemoglobin 1.1 %THgb (0.4-20.1); HCO3 ABG 25.1 mmol/L (22-26); HGB O2 Sat 91.4 % (95-100); Ionized Calcium Level - ABG 1.2 mmol/L (1.1-1.4); Methemoglobin 0.9 % (0.4-1.5); Oxygen Device VENT; Oxygen Saturation ABG 93.3; PO2 ABG 69.7 mmHg (80.0-100.0); Total Hemoglobin 8.4 g/dL (12-16)
[2022-04-28] MEDS: acetaminophen 1,000 MG/100 ML PIGGYBACK 400 MG IV ×2 (03:55→17:59)
[2022-04-28 04:03] LABS: Basophils % 0.4 %; Eosinophils # 0.1 10^3/uL (0.0-0.8); Hematocrit 29.8 % (37.0-47.0); Hemoglobin 8.7 g/dL (11.5-15.3); Lymphocytes # 1.3 10^3/uL (0.8-4.8); Lymphocytes % 18.5 %; Mean Corpuscular HGB Conc 29.2 g/dL (30.0-36.0); Mean Corpuscular Hemoglobin 28.2 pg (28.0-34.0); Mean Corpuscular Volume 96.4 fl (81-99); Mean Platelet Volume 11.1 fL (7.4-10.4); Monocytes # 0.8 10^3/uL (0.2-0.9); Monocytes % 11.6 %; Neutrophils # 4.79 10^3/uL (1.8-7.7); Neutrophils % 67.8 %; Nucleated Red Blood Cells % 0 %; Platelet Count 173 10^3/cmm (130-400); Red Blood Count 3.09 10^6/uL (4.1-5.3); Red Cell Distribution Width 18.3 % (12.1-15.1); White Blood Count 7.1 10^3/uL (4.0-10.0)
[2022-04-28 04:24] LABS: Glucose Point of Care 70 mg/dL (70-110)
[2022-04-28 04:49] LABS: Alanine Aminotransferase < 5 U/L (0-33); Albumin Level 3.9 g/dL (3.5-5.2); Alkaline Phosphatase 41 U/L (35-105); Anion Gap 21.1 (5-19); Aspartate Amino Transferase 126 U/L (0-32); Blood Urea Nitrogen 49 mg/dL (6-20); Calcium 9.2 mg/dL (8.5-10.5); Carbon Dioxide 25 mmol/L (22-29); Chloride 95 mmol/L (98-107); Globulin 3.9 g/dL (1.3-4.6); Glomerular Filtration Rate 11.5 mL/min (90-130); Glucose 64 mg/dL (65-115); Osmolality Calculated 293 mOsm/kg (285-295); Potassium 5.1 mmol/L (3.5-5.1); Sodium 136 mmol/L (136-145); Total Bilirubin 0.7 mg/dL (0.15-1.2); Total Protein 7.8 g/dL (6.6-8.7)
[2022-04-28] MEDS: dextrose 50% syringe 50 mL IVP (06:15)
[2022-04-28] MEDS: sodium chloride 0.9 % (flush) syringe 10 mL IV (06:16)
[2022-04-28] MEDS: propofol 1,000 MG/100 ML INJ 61.56 MG IV ×4 (06:51→16:54)
[2022-04-28 07:46] LABS: Glucose Point of Care 82 mg/dL (70-110)
--- NOTE | 2022-04-28 08:44 | PC.SOCIAL ---
IMM Updated Pt remains intubated at this time. Pt is not expected to d/c within the next 24-48hrs. IMM provided & left at bedside for family to review. Initialed, dated, & timed copy in chart.
[2022-04-28] MEDS: pantoprazole 40 mg SDV IVP ×2 (08:45→19:26)
[2022-04-28 12:16] LABS: Blood Urea Nitrogen 53 mg/dL (6-20); Calcium 9.1 mg/dL (8.5-10.5); Carbon Dioxide 23 mmol/L (22-29); Chloride 94 mmol/L (98-107); Glomerular Filtration Rate 10.8 mL/min (90-130); Glucose 70 mg/dL (65-115); Osmolality Calculated 293 mOsm/kg (285-295); Sodium 135 mmol/L (136-145)
--- NOTE | 2022-04-28 12:34 | PC.CHAP ---
Pastoral Care Encounter/Spiritual Assessment Type of Contact [] Declined clinical radiologist visit [] Patient/Family/Request visit [] Outpatient visit [] Follow-up visit [] Physician referral [] Code/Alert [x] Routine visit [] Staff referral [] Actively dying [] Patient sleeping [] Family support [] [] Out of room [x] Palliative care [] [] Receiving care in room [] Pre-surgical visit [] Trauma [] Long length of stay [x] ICU visit [] Other: Relational/Emotional Strength [] Patient feels connected with others/family/visitors/staff [] Distress [] Loneliness/isolation [] Abandonment Spirituality of Patient [] Person of Opal [] Attends Islam of their Opal [] Believes in Prayer [] Reads Bible or Lutheran materials [] There are Spiritual issues to be addressed Seat Joiner Interventions [] Prayer [] Active listening [] Non-anxious presence [] Spiritual/emotional support [] Crisis/trauma care [] Spiritual counseling [] Bereavement support [] Provided bereavement packet [] Provided Bible/devotional materials [] Provided toy/stuffed animal, coloring book to patient or family member [] Provided Communion [] Anointing/[place] [] Salvation [] Completed spiritual assessment [] Other: Impact on Illness or Injury [] Angry [] Fearful [] Anxious [] Often cries [] Exhaustion [] Unable to work [] Unable to attend hoahaoism [] Unable to walk/stand [] Unable to read [] Unable to drive [] Unable to eat/drink [] Unable to sleep [] Unable to be with family [] Patient intubated [] Other: Summary Time spent with patient
--- NOTE | 2022-04-28 12:36 | PC.CHAP ---
Pastoral Care Encounter/Spiritual Assessment Type of Contact [] Declined adult live in caregiver visit [] Patient/Family/Request visit [] Outpatient visit [] Follow-up visit [] Physician referral [] Code/Alert [] Routine visit [] Staff referral [] Actively dying [] Patient sleeping [] Family support [] [] Out of room [] Palliative care [] [] Receiving care in room [] Pre-surgical visit [] Trauma [] Long length of stay [] ICU visit [] Other: Relational/Emotional Strength [] Patient feels connected with others/family/visitors/staff [] Distress [] Loneliness/isolation [] Abandonment Spirituality of Patient [] Person of Opal [] Attends Anabaptist of their Opal [] Believes in Prayer [] Reads Bible or Faith materials [] There are Spiritual issues to be addressed Sourcing Consultant Interventions [] Prayer [] Active listening [] Non-anxious presence [] Spiritual/emotional support [] Crisis/trauma care [] Spiritual counseling [] Bereavement support [] Provided bereavement packet [] Provided Bible/devotional materials [] Provided toy/stuffed animal, coloring book to patient or family member [] Provided Communion [] Anointing/[place] [] Salvation [] Completed spiritual assessment [] Other: Impact on Illness or Injury [] Angry [] Fearful [] Anxious [] Often cries [] Exhaustion [] Unable to work [] Unable to attend sikh [] Unable to walk/stand [] Unable to read [] Unable to drive [] Unable to eat/drink [] Unable to sleep [] Unable to be with family [] Patient intubated [] Other: Summary Time spent with patient
--- NOTE | 2022-04-28 13:01 | P.PN_ITS ---
Subjective Subjective: No change in clinical status Medications: Reviewed: Yes Vitals/I&O/Wt Last Vital Signs Temp 99.0 F 04/28/22 10:00 Pulse 95 04/28/22 10:00 Resp 30 H 04/28/22 11:04 BP 117/60 04/28/22 10:00 Pulse Ox 95 04/28/22 11:04 O2 Del Method 04/28/22 07:40 O2 Flow Rate 80 04/22/22 12:30 FiO2 100 04/28/22 11:04 04/27/22 04/28/22 04/28/22 22:59 06:59 14:59 Intake Total 430 / 1490 350 / 1840 190 / 190 Output Total 205 / 2917 225 / 3142 17 Balance 225 / -1427 125 / -1302 173 / 173 Weight last 48 hrs Weight 222.26 kg Weight 223.309 kg Physical Exam Narrative: intubated , sedated PEERLA s1 s2 rrr per report + edema Urinary Catheter Management: Coude: Cath Placed During This Visit: yes Reason for Continuing Indwelling Catheter: Accurate Measurement of Urinary Output in Critically Ill Patients Urinary Catheter Date of Insertion: 04/09/22 Urinary Catheter Time of Insertion: 15:30 Data : 04/28/22 03:18 04/28/22 11:54 Micro: Microbiology 04/27/22 13:55 Urine Culture - Preliminary Urine,Clean Catch Yeast species 04/28/22 08:35 Blood Culture - Preliminary Blood SPECIMEN COLLECTED 04/28/22 08:31 Blood Culture - Preliminary Blood SPECIMEN COLLECTED A&P Assessment and plan (1) ANY (acute kidney injury): 61 yr old female rt leg cellulitis and ATN 1AKI - -likely developed ATN from severe sepsis, no significant renal recovery yet -Patient received daily HD's with possible development of intra vascular volume depletion -? RT femoral temp? HD catheter on 04-12-22 -Overall no significant improvement in patient's status, patient not a candidate for long-term dialysis - K 5.1 today , repeat BMP , if K elevated will do HD today -hyperphosphatemia- monitor w/ dialysis and binder w/ feeds 2. cellulitis-? abx per medicine-? dose for ANY on HD -keep? vanco? trough under 19 3. Resp failure, intubated: Requiring 80 to 100% FiO2, Discussed with patient's daughter, at length Patient's family requesting transfer for higher level of care, Overall has poor prognosis due to multiorgan failure and no signs of improvement thus far Attestations Medical Necessity Statement*: Patient requires further hospitalization for management of multiorgan failure requiring ventilator support and dialysis while further goals of care discussions are done. Coding Level of Care Code Acute Sales Compensation Analyst for g Fwd Diagnoses ANY (acute kidney injury) N17.9
[2022-04-28 13:24] LABS: Glucose Point of Care 78 mg/dL (70-110)
--- NOTE | 2022-04-28 16:28 | P.PN_ITS ---
Subjective Subjective: No acute changes overnight. Patient has remained hemodynamically stable. Not requiring pressors. Again requiring high ventilator support with FiO2 of 100%, PEEP of 18 saturating in high 80s. Remains sedated. Less output through OG tube. Epistaxis seems to have stabilized. Minimal urine output. Underwent dialysis yesterday. T-max 102 Fahrenheit. Vitals/I&O/Wt Last Vital Signs Temp 99.0 F 04/28/22 10:00 Pulse 92 04/28/22 16:00 Resp 34 H 04/28/22 14:29 BP 118/54 04/28/22 14:00 Pulse Ox 97 04/28/22 14:29 O2 Del Method 04/28/22 13:43 O2 Flow Rate 80 04/22/22 12:30 FiO2 100 04/28/22 14:29 04/28/22 04/28/22 04/28/22 06:59 14:59 22:59 Intake Total 350 / 1840 290 / 290 Output Total 225 / 3142 Balance 125 / -1302 273 / 273 Weight last 48 hrs Weight 222.26 kg Weight 223.309 kg Physical Exam Narrative: General: lying in bed, sedated and intubated, morbidly obese, pallor present. HEENT:NCAT, PERRLA, EOMI Neck: Supple Lungs: Bilateral upper lung zones clear-difficult to auscultate given patient's body size Heart: s1/s2, RRR Abd: soft, BS + Normoactive Extremities: Chronic bilateral lymphedema, right anterior burton-open clear wound with surrounding erythema with no significant bruising. There is an area of i ncreased redness above this open wound CHEMICAL SUPERVISOR: sedated and limited CHEMICAL SUPERVISOR exam possible. SKIN: no rash LDA: # CVC: Right internal jugular # HD Cath : 04/13/2022 right femoral line # Morton: Present Urinary Catheter Management: Coude: Cath Placed During This Visit: yes Reason for Continuing Indwelling Catheter: Accurate Measurement of Urinary Output in Critically Ill Patients Urinary Catheter Date of Insertion: 04/09/22 Urinary Catheter Time of Insertion: 15:30 Data : 04/28/22 03:18 04/28/22 11:54 Micro: Microbiology 04/27/22 13:55 Urine Culture - Preliminary Urine,Clean Catch Yeast species 04/28/22 08:35 Blood Culture - Preliminary Blood SPECIMEN COLLECTED 04/28/22 08:31 Blood Culture - Preliminary Blood SPECIMEN COLLECTED A&P Assessment and plan (1) ARDS (adult respiratory distress syndrome): (2) Aspiration pneumonitis: (3) ANY (acute kidney injury): (4) DIC (disseminated intravascular coagulation): (5) Acute and chronic respiratory failure with hypercapnia: (6) Metabolic acidosis: (7) Epistaxis: (8) Hypertensive emergency: (9) Difficult ventilator weaning: (10) CHF exacerbation: (11) Hyponatremia: (12) Peripheral vascular disease: (13) Morbid obesity: (14) Goals of care, counseling/discussion: Plan 61-year-old female with past medical history of chronic acquired lymphedema morbid obesity, hyperthyroidism hypertension, was brought in on 04/09 with chief complaint of nausea vomiting fever and chills, was initially admitted for the m anagement of sepsis secondary to right lower extremity cellulitis, unfortunately she had a complicated hospital course, resulting in development of, acute renal failure, possibly secondary to ATN secondary to sepsis, as well as septic shock, secondary to aspiration pneumonia, severe ARDS secondary to aspiration pneumonia, initially on BiPAP, but later had to be intubated, as she was not responding to BiPAP. For her acute renal failure likely secondary to ATN secondary to sepsis she is on hemodialysis. Neurological: Continue sedation with propofol and fentanyl. We will plan for sedation vacation. Pulmonary: ARDS: Currently 100% FiO2. ABG showing mixed metabolic and respiratory acidosis. Maintain PEEP around 16-18 as a plateau pressures. DuoNebs every 6 hour, desonide twice daily. Pulmonary toilet when possible. Frequent suctioning. Bronchoscopy cultures growing Gabbie albicans. Started on caspofungin on 04/26. For now we will continue. Cardiac: Keep mean artery pressure 65. No more hypertensive urgency. Levophed keeping mean arterial pressure around 60. Discussed with patient's family that unfortunately patient is developing renal failure, pulmonary failure and currently patient is critically ill with high chances of mortality and a negative outcome versus being ventilator/dialysis dependent. For now family wants to continue trying everything possible. We discussed unfortunately if patient's mean arterial pressure is being not being maintained by 1 pressor we will not go ahead and add on a second pressor. Also discussed given her metabolic acidosis patient is at a high risk of peripheral gangrene with pressors hence will not be able to go extremely high on pressors also. verbalized understanding. Renal: ATN leading to ANY: Dialysis dependent. Hyperkalemia: Appreciate nephrology recommendations. Continue with dialysis as needed. Concern for hematuria with possible renal casts. Will check urinalysis. GI: Currently n.p.o. Hold off on any tube feeds. We will hold off on PPN as well. Concerns for GI bleed given hematemesis though cannot rule out secondary to epistaxis. Increase Protonix to 40 mg IV twice daily. ENT: Bilateral epistaxis: Could be secondary to possible platelet dysfunction from renal dysfunction versus possible DIC though DIC panel shows normal fibrinogen. Patient currently has bilateral packing since 04/25 night. Will consult ENT for further recommendations. ID: Patient has been on multiple antibiotics for multiple days mostly over 15 days now. Blood cultures so far have remained negative. Sputum culture growing Gabbie. Hold off on any further antibiotics for now. We will continue vancomycin till patient has nasal packing. Last Vanco trough 17. Postdialysis we will give 1 g IV. Hematological: Patient having concerns for hematemesis versus extensive epistaxis causing hematemesis type fluid from NG tube. Repeat hemoglobin. Keep hemoglobin over 8. Will transfuse accordingly. DIC panel appreciated. F DP products with a normal fibrinogen level Goals of care discussion: Had extensive goals of care discussion with patient's , daughters at bedside multiple times during the day. We discussed that unfortunately patient is extremely critically ill with failure of lungs and kidneys leading to multiorgan dysfunction. We also discussed that unfortunately patient remains high ventilator support dependent along with daily dialysis dependent. We discussed given anuria, recurrent metabolic and respirat ory acidosis, morbid obesity, bleeding diathesis from possible hematuria, possible hematemesis and ongoing extensive epistaxis it is highly likely that patient has a negative outcome with mortality. We also discussed at this point all the medical treatment seems to be futile currently. We also discussed that unfortunately patient is desaturating extensively on minimal movement. We discussed even though we have started transfer to a higher center given all of the above it is highly likely that patient might pass away prior to transfer or during transfer. We discussed given all of the above if patient's blood pressure dropped or patient develops hypotension because of extensive metabolic acidosis patient might require multiple pressors which again might be futile and can cause further peripheral gangrene hence we will not go through aggressive with pressor treatment and maximum we will do is Levophed off around 5-10 mics per hour. verbalized understanding. Family for now would want to continue aggressive treatment 1 what she is currently. They want her to remain with curr ent CODE STATUS. The same goals of care were also discussed with multiple other physicians including the calender machine operator helper. Plan for the day: Repeat blood cultures. Repeat labs in afternoon and plan for dialysis as per the electrolyte and creatinine at that time. While patient has nasal packing we will continue with vancomycin. Vancomycin 1 g IV given yesterday after dialysis. If no dialysis today we will hold off and check vancomycin random level in a.m. Continue with caspofungin. Continue with current ventilator settings. Again goals of care discussion done with patient's at bedside. Attestations Medical Necessity Statement*: Requires further hospitalization as patient remains ventilator dependent, dialysis dependent in setting of ARDS, morbid obesity, ATN while multiple goals of care discussions were Critical Care Time: The high probability of a clinically significant, sudden or life threatening deterioration of the patient's [renal, cardiac, pulmonary, neurological, GI] system(s) required my full and direct attention, intervention and personal management. The critical care time is as shown. This time is in addition to time spent performing any reported procedures but includes the following: [x] Data and vital sign review and interpretation [x] Patient assessment, examination and intervention [x] Documentation [x] Medication orders and management Critical Care Time (min): 60 Coding Level of Care Code Acute Clay Temperer for [facility] Fwd Diagnoses ARDS (adult respiratory distress syndrome) J80 Aspiration pneumonitis J69.0 ANY (acute kidney injury) N17.9 DIC (disseminated intravascular coagulation) D65 Acute and chronic respiratory failure with hypercapnia J96.22 Metabolic acidosis E87.20 Epistaxis R04.0 Hypertensive emergency I16.1 Difficult ventilator weaning Z99.11 CHF exacerbation I50.9 Hyponatremia E87.1 Peripheral vascular disease I73.9 Morbid obesity E66.01 Goals of care, counseling/discussion Z71.89
[2022-04-28] MEDS: propofol 1,000 MG/100 ML INJ 69.26 MG IV (18:32)
--- NOTE | 2022-04-28 22:40 | PC.NURSE ---
Update in Pt Care 2200: Family at bedside including Andres, informed this nurse they would like to move to comfort care at this time. Educated patient family about comfort care-all family members verbalized understanding of teaching. 2230: This nurse called [facility] and spoke with Sweta Armendariz about the decision to go comfort care, informed her patient will be terminally extubated per family wishes in 1-2 hours. 2240: Sweta Armendariz from [facility] called, reported pt is not candidate for donation and to inform [facility] upon patient passing.
--- NOTE | 2022-04-28 23:07 | W.PM.EVENTAC ---
Event Note Event Note: Multiple family members including patient's and daughters presented to the ICU at bedside. After discussing with their entire family, in keeping with patient's poor prognosis as noted on multiple discussions by the day team physicians, family has made the decision to move to comfort care management only. They understand that this includes extubating the patient, taking off the ventilator, discontinuing hemodialysis, discontinuing all pressor support, discontinuing antibiotics, using Ativan and morphine as needed to alleviate air hunger. They understand that using morphine and Ativan after extubation may likely cause depression of the respiratory drive with eventual passing. They understand and wish to proceed with comfort care measures only, letting nature take its course. Orders given to extubate patient. Family members at bedside. Event Notes Attestations Time Spent in Patient Care: 16 - 35 minutes
[2022-04-29] VITALS: BP 141/65; PULSE 33
--- NOTE | 2022-04-29 03:00 | PC.NURSE ---
Update 0115: Called [facility] and spoke with Rafaela regarding eye donation, all questions answered at this time. This nurse was informed to place a hold on patient body until further notice. 0130: Rafaela with [facility] called back and informed this nurse patient not a candidate for donation-the body is released to home. 0132: Called [facility] to pickup body. Spoke with Ari who said he would send a car. 0250: Body transferred to [facility].
--- NOTE | 2022-04-29 03:29 | PC.NURSE ---
Update in Pt Condition 2352: Terminally extubate patient, family members at bedside. Patient made comfortable. 0006: Monitor shows asystole, verified no heart/lung sounds with second nurse. Patient time of 0006. Bill informed this nurse home of choice is [facility]
--- NOTE | 2022-04-29 04:05 | PC.NURSE ---
Addendum entered by Snehal Rendon RN 04/29/22 04:14: Witnessed 130 cc of Fentanyl waste with Marilynn MUNGUIA. Original Note: Fentanyl Waste Fentanyl running at 5mls/hr upon starting shift, new Fentanyl bag was not scanned during dayshift. Wasted 130 mls of Fentanyl with NILDA De Leon.
--- NOTE | 2022-04-29 17:11 | PM.DDS ---
Discharge Providers DDS Date of Admission: 04/09/22 16:03 Date Summary Completed: 04/29/22 Attending Provider at Admission: Cornelio Snyder MD Time of : 00:06 Attending Provider at Discharge: Chris Ayala MD Consults: Telemetry nephrology District Service Manager/pulmonology: Dr. Raymond ENT: Dr. Aguayo Primary Care Provider: IZZY Suarez Diagnoses Hospital Diagnoses (1) ARDS (adult respiratory distress syndrome): (2) Aspiration pneumonitis: (3) ANY (acute kidney injury): (4) DIC (disseminated intravascular coagulation): (5) Acute and chronic respiratory failure with hypercapnia: (6) Metabolic acidosis: (7) Epistaxis: (8) Hypertensive emergency: (9) Difficult ventilator weaning: (10) CHF exacerbation: (11) Hyponatremia: (12) Peripheral vascular disease: (13) Morbid obesity: (14) Goals of care, counseling/discussion: Reason for Visit Reason for Visit Leg pain, fever Summary Date and Time of Date of : 04/29/22 Time of : 00:06 Summary Summary: Patient had a prolonged hospitalization from 04/09-04/28. Hospitalization was complicated by patient developing respiratory distress leading to ARDS from aspiration pneumonitis, septic shock, ventilator dependent secondary morbid obesity and ARDS, ATN/ANY because of which patient has been dialysis dependent, metabolic acidosis. 61-year-old female with past medical history of chronic acquired lymphedema morbid obesity, hyperthyroidism hypertension, was brought in with chief complaint of nausea vomiting fever and chills, was initially admitted for the management of sepsis secondary to right lower extremity cellulitis, unfortunately she had a complicated hospital course, resulting in development of, acute renal failure, possibly secondary to ATN secondary to sepsis, as well as septic shock, secondary to aspiration pneumonia, severe ARDS secondary to aspiration pneumonia/volume overload, initially on BiPAP, but later had to be intubated, as she was not responding to BiPAP. For her acute renal failure likely secondary to ATN secondary to sepsis she is on hemodialysis. With regards to her sepsis blood culture has been negative so far, urine culture is negative CT lower leg RT wo con: Similar-appearing diffuse extensive edema RIGHT lower extremity extending to the foot.No evidence of drainable abscess or fluid collection.No evidence of osteomyelitis. She has been kept on broad-spectrum antibiotics. Empirically antifungal has also been started on 04/26, as BAL culture: Showing Gabbie albicans. Less likely Invasive fungal pneumonia, more likely colonization. For acute hypoxic, hypercapnic respiratory failure : secondary to severe ARDS secondary to aspiration pneumonia/volume overload. She had to be intubated, after extreme persuasion as family was not ready for intubation initially, s/p bronc,?showed erythematous mucosa throughout bilateral bronchial tree;culture: Gabbie albican likely colonization, less likely invasive fungal pneumonia: Later hospital course has also been complicated by development of hypertensive emergencies: For which patient was kept on IV antihypertensive drip.?Patient has been empirically kept on therapeutic anticoagulation as there has been concern for possible PE, no CT imaging studies so far has been pursued given the size of the patient. Therapeutic anticoagulation was discontinued on 04/26, as she started having epistaxis, could be contributed to Uremia associated platelet dysfunction, for which she received nasal packing, desmopressin,traneamic acid. For most part patient has been off any vasopressor/or inotropic support. Currently patient has been off sedation for close to 48 hours: But unfortunately she has not shown any significant purposeful movements. Pertinent imaging studies: 2D echo : Is a poor quality due to poor quality window. CT lower leg RT wo con: Similar-appearing diffuse extensive edema RIGHT lower extremity extending to the foot. No evidence of drainable abscess or fluid collection. No evidence of osteomyelitis. rt Lower extremity ultrasound: Most recent ABG: pH 7.23, PCO2 59, PO2 67 , FiO2 85% P/F : 78 Most recent XR chest: 04/24: Emphysematous change, interstitial disease, and asymmetric airspace disease (left greater than right). Left pleural effusion. Given all the above, patient being ventilated and dialysis dependent multiple goals of care discussions were done with patient's family at bedside.We discussed that unfortunately patient is extremely critically ill with failure of lungs and kidneys leading to multiorgan dysfunction.? We also discussed that unfortunately patient remains high ventilator support dependent along with daily dialysis dependent.? We discussed given anuria, recurrent metabolic and respiratory acidosis, morbid obesity, bleeding diathesis from possible hematuria, possible hematemesis and ongoing extensive epistaxis it is highly likely that patient has a negative outcome with mortality.? We also discussed at this point all the medical treatment seems to be futile currently.? We also discussed that unfortunately patient is desaturating extensively on minimal movement.? We discussed even though we have started transfer to a higher center given all of the above it is highly likely that patient might pass away prior to transfer or during transfer. Seen goals of care were also discussed with patient family and other multiple physicians involved in her care. Eventually patient was made comfort measures on 04/28 at around 11 PM. Patient eventually on 04/29 at 12:06 AM. Patient's was at bedside. Additional Data Confirmation of as documented by pronouncing clinician: no pulse and no respirations Family: at bedside Additional persons at bedside: nursing staff Attending/PCP notified?: I am attending Was code activated?: No Autopsy requested?: No Advance directives?: No Hospice patient?: No Discharge Plan Discharge Patient Disposition: At Medical Facility Condition: Stable Prescriptions: Continued fluoxetine [Prozac] 20 mg capsule 20 mg PO BID Qty: 60 2RF lisinopril 20 mg tablet 20 mg PO DAILY Qty: 30 2RF meloxicam 15 mg tablet 15 mg PO QDAY 30 Days Qty: 30 2RF methocarbamol 500 mg tablet 500 mg PO BID Qty: 60 2RF pregabalin [Lyrica] 100 mg capsule 100 mg PO BID Qty: 60 2RF acetaminophen-codeine 300-60 mg tablet 1 tab PO Q6H PRN (Reason: Pain) Referrals: Chloe Gonzalez APN [Primary Care Provider] - Patient Instructions: Opioid Safety Probable Cause of Probable cause of : Acute respiratory distress syndrome (ARDS) DS Attestations Time Spent in /Discharge Care*: greater than 30 min Quality - AMI: AMI present?: No Quality - Stroke: CVA present?: No Symptom Onset Unknown: No Quality - VTE: VTE present?: No Coding Level of Care Code Acute Computer Lab Aide for [facility] Fwd Diagnoses ARDS (adult respiratory distress syndrome) J80 Aspiration pneumonitis J69.0 ANY (acute kidney injury) N17.9 DIC (disseminated intravascular coagulation) D65 Acute and chronic respiratory failure with hypercapnia J96.22 Metabolic acidosis E87.20 Epistaxis R04.0 Hypertensive emergency I16.1 Difficult ventilator weaning Z99.11 CHF exacerbation I50.9 Hyponatremia E87.1 Peripheral vascular disease I73.9 Morbid obesity E66.01 Goals of care, counseling/discussion Z71.89
== END 2022-04-29 02:50 | disposition expired | DRG 853 ==
LOC: ER 16:02 → MEDSURG 19:06 → ICU 04-10 23:15
PROVIDERS: Hospitalist; Internal Medicine; Internal Medicine Nephrology; Internal Medicine Pulmonary Disease; Student in an Organized Health Care Education/Training Program; Admitting Provider Internal Medicine; Emergency Provider Emergency Medicine; PCP Family Medicine; Visit Provider Student in an Organized Health Care Education/Training Program
DX: A41.9 Sepsis, unspecified organism (principal); D65 Disseminated intravascular coagulation [defibrination syndrome]; G93.41 Metabolic encephalopathy; R65.21 Severe sepsis with septic shock; N17.0 Acute kidney failure with tubular necrosis; I50.21 Acute systolic (congestive) heart failure; J80 Acute respiratory distress syndrome; J69.0 Pneumonitis due to inhalation of food and vomit; L03.115 Cellulitis of right lower limb; E66.2 Morbid (severe) obesity with alveolar hypoventilation; Z68.45 Body mass index [BMI] 70 or greater, adult; T17.890A Other foreign object in other parts of respiratory tract causing asphyxiation, initial encounter; Z99.11 Dependence on respirator [ventilator] status; I16.1 Hypertensive emergency; E87.20 Acidosis, unspecified; I13.0 Hypertensive heart and chronic kidney disease with heart failure and stage 1 through stage 4 chronic kidney disease, or unspecified chronic kidney disease; E87.1 Hypo-osmolality and hyponatremia; I47.20 Ventricular tachycardia, unspecified; L97.919 Non-pressure chronic ulcer of unspecified part of right lower leg with unspecified severity; Z88.5 Allergy status to narcotic agent; Z88.0 Allergy status to penicillin; M19.90 Unspecified osteoarthritis, unspecified site; M79.7 Fibromyalgia; F41.1 Generalized anxiety disorder; E03.9 Hypothyroidism, unspecified; I73.9 Peripheral vascular disease, unspecified; G62.9 Polyneuropathy, unspecified; R04.0 Epistaxis; Z51.5 Encounter for palliative care; N18.9 Chronic kidney disease, unspecified; I95.9 Hypotension, unspecified; I83.019 Varicose veins of right lower extremity with ulcer of unspecified site
CPT/HCPCS: 12345; 31500; 31622; 36415; 36416; 36556; 36569; 36592; 36600; 51702; 71045; 73700; 73701; 74018; 76604; 76770; 80048; 80051; 80053; 80061; 80069; 80202; 81001; 82009; 82044; 82306; 82330; 82436; 82550; 82803; 82805; 82962; 83036; 83605; 83735; 83880; 84100; 84133; 84145; 84300; 84443; 84484; 84550; 85007; 85014; 85018; 85025; 85049; 85362; 85378; 85384; 85610; 85651; 85730; 85999; 86140; 86803; 87040; 87070; 87086; 87106; 87205; 87340; 87635; 89050; 90935; 93005; 93971; 94002; 94003; 94640; 94660; 94799; 96365; 96367; 96372; 96375; 99285; A4222; A4570; C1751; C8929; C9113; J0131; J0330; J0360; J0637; J0692; J1642; J1644; J1650; J1815; J1940; J2060; J2185; J2250; J2270; J2405; J2597; J2704; J3010; J3370; J3430; J3475; J3480; J3490; J7030; J7040; J7050; J7060; J7120; P9047; Q3014; Q9956; Q9967